=== PATIENT | male | born 1940 | race Caucasian/White ===

== ENCOUNTER 2021-09-27 12:33 | Outpatient (RCR) | payer MEDICARE, OTHER, SELFPAY | END 2021-10-10 13:25 | disposition home or self-care (01) | LOC: HO.WCC 12:33 | PROVIDERS: PCP Internal Medicine; Visit Provider Surgery | DX: D48.5 Neoplasm of uncertain behavior of skin (principal); I48.91 Unspecified atrial fibrillation; N18.6 End stage renal disease; Z99.2 Dependence on renal dialysis; G62.9 Polyneuropathy, unspecified | CPT/HCPCS: 11102; 88305; 99212 ==

== ENCOUNTER → 2021-12-06 13:43 | Outpatient (BNVA) | payer MEDICARE, OTHER, SELFPAY | PROVIDERS: PCP Internal Medicine; Visit Provider Surgery | DX: L98.9 Disorder of the skin and subcutaneous tissue, unspecified (principal); N18.6 End stage renal disease; Z99.2 Dependence on renal dialysis | CPT/HCPCS: 99202 ==

== ENCOUNTER 2022-01-08 06:35 | Day surgery (SDC) | payer MEDICARE, OTHER, SELFPAY ==
[2022-01-03 09:40] VITALS: BMI 25.6
--- NOTE | 2022-01-04 12:43 | HO.ANESPROP2 ---
Documented by User: Mira Lala NP 01/04/22 12:52 HPI - Anesthesia Eval Consult details Narrative: 81yo M for Left Excision of Buttock Skin Lesion Warfarin for afib ESRD with HD on MWF *No IV/BP on LEFT* (AV fistula) AICD in situ PMFSH Active Problems Active Problems: All Active Problems (Updated 01/03/22 @ 11:24 by Ciara Black, RN) End stage renal disease (Acute) Skin lesion (Acute) Unsteady gait (Acute) History of urostomy (Acute) History of bladder surgery (Acute) Prostate cancer (Acute) Past Medical History Medical History (Updated 01/04/22 @ 12:49 by Mira Lala NP) Ambulates with cane Arteriovenous fistula for hemodialysis in place, primary Ascending aorta dilatation Atrial fibrillation AVNRT (AV vivian re-entry tachycardia) CAD (coronary artery disease) CHF (congestive heart failure) Elevated cholesterol End stage renal disease ESRD (end stage renal disease) on dialysis GERD (gastroesophageal reflux disease) HTN (hypertension) Hx of syncope Insomnia JAIRON (obstructive sleep apnea) Prostate cancer Rheumatoid arthritis Skin lesion Unsteady gait Wears dentures Surgical History Surgical History (Updated 01/03/22 @ 11:24 by Ciara Black RN) History of bladder surgery History of urostomy Hx of abdominal surgery Hx of colonoscopy Hx of hernia repair Hx of radical prostatectomy S/P implantation of automatic cardioverter/defibrillator (AICD) Social History Social History (Updated 01/03/22 @ 09:42 by Ciara Black RN) Patient Tobacco Use Status: Never used Tobacco Are you DNR?: No Advance Directives: No Advance Directives Information Provided: Yes Advance Directives on File: No Recently lost weight without trying: No Meds Allergies Allergy/AdvReac Type Severity Reaction Status Date / Time doxycycline Allergy Difficulty Verified 01/03/22 09:35 Breathing Home Medications Medication Instructions Recorded Confirmed Last Taken Type adalimumab 40 mg/0.8 mL 40 mg SUBCUT QWEEK 12/06/21 01/03/22 Unknown History subcutaneous pen kit (Humira Pen) atorvastatin 40 mg tablet 40 mg PO BEDTIME 12/06/21 01/03/22 Unknown History cyanocobalamin (vitamin B-12) 1,000 mcg PO DAILY 12/06/21 01/03/22 Unknown History 1,000 mcg capsule fluticasone propionate 50 1 spray INTRANASAL DAILY 12/06/21 01/03/22 Unknown History mcg/actuation nasal spray,suspension gabapentin 100 mg capsule 100 mg PO BID 12/06/21 01/03/22 Unknown History ipratropium bromide 21 mcg (0.03 1 spray INTRANASAL DAILY 12/06/21 01/03/22 Unknown History %) nasal spray lactobacillus combination no.9 4 4,000 mmu cells PO DAILY 12/06/21 Unknown History billion cell capsule (Adult 50 Plus Probiotic) magnesium oxide 400 mg (241.3 mg 400 mg PO DAILY 12/06/21 01/03/22 Unknown History magnesium) tablet megestrol 20 mg tablet 20 mg PO BEDTIME 12/06/21 01/03/22 Unknown History metoprolol succinate 25 mg 12.5 mg PO DAILY 12/06/21 01/03/22 01/08/22 History tablet,extended release 24 hr omeprazole 20 mg capsule,delayed 20 mg PO BID 12/06/21 01/03/22 01/08/22 History release trazodone 100 mg tablet 100 mg PO BEDTIME 12/06/21 01/03/22 Unknown History warfarin 1 mg tablet 3.5 mg PO DAILY 12/06/21 01/03/22 Unknown History Exam Exam Date and Time: January 04, 2022 1243 Height,Weight and Vital Signs: Height 6 ft 3 in Weight 92.986 kg Pertinent Lab Results Pertinent Lab Results: 12/12/21 WBC 3.2 Hgb 10.7 Hct 33.7 Plt 534 Narrative Narrative: AICD Interr 10/2021 Nml lead and device function. One NSVT lasting 1 second. AF burden is 28.7%. EKG 04/2021 Aflutter with variable AV block Cannot r/o anterior infarct, age undetermined Assessment and Plan Assessment Anesthesia Assessment: Chart Reviewed Documented by User: Scott Flowers MD 01/08/22 08:04 [facility] Past Medical History Medical History (Updated 01/04/22 @ 12:49 by Mira Lala NP) Ambulates with cane Arteriovenous fistula for hemodialysis in place, primary Ascending aorta dilatation Atrial fibrillation AVNRT (AV vivian re-entry tachycardia) CAD (coronary artery disease) CHF (congestive heart failure) Elevated cholesterol End stage renal disease ESRD (end stage renal disease) on dialysis GERD (gastroesophageal reflux disease) HTN (hypertension) Hx of syncope Insomnia JAIRON (obstructive sleep apnea) Prostate cancer Rheumatoid arthritis Skin lesion Unsteady gait Wears dentures Family History Family history of problems with anesthesia: No Surgical History Surgical History (Updated 01/03/22 @ 11:24 by Ciara Black, [place]) History of bladder surgery History of urostomy Hx of abdominal surgery Hx of colonoscopy Hx of hernia repair Hx of radical prostatectomy S/P implantation of automatic cardioverter/defibrillator (AICD) History of Problems with Anesthesia: No Social History Social History (Updated 01/03/22 @ 09:42 by Ciara Black RN) Patient Tobacco Use Status: Never used Tobacco Are you DNR?: No Advance Directives: No Advance Directives Information Provided: Yes Advance Directives on File: No Recently lost weight without trying: No Meds Allergies Allergy/AdvReac Type Severity Reaction Status Date / Time doxycycline Allergy Difficulty Verified 01/03/22 09:35 Breathing Home Medications Medication Instructions Recorded Confirmed Last Taken Type adalimumab 40 mg/0.8 mL 40 mg SUBCUT QWEEK 12/06/21 01/03/22 Unknown History subcutaneous pen kit (Humira Pen) atorvastatin 40 mg tablet 40 mg PO BEDTIME 12/06/21 01/03/22 Unknown History cyanocobalamin (vitamin B-12) 1,000 mcg PO DAILY 12/06/21 01/03/22 Unknown History 1,000 mcg capsule fluticasone propionate 50 1 spray INTRANASAL DAILY 12/06/21 01/03/22 Unknown History mcg/actuation nasal spray,suspension gabapentin 100 mg capsule 100 mg PO BID 12/06/21 01/03/22 Unknown History ipratropium bromide 21 mcg (0.03 1 spray INTRANASAL DAILY 12/06/21 01/03/22 Unknown History %) nasal spray lactobacillus combination no.9 4 4,000 mmu cells PO DAILY 12/06/21 Unknown History billion cell capsule (Adult 50 Plus Probiotic) magnesium oxide 400 mg (241.3 mg 400 mg PO DAILY 12/06/21 01/03/22 Unknown History magnesium) tablet megestrol 20 mg tablet 20 mg PO BEDTIME 12/06/21 01/03/22 Unknown History metoprolol succinate 25 mg 12.5 mg PO DAILY 12/06/21 01/03/22 01/08/22 History tablet,extended release 24 hr omeprazole 20 mg capsule,delayed 20 mg PO BID 12/06/21 01/03/22 01/08/22 History release trazodone 100 mg tablet 100 mg PO BEDTIME 12/06/21 01/03/22 Unknown History warfarin 1 mg tablet 3.5 mg PO DAILY 12/06/21 01/03/22 Unknown History Exam Airway Mallampati Class: II TM Dist: >3cm Neck ROM: Full Denture: Lower Partial: Upper Assessment and Plan Assessment Anesthesia Assessment: Anesthesia Plan Discussed Final Anesthetic Review Family History of Problems with Anesthesia: No History of Problems with Anesthesia: No NPO: Yes ASA Class: IV Final Preanesthetic Review: No Changes in Pt Med Stat, Meds/Allgs Chart Reviewed, Consent Obtained/Reviewed and Anes Risks/Benef Reviewed Patient Risk: Intermediate Procedure Risk: Low Anesthetic Plan Anesthetic Plan: GA Disposition: Standard PACU
[2022-01-08 07:08] VITALS: BP 161/78; PULSE 79; RESP 16; TEMP 36.3; O2SAT 96
[2022-01-08 07:12] LABS: INTERNATIONAL NORM RATIO 1.2 (0.9-1.1); Prothrombin Time 13.3 SEC (9.9-13.0)
[2022-01-08] MEDS: 0.9 % Sodium Chloride 1,000 ML 50 ML IVCONT (07:20)
[2022-01-08 07:26] LABS: Anion Gap 15 (12-20); Carbon Dioxide 34 mmol/L (22-29); Chloride 93 mmol/L (96-108); Potassium 4.4 mmol/L (3.3-5.1); Sodium 138 mmol/L (135-145)
--- NOTE | 2022-01-08 07:27 | MHC.SHP ---
Pre-Procedural Eval Section A Date of Service: 01/08/22 Section B Chief Complaint: Skin Lesion Details of Present Illness: has lesion on left buttock - biopsy done by the [facility]ound [facility] shows a atypical squamous proliferation with a squamous cell carcinoma not ruled out; excision was therefore recommended Relevant Family History (Specify if Yes): No Relevant Social History: None Present Medications: see Short Stay Collaborative assessment Medical History: Significant History (prostate ca, ESRD, unsteady gait) Allergies: Allergies Allergy/AdvReac Type Severity Reaction Status Date / Time doxycycline Allergy Difficulty Verified 01/03/22 09:35 Breathing Review of Systems Sugical H&P ROS: Negative: Constitution, Cardiovascular, Respiratory, Neurological, Psychiatric, Hem-Onc, Allergic/Immunologic, Gastrointestinal, Genitourinary, Musculoskeletal, Integumentary, Endocrine and Eyes/Ears/Nose/Throat Exam Surgical H&P Exam: Normal: HEENT, Normal: Heart, Normal: Lungs, Normal: Extremities, Normal: Abdomen, Normal: Skin and Normal: Neurological Exam Comment: lesion on left buttock about 3 cm, near the cleft Plan Diagnosis/Plan: Unchanged I have reviewed the history and physical and performed a pertinent physical examination on my patient. No changes have occurred unless specified.
--- NOTE | 2022-01-08 09:43 | P.OP_ITS ---
Operative Note Operative Note Date of Service: 01/08/22 Narrative: Preop diagnosis: Skin lesion, left buttock Postop diagnosis skin lesion left buttock Procedure: Excision of skin lesion left buttock under anesthesia Surgeon: Satish Spencer MD Entry Level Manager: ELLA Vieira The patient is an 81-year-old male with an elevated, not well-defined lesion on the left buttock near the left measuring about 3 cm in widest diameter. A biopsy had been done by the Wound Clinic which showed atypical squamous proliferation. An excision had been recommended because of the possibility of a squamous cell carcinoma. He understood the technique of excision which is to be done under anesthesia. He was aware of the risks, benefits, and alternatives. He was brought to the operating room placed in right lateral decubitus position under monitored anesthesia care. The left buttock was retracted with wide tape laterally. This allowed good exposure of the lesion. This area of the skin lesions prepped and draped. Lidocaine 1% was used to infiltrate the planned line of incision. I made an incision elliptically around this lesion using blade 15. This was carried down through the full-thickness of the skin and subcutaneous fat. We mindful to include margins of grossly normal skin around the lesion. I excised this thickness skin and part of subcutaneous layer and this was sent as a specimen. I marked the lateral and superior margins. The excised area was about 4 cm long by about 3 cm wide. I appose the subcutaneous layer with Dexon 3-0 interrupted sutures. Skin closure was achieved with nylon 3-0 simple interrupted sutures. The area was infiltrated with Marcaine 0.25% for postop analgesia. Dressings were applied. The procedure was completed. The patient tolerated the procedure well. There were no complications noted. Initial and final counts of sponges and instruments were correct. Estimated blood loss about 10 cc The patent was then transferred to the recovery room with stable vital signs.
[2022-01-08 09:50] VITALS: BP 126/71; PULSE 85; RESP 16; TEMP 36.2; O2SAT 100
[2022-01-08 10:05] VITALS: BP 108/85; PULSE 74; RESP 16; TEMP 36.5; O2SAT 97
[2022-01-08] MEDS: oxyCODONE HCl Immed Release 5 MG TABLET PO (10:05)
== END 2022-01-08 10:46 ==
LOC: HO.SSS 06:35
PROVIDERS: Nurse Practitioner; PCP Internal Medicine; Visit Provider Surgery
PROC: (CPT 11406; principal; 2022-01-08 08:40)
DX: L82.1 Other seborrheic keratosis (principal); I12.0 Hypertensive chronic kidney disease with stage 5 chronic kidney disease or end stage renal disease; N18.6 End stage renal disease; Z93.6 Other artificial openings of urinary tract status; Z99.2 Dependence on renal dialysis; Z85.46 Personal history of malignant neoplasm of prostate; R26.81 Unsteadiness on feet; Z98.890 Other specified postprocedural states
CPT/HCPCS: 11406; 36415; 80051; 85610; 88305; J0690; J2250; J3010

== ENCOUNTER → 2022-01-25 10:46 | Outpatient (BNVA) | payer MEDICARE, OTHER, SELFPAY | PROVIDERS: PCP Internal Medicine; Visit Provider Surgery | DX: Z48.02 Encounter for removal of sutures (principal) | CPT/HCPCS: 99211 ==

== ENCOUNTER → 2022-02-14 10:40 | Outpatient (BNVA) | payer MEDICARE, OTHER, SELFPAY | PROVIDERS: PCP Internal Medicine; Visit Provider Surgery | DX: L98.9 Disorder of the skin and subcutaneous tissue, unspecified (principal) | CPT/HCPCS: 99212 ==

== ENCOUNTER 2022-05-20 05:00 | Outpatient (REF) | payer MEDICARE, SELFPAY | END 2022-05-20 05:01 | disposition home or self-care (01) | LOC: HO.MMNH2L 05:00 | PROVIDERS: Visit Provider Family Medicine | DX: Z13.89 Encounter for screening for other disorder (principal) ==

== ENCOUNTER 2022-08-09 13:37 | Inpatient (IN) | payer MEDICARE, OTHER, SELFPAY ==
[2022-08-09] VITALS (10 sets, daily range): BP systolic 79–114; BP diastolic 40–61; PULSE 74–105; RESP 16–22; TEMP 36.6–39.9; O2SAT 95–100; BMI 27.5
--- NOTE | ~2022-08-09 | CT_ITS ---
EXAMINATION: CT ABDOMEN AND PELVIS WITHOUT CONTRAST CLINICAL INFORMATION: Upper back wound COMPARISON: None TECHNIQUE: Multidetector volumetric imaging was performed from the superior aspect of the liver through the pubic symphysis. Sagittal and coronal reformatted images were obtained on the technologist's workstation. This CT examination was performed using dose optimization techniques as appropriate, variously including the following: *Automated exposure control *Adjustment of mA and/or kV according to patient size (this includes techniques or standardized protocols for targeted exams where dose is matched to indication/reason for exam; i.e. extremities or head) *Use of iterative reconstruction technique DLP: 937 mGy-cm FINDINGS: LUNG BASES: Bilateral basilar atelectasis. In addition density at the right base measuring 1.7 cm. A lesion would need to be considered here. Smaller density in the medial right base. Measures 1.1 cm. Again a lesion would need to be considered though these may represent areas of rounded infiltrate. LIVER, GALLBLADDER, AND BILIARY TREE: The liver is normal in size, shape, and attenuation. No focal hepatic lesion or biliary ductal dilatation is present. The gallbladder is unremarkable with no evidence of radiopaque gallstones, gallbladder wall thickening, or obvious pericholecystic inflammatory changes. PANCREAS: Unremarkable. SPLEEN: Unremarkable. ADRENAL GLANDS: Unremarkable. KIDNEYS AND URETERS: Atrophic appearing right kidney. A left kidney is not identified in the fossa. BLADDER: No evidence for a bladder GASTROINTESTINAL TRACT: The bowel pattern is nonobstructing. There is diverticulosis but no evidence for diverticulitis. Probable appendicolith but no suspicion involving the appendix for acute finding. ABDOMINAL WALL: Abdominal wall herniation in the midline containing bowel. This is not causing obstruction. This may be occurring in several areas. There is a stoma region on the right. Soft tissue density involving the subcutaneous tissue in the mid to lower lumbar region. There is a small air density associated. Cellulitis/underlying infection would need to be considered. LYMPH NODES: There is overall increased density occupying the iliac region on the left. Etiology is indeterminate. Malignancy here would need to be considered. Measures 5.7 x 3.7 cm. Otherwise no bulky adenopathy. VASCULAR: Atherosclerotic changes are noted. PELVIC VISCERA: Unremarkable. OSSEOUS STRUCTURES: No compression injury. No suspicion for a bony lesion. Degenerative change in the hips is noted. CT/CT abdomen pelvis wo IV con IMPRESSION: There are several findings here. Soft tissue engulfing and occupying the region of the left iliac region. Tumor would need to be considered here. Differential would include possibly aging hematoma versus chronic change of other etiology. Bilateral basilar lung changes. A few foci show masslike quality. Certainly underlying malignancy cannot be excluded though this may be inflammatory in etiology. Soft tissue increase in the mid to lower lumbar region subcutaneous fat region with a small air focus. Infection would need to be considered. Cellulitis. Atrophic right kidney. The left kidney is not identified. Abdominal wall herniation. This is not causing obstruction at this time Fleischner guidelines were followed.
--- NOTE | ~2022-08-09 | US_ITS ---
EXAMINATION: US VENOUS WITH DOPPLER UPPER EXTREMITY, LEFT CLINICAL INFORMATION: Bacteremia with fistula or ulceration. Check for flow on abscess COMPARISON: None TECHNIQUE: Ultrasound of the upper extremity is performed using compression sonography and color and pulse Doppler flow with assessment of augmentation of flow. There is also imaging and Doppler assessment of the jugular and subclavian veins. Spectral analysis with color-flow imaging is performed. FINDINGS: Examination is limited. The left internal jugular vein and left brachial veins are patent with normal venous waveforms. The patient's left upper extremity fistula is patent with pulsatile low-resistance flow extending from the clavicle to the level of the elbow. The remainder of the left upper extremity veins were not visualized due to patient requesting the technologist to stop the exam per report. No soft tissue fluid collection/abscess is identified. US/US venous duplex UE LT IMPRESSION: 1. Limited exam due to patient requesting the technologist to stop the exam per report. 2. The patient's left upper extremity fistula is patent with pulsatile low-resistance flow extending from the clavicle to the level of the elbow. The left internal jugular vein and left brachial veins are patent. No soft tissue fluid collection/abscess is identified.
--- NOTE | ~2022-08-09 | XR_ITS ---
EXAMINATION: XR CHEST CLINICAL INFORMATION: Altered mental status COMPARISON: None TECHNIQUE: Frontal view of the chest was obtained. FINDINGS: No priors available for comparison. There are patchy airspace opacities most notable at the right base and left lung apex suspicious for multifocal infection. Small bilateral pleural effusions are likely present. Normal heart size. Left axillary stent. Single lead pacer/AICD seen with tip projecting over the expected location of the left ventricular apex. Chronic appearing fracture of the right scapula. Degenerative changes of the right shoulder and spine. XR/XR chest 1V IMPRESSION: Patchy bilateral airspace opacities suspicious for multifocal infection. Small bilateral pleural effusions.
--- NOTE | ~2022-08-09 | CT_ITS ---
Indication: Altered mental status EXAMINATION: CT brain Axial imaging with coronal and sagittal reformatted images. This CT examination was performed using dose optimization techniques as appropriate, variously including the following: *Automated exposure control *Adjustment of mA and/or kV according to patient size (this includes techniques or standardized protocols for targeted exams where dose is matched to indication/reason for exam; i.e. extremities or head) *Use of iterative reconstruction technique. Radiation dose is 690. The brain; There is no midline shift. There is no mass effect. There is no hemorrhage. The basal cisterns appear patent. The posterior fossa is grossly within normal limits. There is no extra-axial collection. There is atrophy here scattered areas of white or ischemic change. Air-fluid level in the right maxillary sinus is noted. CT/CT head/brain wo IV con IMPRESSION: Negative acute noncontrast CT the brain. Air-fluid level in the maxillary sinus. May indicate acute sinus disease
--- NOTE | ~2022-08-09 | IR_ITS ---
PROCEDURE: IR INSERTION OF TUNNEL CATHETER CLINICAL INFORMATION: Renal failure. Decubitus ulcer and sepsis with long-term antibiotic requirement. COMPARISON: None TECHNIQUE: Procedure and risks and benefits including bleeding, infection and pneumothorax were discussed with the patient and informed consent was obtained. All elements of maximal sterile barrier technique followed including use of cap, mask, sterile gown, sterile gloves, a sterile full body drape and hand hygiene. Also followed skin preparation with 2% chlorhexidine for cutaneous antisepsis, and sterile ultrasound preparation with sterile gel and probe cover when applicable. The left neck was prepped and draped in the usual sterile fashion. The skin and soft tissues were anesthetized with 1% lidocaine plain. Using ultrasound guidance, left internal jugular vein access was obtained. Over an .018 wire, a 5-Haitian dilator was positioned in the left innominate vein. The skin and soft tissues of the left upper anterior chest were anesthetized with 1% lidocaine plain. A small incision was made. A subcutaneous tunnel from the chest to the neck incision was anesthetized with 1% lidocaine plain. Using a tunneler, a 5-Haitian single-lumen proline catheter was tunneled from the chest to the neck incision. Over an .035 wire, a 5-Haitian dilator was exchanged for a 6-Haitian peel-away sheath. Using bent wire technique, catheter length was estimated and the catheter was cut. Catheter length is 25 cm. The catheter was fed centrally through the peel-away sheath. Catheter tip is in the proximal SVC. Neck incision was closed using a 3-0 absorbable subcuticular suture. Chest incision was closed using a 3-0 absorbable mattress suture. The catheter had good blood return, flushed easily and was instilled with heparin 5 mL 100 unit per mL solution. Real-time ultrasound guidance was used to document vein patency and for needle entry. A formal ultrasound picture was recorded. Conscious sedation was provided by a registered nurse under my direct supervision. Total sedation time was 25 minutes. Patient received Versed 0.5 mg and fentanyl 25 mcg IV during the procedure. Conscious sedation was provided by registered nurse under my direct supervision using continuous hemodynamic monitoring. Fluoro time: 0.6 minutes. DAP: 61 cGy-cm2. 1 saved fluoroscopic image. FINDINGS: There is a left internal jugular proline catheter with tip projecting over the proximal SVC. IR/IR cvc insert central tunnel IMPRESSION: Left internal jugular 5-Haitian single-lumen proline catheter placement.
--- NOTE | 2022-08-09 14:02 | ECG_ITS ---
Test Reason : low bp Blood Pressure : / mmHG Vent. Rate : 098 BPM Atrial Rate : 000 BPM P-R Int : 000 ms QRS Dur : 100 ms QT Int : 376 ms P-R-T Axes : 000 -26 030 degrees QTc Int : 480 ms Atrial fibrillation Low voltage QRS Incomplete right bundle branch block Nonspecific ST and T wave abnormality Prolonged QT Nonspecific ST abnormality Lateral leads Abnormal ECG No previous ECGs available Referred By: Swetha Coronado Electronically Signed By:KYM GUADALUPE MD
--- NOTE | 2022-08-09 14:03 | ED_ITS ---
HPI - Altered Mental Status General Chief Complaint: Altered Mental Status Stated Complaint: AMS,WEKANESS Time Seen by Provider: 08/09/22 14:01 Source: patient and family Mode of arrival: EMS Limitations: altered mental status History of Present Illness HPI narrative: 81 yo male from SNF hx of ESRD on HD T TH S, prostate cancer hx of urostomy, HLD, COPD, HTN, GERD, afib on coumadin, CAD, CHF, JAIRON, RA - comes in with AMS unsure duration found to be febrile. SNF states altered mental status x 2 hours but then told RN that this isn't new. MD complaint: altered mental status Onset (ago): unknown Severity: moderate Consistency of symptoms: constant Context: recent fever Associated symptoms: other (has wound on back, cough) Related Data Home Medications Medication Instructions Recorded Confirmed adalimumab 40 mg/0.8 mL 40 mg subcut SA 12/06/21 08/09/22 subcutaneous pen kit (Humira Pen) atorvastatin 40 mg tablet 40 mg PO BEDTIME 12/06/21 08/09/22 cyanocobalamin (vitamin B-12) 1,000 mcg PO DAILY 12/06/21 08/09/22 1,000 mcg capsule gabapentin 100 mg capsule 200 mg PO BEDTIME 12/06/21 08/09/22 magnesium oxide 400 mg (241.3 mg 400 mg PO DAILY 12/06/21 08/09/22 magnesium) tablet megestrol 20 mg tablet 20 mg PO DAILY 12/06/21 08/09/22 omeprazole 20 mg capsule,delayed 20 mg PO DAILY@0630 12/06/21 08/09/22 release trazodone 100 mg tablet 150 mg PO BEDTIME 12/06/21 08/09/22 warfarin 1 mg tablet 1 mg PO DAILY@1800 12/06/21 08/09/22 acetaminophen 500 mg tablet 1,000 mg PO Q8H PRN Pain 08/09/22 08/09/22 bisacodyl 10 mg rectal suppository 10 mg SD DAILY PRN Constipation 08/09/22 08/09/22 cholecalciferol (vitamin D3) 25 25 mcg PO DAILY 08/09/22 08/09/22 mcg (1,000 unit) tablet gabapentin 100 mg capsule 1 cap PO TID 08/09/22 08/09/22 guaifenesin 100 mg/5 mL oral liquid 200 mg PO Q2H PRN Cough 08/09/22 08/09/22 guaifenesin 600 mg tablet, 600 mg PO BID 08/09/22 08/09/22 extended release 12 hr (Mucinex) lidocaine 5 % topical patch 1 patch topical DAILY 08/09/22 08/09/22 melatonin 5 mg tablet 10 mg PO BEDTIME 08/09/22 08/09/22 metoprolol tartrate 25 mg tablet 12.5 mg PO BID 08/09/22 08/09/22 midodrine 5 mg tablet 5 mg PO TID PRN Hypotension 08/09/22 08/09/22 nitroglycerin 0.4 mg sublingual 0.4 mg sublingual Q5M PRN Angina 08/09/22 08/09/22 tablet polyethylene glycol 3350 17 gram 17 g PO DAILY 08/09/22 08/09/22 oral powder packet (Miralax) sennosides 8.6 mg tablet (senna) 17.2 mg PO BID 08/09/22 08/09/22 sevelamer carbonate 800 mg tablet 800 mg PO BIDWM 08/09/22 08/09/22 vitamin B complex and vitamin C 1 cap PO DAILY 08/09/22 08/09/22 no.20-folic acid 1 mg capsule Allergies Allergy/AdvReac Type Severity Reaction Status Date / Time doxycycline Allergy Difficulty Verified 02/14/22 11:00 Breathing Review of Systems Review of Systems: ROS unable to be obtained due to altered mental status [facility] Past Medical History Attestation statement: The following information was validated with the patient. Medical History Ambulates with cane Arteriovenous fistula for hemodialysis in place, primary Ascending aorta dilatation Atrial fibrillation AVNRT (AV vivian re-entry tachycardia) CAD (coronary artery disease) CHF (congestive heart failure) Elevated cholesterol End stage renal disease ESRD (end stage renal disease) on dialysis GERD (gastroesophageal reflux disease) HTN (hypertension) Hx of syncope Insomnia JAIRON (obstructive sleep apnea) Prostate cancer Rheumatoid arthritis Skin lesion Unsteady gait Wears dentures Surgical History History of bladder surgery History of surgical removal of skin lesion History of urostomy Hx of abdominal surgery Hx of colonoscopy Hx of hernia repair Hx of radical prostatectomy S/P implantation of automatic cardioverter/defibrillator (AICD) Social History Social History Patient Tobacco Use Status: Never used Tobacco Advance Directives: No Physical Exam ED Vital Signs: Vital Signs - 24 hr 08/09/22 13:49 08/09/22 14:15 08/09/22 15:32 Temperature 103.3 F H 103.8 F H 99.2 F Pulse Rate 102 H 93 102 H Respiratory Rate 16 21 H 16 Blood Pressure 105/55 L 104/52 L 79/40 L Pulse Oximetry 99 99 96 Oxygen Delivery Method Room Air Room Air Room Air 08/09/22 16:07 08/09/22 16:27 08/09/22 16:29 Temperature 101.5 F H Pulse Rate 97 89 84 Respiratory Rate 22 H 20 Blood Pressure 89/45 L 103/43 L 103/43 L Pulse Oximetry 97 97 Oxygen Delivery Method Room Air BMI result Body Mass Index 27.5 Appearance: Alert. confused but knows his name. No acute distress. Eyes: Pupils equal, round and reactive to light. ENT: Pharynx normal. Neck: Normal inspection. Neck supple. CVS: tachycardic heart rate and rhythm. Pulses normal. Respiratory: No respiratory distress. Breath sounds coarse with mild rales at bases Abdomen: Soft and nontender. urostomy in place urine slightly cloudy Back: see picture large open draining wound above sacrum foul odor noted with surrounding erythema and edema Skin: Skin warm and dry. pale skin color. Normal skin turgor. Extremities: no edema. No calf ttp Neuro: confused No motor deficit. No sensory deficit. Course Course Course Narrative: INR 9/6 H/H stable, no active bleeding will send off type and screen and give Vit K and patient state he is a full code patient is hypotensive - CKD ESRD fluids, albumin, midodrine ordered BP slowly coming up - patient wants central line though he seems slightly confused, wants to do whatever wants if he does not respond to fluids/albumin will give 1 L BP now up to 103/43 patient's BP is responding to fluids, albumin and midodrine - discussed with pateint and now DNR/DNI signed out to Dr. Yi pending CT scan and patient waiting for sons to come to discuss pressors, seems on the fence about it MDM - Altered Mental Status MDM Narrative Medical decision making narrative: 81 yo male from SNF hx of ESRD on HD T TH S, prostate cancer hx of urostomy, HLD, COPD, HTN, GERD, afib on coumadin, CAD, CHF, JAIRON, RA presents altered with fever - labs, lactic acid cultures, presumed infection from wound on back - empiric antibiotics ordered. CT scan for depth ordered. CT head for ICH. Planned admit Lab Data Result diagrams: 08/09/22 14:33 Labs: Lab Results 08/09/22 08/09/22 08/09/22 Range/Units 14:33 14:33 14:37 WBC 23.1 H (4.8-10.8) X10*3/uL RBC 3.41 L (4.60-5.80) X10*6/uL Hgb 10.6 L (14.0-18.0) g/dl Hct 31.5 L (42.0-52.0) % MCV 92.4 (80.0-98.0) fL MCH 31.1 (27.0-33.0) pg MCHC 33.7 (31.0-36.0) g/dl RDW 16.8 H (11.0-16.0) % Plt Count 343 (160-400) X10*3/uL MPV 10.8 (9.4-12.4) fL Immature Gran % (Auto) 2.6 H (0.0-0.4) % Neut % (Auto) 86.2 H (45-73) % Lymph % (Auto) 3.5 L (20-40) % [place] % (Auto) 7.2 (2-11) % Eos % (Auto) 0.2 (0-4) % Baso % (Auto) 0.3 (0-2) % Lymph # (Auto) 0.8 L (1.2-4.9) X10*3/uL [place] # (Auto) 1.7 H (0.1-1.2) X10*3/uL Eos # (Auto) 0.0 (0.0-0.4) X10*3/uL Baso # (Auto) 0.1 (0.0-0.2) X10*3/uL Abs Immat Gran (auto) 0.60 H (0.00-0.03) X10*3/uL Absolute Neuts (auto) 20.0 H (2.0-8.3) x10*3/uL Absolute Nucleated RBC 0.000 (0.0-0.012) X10*3/uL Nucleated RBC % (auto) 0.0 (0.0-0.2) /100WBC Smear Tech's Comments VERIFIED PT 115.9 H (10.0-13.1) SEC INR 9.2 H* D (0.9-1.1) Lactic Acid (0.5-2.0) mmol/L Troponin I High Sens 35.3 H (<3.5-35.0) ng/L B-Natriuretic Peptide 537 H (<100) pg/mL Urine Color Urine Appearance Urine pH (5.0-9.0) Ur Specific [place] (1.005-1.025) Urine Protein (Neg-Trace) mg/dL Urine Glucose (UA) (Negative) mg/dL Urine Ketones (Negative) mg/dL Urine Blood (Negative) Urine Nitrite (Negative) Ur Leukocyte Esterase (Negative) Urine RBC (0-2) /HPF Urine WBC (0-5) /HPF Ur Squamous Epith Cells (0-2) /HPF Urine Bacteria (None Seen) Hyaline Casts (0-2) /LPF Influenza Type A (PCR) Influenza Type B (PCR) RSV RNA Qual (PCR) SARS-CoV-2 RNA (RT-PCR) Blood Type Antibody Screen 08/09/22 08/09/22 08/09/22 Range/Units 14:37 14:39 15:52 WBC (4.8-10.8) X10*3/uL RBC (4.60-5.80) X10*6/uL Hgb (14.0-18.0) g/dl Hct (42.0-52.0) % MCV (80.0-98.0) fL MCH (27.0-33.0) pg MCHC (31.0-36.0) g/dl RDW (11.0-16.0) % Plt Count (160-400) X10*3/uL MPV (9.4-12.4) fL Immature Gran % (Auto) (0.0-0.4) % Neut % (Auto) (45-73) % Lymph % (Auto) (20-40) % [place] % (Auto) (2-11) % Eos % (Auto) (0-4) % Baso % (Auto) (0-2) % Lymph # (Auto) (1.2-4.9) X10*3/uL [place] # (Auto) (0.1-1.2) X10*3/uL Eos # (Auto) (0.0-0.4) X10*3/uL Baso # (Auto) (0.0-0.2) X10*3/uL Abs Immat Gran (auto) (0.00-0.03) X10*3/uL Absolute Neuts (auto) (2.0-8.3) x10*3/uL Absolute Nucleated RBC (0.0-0.012) X10*3/uL Nucleated RBC % (auto) (0.0-0.2) /100WBC Smear Tech's Comments PT (10.0-13.1) SEC INR (0.9-1.1) Lactic Acid 3.1 H* (0.5-2.0) mmol/L Troponin I High Sens (<3.5-35.0) ng/L B-Natriuretic Peptide (<100) pg/mL Urine Color Urine Appearance Urine pH (5.0-9.0) Ur Specific [place] (1.005-1.025) Urine Protein (Neg-Trace) mg/dL Urine Glucose (UA) (Negative) mg/dL Urine Ketones (Negative) mg/dL Urine Blood (Negative) Urine Nitrite (Negative) Ur Leukocyte Esterase (Negative) Urine RBC (0-2) /HPF Urine WBC (0-5) /HPF Ur Squamous Epith Cells (0-2) /HPF Urine Bacteria (None Seen) Hyaline Casts (0-2) /LPF Influenza Type A (PCR) Cancelled Influenza Type B (PCR) Cancelled RSV RNA Qual (PCR) Cancelled SARS-CoV-2 RNA (RT-PCR) Cancelled Blood Type A Positive Antibody Screen NEGATIVE 08/09/22 Range/Units 15:53 WBC (4.8-10.8) X10*3/uL RBC (4.60-5.80) X10*6/uL Hgb (14.0-18.0) g/dl Hct (42.0-52.0) % MCV (80.0-98.0) fL MCH (27.0-33.0) pg MCHC (31.0-36.0) g/dl RDW (11.0-16.0) % Plt Count (160-400) X10*3/uL MPV (9.4-12.4) fL Immature Gran % (Auto) (0.0-0.4) % Neut % (Auto) (45-73) % Lymph % (Auto) (20-40) % [place] % (Auto) (2-11) % Eos % (Auto) (0-4) % Baso % (Auto) (0-2) % Lymph # (Auto) (1.2-4.9) X10*3/uL [place] # (Auto) (0.1-1.2) X10*3/uL Eos # (Auto) (0.0-0.4) X10*3/uL Baso # (Auto) (0.0-0.2) X10*3/uL Abs Immat Gran (auto) (0.00-0.03) X10*3/uL Absolute Neuts (auto) (2.0-8.3) x10*3/uL Absolute Nucleated RBC (0.0-0.012) X10*3/uL Nucleated RBC % (auto) (0.0-0.2) /100WBC Smear Tech's Comments PT (10.0-13.1) SEC INR (0.9-1.1) Lactic Acid (0.5-2.0) mmol/L Troponin I High Sens (<3.5-35.0) ng/L B-Natriuretic Peptide (<100) pg/mL Urine Color Straw Urine Appearance Cloudy Urine pH 8.0 (5.0-9.0) Ur Specific [place] 1.015 (1.005-1.025) Urine Protein Negative (Neg-Trace) mg/dL Urine Glucose (UA) Negative (Negative) mg/dL Urine Ketones Negative (Negative) mg/dL Urine Blood Small (1+) H (Negative) Urine Nitrite Negative (Negative) Ur Leukocyte Esterase Negative (Negative) Urine RBC 3-5 H (0-2) /HPF Urine WBC 0-5 (0-5) /HPF Ur Squamous Epith Cells 3-5 (0-2) /HPF Urine Bacteria 2+ (None Seen) Hyaline Casts 0-2 (0-2) /LPF Influenza Type A (PCR) Influenza Type B (PCR) RSV RNA Qual (PCR) SARS-CoV-2 RNA (RT-PCR) Blood Type Antibody Screen ECG Data ECG #1: Attestation: I personally reviewed and interpreted this ECG as follows: ECG interpretation date: 08/09/22 ECG interpretation time: 16:14 Interpretation: Rate: 98 Rhythm: afib [place]: left widened ST T wave : nonspecific, flat t waves, no RAJENDRA qTC: slightly prolonged prior studies: hx of afib The study has been interpreted contemporaneously by me. . Discharge Plan Discharge Clinical Impression: Infected open wound, Supratherapeutic INR, Multifocal pneumonia Fever Qualifiers: Fever type: unspecified Qualified Code(s): R50.9 - Fever, unspecified Leukocytosis Qualifiers: Leukocytosis type: other Qualified Code(s): D72.828 - Other elevated white blood cell count Cellulitis Qualifiers: Site of cellulitis: trunk Patient Disposition: Admitted As Inpatient Sepsis Bolus Exclusion Sepsis Bolus Exclusion This patient met severe sepsis criteria due to the following condition(s):: Hypotension In my clinical judgement the administration of 30 ml/kg of crystalloid would be detrimental to this patient due to the patient's following conditions:: Stage III or IV Chronic Kidney Disease (GFR<30) and Concern for fluid overload Replace the 30 mls/kg with (*zero amount not acceptable): *Note: One of the [place] must be documented Crystalloids amount given in mls: (rate must be at least 150cc/hr): 1,000 Colloids amount given in mls:: 200
[2022-08-09] MEDS: Acetaminophen 325 MG TABLET 650 MG PO (14:27)
[2022-08-09] MEDS: cefEPime HCl 2 GM in 0.9 % Sodium Chloride 50 ML IV (14:40)
[2022-08-09 14:47] LABS: Basophils Absolute Auto 0.1 X10*3/uL (0.0-0.2); Basophils Percent Auto 0.3 % (0-2); Eosinophils Percent Auto 0.2 % (0-4); Hematocrit 31.5 % (42.0-52.0); Hemoglobin 10.6 g/dl (14.0-18.0); Imm Gran Pct Auto 2.6 % (0.0-0.4); Lymphocytes Absolute Auto 0.8 X10*3/uL (1.2-4.9); Lymphocytes Percent Auto 3.5 % (20-40); MANUAL DIFF FLAG SCAN; Mean Corpuscular HGB Conc 33.7 g/dl (31.0-36.0); Mean Corpuscular Hemoglobin 31.1 pg (27.0-33.0); Mean Corpuscular Volume 92.4 fL (80.0-98.0); Mean Platelet Volume 10.8 fL (9.4-12.4); Monocytes Absolute Auto 1.7 X10*3/uL (0.1-1.2); Monocytes Percent Auto 7.2 % (2-11); Neutrophils Percent Auto 86.2 % (45-73); Platelet Count 343 X10*3/uL (160-400); Red Blood Count 3.41 X10*6/uL (4.60-5.80); Red Cell Distribution Width 16.8 % (11.0-16.0); SCAN SMEAR FLAG 1; White Blood Count 23.1 X10*3/uL (4.8-10.8)
[2022-08-09] MEDS: 0.9 % Sodium Chloride 500 ML IV (14:56)
[2022-08-09 15:04] LABS: Lactic Acid 3.1 mmol/L (0.5-2.0)
[2022-08-09 15:05] LABS: Prothrombin Time 115.9 SEC (10.0-13.1)
[2022-08-09 15:12] LABS: B Type Natriuretic Peptide 537 pg/mL (<100); Troponin-I High Sensitivity 35.3 ng/L (<3.5-35.0)
[2022-08-09 15:19] LABS: SLIDE REVIEW VERIFIED
[2022-08-09] MEDS: vancomycin HCL 1,500 MG in 0.9 % Sodium Chloride 500 ML 333.33 MG IV (15:24)
--- NOTE | 2022-08-09 15:25 | PHA.MEDREC ---
Pharmacy Consult ? Medication Reconciliation Pharmacy has completed the medication reconciliation. List from facility
[2022-08-09 15:31] LABS: INTERNATIONAL NORM RATIO 9.2 (0.9-1.1)
[2022-08-09 15:58] LABS: Appearance Urine Cloudy; Color Urine Straw; Glucose Urine UA Negative (Negative); Leukocyte Esterase Urine Negative (Negative); Nitrite Urine Negative (Negative); Specific Gravity - Urine 1.015 (1.005-1.025); UMIC TRIGGER UACC YES; Urine Blood Small (1+) (Negative); Urine Ketones Negative (Negative); Urine Protein Negative (Neg-Trace)
[2022-08-09] MEDS: Midodrine HCl 5 MG TABLET PO (16:04)
[2022-08-09] MEDS: 0.9 % Sodium Chloride 1,000 ML 999 ML IV (16:06)
[2022-08-09 16:14] LABS: Bacteria Urine 2+ (None Seen); WBC Urine 0-5 /HPF (0-5)
[2022-08-09 16:15] LABS: Hyaline Casts Urine 0-2 /LPF (0-2)
--- NOTE | 2022-08-09 16:27 | PC.NURSE ---
PT EKG DONE ,PATIENT WOUND ON BACK CLEAN AND DRESSING APPLY ,PATIENT LISSETTE ARE CLEAN AND PT REPOSITION ON SIDE WITH PILLOWS BEHIND BACK .PT IN ROOM WITH PT .
[2022-08-09 16:42] LABS: Reflex Lactate? Lactic Acid Added
[2022-08-09] MEDS: Albumin Human 25 % 100 ML IV (16:48)
[2022-08-09 17:00] LABS: Influenza A PCR NEGATIVE (Negative); Influenza B PCR NEGATIVE (Negative); Resp Syncy Virus RNA Qual PCR NEGATIVE (Negative); SARS COV2 PCR INHOUSE POSITIVE (Negative)
[2022-08-09 17:09] LABS: Procalcitonin 8.46 ng/mL
[2022-08-09] MEDS: Phytonadione (Vit K1) 5 MG in 0.9 % Sodium Chloride 50 ML 50.5 MG IV (18:00)
[2022-08-09 18:24] LABS: Alanine Aminotransferase 8 U/L (0-40); Albumin Level 2.1 g/dL (3.5-5.0); Alkaline Phosphatase 73 U/L (39-117); Anion Gap 18 (12-20); Aspartate Amino Transferase 24 U/L (5-37); Bilirubin Direct 0.7 mg/dL (0.0-0.5); Bilirubin Total 1.2 mg/dL (0.0-1.0); Blood Urea Nitrogen 49 mg/dL (9-16); Calcium 7.4 mg/dL (8.4-10.2); Carbon Dioxide 26 mmol/L (22-29); Chloride 96 mmol/L (96-108); Creatinine Clr Calc Pharmacy 15.9; Estimated Glomerular Filt Rate 13; Glucose Random 112 mg/dL (60-115); Lipase 14 U/L (8-78); Potassium 2.9 mmol/L (3.3-5.1); Sodium 137 mmol/L (135-145); Total Protein 4.8 g/dL (6.5-8.0)
[2022-08-09 18:45] LABS: ~Lactic Acid-LAB USE ONLY 1.3 mmol/L (0.5-2.0)
--- NOTE | 2022-08-09 22:07 | P.HPHOSP_ITS ---
History of Present Illness Date of Service: 08/09/22 Chief Complaint: Altered mentation This is a 81-year-old male coming from [facility] facility with pertinent history of end-stage renal disease on hemodialysis, prostate cancer with history of urostomy, mixed hyperlipidemia, essential hypertension, chronic obstructive pulmonary disease, permanent atrial fibrillation on Coumadin, congestive heart failure unknown ejection fraction, rheumatoid arthritis who was brought to the emergency department for evaluation of altered mentation. As per the family, patient has been altered for the last few days. He gets altered every time he gets infected as per the son. Patient was found to be febrile and sent to the ER for further evaluation. Son stated that patient was intermittently confused over the last few days and did not know where he was. He was also weak and could not participate and physical therapy. Patient is drowsy at the time of my evaluation but easily awakens to verbal stimulus. He is oriented to self and person but disoriented to place and time. In the emergency department, patient was found to be septic. His sacral decubitus wound was erythematous and with purulent drainage. Review of Systems Review of Systems: Yes Unobtainable due to mental status [facility] Medical History (Updated 08/09/22 @ 22:17 by Marcus Jaramillo MD) Ambulates with cane Arteriovenous fistula for hemodialysis in place, primary Ascending aorta dilatation Atrial fibrillation AVNRT (AV vivian re-entry tachycardia) CAD (coronary artery disease) CHF (congestive heart failure) Elevated cholesterol End stage renal disease ESRD (end stage renal disease) on dialysis GERD (gastroesophageal reflux disease) HTN (hypertension) Hx of syncope Insomnia JAIRON (obstructive sleep apnea) Prostate cancer Rheumatoid arthritis Skin lesion Unsteady gait Wears dentures Surgical History History of bladder surgery History of surgical removal of skin lesion History of urostomy Hx of abdominal surgery Hx of colonoscopy Hx of hernia repair Hx of radical prostatectomy S/P implantation of automatic cardioverter/defibrillator (AICD) Social History Patient Tobacco Use Status: Never used Tobacco Advance Directives: No Meds Allergies Allergy/AdvReac Type Severity Reaction Status Date / Time doxycycline Allergy Difficulty Verified 02/14/22 11:00 Breathing Active Medications: Current Medications Acetaminophen (Acetaminophen 325 Mg Tablet) 650 mg PO Q6H PRN PRN Reason: Pain, Mild (Pain Scale 1-3) Atorvastatin Calcium (Atorvastatin Calcium 40 Mg Tablet) 40 mg PO BEDTIME NORA Bisacodyl (Bisacodyl 10 Mg Supp.Rect) 10 mg OK DAILY PRN PRN Reason: Constipation Cyanocobalamin (Cyanocobalamin (Vitamin B-12) 1,000 Mcg Tablet) 1,000 mcg PO DAILY [facility] Guaifenesin (Guaifenesin 100 Mg/5 Ml Liquid) ml PO Q2H PRN PRN Reason: Cough Guaifenesin (Guaifenesin La 600 Mg Tab.Er.12h) 600 mg PO BID [facility] Cefepime HCl 2 gm/ Sodium (Chloride) 50 mls @ 100 mls/hr IV DAILY [facility] Magnesium Oxide (Magnesium Oxide 400 Mg Tablet) 400 mg PO DAILY [facility] Megestrol Acetate (Megestrol Acetate 20 Mg Tablet) 20 mg PO DAILY [facility] Melatonin (Melatonin 3 Mg Tablet) 6 mg PO BEDTIME PRN PRN Reason: Insomnia Midodrine (Midodrine Hcl 5 Mg Tablet) 5 mg PO TID PRN PRN Reason: Hypotension Multivitamins/Vitamin C (Multivitamin Tablet) 1 tab PO DAILY [facility] Nitroglycerin (Nitroglycerin 0.4 Mg Tab.Subl) 0.4 mg SUBLINGUAL Q5M PRN PRN Reason: Angina Non-Formulary Medication (Lidocaine) 1 patch TOPICAL DAILY [facility] Non-Formulary Medication (Melatonin) 10 mg PO BEDTIME [facility] Omeprazole (Omeprazole 20 Mg Capsule.Dr) 20 mg PO DAILY@0630 [facility] Ondansetron HCl (Ondansetron Hcl 4 Mg/2 Ml Vial) 4 mg IVPUSH Q8H PRN PRN Reason: Nausea and Vomiting Pharmacy Consult (Consult Rx Perform Med Rec) 1 each MISCELLANE ONCE PRN PRN Reason: Consult order Pharmacy Consult (Consult Rx Vancomycin Dosing) 1 each MISCELLANE DAILY PRN PRN Reason: Consult order Polyethylene Glycol (Polyethylene Glycol 3350 17 Gm Powd.Pack) 17 gm PO DAILY [facility] Senna (Sennosides 8.6 Mg Tablet) 17.2 mg PO BID [facility] Sevelamer Carbonate (Sevelamer Carbonate Tablet 800 Mg Tablet) 800 mg PO BIDWM [facility] Sodium Chloride (0.9 % Sodium Chloride Flush 3 Ml Syringe) 3 ml IVFLUSH QSHIFT [facility] Vitamin D (Cholecalciferol (Vitamin D3) 25 Mcg Tablet) 25 mcg PO DAILY [facility] Home Medications Medication Instructions Recorded Confirmed Last Taken Type adalimumab 40 mg/0.8 mL 40 mg subcut SA 12/06/21 08/09/22 Unknown History subcutaneous pen kit (Humira Pen) atorvastatin 40 mg tablet 40 mg PO BEDTIME 12/06/21 08/09/22 Unknown History cyanocobalamin (vitamin B-12) 1,000 mcg PO DAILY 12/06/21 08/09/22 Unknown History 1,000 mcg capsule gabapentin 100 mg capsule 200 mg PO BEDTIME 12/06/21 08/09/22 Unknown History magnesium oxide 400 mg (241.3 mg 400 mg PO DAILY 12/06/21 08/09/22 Unknown History magnesium) tablet megestrol 20 mg tablet 20 mg PO DAILY 12/06/21 08/09/22 Unknown History omeprazole 20 mg capsule,delayed 20 mg PO DAILY@0630 12/06/21 08/09/22 01/08/22 History release trazodone 100 mg tablet 150 mg PO BEDTIME 12/06/21 08/09/22 Unknown History warfarin 1 mg tablet 1 mg PO DAILY@1800 12/06/21 08/09/22 Unknown History acetaminophen 500 mg tablet 1,000 mg PO Q8H PRN Pain 08/09/22 08/09/22 Unknown History bisacodyl 10 mg rectal suppository 10 mg OK DAILY PRN Constipation 08/09/22 08/09/22 Unknown History cholecalciferol (vitamin D3) 25 25 mcg PO DAILY 08/09/22 08/09/22 Unknown History mcg (1,000 unit) tablet gabapentin 100 mg capsule 1 cap PO TID 08/09/22 08/09/22 Unknown History guaifenesin 100 mg/5 mL oral liquid 200 mg PO Q2H PRN Cough 08/09/22 08/09/22 Unknown History guaifenesin 600 mg tablet, 600 mg PO BID 08/09/22 08/09/22 Unknown History extended release 12 hr (Mucinex) lidocaine 5 % topical patch 1 patch topical DAILY 08/09/22 08/09/22 Unknown History melatonin 5 mg tablet 10 mg PO BEDTIME 08/09/22 08/09/22 Unknown History metoprolol tartrate 25 mg tablet 12.5 mg PO BID 08/09/22 08/09/22 Unknown History midodrine 5 mg tablet 5 mg PO TID PRN Hypotension 08/09/22 08/09/22 Unknown History nitroglycerin 0.4 mg sublingual 0.4 mg sublingual Q5M PRN Angina 08/09/22 08/09/22 Unknown History tablet polyethylene glycol 3350 17 gram 17 g PO DAILY 08/09/22 08/09/22 Unknown History oral powder packet (Miralax) sennosides 8.6 mg tablet (senna) 17.2 mg PO BID 08/09/22 08/09/22 Unknown History sevelamer carbonate 800 mg tablet 800 mg PO BIDWM 08/09/22 08/09/22 Unknown History vitamin B complex and vitamin C 1 cap PO DAILY 08/09/22 08/09/22 Unknown History no.20-folic acid 1 mg capsule Physical Exam Vital Signs and Narrative: Vital Signs: Last Vital Signs Temp 97.8 F 08/09/22 20:42 Pulse 89 08/09/22 20:42 Resp 20 08/09/22 20:42 BP 100/55 L 08/09/22 20:42 Pulse Ox 95 08/09/22 20:42 O2 Del Method 08/09/22 20:42 BMI result Body Mass Index 27.5 Elderly male lying in bed in no distress Neck supple, no JVD Irregularly irregular, S1-S2 heard Decreased breath sounds at bases Abdomen soft nontender, no guarding, no rigidity Patient is drowsy and easily awakens to verbal stimulus, oriented to self and person, disoriented to place and time, no focal motor weakness Psych: Drowsy No pedal edema Results Labs CBC and Chem 7: 08/09/22 14:33 08/09/22 15:52 Labs: Laboratory Results - last 24 hr 08/09/22 08/09/22 08/09/22 14:33 14:33 14:37 MCV 92.4 MCH 31.1 MCHC 33.7 RDW 16.8 H Plt Count 343 MPV 10.8 Immature Gran % (Auto) 2.6 H Neut % (Auto) 86.2 H Lymph % (Auto) 3.5 L [place] % (Auto) 7.2 Eos % (Auto) 0.2 Baso % (Auto) 0.3 Lymph # (Auto) 0.8 L [place] # (Auto) 1.7 H Eos # (Auto) 0.0 Baso # (Auto) 0.1 Abs Immat Gran (auto) 0.60 H Absolute Neuts (auto) 20.0 H Absolute Nucleated RBC 0.000 Nucleated RBC % (auto) 0.0 Smear Tech's Comments VERIFIED PT 115.9 H INR 9.2 H* D Anion Gap Estim Creat Clear Calc Estimated GFR Random Glucose Lactic Acid Lactic Acid F/U @ 2Hr Calcium Magnesium Total Bilirubin Direct Bilirubin AST ALT Alkaline Phosphatase Troponin I High Sens 35.3 H B-Natriuretic Peptide 537 H Total Protein Albumin Lipase Procalcitonin Urine Color Urine Appearance Urine pH Ur Specific [place] Urine Protein Urine Glucose (UA) Urine Ketones Urine Blood Urine Nitrite Ur Leukocyte Esterase Urine RBC Urine WBC Ur Squamous Epith Cells Urine Bacteria Hyaline Casts Influenza Type A (PCR) Influenza Type B (PCR) RSV RNA Qual (PCR) SARS-CoV-2 RNA (RT-PCR) Blood Type Antibody Screen 08/09/22 08/09/22 08/09/22 14:37 14:39 15:45 MCV MCH MCHC RDW Plt Count MPV Immature Gran % (Auto) Neut % (Auto) Lymph % (Auto) [place] % (Auto) Eos % (Auto) Baso % (Auto) Lymph # (Auto) [place] # (Auto) Eos # (Auto) Baso # (Auto) Abs Immat Gran (auto) Absolute Neuts (auto) Absolute Nucleated RBC Nucleated RBC % (auto) Smear Tech's Comments PT INR Anion Gap Estim Creat Clear Calc Estimated GFR Random Glucose Lactic Acid 3.1 H* Lactic Acid F/U @ 2Hr Calcium Magnesium Total Bilirubin Direct Bilirubin AST ALT Alkaline Phosphatase Troponin I High Sens B-Natriuretic Peptide Total Protein Albumin Lipase Procalcitonin Urine Color Urine Appearance Urine pH Ur Specific [place] Urine Protein Urine Glucose (UA) Urine Ketones Urine Blood Urine Nitrite Ur Leukocyte Esterase Urine RBC Urine WBC Ur Squamous Epith Cells Urine Bacteria Hyaline Casts Influenza Type A (PCR) Cancelled NEGATIVE Influenza Type B (PCR) Cancelled NEGATIVE RSV RNA Qual (PCR) Cancelled NEGATIVE SARS-CoV-2 RNA (RT-PCR) Cancelled POSITIVE A Blood Type Antibody Screen 08/09/22 08/09/22 08/09/22 15:52 15:52 15:52 MCV MCH MCHC RDW Plt Count MPV Immature Gran % (Auto) Neut % (Auto) Lymph % (Auto) [place] % (Auto) Eos % (Auto) Baso % (Auto) Lymph # (Auto) [place] # (Auto) Eos # (Auto) Baso # (Auto) Abs Immat Gran (auto) Absolute Neuts (auto) Absolute Nucleated RBC Nucleated RBC % (auto) Smear Tech's Comments PT INR Anion Gap 18 Estim Creat Clear Calc 15.9 Estimated GFR 13 Random Glucose 112 Lactic Acid Lactic Acid F/U @ 2Hr Calcium 7.4 L D Magnesium 2.0 Total Bilirubin 1.2 H Direct Bilirubin 0.7 H AST 24 ALT 8 Alkaline Phosphatase 73 D Troponin I High Sens B-Natriuretic Peptide Total Protein 4.8 L Albumin 2.1 L Lipase 14 Procalcitonin 8.46 Urine Color Urine Appearance Urine pH Ur Specific [place] Urine Protein Urine Glucose (UA) Urine Ketones Urine Blood Urine Nitrite Ur Leukocyte Esterase Urine RBC Urine WBC Ur Squamous Epith Cells Urine Bacteria Hyaline Casts Influenza Type A (PCR) Influenza Type B (PCR) RSV RNA Qual (PCR) SARS-CoV-2 RNA (RT-PCR) Blood Type A Positive Antibody Screen NEGATIVE 08/09/22 08/09/22 15:53 18:25 MCV MCH MCHC RDW Plt Count MPV Immature Gran % (Auto) Neut % (Auto) Lymph % (Auto) [place] % (Auto) Eos % (Auto) Baso % (Auto) Lymph # (Auto) [place] # (Auto) Eos # (Auto) Baso # (Auto) Abs Immat Gran (auto) Absolute Neuts (auto) Absolute Nucleated RBC Nucleated RBC % (auto) Smear Tech's Comments PT INR Anion Gap Estim Creat Clear Calc Estimated GFR Random Glucose Lactic Acid Lactic Acid F/U @ 2Hr 1.3 Calcium Magnesium Total Bilirubin Direct Bilirubin AST ALT Alkaline Phosphatase Troponin I High Sens B-Natriuretic Peptide Total Protein Albumin Lipase Procalcitonin Urine Color Straw Urine Appearance Cloudy Urine pH 8.0 Ur Specific [place] 1.015 Urine Protein Negative Urine Glucose (UA) Negative Urine Ketones Negative Urine Blood Small (1+) H Urine Nitrite Negative Ur Leukocyte Esterase Negative Urine RBC 3-5 H Urine WBC 0-5 Ur Squamous Epith Cells 3-5 Urine Bacteria 2+ Hyaline Casts 0-2 Influenza Type A (PCR) Influenza Type B (PCR) RSV RNA Qual (PCR) SARS-CoV-2 RNA (RT-PCR) Blood Type Antibody Screen Imaging Radiologist's Impressions: Impressions Chest X-Ray 08/09/22 15:12 IMPRESSION: Patchy bilateral airspace opacities suspicious for multifocal infection. Small bilateral pleural effusions. Abdomen/Pelvis CT 08/09/22 17:30 IMPRESSION: There are several findings here. Soft tissue engulfing and occupying the region of the left iliac region. Tumor would need to be considered here. Differential would include possibly aging hematoma versus chronic change of other etiology. Bilateral basilar lung changes. A few foci show masslike quality. Certainly underlying malignancy cannot be excluded though this may be inflammatory in etiology. Soft tissue increase in the mid to lower lumbar region subcutaneous fat region with a small air focus. Infection would need to be considered. Cellulitis. Atrophic right kidney. The left kidney is not identified. Abdominal wall herniation. This is not causing obstruction at this time Fleischner guidelines were followed. Head CT 08/09/22 17:30 IMPRESSION: Negative acute noncontrast CT the brain. Air-fluid level in the maxillary sinus. May indicate acute sinus disease Assessment and Plan (1) Altered mental status: Status: Acute (2) Cellulitis: Qualifiers: Site of cellulitis: trunk Status: Acute (3) Infected open wound: Status: Acute (4) Supratherapeutic INR: Status: Acute (5) End stage renal disease: Status: Acute (6) Prostate cancer: Status: Acute (7) CHF (congestive heart failure): Status: Acute (8) Atrial fibrillation: Status: Acute Plan This is a 81-year-old male coming from [facility] facility with pertinent history of end-stage renal disease on hemodialysis, prostate cancer with history of urostomy, mixed hyperlipidemia, essential hypertension, chronic obstructive pulmonary disease, permanent atrial fibrillation on Coumadin, congestive heart failure unknown ejection fraction, rheumatoid arthritis who was brought to the emergency department for evaluation of altered mentation. #. Acute metabolic encephalopathy due to: #. Sepsis secondary to lumbar cellulitis infected sacral decubitus -will admit patient and initiate empiric antibiotics (renally dosed). Monitor cultures. Lactic acid obtain. Patient resuscitated with IV crystalloids in the ER, will not administer 30 cc/kg as patient has a history of ESRD and CHF. Monitor mentation with IV antibiotics. Consulted Wound Care. May need debride ment #. Coagulopathy due to sepsis -no active bleeding. Administered vitamin K in ER. Hold warfarin and monitor INR #. COVID-19 infection -continue isolation precautions. Patient is not hypoxemic and no indication for Decadron #. Generalized weakness -in the setting of sepsis. Consulted Physical therapy to evaluate and treat #. Atrial fibrillation -holding warfarin as above #. End-stage renal disease on hemodialysis #. Secondary hyper parathyroidism due to renal disease -consulted Nephrology. Continue p.o. medications #. Elevated troponin -likely type 2 due to remind ischemia. No concern for ACS #. Elevated BNP -likely baseline as patient is ESRD. No concern for CHF exacerbation #. Type a lactic acidosis -resolved with fluid resuscitation #. Insomnia -hold trazodone as patient is currently drowsy. Also holding gabapentin #. Hypokalemia -will replete. Likely due to poor p.o. intake #. Congestive heart failure, unknown ejection fraction -compensated at the time of admission. #. Imaging with bibasilar lung foci -underlying malignancy cannot be excluded as per Radiology. Will need close follow-up DVT prophylaxis: Hold warfarin as INR is supratherapeutic Diet: Cardiac diet DNR/DNI Patient will require two night minimum hospital stay for need for IV antibiotics and monitoring mentation. Blood cultures pending and wound care consult pending. Quality Stroke Does the patient have a stroke diagnosis?: No VTE Prior VTE?: No VTE Risk Level:: Medical - moderate - high VTE Device Contraindication: Treatment Not Indicated VTE Drug Contraindication: Treatment Not Indicated
--- NOTE | 2022-08-09 22:19 | PC.NURSE ---
2200 ROUNDING DONE VS TAKEN ,PATIENT REPOSITION WITH PILLOW ON SIDE ,WARM BLANKET GIVEN ,UROSTOMY BAG EMPTY ,OUTPUT 60 ML ,PT IS ALERT AND IS TRYING TO SLEEP .
--- NOTE | 2022-08-09 22:20 | PHA.PROG ---
Admission Date/Time: Indication: Weight in k.79 kg Adjusted body weight in K.6 kg [place] body weight in K.5 kg Obesity Dosing Indication % IBW: Serum Creatinine - Last 168 Hours 08/09/22 15:52 Creatinine 4.33 H* Estimated CrCl and GFR - Last 168 Hours 08/09/22 15:52 Estim Creat Clear Calc 15.9 Estimated GFR 13 Vancomycin Loading Dose: 1500 mg x 1 Current Vancomycin Dosing Regimen: 750 mg [place] Vancomycin Monitoring using AUC goal of 400 - 600 range with trough as surrogate marker: Date and Time for next Vancomycin Level to be drawn: random 08/10/22 @1800 post dialysis Pharmacist Comments on Vancomycin Plan: pended vancomycin- pharmacy to check in am if patient is going for dialysis. Vancomycin dosing will take advantage of [employer] as a clinical decision support tool that uses Bayesian modeling to calculate individual patient's pharmacokinetic parameters and forecast the patient's drug concentration time course with the target goal AUC 24 range of 400 - 600 mg/L/hr.
[2022-08-09] MEDS: Potassium Chloride/H20 10 MEQ/100 ML PIGGYBACK 100 MEQ IV (23:34)
[2022-08-09] MEDS: Magnesium Sulfate/H2O 2 GM/50 ML PIGGYBACK IV (23:55)
[2022-08-10] VITALS (7 sets, daily range): BP systolic 92–130; BP diastolic 52–75; PULSE 86–120; RESP 16–25; TEMP 36.3–37.1; O2SAT 96–99
--- NOTE | 2022-08-10 00:04 | PC.NURSE ---
0000 rounding done vs taken pt ask for warm blanket reposition pt call sidhu within reach .
[2022-08-10] MEDS: Potassium Chloride/H20 10 MEQ/100 ML PIGGYBACK 100 MEQ IV ×3 (01:48→05:07)
--- NOTE | 2022-08-10 01:48 | PC.NURSE ---
0200 rounding done pt got moved into a hospital bed ,pt got reposition off his bottom with pillows ,barrier cream apply to bottom .
[2022-08-10] MEDS: Melatonin 3 MG TABLET 6 MG PO (02:13)
[2022-08-10] MEDS: guaiFENesin 100 MG/5 ML LIQUID PO ×3 (02:13→15:26)
--- NOTE | 2022-08-10 02:49 | PC.NURSE ---
Pt not tolerating IV potassium, pt requesting to take a break between each bag.
--- NOTE | 2022-08-10 04:13 | PC.NURSE ---
0400 ROUNDING PT AWAKE RN IN ROOM GIVING MEDS ,CALL VÁZQUEZ WITHIN REACH .
[2022-08-10] MEDS: traMADoL HCL 50 MG TABLET 25 MG PO (05:35)
--- NOTE | 2022-08-10 05:53 | PC.NURSE ---
0600 rounding done ,vs taken and i & o done ,patient is awake does not want to be reposition ,call sidhu is with in reach .
[2022-08-10] MEDS: Omeprazole 20 MG CAPSULE.DR PO (05:57)
[2022-08-10 06:17] LABS: Basophils Absolute Auto 0.1 X10*3/uL (0.0-0.2); Basophils Percent Auto 0.4 % (0-2); Eosinophils Percent Auto 0.1 % (0-4); Hematocrit 28.4 % (42.0-52.0); Hemoglobin 9.7 g/dl (14.0-18.0); Imm Gran Abs Auto 0.36 X10*3/uL (0.00-0.03); Imm Gran Pct Auto 1.6 % (0.0-0.4); Lymphocytes Absolute Auto 1.2 X10*3/uL (1.2-4.9); Lymphocytes Percent Auto 5.1 % (20-40); MANUAL DIFF FLAG SCAN; Mean Corpuscular HGB Conc 34.2 g/dl (31.0-36.0); Mean Corpuscular Hemoglobin 30.8 pg (27.0-33.0); Mean Corpuscular Volume 90.2 fL (80.0-98.0); Mean Platelet Volume 10.9 fL (9.4-12.4); Monocytes Absolute Auto 1.4 X10*3/uL (0.1-1.2); Neutrophils Absolute Auto 20.2 x10*3/uL (2.0-8.3); Neutrophils Percent Auto 86.8 % (45-73); Platelet Count 315 X10*3/uL (160-400); Red Blood Count 3.15 X10*6/uL (4.60-5.80); Red Cell Distribution Width 16.8 % (11.0-16.0); SCAN SMEAR FLAG 1; White Blood Count 23.2 X10*3/uL (4.8-10.8)
[2022-08-10 06:26] LABS: INTERNATIONAL NORM RATIO 1.6 (0.9-1.1); Prothrombin Time 18.1 SEC (10.0-13.1)
[2022-08-10 06:29] LABS: SLIDE REVIEW VERIFIED
[2022-08-10 06:31] LABS: Magnesium 2.5 mg/dL (1.6-2.6)
[2022-08-10 06:32] LABS: Estimated Glomerular Filt Rate 11
[2022-08-10 06:33] LABS: Anion Gap 18 (12-20); Blood Urea Nitrogen 55 mg/dL (9-16); Calcium 8.2 mg/dL (8.4-10.2); Carbon Dioxide 25 mmol/L (22-29); Chloride 96 mmol/L (96-108); Creatinine Clr Calc Pharmacy 14.1; Estimated Glomerular Filt Rate 11; Glucose Random 99 mg/dL (60-115); Potassium 3.9 mmol/L (3.3-5.1); Sodium 135 mmol/L (135-145)
--- NOTE | 2022-08-10 08:41 | P.CONNP_ITS ---
History of Present Illness Reason for Consult Consult date: 08/10/22 Reason for consult: ESRD on dialysis Chief Complaint Chief complaint: Altered Mental Status History of Present Illness Narrative: Chief Complaint: Altered mentation This is a 81-year-old male coming from group home facility with pertinent history of: end-stage renal disease on hemodialysis TTHS at [facility] , prostate cancer with history of urostomy, mixed hyperlipidemia, essential hypertension, chronic obstructive pulmonary disease, permanent atrial fibrillation on Coumadin, congestive heart failure unknown ejection fraction, rheumatoid arthritis In the emergency department, patient was found to be septic.? His sacral decubitus wound was erythematous and with purulent drainage Review of Systems Review of Systems ROS unable to be obtained due to altered mental status Yes Unobtainable due to mental status PMFSH Past Medical History Medical History (Updated 08/09/22 @ 22:17 by Marcus Jaramillo MD) Ambulates with cane Arteriovenous fistula for hemodialysis in place, primary Ascending aorta dilatation Atrial fibrillation AVNRT (AV vivian re-entry tachycardia) CAD (coronary artery disease) CHF (congestive heart failure) Elevated cholesterol End stage renal disease ESRD (end stage renal disease) on dialysis GERD (gastroesophageal reflux disease) HTN (hypertension) Hx of syncope Insomnia JAIRON (obstructive sleep apnea) Prostate cancer Rheumatoid arthritis Skin lesion Unsteady gait Wears dentures Surgical History Surgical History History of bladder surgery History of surgical removal of skin lesion History of urostomy Hx of abdominal surgery Hx of colonoscopy Hx of hernia repair Hx of radical prostatectomy S/P implantation of automatic cardioverter/defibrillator (AICD) Social History Social History Patient Tobacco Use Status: Never used Tobacco Advance Directives: No Meds Allergies Allergy/AdvReac Type Severity Reaction Status Date / Time doxycycline Allergy Difficulty Verified 02/14/22 11:00 Breathing Active Medications: Current Medications Acetaminophen (Acetaminophen 325 Mg Tablet) 650 mg PO Q6H PRN PRN Reason: Pain, Mild (Pain Scale 1-3) Atorvastatin Calcium (Atorvastatin Calcium 40 Mg Tablet) 40 mg PO BEDTIME NORA Bisacodyl (Bisacodyl 10 Mg Supp.Rect) 10 mg [place] DAILY PRN PRN Reason: Constipation Cyanocobalamin (Cyanocobalamin (Vitamin B-12) 1,000 Mcg Tablet) 1,000 mcg PO DAILY [facility] Guaifenesin (Guaifenesin 100 Mg/5 Ml Liquid) 5 ml PO Q2H PRN PRN Reason: Cough Last Admin: 08/10/22 05:56 Dose: 5 ml Guaifenesin (Guaifenesin La 600 Mg Tab.Er.12h) 600 mg PO BID [facility] Vancomycin HCl 750 mg/ Sodium (Chloride) 265 mls @ 265 mls/hr IV TUTHSA@2000 [facility] Cefepime HCl 1 gm/ Sodium (Chloride) 50 mls @ 100 mls/hr IV Q24H [facility] Lidocaine (Lidocaine 4 % Patch Adh..Patch) 1 patch TRANSDERMA DAILY [facility] Magnesium Oxide (Magnesium Oxide 400 Mg Tablet) 400 mg PO DAILY [facility] Megestrol Acetate (Megestrol Acetate 20 Mg Tablet) 20 mg PO DAILY [facility] Melatonin (Melatonin 3 Mg Tablet) 6 mg PO BEDTIME PRN PRN Reason: Insomnia Last Admin: 08/10/22 02:13 Dose: 6 mg Melatonin (Melatonin 3 Mg Tablet) 9 mg PO BEDTIME [facility] Midodrine (Midodrine Hcl 5 Mg Tablet) 5 mg PO TIDWM PRN PRN Reason: HYPOTENSION Multivitamins/Vitamin C (Multivitamin Tablet) 1 tab PO DAILY [facility] Nitroglycerin (Nitroglycerin 0.4 Mg Tab.Subl) 0.4 mg SUBLINGUAL Q5M PRN PRN Reason: Angina Omeprazole (Omeprazole 20 Mg Capsule.Dr) 20 mg PO DAILY@0630 [facility] Last Admin: 08/10/22 05:57 Dose: 20 mg Ondansetron HCl (Ondansetron Hcl 4 Mg/2 Ml Vial) 4 mg IVPUSH Q8H PRN PRN Reason: Nausea and Vomiting Pharmacy Consult (Consult Rx Perform Med Rec) 1 each MISCELLANE ONCE PRN PRN Reason: Consult order Pharmacy Consult (Consult Rx Vancomycin Dosing) 1 each MISCELLANE DAILY PRN PRN Reason: Consult order Polyethylene Glycol (Polyethylene Glycol 3350 17 Gm Powd.Pack) 17 gm PO DAILY [facility] Senna (Sennosides 8.6 Mg Tablet) 17.2 mg PO BID [facility] Sevelamer Carbonate (Sevelamer Carbonate Tablet 800 Mg Tablet) 800 mg PO BIDWM [facility] Sodium Chloride (0.9 % Sodium Chloride Flush 3 Ml Syringe) 3 ml IVFLUSH QSHIFT [facility] Last Admin: 08/10/22 02:03 Dose: Not Given Vitamin D (Cholecalciferol (Vitamin D3) 25 Mcg Tablet) 25 mcg PO DAILY [facility] Home Medications Medication Instructions Recorded Confirmed Last Taken Type adalimumab 40 mg/0.8 mL 40 mg subcut SA 12/06/21 08/09/22 Unknown History subcutaneous pen kit (Humira Pen) atorvastatin 40 mg tablet 40 mg PO BEDTIME 12/06/21 08/09/22 Unknown History cyanocobalamin (vitamin B-12) 1,000 mcg PO DAILY 12/06/21 08/09/22 Unknown History 1,000 mcg capsule gabapentin 100 mg capsule 200 mg PO BEDTIME 12/06/21 08/09/22 Unknown History magnesium oxide 400 mg (241.3 mg 400 mg PO DAILY 12/06/21 08/09/22 Unknown History magnesium) tablet megestrol 20 mg tablet 20 mg PO DAILY 12/06/21 08/09/22 Unknown History omeprazole 20 mg capsule,delayed 20 mg PO DAILY@0630 12/06/21 08/09/22 01/08/22 History release trazodone 100 mg tablet 150 mg PO BEDTIME 12/06/21 08/09/22 Unknown History warfarin 1 mg tablet 1 mg PO DAILY@1800 12/06/21 08/09/22 Unknown History acetaminophen 500 mg tablet 1,000 mg PO Q8H PRN Pain 08/09/22 08/09/22 Unknown History bisacodyl 10 mg rectal suppository 10 mg [place] DAILY PRN Constipation 08/09/22 1 Unknown History cholecalciferol (vitamin D3) 25 25 mcg PO DAILY 08/09/22 08/09/22 Unknown History mcg (1,000 unit) tablet gabapentin 100 mg capsule 1 cap PO TID 08/09/22 08/09/22 Unknown History guaifenesin 100 mg/5 mL oral liquid 200 mg PO Q2H PRN Cough 08/09/22 08/09/22 Unknown History guaifenesin 600 mg tablet, 600 mg PO BID 08/09/22 08/09/22 Unknown History extended release 12 hr (Mucinex) lidocaine 5 % topical patch 1 patch topical DAILY 08/09/22 08/09/22 Unknown History melatonin 5 mg tablet 10 mg PO BEDTIME 08/09/22 08/09/22 Unknown History metoprolol tartrate 25 mg tablet 12.5 mg PO BID 08/09/22 08/09/22 Unknown History midodrine 5 mg tablet 5 mg PO TID PRN Hypotension 08/09/22 08/09/22 Unknown History nitroglycerin 0.4 mg sublingual 0.4 mg sublingual Q5M PRN Angina 08/09/22 08/09/22 Unknown History tablet polyethylene glycol 3350 17 gram 17 g PO DAILY 08/09/22 08/09/22 Unknown History oral powder packet (Miralax) sennosides 8.6 mg tablet (senna) 17.2 mg PO BID 08/09/22 08/09/22 Unknown History sevelamer carbonate 800 mg tablet 800 mg PO BIDWM 08/09/22 08/09/22 Unknown History vitamin B complex and vitamin C 1 cap PO DAILY 08/09/22 08/09/22 Unknown History no.20-folic acid 1 mg capsule Physical Exam Vital Signs: Last Vital Signs Temp 98.4 F 08/10/22 05:52 Pulse 86 08/10/22 05:52 Resp 16 08/10/22 05:52 BP 130/75 08/10/22 05:52 Pulse Ox 99 08/10/22 05:52 O2 Del Method 08/10/22 05:52 BMI result Body Mass Index 27.5 Results Lab Results Result Diagrams: 08/10/22 06:07 08/10/22 06:07 Lab results: Chemistry 08/09/22 08/10/22 08/10/22 15:52 06:07 06:07 Sodium 137 135 Potassium 2.9 L D 3.9 D Carbon Dioxide 26 25 BUN 49 H 55 H Creatinine 4.33 H* 4.92 H* 4.91 H* Calcium 7.4 L D 8.2 L D Hematology 08/09/22 08/10/22 14:33 06:07 WBC 23.1 H 23.2 H Hgb 10.6 L 9.7 L Plt Count 343 315 Urinalysis 08/09/22 15:53 Urine Color Straw Urine Appearance Cloudy Urine pH 8.0 Ur Specific [place] 1.015 Urine Protein Negative Urine Glucose (UA) Negative Urine Ketones Negative Urine Blood Small (1+) H Urine Nitrite Negative Ur Leukocyte Esterase Negative Urine RBC 3-5 H Urine WBC 0-5 Ur Squamous Epith Cells 3-5 Hyaline Casts 0-2 Assessment and Plan (1) Altered mental status: Status: Acute (2) Cellulitis: Qualifiers: Site of cellulitis: trunk Status: Acute (3) Infected open wound: Status: Acute (4) Supratherapeutic INR: Status: Acute (5) End stage renal disease: Status: Acute TTHS dialysis pt seen on dialysis today (6) Prostate cancer: Status: Acute (7) CHF (congestive heart failure): Status: Acute (8) Atrial fibrillation: Status: Acute Plan This is a 81-year-old male coming from group home facility with pertinent history of end-stage renal disease on hemodialysis, prostate cancer with history of urostomy, mixed hyperlipidemia, essential hypertension, chronic obstructive pulmonary disease, permanent atrial fibrillation on Coumadin, congestive heart failure unknown ejection fraction, rheumatoid arthritis who was brought to the emergency department for evaluation of altered mentation. #. Acute metabolic encephalopathy due to: #. Sepsis secondary to lumbar cellulitis infected sacral decubitus -will admit patient and initiate empiric antibiotics (renally dosed). Monitor cultures. Lactic acid obtain. Patient resuscitated with IV crystalloids in the ER, will not administer 30 cc/kg as patient has a history of ESRD and CHF. Monitor mentation with IV antibiotics. Consulted Wound Care. May need debridement #. Coagulopathy due to sepsis -no active bleeding. Administered vitamin K in ER. Hold warfarin and monitor INR #. COVID-19 infection -continue isolation precautions. Patient is not hypoxemic and no indication for Decadron #. Generalized weakness -in the setting of sepsis. Consulted Physical therapy to evaluate and treat #. Atrial fibrillation -holding warfarin as above #. End-stage renal disease on hemodialysis #. Secondary hyper parathyroidism due to renal disease -consulted Nephrology. Continue p.o. medications #. Elevated troponin -likely type 2 due to remind ischemia. No concern for ACS #. Elevated BNP -likely baseline as patient is ESRD. No concern for CHF exacerbation #. Type a lactic acidosis -resolved with fluid resuscitation #. Insomnia -hold trazodone as patient is currently drowsy. Also holding gabapentin #. Hypokalemia -will replete. Likely due to poor p.o. intake #. Congestive heart failure, unknown ejection fraction -compensated at the time of admission. #. Imaging with bibasilar lung foci -underlying malignancy cannot be excluded as per Radiology. Will need close follow-up DVT prophylaxis: Hold warfarin as INR is supratherapeutic Diet: Cardiac diet DNR/DNI Patient will require two night minimum hospital stay for need for IV antibiotics and monitoring mentation. Blood cultures pending and wound care consult pending. Procedures Date of Service Date of Service: 08/10/22
[2022-08-10] MEDS: polyethylene glycoL 3350 17 GM POWD.PACK PO (09:11)
[2022-08-10] MEDS: Multivitamin TABLET 1 TAB PO (09:11)
[2022-08-10] MEDS: Lidocaine 4 % Patch ADH..PATCH 1 PATCH TRANSDERMA (09:11)
[2022-08-10] MEDS: Magnesium Oxide 400 MG TABLET PO (09:12)
[2022-08-10] MEDS: Cholecalciferol (Vitamin D3) 25 MCG TABLET PO (09:12)
[2022-08-10] MEDS: guaiFENesin LA 600 MG TAB.ER.12H PO ×2 (09:12→22:44)
[2022-08-10] MEDS: Cyanocobalamin (Vitamin B-12) 1,000 MCG TABLET 1000 MCG PO (09:12)
[2022-08-10] MEDS: Sennosides 8.6 MG TABLET 17.2 MG PO ×2 (09:12→21:13)
[2022-08-10 09:30] LABS: INTERNATIONAL NORM RATIO 1.5 (0.9-1.1); Prothrombin Time 17.3 SEC (10.0-13.1)
--- NOTE | 2022-08-10 10:13 | PC.NURSE ---
PT CURRENTLY IN DIALYSIS
--- NOTE | 2022-08-10 14:33 | P.PNIM_ITS ---
Subjective Subjective Date of Service: 08/10/22 Interval History: Patient seen and examined at bedside. He is more alert to self and oriented. He knows where he is, reports that he has this also on his back for a while, has been treated with staff putting stuff on his back. Patient denies any chest pain, no shortness of breath, no abdominal pain nausea or vomiting, no diarrhea constipation, no urinary symptoms and no lower extremity edema. Review of Systems Review of Systems: Yes all other systems are reviewed and are negative Physical Exam Vital Signs: Vital Signs: Last Vital Signs Temp 97.7 F 08/10/22 14:10 Pulse 99 08/10/22 14:10 Resp 24 H 08/10/22 14:10 BP 98/55 L 08/10/22 14:10 Pulse Ox 98 08/10/22 14:10 O2 Del Method 08/10/22 14:10 BMI result Body Mass Index 27.5 Const: Other: Patient alert, oriented to self and place. Answers questions appropriately Resp: Other: Lungs clear to auscultations bilaterally Skin: Other: Patient states that he cannot moved to the side for me to examine his back Extrem: Other: No lower extremity edema Objective Data Active Medications Acetaminophen (Acetaminophen 325 Mg Tablet) 650 mg PO Q6H PRN PRN Reason: Pain, Mild (Pain Scale 1-3) Atorvastatin Calcium (Atorvastatin Calcium 40 Mg Tablet) 40 mg PO BEDTIME [facility] Bisacodyl (Bisacodyl 10 Mg Supp.Rect) 10 mg AK DAILY PRN PRN Reason: Constipation Cyanocobalamin (Cyanocobalamin (Vitamin B-12) 1,000 Mcg Tablet) 1,000 mcg PO DAILY [facility] Last Admin: 08/10/22 09:12 Dose: 1,000 mcg Documented By: DERICK Guaifenesin (Guaifenesin 100 Mg/5 Ml Liquid) 5 ml PO Q2H PRN PRN Reason: Cough Last Admin: 08/10/22 05:56 Dose: 5 ml Documented By: FRANCISCO Guaifenesin (Guaifenesin La 600 Mg Tab.Er.12h) 600 mg PO BID [facility] Last Admin: 08/10/22 09:12 Dose: 600 mg Documented By: DERICK Vancomycin HCl 750 mg/ Sodium (Chloride) 265 mls @ 265 mls/hr IV TUTHSA@1999 [facility] Cefepime HCl 1 gm/ Sodium (Chloride) 50 mls @ 100 mls/hr IV Q24H [facility] Lidocaine (Lidocaine 4 % Patch Adh..Patch) 1 patch TRANSDERMA DAILY [facility] Last Admin: 08/10/22 09:11 Dose: 1 patch Documented By: DERICK Magnesium Oxide (Magnesium Oxide 400 Mg Tablet) 400 mg PO DAILY [facility] Last Admin: 08/10/22 09:12 Dose: 400 mg Documented By: DERICK Megestrol Acetate (Megestrol Acetate 20 Mg Tablet) 20 mg PO DAILY [facility] Last Admin: 08/10/22 10:04 Dose: Not Given Documented By: DERICK Non-Admin Reason: Off unit: Dialysis Melatonin (Melatonin 3 Mg Tablet) 6 mg PO BEDTIME PRN PRN Reason: Insomnia Last Admin: 08/10/22 02:13 Dose: 6 mg Documented By: FRANCISCO Melatonin (Melatonin 3 Mg Tablet) 9 mg PO BEDTIME [facility] Metoprolol Tartrate (Metoprolol Tartrate 12.5 Mg Halftab) 12.5 mg PO BID [facility]; Protocol Midodrine (Midodrine Hcl 5 Mg Tablet) 5 mg PO TIDWM PRN PRN Reason: HYPOTENSION Multivitamins/Vitamin C (Multivitamin Tablet) 1 tab PO DAILY [facility] Last Admin: 08/10/22 09:11 Dose: 1 tab Documented By: DERICK Nitroglycerin (Nitroglycerin 0.4 Mg Tab.Subl) 0.4 mg SUBLINGUAL Q5M PRN PRN Reason: Angina Omeprazole (Omeprazole 20 Mg Capsule.Dr) 20 mg PO DAILY@0630 [facility] Last Admin: 08/10/22 05:57 Dose: 20 mg Documented By: FRACNISCO Ondansetron HCl (Ondansetron Hcl 4 Mg/2 Ml Vial) 4 mg IVPUSH Q8H PRN PRN Reason: Nausea and Vomiting Pharmacy Consult (Consult Rx Perform Med Rec) 1 each MISCELLANE ONCE PRN PRN Reason: Consult order Pharmacy Consult (Consult Rx Vancomycin Dosing) 1 each MISCELLANE DAILY PRN PRN Reason: Consult order Polyethylene Glycol (Polyethylene Glycol 3350 17 Gm Powd.Pack) 17 gm PO DAILY [facility] Last Admin: 08/10/22 09:11 Dose: 17 gm Documented By: DERICK Senna (Sennosides 8.6 Mg Tablet) 17.2 mg PO BID [facility] Last Admin: 08/10/22 09:12 Dose: 17.2 mg Documented By: DERICK Sevelamer Carbonate (Sevelamer Carbonate Tablet 800 Mg Tablet) 800 mg PO BIDWM [facility] Last Admin: 08/10/22 10:04 Dose: Not Given Documented By: DERICK Non-Admin Reason: Off unit: Dialysis Sodium Chloride (0.9 % Sodium Chloride Flush 3 Ml Syringe) 3 ml IVFLUSH QSHIFT [facility] Last Admin: 08/10/22 10:04 Dose: Not Given Documented By: DERICK Non-Admin Reason: Given in Dialysis Vitamin D (Cholecalciferol (Vitamin D3) 25 Mcg Tablet) 25 mcg PO DAILY [facility] Last Admin: 08/10/22 09:12 Dose: 25 mcg Documented By: DERICK Warfarin Sodium (Warfarin Sodium 1 Mg Tablet) 1 mg PO DAILY@1800 [facility] Labs CBC & Chem 7: 08/10/22 06:07 08/10/22 06:07 Labs: Laboratory Results - last 24 hr 08/09/22 08/09/22 08/09/22 14:33 14:33 14:37 MCV 92.4 MCH 31.1 MCHC 33.7 RDW 16.8 H Plt Count 343 MPV 10.8 Immature Gran % (Auto) 2.6 H Neut % (Auto) 86.2 H Lymph % (Auto) 3.5 L [place] % (Auto) 7.2 Eos % (Auto) 0.2 Baso % (Auto) 0.3 Lymph # (Auto) 0.8 L [place] # (Auto) 1.7 H Eos # (Auto) 0.0 Baso # (Auto) 0.1 Abs Immat Gran (auto) 0.60 H Absolute Neuts (auto) 20.0 H Absolute Nucleated RBC 0.000 Nucleated RBC % (auto) 0.0 Smear Tech's Comments VERIFIED PT 115.9 H INR 9.2 H* D Anion Gap Estim Creat Clear Calc Estimated GFR Random Glucose Lactic Acid Lactic Acid F/U @ 2Hr Calcium Magnesium Total Bilirubin Direct Bilirubin AST ALT Alkaline Phosphatase Troponin I High Sens 35.3 H B-Natriuretic Peptide 537 H Total Protein Albumin Lipase Procalcitonin Urine Color Urine Appearance Urine pH Ur Specific [place] Urine Protein Urine Glucose (UA) Urine Ketones Urine Blood Urine Nitrite Ur Leukocyte Esterase Urine RBC Urine WBC Ur Squamous Epith Cells Urine Bacteria Hyaline Casts Influenza Type A (PCR) Influenza Type B (PCR) RSV RNA Qual (PCR) SARS-CoV-2 RNA (RT-PCR) Blood Type Antibody Screen 08/09/22 08/09/22 08/09/22 14:37 14:39 15:45 MCV MCH MCHC RDW Plt Count MPV Immature Gran % (Auto) Neut % (Auto) Lymph % (Auto) [place] % (Auto) Eos % (Auto) Baso % (Auto) Lymph # (Auto) [place] # (Auto) Eos # (Auto) Baso # (Auto) Abs Immat Gran (auto) Absolute Neuts (auto) Absolute Nucleated RBC Nucleated RBC % (auto) Smear Tech's Comments PT INR Anion Gap Estim Creat Clear Calc Estimated GFR Random Glucose Lactic Acid 3.1 H* Lactic Acid F/U @ 2Hr Calcium Magnesium Total Bilirubin Direct Bilirubin AST ALT Alkaline Phosphatase Troponin I High Sens B-Natriuretic Peptide Total Protein Albumin Lipase Procalcitonin Urine Color Urine Appearance Urine pH Ur Specific [place] Urine Protein Urine Glucose (UA) Urine Ketones Urine Blood Urine Nitrite Ur Leukocyte Esterase Urine RBC Urine WBC Ur Squamous Epith Cells Urine Bacteria Hyaline Casts Influenza Type A (PCR) Cancelled NEGATIVE Influenza Type B (PCR) Cancelled NEGATIVE RSV RNA Qual (PCR) Cancelled NEGATIVE SARS-CoV-2 RNA (RT-PCR) Cancelled POSITIVE A Blood Type Antibody Screen 08/09/22 08/09/22 08/09/22 15:52 15:52 15:52 MCV MCH MCHC RDW Plt Count MPV Immature Gran % (Auto) Neut % (Auto) Lymph % (Auto) [place] % (Auto) Eos % (Auto) Baso % (Auto) Lymph # (Auto) [place] # (Auto) Eos # (Auto) Baso # (Auto) Abs Immat Gran (auto) Absolute Neuts (auto) Absolute Nucleated RBC Nucleated RBC % (auto) Smear Tech's Comments PT INR Anion Gap 18 Estim Creat Clear Calc 15.9 Estimated GFR 13 Random Glucose 112 Lactic Acid Lactic Acid F/U @ 2Hr Calcium 7.4 L D Magnesium 2.0 Total Bilirubin 1.2 H Direct Bilirubin 0.7 H AST 24 ALT 8 Alkaline Phosphatase 73 D Troponin I High Sens B-Natriuretic Peptide Total Protein 4.8 L Albumin 2.1 L Lipase 14 Procalcitonin 8.46 Urine Color Urine Appearance Urine pH Ur Specific [place] Urine Protein Urine Glucose (UA) Urine Ketones Urine Blood Urine Nitrite Ur Leukocyte Esterase Urine RBC Urine WBC Ur Squamous Epith Cells Urine Bacteria Hyaline Casts Influenza Type A (PCR) Influenza Type B (PCR) RSV RNA Qual (PCR) SARS-CoV-2 RNA (RT-PCR) Blood Type A Positive Antibody Screen NEGATIVE 08/09/22 08/09/22 08/10/22 15:53 18:25 06:07 MCV MCH MCHC RDW Plt Count MPV Immature Gran % (Auto) Neut % (Auto) Lymph % (Auto) [place] % (Auto) Eos % (Auto) Baso % (Auto) Lymph # (Auto) [place] # (Auto) Eos # (Auto) Baso # (Auto) Abs Immat Gran (auto) Absolute Neuts (auto) Absolute Nucleated RBC Nucleated RBC % (auto) Smear Tech's Comments PT INR Anion Gap Estim Creat Clear Calc Estimated GFR Random Glucose Lactic Acid Lactic Acid F/U @ 2Hr 1.3 Calcium Magnesium 2.5 Total Bilirubin Direct Bilirubin AST ALT Alkaline Phosphatase Troponin I High Sens B-Natriuretic Peptide Total Protein Albumin Lipase Procalcitonin Urine Color Straw Urine Appearance Cloudy Urine pH 8.0 Ur Specific [place] 1.015 Urine Protein Negative Urine Glucose (UA) Negative Urine Ketones Negative Urine Blood Small (1+) H Urine Nitrite Negative Ur Leukocyte Esterase Negative Urine RBC 3-5 H Urine WBC 0-5 Ur Squamous Epith Cells 3-5 Urine Bacteria 2+ Hyaline Casts 0-2 Influenza Type A (PCR) Influenza Type B (PCR) RSV RNA Qual (PCR) SARS-CoV-2 RNA (RT-PCR) Blood Type Antibody Screen 08/10/22 08/10/22 08/10/22 06:07 06:07 06:07 MCV 90.2 MCH 30.8 MCHC 34.2 RDW 16.8 H Plt Count 315 MPV 10.9 Immature Gran % (Auto) 1.6 H Neut % (Auto) 86.8 H Lymph % (Auto) 5.1 L [place] % (Auto) 6.0 Eos % (Auto) 0.1 Baso % (Auto) 0.4 Lymph # (Auto) 1.2 [place] # (Auto) 1.4 H Eos # (Auto) 0.0 Baso # (Auto) 0.1 Abs Immat Gran (auto) 0.36 H Absolute Neuts (auto) 20.2 H Absolute Nucleated RBC 0.000 Nucleated RBC % (auto) 0.0 Smear Tech's Comments VERIFIED PT 18.1 H INR 1.6 H D Anion Gap Estim Creat Clear Calc 14.0 Estimated GFR 11 Random Glucose Lactic Acid Lactic Acid F/U @ 2Hr Calcium Magnesium Total Bilirubin Direct Bilirubin AST ALT Alkaline Phosphatase Troponin I High Sens B-Natriuretic Peptide Total Protein Albumin Lipase Procalcitonin Urine Color Urine Appearance Urine pH Ur Specific [place] Urine Protein Urine Glucose (UA) Urine Ketones Urine Blood Urine Nitrite Ur Leukocyte Esterase Urine RBC Urine WBC Ur Squamous Epith Cells Urine Bacteria Hyaline Casts Influenza Type A (PCR) Influenza Type B (PCR) RSV RNA Qual (PCR) SARS-CoV-2 RNA (RT-PCR) Blood Type Antibody Screen 08/10/22 08/10/22 06:07 09:18 MCV MCH MCHC RDW Plt Count MPV Immature Gran % (Auto) Neut % (Auto) Lymph % (Auto) [place] % (Auto) Eos % (Auto) Baso % (Auto) Lymph # (Auto) [place] # (Auto) Eos # (Auto) Baso # (Auto) Abs Immat Gran (auto) Absolute Neuts (auto) Absolute Nucleated RBC Nucleated RBC % (auto) Smear Tech's Comments PT 17.3 H INR 1.5 H Anion Gap 18 Estim Creat Clear Calc 14.1 Estimated GFR 11 Random Glucose 99 Lactic Acid Lactic Acid F/U @ 2Hr Calcium 8.2 L D Magnesium Total Bilirubin Direct Bilirubin AST ALT Alkaline Phosphatase Troponin I High Sens B-Natriuretic Peptide Total Protein Albumin Lipase Procalcitonin Urine Color Urine Appearance Urine pH Ur Specific [place] Urine Protein Urine Glucose (UA) Urine Ketones Urine Blood Urine Nitrite Ur Leukocyte Esterase Urine RBC Urine WBC Ur Squamous Epith Cells Urine Bacteria Hyaline Casts Influenza Type A (PCR) Influenza Type B (PCR) RSV RNA Qual (PCR) SARS-CoV-2 RNA (RT-PCR) Blood Type Antibody Screen Microbiology Microbiology Results: Microbiology 08/09/22 14:33 Blood Culture - Preliminary Blood - Venous Prelim: GPC Gram Stain only 08/09/22 14:33 Blood Culture - Preliminary Blood - Venous Prelim: GPC Gram Stain only Assessment and Plan (1) Encephalopathy: Status: Acute (2) Atrial fibrillation: Status: Acute (3) CHF (congestive heart failure): Status: Acute (4) Leukocytosis: Status: Acute (5) Fever: Status: Acute (6) Cellulitis: Status: Acute (7) Infected open wound: Status: Acute (8) Supratherapeutic INR: Status: Acute (9) Multifocal pneumonia: Status: Acute (10) End stage renal disease: Status: Acute Plan This is a 81-year-old male coming from group home facility with pertinent history of end-stage renal disease on hemodialysis, prostate cancer with history of urostomy, mixed hyperlipidemia, essential hypertension, chronic obstructive pulmonary disease, permanent atrial fibrillation on Coumadin, congestive heart failure unknown ejection fraction, rheumatoid arthritis who was brought to the emergency department for evaluation of altered mentation. #? Acute metabolic encephalopathy due to: - sepsis secondary to cellulitis/infected sacral decubitus - patient's symptoms appear to have slightly resolved, as he is alert and oriented to self and place - will continue IV antibiotics - monitor mentation # Sepsis secondary to lumbar cellulitis infected sacral decubitus - continue IV antibiotics - wound care - Gen sirs consulted for possible wound debridement - follow cultures # supratherapeutic INR, Coagulopathy due to sepsis - resolved, subtherapeutic INR this morning -will resume his Coumadin - continue to monitor PT INR daily # COVID-19 infection - at this time asymptomatic -continue isolation precautions.? Patient is not hypoxemic and no indication for Decadron # Generalized weakness -in the setting of sepsis.? - PT OT # Atrial fibrillation -continue warfarin, metoprolol #? End-stage renal disease on hemodialysis #? 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 No concern for ACS - chest pain-free #? Elevated BNP - euvolemic -likely baseline as patient is ESRD.? No concern for CHF exacerbation # Type a lactic acidosis -resolved with fluid resuscitation #? Insomnia -continue gabapentin, trazodone as patient is more alert oriented #.? Hypokalemia -will replete.? - resolved #.? Congestive heart failure, unknown ejection fraction -compensated at the time of admission. #.? Imaging with bibasilar lung foci -underlying malignancy cannot be excluded as per Radiology.? Will need close follow-up op DVT prophylaxis:? Hold warfarin as INR is supratherapeutic Diet:? Cardiac diet DNR/DNI Patient will require two night minimum hospital stay for need for IV antibiotics and monitoring mentation.? Blood cultures pending and wound care consult pending.? Quality Stroke Does the patient have a stroke diagnosis?: No VTE Prior VTE?: No VTE Risk Level:: Medical - moderate - high VTE Device Contraindication: Treatment Not Indicated VTE Drug Contraindication: Treatment Not Indicated
[2022-08-10] MEDS: cefEPime HCl 1 GM in 0.9 % Sodium Chloride 50 ML IV (15:26)
[2022-08-10] MEDS: Lactated Ringers 1,000 ML 999 ML IV (15:29)
--- NOTE | 2022-08-10 15:29 | MHC.CM.PN ---
Addendum entered by Mela Salas RN 08/10/22 15:40: copied from previous cm note: PT FROM [facility] HOWEVER FAMILY MAY NOT WANT HIM TO RETURN, PT HAS USED ALL OF HIS MEDICARE DAYS, PER SON JOSIANE [phone] PT CAN PAY $1150 A MONTH TO [facility] AND MH WILL PAY REMAINDER, /HCP DEEPALI DEFERS TO JOSIANE WHO WOULD LIKE A FOLLOW-UP CALL AND WONDERING IF PT WOULD BE ABLE TO GO TO [facility] W/SAME PLAN FOR PAYMENT. Addendum entered by Mela Salas RN 08/10/22 15:35: PER REVIEW OF [facility] PATIENT ALREADY SEEN BY CASE MANAGEMENT FAMILY LOOKING TO SECURE A BED AT [facility] Original Note: PATIENT IN FROM [facility] ON CAMPUS UPON ASSESSMENT ATTEMPT HE IS OFF UNIT AND [facility]. CASE MANAGEMENT TO FOLLOW UP WITH PATIENT OR FAMILY TO DISCUSS IMM AND ANY DC NEEDS.
--- NOTE | 2022-08-10 16:08 | MHC.CM.PN ---
NO HCP ON FILE. NO COPY FOUND IN OVERFLOW UNIT. THIS MEMBER OF PARLIAMENT TO ASK GIDEON ZAYAS TO FAX
--- NOTE | 2022-08-10 16:14 | HE.PHANOTE ---
EUFEMIA SALMON PATIENT TROUGH RETURNED @ 12.0. WILL GIVE 500MG X1 DOSE. RANDOM TROUGH SCHEDULED AFTER NEXT DIALYSIS SESSION: 08/13 @1800. PT SCHEDULE IS JAGDISH ARIAS
--- NOTE | 2022-08-10 17:56 | PC.NURSE ---
1530 late document 1L LR IV bolus ordered for soft BP
--- NOTE | 2022-08-10 17:57 | PC.NURSE ---
following 1L LR bolus, little change in pts BP, remains soft. MD. Rodriges made aware
[2022-08-10] MEDS: Sevelamer Carbonate Tablet 800 MG TABLET PO (18:18)
[2022-08-10] MEDS: vancomycin HCL 500 MG in 0.9 % Sodium Chloride 100 ML 110 MG IV (18:19)
--- NOTE | 2022-08-10 18:29 | PC.NURSE ---
following 1L LR bolus administ MD [place] requested pts legs be elevated to help improve BP - however, pt was unable to tolerate having his legs elevated due to coccyx wound
--- NOTE | 2022-08-10 18:31 | PC.NURSE ---
call to pharmacy for coumadin not in pyxis
[2022-08-10] MEDS: Warfarin Sodium 1 MG TABLET PO (18:39)
--- NOTE | 2022-08-10 18:53 | PM.EVENT ---
Event Note Date of Service: 08/10/22 Event Note: Asked to assess for borderline BP of 92/52, HR 120. Assymptomatic. He is admitted with sepsis d/t cellulitis and GPCC bacteremia and has heart failure, ESRD and may not tolerate high volume of fluid, additionally family doesn't want pressors. Will give low volume of fluid keep SBP > 90,
--- NOTE | 2022-08-10 20:27 | PC.NURSE ---
Attempt to call report to C
--- NOTE | 2022-08-10 21:04 | PC.NURSE ---
Report called to ALEXANDRIA Kirby on C
[2022-08-10] MEDS: Melatonin 3 MG TABLET 9 MG PO (21:13)
[2022-08-10] MEDS: Atorvastatin Calcium 40 MG TABLET PO (21:13)
[2022-08-10] MEDS: Metoprolol Tartrate 12.5 MG HALFTAB PO (21:13)
[2022-08-10] MEDS: 0.9 % Sodium Chloride 1,000 ML 250 ML IVCONT (21:14)
[2022-08-10] MEDS: Acetaminophen 325 MG TABLET 650 MG PO (22:44)
[2022-08-11] MEDS: traMADoL HCL 50 MG TABLET 25 MG PO (00:06)
[2022-08-11 03:54] VITALS: BP 123/62; PULSE 106; RESP 18; TEMP 36.1; O2SAT 95
[2022-08-11] MEDS: Omeprazole 20 MG CAPSULE.DR PO (05:43)
[2022-08-11] MEDS: Morphine Sulfate 2 MG/ML CARTRIDGE IVPUSH (05:44)
[2022-08-11 07:38] LABS: INTERNATIONAL NORM RATIO 1.2 (0.9-1.1); Prothrombin Time 14.4 SEC (10.0-13.1)
[2022-08-11 07:46] LABS: Creatinine Clr Calc Pharmacy 20.7; Estimated Glomerular Filt Rate 18
[2022-08-11 08:00] VITALS: BP 109/55; PULSE 113; RESP 18; TEMP 36.1; O2SAT 98
[2022-08-11] MEDS: Multivitamin TABLET 1 TAB PO (09:00)
[2022-08-11] MEDS: Sevelamer Carbonate Tablet 800 MG TABLET PO ×2 (09:00→17:10)
[2022-08-11] MEDS: Megestrol Acetate 20 MG TABLET PO (09:00)
[2022-08-11] MEDS: Magnesium Oxide 400 MG TABLET PO (09:00)
[2022-08-11] MEDS: guaiFENesin LA 600 MG TAB.ER.12H PO ×2 (09:00→21:06)
[2022-08-11] MEDS: Cholecalciferol (Vitamin D3) 25 MCG TABLET PO (09:00)
[2022-08-11] MEDS: Metoprolol Tartrate 12.5 MG HALFTAB PO ×2 (09:00→21:06)
[2022-08-11] MEDS: Lidocaine 4 % Patch ADH..PATCH 1 PATCH TRANSDERMA (09:01)
[2022-08-11] MEDS: polyethylene glycoL 3350 17 GM POWD.PACK PO (09:01)
[2022-08-11] MEDS: 0.9 % Sodium Chloride Flush 3 ML SYRINGE IVFLUSH ×2 (09:10→17:10)
[2022-08-11] MEDS: Cyanocobalamin (Vitamin B-12) 1,000 MCG TABLET 1000 MCG PO (09:35)
[2022-08-11] MEDS: Sennosides 8.6 MG TABLET 17.2 MG PO ×2 (09:35→21:06)
--- NOTE | 2022-08-11 09:58 | MHC.CM.PN ---
HCP faxed to case management office from [facility]. [facility] into [facility] and given to registration to scan into patient's medical record. Continue to monitor for d/c needs.
--- NOTE | 2022-08-11 10:06 | P.PNIM_ITS ---
Subjective Subjective Date of Service: 08/11/22 Interval History: Patient seen and examined at bedside. He is more alert and is oriented to self and place. he says he wants to go home but says he understands that he needs to stay for iv abx. Patient denies any chest pain, no shortness of breath, no abdominal pain nausea or vomiting, no diarrhea constipation, no urinary symptoms and no lower extremity edema. at bedside the day prior was also notified of plan Review of Systems Review of Systems: Yes all other systems are reviewed and are negative Physical Exam Vital Signs: Vital Signs: Last Vital Signs Temp 97 F 08/11/22 08:00 Pulse 113 H 08/11/22 08:00 Resp 18 08/11/22 08:00 BP 109/55 L 08/11/22 08:00 Pulse Ox 98 08/11/22 08:00 O2 Del Method 08/11/22 08:00 BMI result Body Mass Index 27.5 Const: Other: Patient alert, oriented to self and place. Answers questions appropriately states he wants to go home Resp: Other: Lungs clear to auscultations bilaterally Cardio: Other: normal rate and rhythm GI: Other: abd is soft non-tender, no rebound or guarding Skin: Other: Patient states that he cannot moved to the side for me to examine his back Extrem: Other: No lower extremity edema Objective Data Active Medications Acetaminophen (Acetaminophen 325 Mg Tablet) 650 mg PO Q6H PRN PRN Reason: Pain, Mild (Pain Scale 1-3) Last Admin: 08/10/22 22:44 Dose: 650 mg Documented By: MAURA Atorvastatin Calcium (Atorvastatin Calcium 40 Mg Tablet) 40 mg PO BEDTIME [facility] Last Admin: 08/10/22 21:13 Dose: 40 mg Documented By: THA Bisacodyl (Bisacodyl 10 Mg Supp.Rect) 10 mg MO DAILY PRN PRN Reason: Constipation Cyanocobalamin (Cyanocobalamin (Vitamin B-12) 1,000 Mcg Tablet) 1,000 mcg PO DAILY [facility] Last Admin: 08/11/22 09:35 Dose: 1,000 mcg Documented By: GALILEO Guaifenesin (Guaifenesin 100 Mg/5 Ml Liquid) 5 ml PO Q2H PRN PRN Reason: Cough Last Admin: 08/10/22 15:26 Dose: 5 ml Documented By: LUCAS Guaifenesin (Guaifenesin La 600 Mg Tab.Er.12h) 600 mg PO BID [facility] Last Admin: 08/11/22 09:00 Dose: 600 mg Documented By: GALILEO Vancomycin HCl 750 mg/ Sodium (Chloride) 265 mls @ 265 mls/hr IV TUTHSA@2000 [facility] Cefepime HCl 1 gm/ Sodium (Chloride) 50 mls @ 100 mls/hr IV Q24H [facility] Last Infusion: 08/10/22 17:50 Dose: 0 mls/hr Documented By: LUCAS Lidocaine (Lidocaine 4 % Patch Adh..Patch) 1 patch TRANSDERMA DAILY [facility] Last Admin: 08/11/22 09:01 Dose: 1 patch Documented By: GALILEO Magnesium Oxide (Magnesium Oxide 400 Mg Tablet) 400 mg PO DAILY [facility] Last Admin: 08/11/22 09:00 Dose: 400 mg Documented By: GALILEO Megestrol Acetate (Megestrol Acetate 20 Mg Tablet) 20 mg PO DAILY [facility] Last Admin: 08/11/22 09:00 Dose: 20 mg Documented By: GALILEO Melatonin (Melatonin 3 Mg Tablet) 6 mg PO BEDTIME PRN PRN Reason: Insomnia Last Admin: 08/10/22 02:13 Dose: 6 mg Documented By: HEAVENLY-LITCARISSA Melatonin (Melatonin 3 Mg Tablet) 9 mg PO BEDTIME [facility] Last Admin: 08/10/22 21:13 Dose: 9 mg Documented By: THA Metoprolol Tartrate (Metoprolol Tartrate 12.5 Mg Halftab) 12.5 mg PO BID [facility]; Protocol Last Admin: 08/11/22 09:00 Dose: 12.5 mg Documented By: GALILEO Midodrine (Midodrine Hcl 5 Mg Tablet) 5 mg PO TIDWM PRN PRN Reason: HYPOTENSION Multivitamins/Vitamin C (Multivitamin Tablet) 1 tab PO DAILY [facility] Last Admin: 08/11/22 09:00 Dose: 1 tab Documented By: GALILEO Nitroglycerin (Nitroglycerin 0.4 Mg Tab.Subl) 0.4 mg SUBLINGUAL Q5M PRN PRN Reason: Angina Omeprazole (Omeprazole 20 Mg Capsule.Dr) 20 mg PO DAILY@0630 [facility] Last Admin: 08/11/22 05:43 Dose: 20 mg Documented By: MAURA Ondansetron HCl (Ondansetron Hcl 4 Mg/2 Ml Vial) 4 mg IVPUSH Q8H PRN PRN Reason: Nausea and Vomiting Pharmacy Consult (Consult Rx Perform Med Rec) 1 each MISCELLANE ONCE PRN PRN Reason: Consult order Pharmacy Consult (Consult Rx Vancomycin Dosing) 1 each MISCELLANE DAILY PRN PRN Reason: Consult order Polyethylene Glycol (Polyethylene Glycol 3350 17 Gm Powd.Pack) 17 gm PO DAILY [facility] Last Admin: 08/11/22 09:01 Dose: 17 gm Documented By: GALILEO Senna (Sennosides 8.6 Mg Tablet) 17.2 mg PO BID [facility] Last Admin: 08/11/22 09:35 Dose: 17.2 mg Documented By: GALILEO Sevelamer Carbonate (Sevelamer Carbonate Tablet 800 Mg Tablet) 800 mg PO BIDWM [facility] Last Admin: 08/11/22 09:00 Dose: 800 mg Documented By: GALILEO Sodium Chloride (0.9 % Sodium Chloride Flush 3 Ml Syringe) 3 ml IVFLUSH QSHIFT [facility] Last Admin: 08/11/22 09:10 Dose: 3 ml Documented By: GALILEO Tramadol HCl (Tramadol Hcl 50 Mg Tablet) 25 mg PO Q12H PRN PRN Reason: Pain, Moderate (Pain Scale 4-6 Last Admin: 08/11/22 00:06 Dose: 25 mg Documented By: MAURA Vitamin D (Cholecalciferol (Vitamin D3) 25 Mcg Tablet) 25 mcg PO DAILY [facility] Last Admin: 08/11/22 09:00 Dose: 25 mcg Documented By: GALILEO Warfarin Sodium (Warfarin Sodium 1 Mg Tablet) 1 mg PO DAILY@1800 [facility] Last Admin: 08/10/22 18:39 Dose: 1 mg Documented By: LUCAS Warfarin Sodium (Warfarin Sodium 2 Mg Tablet) 2 mg PO DAILY@1800 [facility] Stop: 08/12/22 18:01 Labs CBC & Chem 7: 08/10/22 06:07 08/11/22 06:58 Labs: Laboratory Results - last 24 hr 08/10/22 08/11/22 08/11/22 15:35 06:58 06:58 PT Cancelled INR Cancelled Estim Creat Clear Calc 20.7 Estimated GFR 18 Random Vancomycin 12.0 L 08/11/22 06:58 PT 14.4 H INR 1.2 H Estim Creat Clear Calc Estimated GFR Random Vancomycin Microbiology Microbiology Results: Microbiology 08/09/22 14:33 Blood Culture - Preliminary Blood - Venous Staphylococcus aureus 08/09/22 14:33 Blood Culture - Preliminary Blood - Venous Staphylococcus aureus Assessment and Plan (1) Encephalopathy: Status: Acute (2) Skin lesion: Status: Acute (3) Infected open wound: Status: Acute (4) Cellulitis: Status: Acute (5) Leukocytosis: Status: Acute (6) Fever: Status: Acute (7) CHF (congestive heart failure): Status: Acute (8) Atrial fibrillation: Status: Acute (9) Sepsis: Status: Acute Plan This is a 81-year-old male coming from [facility] with pertinent history of end-stage renal disease on hemodialysis, prostate cancer with history of urostomy, mixed hyperlipidemia, essential hypertension, chronic obstructive pulmonary disease, permanent atrial fibrillation on Coumadin, congestive heart failure unknown ejection fraction, rheumatoid arthritis who was brought to the emergency department for evaluation of altered mentation. #? Acute metabolic encephalopathy due to: - sepsis secondary to cellulitis/infected sacral decubitus - patient's symptoms appear to have slightly resolved, as he is alert and oriented to self and place - will continue IV antibiotics - monitor mentation # Sepsis secondary to lumbar cellulitis and infected sacral decubitus- present on presentation - continue IV antibiotics - wound care consult - Gen sirs consulted for possible wound debridement - follow cultures # Coagulopathy due to sepsis - resolved subtherapeutic INR this morning - will resume his Coumadin, adjust per PT-INR # COVID-19 infection - at this time asymptomatic -continue isolation precautions.? Patient is not hypoxemic and no indication for Decadron # Generalized weakness -in the setting of sepsis.? - PT OT # Atrial fibrillation - subtherapeutic -continue warfarin, metoprolol #? End-stage renal disease on hemodialysis #? 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 No concern for ACS - chest pain-free #? Elevated BNP - euvolemic -likely baseline as patient is ESRD.? No concern for CHF exacerbation # Type a lactic acidosis -resolved with fluid resuscitation #? Insomnia -continue gabapentin, trazodone as patient is more alert oriented #.? Hypokalemia -will replete.? - resolved #.? Congestive heart failure, unknown ejection fraction -compensated at the time of admission - no evidence of volume overload #.? Imaging with bibasilar lung foci - underlying malignancy cannot be excluded as per Radiology.? Will need close follow-up op DVT prophylaxis:? Hold warfarin as INR is supratherapeutic Diet:? Cardiac diet DNR/DNI Patient will require two night minimum hospital stay for need for IV antibiotics ? Blood cultures pending and wound care consult pending.? Quality Stroke Does the patient have a stroke diagnosis?: No VTE Prior VTE?: No VTE Risk Level:: Medical - moderate - high VTE Device Contraindication: Treatment Not Indicated VTE Drug Contraindication: Treatment Not Indicated
[2022-08-11 11:52] VITALS: BP 115/60; PULSE 97; RESP 20; TEMP 36.6; O2SAT 97
--- NOTE | 2022-08-11 13:27 | PM.PNNEP ---
Subjective Subjective Date of Service: 08/11/22 Interval history: Patient seen and examined at bedside. Physical Exam Vital Signs: Vital Signs: Last Vital Signs Temp 98 F 08/11/22 11:52 Pulse 97 08/11/22 11:52 Resp 20 08/11/22 11:52 BP 115/60 08/11/22 11:52 Pulse Ox 97 08/11/22 11:52 O2 Del Method 08/11/22 11:52 BMI result Body Mass Index 27.5 Const: Other: Patient alert, oriented to self and place. Answers questions appropriately states he wants to go home Resp: Other: Lungs clear to auscultations bilaterally Cardio: Other: normal rate and rhythm GI: Other: abd is soft non-tender, no rebound or guarding Skin: Other: Patient states that he cannot moved to the side for me to examine his back Extrem: Other: No lower extremity edema Objective Data Labs CBC & Chem 7: 08/10/22 06:07 08/11/22 06:58 Labs: Laboratory Results - last 24 hr 08/10/22 08/11/22 08/11/22 15:35 06:58 06:58 PT Cancelled INR Cancelled Creatinine 3.34 H Estim Creat Clear Calc 20.7 Estimated GFR 18 Random Vancomycin 12.0 L 08/11/22 06:58 PT 14.4 H INR 1.2 H Creatinine Estim Creat Clear Calc Estimated GFR Random Vancomycin Microbiology Microbiology Results: Microbiology 08/09/22 14:33 Blood - Venous Blood Culture - Preliminary Staphylococcus aureus 08/09/22 14:33 Blood - Venous Blood Culture - Preliminary Staphylococcus aureus Procedures Date of Service Date of Service: 08/11/22 Assessment & Plan Assessment and plan (1) Encephalopathy: Status: Acute (2) Skin lesion: Status: Acute (3) Infected open wound: Status: Acute (4) Cellulitis: Status: Acute (5) Leukocytosis: Status: Acute (6) Fever: Status: Acute (7) CHF (congestive heart failure): Status: Acute (8) Atrial fibrillation: Status: Acute (9) Sepsis: Status: Acute (10) End stage renal disease: Status: Acute Assessment and Plan: due for dialysis tues orders written Plan This is a 81-year-old male coming from [facility] facility with pertinent history of end-stage renal disease on hemodialysis, prostate cancer with history of urostomy, mixed hyperlipidemia, essential hypertension, chronic obstructive pulmonary disease, permanent atrial fibrillation on Coumadin, congestive heart failure unknown ejection fraction, rheumatoid arthritis #? Elevated BNP - euvolemic -likely baseline as patient is ESRD.? No concern for CHF exacerbation .? Time Spent With Patient Time: Total time spent is greater than 50% in coordination of care (as documented) at patient's floor/unit and/or counseling patient: Progress Note: Quality Stroke Does the patient have a stroke diagnosis?: No
[2022-08-11] MEDS: cefEPime HCl 1 GM in 0.9 % Sodium Chloride 50 ML IV (14:06)
--- NOTE | 2022-08-11 14:06 | PM.CNGS ---
History of Present Illness Consult details Consult date: 08/11/22 Requesting physician: Jerod Rodriges Narrative: Pt has a back wound breakdown - he has had multiple issues and was at rehab facility and developed these pressure wounds there PMFSH Past Medical History Medical History (Updated 08/12/22 @ 11:10 by Yancy Olivo MD) Ambulates with cane Arteriovenous fistula for hemodialysis in place, primary Ascending aorta dilatation Atrial fibrillation AVNRT (AV vivian re-entry tachycardia) CAD (coronary artery disease) CHF (congestive heart failure) Elevated cholesterol End stage renal disease ESRD (end stage renal disease) on dialysis GERD (gastroesophageal reflux disease) HTN (hypertension) Hx of syncope Insomnia JAIRON (obstructive sleep apnea) Prostate cancer Rheumatoid arthritis Skin lesion Unsteady gait Wears dentures Surgical History Surgical History History of bladder surgery History of surgical removal of skin lesion History of urostomy Hx of abdominal surgery Hx of colonoscopy Hx of hernia repair Hx of radical prostatectomy S/P implantation of automatic cardioverter/defibrillator (AICD) Social History Social History Household Members: Spouse Housing: House Do you presently have visiting nurse or other home services: No Patient Tobacco Use Status: Never used Tobacco Meds Allergies Allergy/AdvReac Type Severity Reaction Status Date / Time doxycycline Allergy Difficulty Verified 02/14/22 11:00 Breathing Active Medications: Current Medications Acetaminophen (Acetaminophen 325 Mg Tablet) 650 mg PO Q6H PRN PRN Reason: Pain, Mild (Pain Scale 1-3) Last Admin: 08/10/22 22:44 Dose: 650 mg Atorvastatin Calcium (Atorvastatin Calcium 40 Mg Tablet) 40 mg PO BEDTIME [facility] Last Admin: 08/11/22 21:06 Dose: 40 mg Bisacodyl (Bisacodyl 10 Mg Supp.Rect) 10 mg MS DAILY PRN PRN Reason: Constipation Collagenase (Collagenase Clostridium Hist. 30 Gm Tube) 1 appl TOPICAL DAILY [facility]; Protocol Last Admin: 08/12/22 09:36 Dose: 1 appl Cyanocobalamin (Cyanocobalamin (Vitamin B-12) 1,000 Mcg Tablet) 1,000 mcg PO DAILY [facility] Last Admin: 08/12/22 09:35 Dose: 1,000 mcg Guaifenesin (Guaifenesin 100 Mg/5 Ml Liquid) 5 ml PO Q2H PRN PRN Reason: Cough Last Admin: 08/10/22 15:26 Dose: 5 ml Guaifenesin (Guaifenesin La 600 Mg Tab.Er.12h) 600 mg PO BID [facility] Last Admin: 08/12/22 09:36 Dose: 600 mg Vancomycin HCl 750 mg/ Sodium (Chloride) 265 mls @ 265 mls/hr IV TUTHSA@2000 [facility] Lidocaine (Lidocaine 4 % Patch Adh..Patch) 1 patch TRANSDERMA DAILY [facility] Last Admin: 08/12/22 09:36 Dose: 1 patch Magnesium Oxide (Magnesium Oxide 400 Mg Tablet) 400 mg PO DAILY [facility] Last Admin: 08/12/22 09:35 Dose: 400 mg Megestrol Acetate (Megestrol Acetate 20 Mg Tablet) 20 mg PO DAILY [facility] Last Admin: 08/12/22 09:35 Dose: 20 mg Melatonin (Melatonin 3 Mg Tablet) 6 mg PO BEDTIME PRN PRN Reason: Insomnia Last Admin: 08/10/22 02:13 Dose: 6 mg Melatonin (Melatonin 3 Mg Tablet) 9 mg PO BEDTIME [facility] Last Admin: 08/11/22 21:06 Dose: 9 mg Metoprolol Tartrate (Metoprolol Tartrate 12.5 Mg Halftab) 12.5 mg PO BID [facility]; Protocol Last Admin: 08/12/22 09:35 Dose: 12.5 mg Midodrine (Midodrine Hcl 5 Mg Tablet) 5 mg PO TIDWM PRN PRN Reason: HYPOTENSION Morphine Sulfate (Morphine Sulfate 2 Mg/Ml Cartridge) 2 mg IVPUSH Q4H PRN; Protocol PRN Reason: moderate pain Last Admin: 08/12/22 10:38 Dose: 2 mg Multivitamins/Vitamin C (Multivitamin Tablet) 1 tab PO DAILY [facility] Last Admin: 08/12/22 09:35 Dose: 1 tab Nitroglycerin (Nitroglycerin 0.4 Mg Tab.Subl) 0.4 mg SUBLINGUAL Q5M PRN PRN Reason: Angina Omeprazole (Omeprazole 20 Mg Capsule.Dr) 20 mg PO DAILY@0630 [facility] Last Admin: 08/12/22 05:43 Dose: 20 mg Ondansetron HCl (Ondansetron Hcl 4 Mg/2 Ml Vial) 4 mg IVPUSH Q8H PRN PRN Reason: Nausea and Vomiting Pharmacy Consult (Consult Rx Perform Med Rec) 1 each MISCELLANE ONCE PRN PRN Reason: Consult order Pharmacy Consult (Consult Rx Vancomycin Dosing) 1 each MISCELLANE DAILY PRN PRN Reason: Consult order Polyethylene Glycol (Polyethylene Glycol 3350 17 Gm Powd.Pack) 17 gm PO DAILY [facility] Last Admin: 08/12/22 09:36 Dose: 17 gm Senna (Sennosides 8.6 Mg Tablet) 17.2 mg PO BID [facility] Last Admin: 08/12/22 09:35 Dose: 17.2 mg Sevelamer Carbonate (Sevelamer Carbonate Tablet 800 Mg Tablet) 800 mg PO BIDWM [facility] Last Admin: 08/12/22 09:35 Dose: 800 mg Sodium Chloride (0.9 % Sodium Chloride Flush 3 Ml Syringe) 3 ml IVFLUSH QSHIFT [facility] Last Admin: 08/12/22 09:35 Dose: 3 ml Tramadol HCl (Tramadol Hcl 50 Mg Tablet) 25 mg PO Q12H PRN PRN Reason: Pain, Moderate (Pain Scale 4-6 Last Admin: 08/11/22 00:06 Dose: 25 mg Vitamin D (Cholecalciferol (Vitamin D3) 25 Mcg Tablet) 25 mcg PO DAILY [facility] Last Admin: 08/12/22 09:35 Dose: 25 mcg Warfarin Sodium (Warfarin Sodium 1 Mg Tablet) 1 mg PO DAILY@1800 [facility] Last Admin: 08/10/22 18:39 Dose: 1 mg Warfarin Sodium (Warfarin Sodium 2 Mg Tablet) 2 mg PO DAILY@1800 [facility] Stop: 08/12/22 18:01 Last Admin: 08/11/22 17:10 Dose: 2 mg Home Medications Medication Instructions Recorded Confirmed Last Taken Type adalimumab 40 mg/0.8 mL 40 mg subcut SA 12/06/21 08/09/22 Unknown History subcutaneous pen kit (Humira Pen) atorvastatin 40 mg tablet 40 mg PO BEDTIME 12/06/21 08/09/22 Unknown History cyanocobalamin (vitamin B-12) 1,000 mcg PO DAILY 12/06/21 08/09/22 Unknown History 1,000 mcg capsule gabapentin 100 mg capsule 200 mg PO BEDTIME 12/06/21 08/09/22 Unknown History magnesium oxide 400 mg (241.3 mg 400 mg PO DAILY 12/06/21 08/09/22 Unknown History magnesium) tablet megestrol 20 mg tablet 20 mg PO DAILY 12/06/21 08/09/22 Unknown History omeprazole 20 mg capsule,delayed 20 mg PO DAILY@0630 12/06/21 08/09/22 01/08/22 History release trazodone 100 mg tablet 150 mg PO BEDTIME 12/06/21 08/09/22 Unknown History warfarin 1 mg tablet 1 mg PO DAILY@1800 12/06/21 08/09/22 Unknown History acetaminophen 500 mg tablet 1,000 mg PO Q8H PRN Pain 08/09/22 08/09/22 Unknown History bisacodyl 10 mg rectal suppository 10 mg MS DAILY PRN Constipation 08/09/22 08/09/22 Unknown History cholecalciferol (vitamin D3) 25 25 mcg PO DAILY 08/09/22 08/09/22 Unknown History mcg (1,000 unit) tablet gabapentin 100 mg capsule 1 cap PO TID 08/09/22 08/09/22 Unknown History guaifenesin 100 mg/5 mL oral liquid 200 mg PO Q2H PRN Cough 08/09/22 08/09/22 Unknown History guaifenesin 600 mg tablet, 600 mg PO BID 08/09/22 08/09/22 Unknown History extended release 12 hr (Mucinex) lidocaine 5 % topical patch 1 patch topical DAILY 08/09/22 08/09/22 Unknown History melatonin 5 mg tablet 10 mg PO BEDTIME 08/09/22 08/09/22 Unknown History metoprolol tartrate 25 mg tablet 12.5 mg PO BID 08/09/22 08/09/22 Unknown History midodrine 5 mg tablet 5 mg PO TID PRN Hypotension 08/09/22 08/09/22 Unknown History nitroglycerin 0.4 mg sublingual 0.4 mg sublingual Q5M PRN Angina 08/09/22 08/09/22 Unknown History tablet polyethylene glycol 3350 17 gram 17 g PO DAILY 08/09/22 08/09/22 Unknown History oral powder packet (Miralax) sennosides 8.6 mg tablet (senna) 17.2 mg PO BID 08/09/22 08/09/22 Unknown History sevelamer carbonate 800 mg tablet 800 mg PO BIDWM 08/09/22 08/09/22 Unknown History vitamin B complex and vitamin C 1 cap PO DAILY 08/09/22 08/09/22 Unknown History no.20-folic acid 1 mg capsule Physical Exam Vital Signs: Vital Signs: Last Vital Signs Temp 97.1 F 08/12/22 07:47 Pulse 111 H 08/12/22 07:47 Resp 20 08/12/22 07:47 BP 97/70 08/12/22 07:47 Pulse Ox 97 08/12/22 07:47 O2 Del Method 08/12/22 07:47 BMI result Body Mass Index 27.5 Skin: Other: perianal area eith some skin discoloration but no true breakdown\ loer back lumbar upper sacral area with 7x5cm wound with necrotic skin and tissue going deep into the fat and probable muscle area - necrotic tissue debrided with sharp scalpel entire area area painful and bleeds. pt with immobility issues and pain in back area with rolling and positioning Results Labs Result diagrams: 08/12/22 08:55 08/12/22 08:55 Labs: Abnormal lab results 08/12/22 08/12/22 08/12/22 Range/Units 08:55 08:55 08:55 WBC 18.0 H (4.8-10.8) X10*3/uL RBC 3.05 L (4.60-5.80) X10*6/uL Hgb 9.5 L (14.0-18.0) g/dl Hct 28.0 L (42.0-52.0) % RDW 17.5 H (11.0-16.0) % PT 23.2 H (10.0-13.1) SEC INR 2.0 H (0.9-1.1) BUN 43 H (9-16) mg/dL Creatinine 4.55 H* (0.5-1.4) mg/dL Short CBC 08/12/22 Range/Units 08:55 WBC 18.0 H (4.8-10.8) X10*3/uL Hgb 9.5 L (14.0-18.0) g/dl Hct 28.0 L (42.0-52.0) % Plt Count 358 (160-400) X10*3/uL BMP 08/12/22 08/12/22 08:55 08:55 Sodium 135 Potassium 3.6 Chloride 98 Carbon Dioxide 25 BUN 43 H Creatinine Cancelled 4.55 H* Calcium 8.5 Urine 08/09/22 Range/Units 15:53 Urine Color Straw Urine Appearance Cloudy Urine pH 8.0 (5.0-9.0) Ur Specific Agency 1.015 (1.005-1.025) Urine Protein Negative (Neg-Trace) mg/dL Urine Glucose (UA) Negative (Negative) mg/dL All other labs normal. Assessment and Plan (1) Pressure injury of lower back, stage 4: Status: Acute Plan 81 year old male with med issues - afib anticoagulated with back pressure injury present on admission most likely arose in rehab - necrotic fat/muscle tissue no bone exposed. painful and bleeds with debridement - no evidenc of infection plan to use santyl for a week and debride as needed ususal pressure relief protocols - readjustment every 2 hrs. pt can roll and move but just painful for him in his back area. Procedures Date of Service Date of Service: 08/11/22
[2022-08-11 15:49] VITALS: BP 104/56; PULSE 110; RESP 18; TEMP 36.7; O2SAT 99
[2022-08-11] MEDS: Warfarin Sodium 2 MG TABLET PO (17:10)
[2022-08-11] MEDS: Collagenase Clostridium Hist. 30 GM TUBE 1 APPL TOPICAL (18:09)
[2022-08-11 19:50] VITALS: BP 84/45; PULSE 87; RESP 18; TEMP 36.6; O2SAT 98
[2022-08-11] MEDS: Atorvastatin Calcium 40 MG TABLET PO (21:06)
[2022-08-11] MEDS: Melatonin 3 MG TABLET 9 MG PO (21:06)
[2022-08-12] VITALS (7 sets, daily range): BP systolic 94–125; BP diastolic 57–70; PULSE 97–111; RESP 16–20; TEMP 36.2–37.2; O2SAT 96–99; BMI 27.5
[2022-08-12] MEDS: 0.9 % Sodium Chloride Flush 3 ML SYRINGE IVFLUSH ×4 (01:40→20:57)
[2022-08-12] MEDS: Omeprazole 20 MG CAPSULE.DR PO (05:43)
--- NOTE | 2022-08-12 08:23 | HE.PHANOTE ---
Vancomycin Dosing Addendum No HD today.
[2022-08-12 09:11] LABS: Hemoglobin 9.5 g/dl (14.0-18.0); Mean Corpuscular HGB Conc 33.9 g/dl (31.0-36.0); Mean Corpuscular Hemoglobin 31.1 pg (27.0-33.0); Mean Corpuscular Volume 91.8 fL (80.0-98.0); Mean Platelet Volume 10.6 fL (9.4-12.4); Platelet Count 358 X10*3/uL (160-400); Red Blood Count 3.05 X10*6/uL (4.60-5.80); Red Cell Distribution Width 17.5 % (11.0-16.0)
[2022-08-12 09:16] LABS: Prothrombin Time 23.2 SEC (10.0-13.1)
[2022-08-12] MEDS: Cyanocobalamin (Vitamin B-12) 1,000 MCG TABLET 1000 MCG PO (09:35)
[2022-08-12] MEDS: Metoprolol Tartrate 12.5 MG HALFTAB PO ×2 (09:35→20:56)
[2022-08-12] MEDS: Megestrol Acetate 20 MG TABLET PO (09:35)
[2022-08-12] MEDS: Cholecalciferol (Vitamin D3) 25 MCG TABLET PO (09:35)
[2022-08-12] MEDS: Sevelamer Carbonate Tablet 800 MG TABLET PO ×2 (09:35→17:51)
[2022-08-12] MEDS: Magnesium Oxide 400 MG TABLET PO (09:35)
[2022-08-12] MEDS: Sennosides 8.6 MG TABLET 17.2 MG PO ×2 (09:35→20:57)
[2022-08-12] MEDS: Multivitamin TABLET 1 TAB PO (09:35)
[2022-08-12] MEDS: Collagenase Clostridium Hist. 30 GM TUBE 1 APPL TOPICAL (09:36)
[2022-08-12] MEDS: Lidocaine 4 % Patch ADH..PATCH 1 PATCH TRANSDERMA (09:36)
[2022-08-12] MEDS: polyethylene glycoL 3350 17 GM POWD.PACK PO (09:36)
[2022-08-12] MEDS: guaiFENesin LA 600 MG TAB.ER.12H PO ×2 (09:36→20:56)
[2022-08-12 09:43] LABS: Anion Gap 16 (12-20); Blood Urea Nitrogen 43 mg/dL (9-16); Calcium 8.5 mg/dL (8.4-10.2); Carbon Dioxide 25 mmol/L (22-29); Chloride 98 mmol/L (96-108); Creatinine Clr Calc Pharmacy 15.2; Estimated Glomerular Filt Rate 12; Glucose Random 107 mg/dL (60-115); Potassium 3.6 mmol/L (3.3-5.1); Sodium 135 mmol/L (135-145)
[2022-08-12] MEDS: Morphine Sulfate 2 MG/ML CARTRIDGE IVPUSH (10:38)
--- NOTE | 2022-08-12 11:02 | PM.PNNEP ---
Subjective Subjective Date of Service: 08/12/22 Interval history: seen cathryn omrton noted Physical Exam Vital Signs: Vital Signs: Last Vital Signs Temp 97.1 F 08/12/22 07:47 Pulse 111 H 08/12/22 07:47 Resp 20 08/12/22 07:47 BP 97/70 08/12/22 07:47 Pulse Ox 97 08/12/22 07:47 O2 Del Method 08/12/22 07:47 BMI result Body Mass Index 27.5 Const: Other: Patient alert, oriented to self and place. Answers questions appropriately states he wants to go home Resp: Other: Lungs clear to auscultations bilaterally Cardio: Other: normal rate and rhythm GI: Other: abd is soft non-tender, no rebound or guarding Skin: Other: Patient states that he cannot moved to the side for me to examine his back Extrem: Other: No lower extremity edema Objective Data Labs CBC & Chem 7: 08/12/22 08:55 08/12/22 08:55 Labs: Laboratory Results - last 24 hr 08/12/22 08/12/22 08/12/22 08:55 08:55 08:55 WBC 18.0 H RBC 3.05 L Hgb 9.5 L Hct 28.0 L MCV 91.8 MCH 31.1 MCHC 33.9 RDW 17.5 H Plt Count 358 MPV 10.6 Absolute Nucleated RBC 0.000 Nucleated RBC % (auto) 0.0 PT 23.2 H INR 2.0 H Sodium Potassium Chloride Carbon Dioxide Anion Gap BUN Creatinine Cancelled Estim Creat Clear Calc Cancelled Estimated GFR Cancelled Random Glucose Calcium 08/12/22 08:55 WBC RBC Hgb Hct MCV MCH MCHC RDW Plt Count MPV Absolute Nucleated RBC Nucleated RBC % (auto) PT INR Sodium 135 Potassium 3.6 Chloride 98 Carbon Dioxide 25 Anion Gap 16 BUN 43 H Creatinine 4.55 H* Estim Creat Clear Calc 15.2 Estimated GFR 12 Random Glucose 107 Calcium 8.5 Microbiology Microbiology Results: Microbiology 08/09/22 14:33 Blood - Venous Blood Culture - Final Methicillin Res Staph Aureus 08/09/22 14:33 Blood - Venous Blood Culture - Final Methicillin Res Staph Aureus Procedures Date of Service Date of Service: 08/12/22 Assessment & Plan Assessment and plan (1) Encephalopathy: Status: Acute (2) Skin lesion: Status: Acute (3) Infected open wound: Status: Acute (4) Cellulitis: Status: Acute (5) Leukocytosis: Status: Acute (6) Fever: Status: Acute (7) CHF (congestive heart failure): Status: Acute (8) Atrial fibrillation: Status: Acute (9) Sepsis: Status: Acute (10) End stage renal disease: Status: Acute Assessment and Plan: due for dialysis tues orders written Plan 1. ESRD: TTS 2. MRSA bact c/w sacral wound as source; he has a AVF and unlikely source 3. Anemai and MBD of ESRD: meds as noted REC: cont HD TTS; Abx as noted .? Time Spent With Patient Time: Total time spent is greater than 50% in coordination of care (as documented) at patient's floor/unit and/or counseling patient: Progress Note: Quality Stroke Does the patient have a stroke diagnosis?: No
--- NOTE | 2022-08-12 11:30 | W.PM.IDCN ---
History of Present Illness Data of Consult Service Date: 08/12/22 Requesting physician: Taiwo Martinez Primary Care Provider: Fernando Pinon MD HPI Reason for consult: MRSA bacteremia, 08/09 He presents with mental status worsening and sleepiness apparently per not all of this is new. He has positive COVID test and is asymptomatic on no oxygen. He has open wound on lower back sacral area per picture and no osteomyelitis seen on CT scan. He has fullness tissue ?soft tissue tumor iliac area. Review of Systems Review of Systems: Yes Unobtainable due to mental condition [facility] Past Medical History Medical History (Updated 08/12/22 @ 11:34 by Marion Murray MD) Ambulates with cane Arteriovenous fistula for hemodialysis in place, primary Ascending aorta dilatation Atrial fibrillation AVNRT (AV vivian re-entry tachycardia) CAD (coronary artery disease) CHF (congestive heart failure) Elevated cholesterol End stage renal disease ESRD (end stage renal disease) on dialysis GERD (gastroesophageal reflux disease) HTN (hypertension) Hx of syncope Insomnia MRSA bacteremia JAIRON (obstructive sleep apnea) Prostate cancer Rheumatoid arthritis Skin lesion Unsteady gait Wears dentures Family History Family history: reviewed and not pertinent Surgical History Surgical History History of bladder surgery History of surgical removal of skin lesion History of urostomy Hx of abdominal surgery Hx of colonoscopy Hx of hernia repair Hx of radical prostatectomy S/P implantation of automatic cardioverter/defibrillator (AICD) Social History Social History Household Members: Spouse Housing: House Do you presently have visiting nurse or other home services: No Patient Tobacco Use Status: Never used Tobacco Meds Allergies Allergy/AdvReac Type Severity Reaction Status Date / Time doxycycline Allergy Difficulty Verified 02/14/22 11:00 Breathing Active Medications: Current Medications Acetaminophen (Acetaminophen 325 Mg Tablet) 650 mg PO Q6H PRN PRN Reason: Pain, Mild (Pain Scale 1-3) Last Admin: 08/10/22 22:44 Dose: 650 mg Atorvastatin Calcium (Atorvastatin Calcium 40 Mg Tablet) 40 mg PO BEDTIME NORA Last Admin: 08/11/22 21:06 Dose: 40 mg Bisacodyl (Bisacodyl 10 Mg Supp.Rect) 10 mg UT DAILY PRN PRN Reason: Constipation Collagenase (Collagenase Clostridium Hist. 30 Gm Tube) 1 appl TOPICAL DAILY [facility]; Protocol Last Admin: 08/12/22 09:36 Dose: 1 appl Cyanocobalamin (Cyanocobalamin (Vitamin B-12) 1,000 Mcg Tablet) 1,000 mcg PO DAILY [facility] Last Admin: 08/12/22 09:35 Dose: 1,000 mcg Guaifenesin (Guaifenesin 100 Mg/5 Ml Liquid) 5 ml PO Q2H PRN PRN Reason: Cough Last Admin: 08/10/22 15:26 Dose: 5 ml Guaifenesin (Guaifenesin La 600 Mg Tab.Er.12h) 600 mg PO BID [facility] Last Admin: 08/12/22 09:36 Dose: 600 mg Vancomycin HCl 750 mg/ Sodium (Chloride) 265 mls @ 265 mls/hr IV TUTHSA@2000 [facility] Lidocaine (Lidocaine 4 % Patch Adh..Patch) 1 patch TRANSDERMA DAILY [facility] Last Admin: 08/12/22 09:36 Dose: 1 patch Magnesium Oxide (Magnesium Oxide 400 Mg Tablet) 400 mg PO DAILY [facility] Last Admin: 08/12/22 09:35 Dose: 400 mg Megestrol Acetate (Megestrol Acetate 20 Mg Tablet) 20 mg PO DAILY [facility] Last Admin: 08/12/22 09:35 Dose: 20 mg Melatonin (Melatonin 3 Mg Tablet) 6 mg PO BEDTIME PRN PRN Reason: Insomnia Last Admin: 08/10/22 02:13 Dose: 6 mg Melatonin (Melatonin 3 Mg Tablet) 9 mg PO BEDTIME [facility] Last Admin: 08/11/22 21:06 Dose: 9 mg Metoprolol Tartrate (Metoprolol Tartrate 12.5 Mg Halftab) 12.5 mg PO BID [facility]; Protocol Last Admin: 08/12/22 09:35 Dose: 12.5 mg Midodrine (Midodrine Hcl 5 Mg Tablet) 5 mg PO TIDWM PRN PRN Reason: HYPOTENSION Morphine Sulfate (Morphine Sulfate 2 Mg/Ml Cartridge) 2 mg IVPUSH Q4H PRN; Protocol PRN Reason: moderate pain Last Admin: 08/12/22 10:38 Dose: 2 mg Multivitamins/Vitamin C (Multivitamin Tablet) 1 tab PO DAILY [facility] Last Admin: 08/12/22 09:35 Dose: 1 tab Nitroglycerin (Nitroglycerin 0.4 Mg Tab.Subl) 0.4 mg SUBLINGUAL Q5M PRN PRN Reason: Angina Omeprazole (Omeprazole 20 Mg Capsule.Dr) 20 mg PO DAILY@0630 [facility] Last Admin: 08/12/22 05:43 Dose: 20 mg Ondansetron HCl (Ondansetron Hcl 4 Mg/2 Ml Vial) 4 mg IVPUSH Q8H PRN PRN Reason: Nausea and Vomiting Pharmacy Consult (Consult Rx Perform Med Rec) 1 each MISCELLANE ONCE PRN PRN Reason: Consult order Pharmacy Consult (Consult Rx Vancomycin Dosing) 1 each MISCELLANE DAILY PRN PRN Reason: Consult order Polyethylene Glycol (Polyethylene Glycol 3350 17 Gm Powd.Pack) 17 gm PO DAILY [facility] Last Admin: 08/12/22 09:36 Dose: 17 gm Senna (Sennosides 8.6 Mg Tablet) 17.2 mg PO BID [facility] Last Admin: 08/12/22 09:35 Dose: 17.2 mg Sevelamer Carbonate (Sevelamer Carbonate Tablet 800 Mg Tablet) 800 mg PO BIDWM [facility] Last Admin: 08/12/22 09:35 Dose: 800 mg Sodium Chloride (0.9 % Sodium Chloride Flush 3 Ml Syringe) 3 ml IVFLUSH QSHIFT [facility] Last Admin: 08/12/22 09:35 Dose: 3 ml Tramadol HCl (Tramadol Hcl 50 Mg Tablet) 25 mg PO Q12H PRN PRN Reason: Pain, Moderate (Pain Scale 4-6 Last Admin: 08/11/22 00:06 Dose: 25 mg Vitamin D (Cholecalciferol (Vitamin D3) 25 Mcg Tablet) 25 mcg PO DAILY [facility] Last Admin: 08/12/22 09:35 Dose: 25 mcg Warfarin Sodium (Warfarin Sodium 1 Mg Tablet) 1 mg PO DAILY@1800 [facility] Last Admin: 08/10/22 18:39 Dose: 1 mg Warfarin Sodium (Warfarin Sodium 2 Mg Tablet) 2 mg PO DAILY@1800 [facility] Stop: 08/12/22 18:01 Last Admin: 08/11/22 17:10 Dose: 2 mg Home Medications Medication Instructions Recorded Confirmed Last Taken Type adalimumab 40 mg/0.8 mL 40 mg subcut SA 12/06/21 08/09/22 Unknown History subcutaneous pen kit (Humira Pen) atorvastatin 40 mg tablet 40 mg PO BEDTIME 12/06/21 08/09/22 Unknown History cyanocobalamin (vitamin B-12) 1,000 mcg PO DAILY 12/06/21 08/09/22 Unknown History 1,000 mcg capsule gabapentin 100 mg capsule 200 mg PO BEDTIME 12/06/21 08/09/22 Unknown History magnesium oxide 400 mg (241.3 mg 400 mg PO DAILY 12/06/21 08/09/22 Unknown History magnesium) tablet megestrol 20 mg tablet 20 mg PO DAILY 12/06/21 08/09/22 Unknown History omeprazole 20 mg capsule,delayed 20 mg PO DAILY@0630 12/06/21 08/09/22 01/08/22 History release trazodone 100 mg tablet 150 mg PO BEDTIME 12/06/21 08/09/22 Unknown History warfarin 1 mg tablet 1 mg PO DAILY@1800 12/06/21 08/09/22 Unknown History acetaminophen 500 mg tablet 1,000 mg PO Q8H PRN Pain 08/09/22 08/09/22 Unknown History bisacodyl 10 mg rectal suppository 10 mg UT DAILY PRN Constipation 08/09/22 08/09/22 Unknown History cholecalciferol (vitamin D3) 25 25 mcg PO DAILY 08/09/22 08/09/22 Unknown History mcg (1,000 unit) tablet gabapentin 100 mg capsule 1 cap PO TID 08/09/22 08/09/22 Unknown History guaifenesin 100 mg/5 mL oral liquid 200 mg PO Q2H PRN Cough 08/09/22 08/09/22 Unknown History guaifenesin 600 mg tablet, 600 mg PO BID 08/09/22 08/09/22 Unknown History extended release 12 hr (Mucinex) lidocaine 5 % topical patch 1 patch topical DAILY 08/09/22 08/09/22 Unknown History melatonin 5 mg tablet 10 mg PO BEDTIME 08/09/22 08/09/22 Unknown History metoprolol tartrate 25 mg tablet 12.5 mg PO BID 08/09/22 08/09/22 Unknown History midodrine 5 mg tablet 5 mg PO TID PRN Hypotension 08/09/22 08/09/22 Unknown History nitroglycerin 0.4 mg sublingual 0.4 mg sublingual Q5M PRN Angina 08/09/22 08/09/22 Unknown History tablet polyethylene glycol 3350 17 gram 17 g PO DAILY 08/09/22 08/09/22 Unknown History oral powder packet (Miralax) sennosides 8.6 mg tablet (senna) 17.2 mg PO BID 08/09/22 08/09/22 Unknown History sevelamer carbonate 800 mg tablet 800 mg PO BIDWM 08/09/22 08/09/22 Unknown History vitamin B complex and vitamin C 1 cap PO DAILY 08/09/22 08/09/22 Unknown History no.20-folic acid 1 mg capsule Physical Exam Vital Signs: Vital Signs: Last Vital Signs Temp 97.1 F 08/12/22 07:47 Pulse 111 H 08/12/22 07:47 Resp 20 08/12/22 07:47 BP 97/70 08/12/22 07:47 Pulse Ox 97 08/12/22 07:47 O2 Del Method 08/12/22 07:47 BMI result Body Mass Index 27.5 Back/Spine/Pelvis: Other: open area with fibrinous exudate over back Psych: Other: open mouth,not able to communicate no oxygen on Results Labs CBC & Chem 7: 08/12/22 08:55 08/12/22 08:55 Labs: Short CBC 08/12/22 Range/Units 08:55 WBC 18.0 H (4.8-10.8) X10*3/uL Hgb 9.5 L (14.0-18.0) g/dl Hct 28.0 L (42.0-52.0) % Plt Count 358 (160-400) X10*3/uL BMP 08/12/22 08/12/22 08:55 08:55 Sodium 135 Potassium 3.6 Chloride 98 Carbon Dioxide 25 BUN 43 H Creatinine Cancelled 4.55 H* Calcium 8.5 Microbiology Microbiology Results: Microbiology 08/09/22 14:33 Blood - Venous Blood Culture - Final Methicillin Res Staph Aureus 08/09/22 14:33 Blood - Venous Blood Culture - Final Methicillin Res Staph Aureus Assessment and Plan (1) Pressure injury of lower back, stage 4: Status: Acute (2) Encephalopathy: Status: Acute (3) MRSA bacteremia: Status: Acute Source of MRSA bacteremia likely open wound CT shows no osteomyelitis Asymptomatic COVID Plan Consider check MRI look for osteomyelitis spine. Follow up echo Check ESR evaluate inflammatory activity. Agree with Vancomycin for likely 4-6 weeks with weekly Vancomycin level and creatinine. Wound Clinic evaluate wound spine. No treatment for COVID since no oxygen requirement.
--- NOTE | 2022-08-12 11:54 | P.PNIM_ITS ---
Subjective Subjective Date of Service: 08/12/22 Interval History: cc: ams interval history: right shoulder pain Cardiovascular Cardiovascular: Reports no additional cardiovascular complaints Respiratory Respiratory: Reports no additional respiratory complaints Physical Exam Vital Signs: Vital Signs: Last Vital Signs Temp 97.2 F 08/12/22 11:52 Pulse 102 H 08/12/22 11:52 Resp 18 08/12/22 11:52 BP 94/64 08/12/22 11:52 Pulse Ox 96 08/12/22 11:52 O2 Del Method 08/12/22 11:52 BMI result Body Mass Index 27.5 General: AO X 3, no acute distress Resp: CTA bilateral, no accessory muscles used CVS: S1,S2,RRR GI: soft, non tender, non distended Neuro: motor grossly intact, alert Psych: appropriate affect, appropriate insight sacral wound LUE fistula Objective Data Active Medications Acetaminophen (Acetaminophen 325 Mg Tablet) 650 mg PO Q6H PRN PRN Reason: Pain, Mild (Pain Scale 1-3) Last Admin: 08/10/22 22:44 Dose: 650 mg Documented By: MAURA Atorvastatin Calcium (Atorvastatin Calcium 40 Mg Tablet) 40 mg PO BEDTIME [facility] Last Admin: 08/11/22 21:06 Dose: 40 mg Documented By: JUN Bisacodyl (Bisacodyl 10 Mg Supp.Rect) 10 mg VT DAILY PRN PRN Reason: Constipation Collagenase (Collagenase Clostridium Hist. 30 Gm Tube) 1 appl TOPICAL DAILY [facility]; Protocol Last Admin: 08/12/22 09:36 Dose: 1 appl Documented By: MILLY Cyanocobalamin (Cyanocobalamin (Vitamin B-12) 1,000 Mcg Tablet) 1,000 mcg PO DAILY [facility] Last Admin: 08/12/22 09:35 Dose: 1,000 mcg Documented By: MILLY Guaifenesin (Guaifenesin 100 Mg/5 Ml Liquid) 5 ml PO Q2H PRN PRN Reason: Cough Last Admin: 08/10/22 15:26 Dose: 5 ml Documented By: LUCAS Guaifenesin (Guaifenesin La 600 Mg Tab.Er.12h) 600 mg PO BID [facility] Last Admin: 08/12/22 09:36 Dose: 600 mg Documented By: MILLY Vancomycin HCl 750 mg/ Sodium (Chloride) 265 mls @ 265 mls/hr IV TUTHSA@2000 [facility] Lidocaine (Lidocaine 4 % Patch Adh..Patch) 1 patch TRANSDERMA DAILY [facility] Last Admin: 08/12/22 09:36 Dose: 1 patch Documented By: MILLY Magnesium Oxide (Magnesium Oxide 400 Mg Tablet) 400 mg PO DAILY [facility] Last Admin: 08/12/22 09:35 Dose: 400 mg Documented By: MILLY Megestrol Acetate (Megestrol Acetate 20 Mg Tablet) 20 mg PO DAILY [facility] Last Admin: 08/12/22 09:35 Dose: 20 mg Documented By: MILLY Melatonin (Melatonin 3 Mg Tablet) 6 mg PO BEDTIME PRN PRN Reason: Insomnia Last Admin: 08/10/22 02:13 Dose: 6 mg Documented By: FRANCISCO Melatonin (Melatonin 3 Mg Tablet) 9 mg PO BEDTIME [facility] Last Admin: 08/11/22 21:06 Dose: 9 mg Documented By: JUN Metoprolol Tartrate (Metoprolol Tartrate 12.5 Mg Halftab) 12.5 mg PO BID [facility]; Protocol Last Admin: 08/12/22 09:35 Dose: 12.5 mg Documented By: MILLY Midodrine (Midodrine Hcl 5 Mg Tablet) 5 mg PO TIDWM PRN PRN Reason: HYPOTENSION Morphine Sulfate (Morphine Sulfate 2 Mg/Ml Cartridge) 2 mg IVPUSH Q4H PRN; Protocol PRN Reason: moderate pain Last Admin: 08/12/22 10:38 Dose: 2 mg Documented By: DEN[place] Multivitamins/Vitamin C (Multivitamin Tablet) 1 tab PO DAILY [facility] Last Admin: 08/12/22 09:35 Dose: 1 tab Documented By: MILLY Nitroglycerin (Nitroglycerin 0.4 Mg Tab.Subl) 0.4 mg SUBLINGUAL Q5M PRN PRN Reason: Angina Omeprazole (Omeprazole 20 Mg Capsule.Dr) 20 mg PO DAILY@0630 [facility] Last Admin: 08/12/22 05:43 Dose: 20 mg Documented By: JUN Ondansetron HCl (Ondansetron Hcl 4 Mg/2 Ml Vial) 4 mg IVPUSH Q8H PRN PRN Reason: Nausea and Vomiting Pharmacy Consult (Consult Rx Perform Med Rec) 1 each MISCELLANE ONCE PRN PRN Reason: Consult order Pharmacy Consult (Consult Rx Vancomycin Dosing) 1 each MISCELLANE DAILY PRN PRN Reason: Consult order Polyethylene Glycol (Polyethylene Glycol 3350 17 Gm Powd.Pack) 17 gm PO DAILY [facility] Last Admin: 08/12/22 09:36 Dose: 17 gm Documented By: MILLY Senna (Sennosides 8.6 Mg Tablet) 17.2 mg PO BID [facility] Last Admin: 08/12/22 09:35 Dose: 17.2 mg Documented By: MILLY Sevelamer Carbonate (Sevelamer Carbonate Tablet 800 Mg Tablet) 800 mg PO BIDWM [facility] Last Admin: 08/12/22 09:35 Dose: 800 mg Documented By: MILLY Sodium Chloride (0.9 % Sodium Chloride Flush 3 Ml Syringe) 3 ml IVFLUSH QSHIFT [facility] Last Admin: 08/12/22 09:35 Dose: 3 ml Documented By: MILLY Tramadol HCl (Tramadol Hcl 50 Mg Tablet) 25 mg PO Q12H PRN PRN Reason: Pain, Moderate (Pain Scale 4-6 Last Admin: 08/11/22 00:06 Dose: 25 mg Documented By: MAURA Vitamin D (Cholecalciferol (Vitamin D3) 25 Mcg Tablet) 25 mcg PO DAILY [facility] Last Admin: 08/12/22 09:35 Dose: 25 mcg Documented By: MILLY Warfarin Sodium (Warfarin Sodium 1 Mg Tablet) 1 mg PO DAILY@1800 [facility] Last Admin: 08/10/22 18:39 Dose: 1 mg Documented By: LUCAS Warfarin Sodium (Warfarin Sodium 2 Mg Tablet) 2 mg PO DAILY@1800 [facility] Stop: 08/12/22 18:01 Last Admin: 08/11/22 17:10 Dose: 2 mg Documented By: GALILEO Labs CBC & Chem 7: 08/12/22 08:55 08/12/22 08:55 Labs: Laboratory Results - last 24 hr 08/12/22 08/12/22 08/12/22 08:55 08:55 08:55 MCV 91.8 MCH 31.1 MCHC 33.9 RDW 17.5 H Plt Count 358 MPV 10.6 Absolute Nucleated RBC 0.000 Nucleated RBC % (auto) 0.0 PT 23.2 H INR 2.0 H Anion Gap Estim Creat Clear Calc Cancelled Estimated GFR Cancelled Random Glucose Calcium 08/12/22 08:55 MCV MCH MCHC RDW Plt Count MPV Absolute Nucleated RBC Nucleated RBC % (auto) PT INR Anion Gap 16 Estim Creat Clear Calc 15.2 Estimated GFR 12 Random Glucose 107 Calcium 8.5 Microbiology Microbiology Results: Microbiology 08/09/22 14:33 Blood Culture - Final Blood - Venous Methicillin Res Staph Aureus 08/09/22 14:33 Blood Culture - Final Blood - Venous Methicillin Res Staph Aureus Assessment and Plan (1) MRSA bacteremia: Status: Acute Plan 81-year-old male coming from long-term facility with pertinent history of end-stage renal disease on hemodialysis, prostate cancer with history of urostomy, mixed hyperlipidemia, essential hypertension, chronic obstructive pulmonary disease, permanent atrial fibrillation on Coumadin, congestive heart failure unknown ejection fraction, rheumatoid arthritis who was brought to the emergency department for evaluation of altered mentation. Severe sepsis present on admission and metabolic encephalopathy due to cellulitis and infected sacral decubitus ulcer complicated by MRSA bacteremia id appreciated - 4-6 weeks IV vanco to be done with hemodialysis, follow-up repeat cultures, MRI of the sacrum, echo COVID-19 infection asymptomatic end-stage renal disease hemodialysis via left upper extremity fistula supratherapeutic INR resolved, Coumadin restarted permanent atrial fibrillation continue warfarin, metoprolol hyperlipidemia continue statin DVT prophylaxis with Coumadin DNR/DNI reason for continued hospitalization: awaiting, clearance of cultures Quality Stroke Does the patient have a stroke diagnosis?: No VTE Prior VTE?: No VTE Risk Level:: Medical - moderate - high VTE Device Contraindication: Treatment Not Indicated VTE Drug Contraindication: Treatment Not Indicated
--- NOTE | 2022-08-12 14:21 | PC.NURSE ---
Upon assessment pt verbalizing I just want to , I want god to take me - MD notified, recommended goals of care discussion w/pt and , no new orders or change to plan of care at this time. Tool Planer Set Up Operator called to provide spiritual support, saw pt at bedside and reached out to pt's maintainer plant who will be coming to see him on .
[2022-08-12] MEDS: Warfarin Sodium 2 MG TABLET PO (17:51)
[2022-08-12] MEDS: Melatonin 3 MG TABLET 9 MG PO (20:56)
[2022-08-12] MEDS: Atorvastatin Calcium 40 MG TABLET PO (20:56)
--- NOTE | 2022-08-13 | ECG_ITS ---
Test Reason : cp Blood Pressure : / mmHG Vent. Rate : 105 BPM Atrial Rate : 000 BPM P-R Int : 000 ms QRS Dur : 094 ms QT Int : 362 ms P-R-T Axes : 000 -20 100 degrees QTc Int : 478 ms Atrial fibrillation with rapid ventricular response Nonspecific T wave abnormality RSR' or QR pattern in V1 suggests right ventricular conduction delay Abnormal ECG When compared with ECG of 09-AUG-2022 16:09, No significant changes seen Referred By: Jerod Rodriges Electronically Signed By:KYM GUADALUPE MD
[2022-08-13 04:00] VITALS: BP 104/55; PULSE 100; RESP 16; TEMP 36.2; O2SAT 98
[2022-08-13] MEDS: Omeprazole 20 MG CAPSULE.DR PO (06:06)
--- NOTE | 2022-08-13 06:30 | PM.EVENT ---
Event Note Date of Service: 08/13/22 Event Note: Patient woke up, feeling anxious, tachycardic, feels like he is dying. He is also complaining of midsternal chest pressure. Will obtain EKG, troponin, will give 2.5 of Lopressor as his heart rate is in the 105 stool 110s.
[2022-08-13] MEDS: LORazepam 0.5 MG TABLET PO (06:38)
[2022-08-13 06:39] LABS: Hematocrit 26.7 % (42.0-52.0); Hemoglobin 8.9 g/dl (14.0-18.0); Mean Corpuscular HGB Conc 33.3 g/dl (31.0-36.0); Mean Corpuscular Hemoglobin 30.6 pg (27.0-33.0); Mean Corpuscular Volume 91.8 fL (80.0-98.0); Mean Platelet Volume 10.6 fL (9.4-12.4); Platelet Count 344 X10*3/uL (160-400); Red Blood Count 2.91 X10*6/uL (4.60-5.80); Red Cell Distribution Width 17.9 % (11.0-16.0); White Blood Count 16.4 X10*3/uL (4.8-10.8)
[2022-08-13] MEDS: Metoprolol Tartrate 5 MG/5 ML VIAL 2.5 MG IVPUSH (06:39)
[2022-08-13 06:42] LABS: INTERNATIONAL NORM RATIO 2.9 (0.9-1.1); Prothrombin Time 35.3 SEC (10.0-13.1)
[2022-08-13 07:04] LABS: Troponin-I High Sensitivity 10.9 ng/L (<3.5-35.0)
[2022-08-13 07:16] LABS: Anion Gap 19 (12-20); Blood Urea Nitrogen 51 mg/dL (9-16); Calcium 8.2 mg/dL (8.4-10.2); Carbon Dioxide 23 mmol/L (22-29); Chloride 98 mmol/L (96-108); Creatinine Clr Calc Pharmacy 12.3; Estimated Glomerular Filt Rate 10; Glucose Fasting 91 mg/dL (60-99); Potassium 4.3 mmol/L (3.3-5.1); Sodium 136 mmol/L (135-145)
[2022-08-13 07:27] VITALS: BP 153/70; PULSE 102; RESP 20; TEMP 36.2; O2SAT 99
--- NOTE | 2022-08-13 09:21 | HO.PM.IMPN ---
Subjective Subjective Date of Service: 08/13/22 Interval History: cc: ams interval history: right shoulder pain Cardiovascular Cardiovascular: Reports no additional cardiovascular complaints Respiratory Respiratory: Reports no additional respiratory complaints Physical Exam Vital Signs: Vital Signs: Last Vital Signs Temp 97.2 F 08/13/22 07:27 Pulse 102 H 08/13/22 07:27 Resp 20 08/13/22 07:27 BP 153/70 H 08/13/22 07:27 Pulse Ox 99 08/13/22 07:27 O2 Del Method 08/13/22 07:27 BMI result Body Mass Index 27.5 General: AO X 3, no acute distress Resp: CTA bilateral, no accessory muscles used CVS: S1,S2,RRR GI: soft, non tender, non distended Neuro: motor grossly intact, alert Psych: appropriate affect, appropriate insight sacral wound LUE fistula Objective Data Active Medications Acetaminophen (Acetaminophen 325 Mg Tablet) 650 mg PO Q6H PRN PRN Reason: Pain, Mild (Pain Scale 1-3) Last Admin: 08/10/22 22:44 Dose: 650 mg Documented By: MAURA Atorvastatin Calcium (Atorvastatin Calcium 40 Mg Tablet) 40 mg PO BEDTIME [facility] Last Admin: 08/12/22 20:56 Dose: 40 mg Documented By: DONOVAN Bisacodyl (Bisacodyl 10 Mg Supp.Rect) 10 mg [place] DAILY PRN PRN Reason: Constipation Collagenase (Collagenase Clostridium Hist. 30 Gm Tube) 1 appl TOPICAL DAILY [facility]; Protocol Last Admin: 08/12/22 09:36 Dose: 1 appl Documented By: MILLY Cyanocobalamin (Cyanocobalamin (Vitamin B-12) 1,000 Mcg Tablet) 1,000 mcg PO DAILY [facility] Last Admin: 08/12/22 09:35 Dose: 1,000 mcg Documented By: MILLY Guaifenesin (Guaifenesin 100 Mg/5 Ml Liquid) 5 ml PO Q2H PRN PRN Reason: Cough Last Admin: 08/10/22 15:26 Dose: 5 ml Documented By: LUCAS Guaifenesin (Guaifenesin La 600 Mg Tab.Er.12h) 600 mg PO BID [facility] Last Admin: 08/12/22 20:56 Dose: 600 mg Documented By: DONOVAN Vancomycin HCl 750 mg/ Sodium (Chloride) 265 mls @ 265 mls/hr IV TUTHSA@2000 [facility] Lidocaine (Lidocaine 4 % Patch Adh..Patch) 1 patch TRANSDERMA DAILY [facility] Last Admin: 08/12/22 09:36 Dose: 1 patch Documented By: MILLY Magnesium Oxide (Magnesium Oxide 400 Mg Tablet) 400 mg PO DAILY [facility] Last Admin: 08/12/22 09:35 Dose: 400 mg Documented By: MILLY Megestrol Acetate (Megestrol Acetate 20 Mg Tablet) 20 mg PO DAILY [facility] Last Admin: 08/12/22 09:35 Dose: 20 mg Documented By: MILLY Melatonin (Melatonin 3 Mg Tablet) 6 mg PO BEDTIME PRN PRN Reason: Insomnia Last Admin: 08/10/22 02:13 Dose: 6 mg Documented By: FRANCISCO Melatonin (Melatonin 3 Mg Tablet) 9 mg PO BEDTIME [facility] Last Admin: 08/12/22 20:56 Dose: 9 mg Documented By: DONOVAN Metoprolol Tartrate (Metoprolol Tartrate 12.5 Mg Halftab) 12.5 mg PO BID [facility]; Protocol Last Admin: 08/12/22 20:56 Dose: 12.5 mg Documented By: DONOVAN Midodrine (Midodrine Hcl 5 Mg Tablet) 5 mg PO TIDWM PRN PRN Reason: HYPOTENSION Morphine Sulfate (Morphine Sulfate 2 Mg/Ml Cartridge) 2 mg IVPUSH Q4H PRN; Protocol PRN Reason: moderate pain Last Admin: 08/12/22 10:38 Dose: 2 mg Documented By: DENVER Multivitamins/Vitamin C (Multivitamin Tablet) 1 tab PO DAILY [facility] Last Admin: 08/12/22 09:35 Dose: 1 tab Documented By: MILLY Nitroglycerin (Nitroglycerin 0.4 Mg Tab.Subl) 0.4 mg SUBLINGUAL Q5M PRN PRN Reason: Angina Omeprazole (Omeprazole 20 Mg Capsule.Dr) 20 mg PO DAILY@0630 [facility] Last Admin: 08/13/22 06:06 Dose: 20 mg Documented By: DONOVAN Ondansetron HCl (Ondansetron Hcl 4 Mg/2 Ml Vial) 4 mg IVPUSH Q8H PRN PRN Reason: Nausea and Vomiting Pharmacy Consult (Consult Rx Perform Med Rec) 1 each MISCELLANE ONCE PRN PRN Reason: Consult order Pharmacy Consult (Consult Rx Vancomycin Dosing) 1 each MISCELLANE DAILY PRN PRN Reason: Consult order Polyethylene Glycol (Polyethylene Glycol 3350 17 Gm Powd.Pack) 17 gm PO DAILY [facility] Last Admin: 08/12/22 09:36 Dose: 17 gm Documented By: MILLY Senna (Sennosides 8.6 Mg Tablet) 17.2 mg PO BID [facility] Last Admin: 08/12/22 20:57 Dose: 17.2 mg Documented By: DONOVAN Sevelamer Carbonate (Sevelamer Carbonate Tablet 800 Mg Tablet) 800 mg PO BIDWM [facility] Last Admin: 08/12/22 17:51 Dose: 800 mg Documented By: MILLY Sodium Chloride (0.9 % Sodium Chloride Flush 3 Ml Syringe) 3 ml IVFLUSH QSHIFT [facility] Last Admin: 08/12/22 20:57 Dose: 3 ml Documented By: DONOVAN Tramadol HCl (Tramadol Hcl 50 Mg Tablet) 25 mg PO Q12H PRN PRN Reason: Pain, Moderate (Pain Scale 4-6 Last Admin: 08/11/22 00:06 Dose: 25 mg Documented By: MAURA Vitamin D (Cholecalciferol (Vitamin D3) 25 Mcg Tablet) 25 mcg PO DAILY [facility] Last Admin: 08/12/22 09:35 Dose: 25 mcg Documented By: MILLY Warfarin Sodium (Warfarin Sodium 1 Mg Tablet) 1 mg PO DAILY@1800 [facility] Last Admin: 08/10/22 18:39 Dose: 1 mg Documented By: LUCAS Labs CBC & Chem 7: 08/13/22 06:18 08/13/22 06:18 Labs: Laboratory Results - last 24 hr 08/12/22 08/12/22 08/13/22 08:55 08:55 06:18 MCV MCH MCHC RDW Plt Count MPV Absolute Nucleated RBC Nucleated RBC % (auto) PT 35.3 H INR 2.9 H Anion Gap 16 Estim Creat Clear Calc Cancelled 15.2 Estimated GFR Cancelled 12 Random Glucose 107 Fasting Glucose Calcium 8.5 Troponin I High Sens 08/13/22 08/13/22 08/13/22 06:18 06:18 06:18 MCV 91.8 MCH 30.6 MCHC 33.3 RDW 17.9 H Plt Count 344 MPV 10.6 Absolute Nucleated RBC 0.000 Nucleated RBC % (auto) 0.0 PT INR Anion Gap 19 Estim Creat Clear Calc 12.3 Estimated GFR 10 Random Glucose Fasting Glucose 91 Calcium 8.2 L Troponin I High Sens 10.9 D Microbiology Microbiology Results: Microbiology 08/12/22 08:55 Blood Culture - Preliminary Blood - Venous Prelim: GPC Gram Stain only 08/12/22 08:55 Blood Culture - Preliminary Blood - Venous Prelim: GPC Gram Stain only 08/09/22 14:33 Blood Culture - Final Blood - Venous Methicillin Res Staph Aureus 08/09/22 14:33 Blood Culture - Final Blood - Venous Methicillin Res Staph Aureus Assessment and Plan (1) MRSA bacteremia: Status: Acute Plan 81-year-old male coming from assisted facility with pertinent history of end-stage renal disease on hemodialysis, prostate cancer with history of urostomy, mixed hyperlipidemia, essential hypertension, chronic obstructive pulmonary disease, permanent atrial fibrillation on Coumadin, congestive heart failure unknown ejection fraction, rheumatoid arthritis who was brought to the emergency department for evaluation of altered mentation. Severe sepsis present on admission and metabolic encephalopathy due to cellulitis and infected sacral decubitus ulcer complicated by MRSA bacteremia id appreciated - 4-6 weeks IV vanco to be done with hemodialysis, follow-up repeat cultures - 08/12/22 still positive, repeat ordered for 08/13/22 follow up echo COVID-19 infection asymptomatic end-stage renal disease hemodialysis via left upper extremity fistula (does not appear infected) supratherapeutic INR resolved, Coumadin restarted and decreased from 1mg to 0.5mg as inr jumped up fairly quickly permanent atrial fibrillation continue warfarin, metoprolol hyperlipidemia continue statin DVT prophylaxis with Coumadin DNR/DNI reason for continued hospitalization: awaiting clearance of cultures Quality Stroke Does the patient have a stroke diagnosis?: No VTE Prior VTE?: No VTE Risk Level:: Medical - moderate - high VTE Device Contraindication: Treatment Not Indicated VTE Drug Contraindication: Treatment Not Indicated
[2022-08-13] MEDS: Megestrol Acetate 20 MG TABLET PO (13:48)
[2022-08-13] MEDS: Sevelamer Carbonate Tablet 800 MG TABLET PO ×2 (13:48→18:59)
[2022-08-13] MEDS: Magnesium Oxide 400 MG TABLET PO (13:49)
[2022-08-13] MEDS: 0.9 % Sodium Chloride Flush 3 ML SYRINGE IVFLUSH ×2 (13:49→16:07)
[2022-08-13] MEDS: Metoprolol Tartrate 12.5 MG HALFTAB PO ×2 (13:49→21:54)
[2022-08-13] MEDS: Cyanocobalamin (Vitamin B-12) 1,000 MCG TABLET 1000 MCG PO (13:49)
[2022-08-13] MEDS: guaiFENesin LA 600 MG TAB.ER.12H PO ×2 (13:49→21:54)
[2022-08-13] MEDS: Cholecalciferol (Vitamin D3) 25 MCG TABLET PO (13:49)
[2022-08-13] MEDS: Lidocaine 4 % Patch ADH..PATCH 1 PATCH TRANSDERMA (13:49)
[2022-08-13] MEDS: Sennosides 8.6 MG TABLET 17.2 MG PO (14:01)
[2022-08-13] MEDS: polyethylene glycoL 3350 17 GM POWD.PACK PO (14:02)
[2022-08-13] MEDS: traMADoL HCL 50 MG TABLET 25 MG PO (14:02)
[2022-08-13] MEDS: Multivitamin TABLET 1 TAB PO (14:02)
--- NOTE | 2022-08-13 14:31 | P.CDIC_ITS ---
CDI Concurrent Query Documentation Clarification: PHYSICIAN'S DOCUMENTATION REQUEST Date of Query: 08/13/22 1432 Patient Name: Suman Park Admit Date: 08/09/22 Dear Doctor, A review of the medical record indicates additional documentation may be indicated. Please review below and update the documentation accordingly. Clinical Indicators: Risk Factors/Clinical Indicators/Treatments per MD progress note 08/13/22: infected sacral decubitus ulcer Based on the above, could you please provide, in the Progress Notes, further information regarding the ulcer/wound: * If a pressure ulcer, please also include the stage* of the ulcer: * Stage 1 - Skin intact, non-blanchable redness * Stage 2 - Partial thickness loss of dermis, includes intact or open blister * Stage 3 - Full thickness tissue not including bone, tendon, or muscle * Stage 4 - Full thickness tissue loss, including exposed bones, tendon, or muscle * Unstageable - Full thickness tissue loss in which the base of the ulcer is covered by slough (yellow, bailon, escalante, green or brown) and/or eschar (bailon, brown, or black) in the wound bed. * Suspected deep tissue injury - Purple or maroon localized area of discolored intact skin or blood-filled blister due to damage of underlying soft tissues from pressure and/or shear. The area may be preceded by tissue that is painful, firm, mushy, boggy, warmer, or cooler as compare to adjacent tissue. * Unable to determine *Source: National Pressure Ulcer Advisory Panel (NPUAP) Use of terms such as suspected, likely, concern for, or probable (associated with a specific diagnosis that is being evaluated, monitored, or treated as if it exists) are acceptable and can be coded in the inpatient setting, when documented at the time of discharge. Thank you, Crystal Richter RN Extension: [phone] Please use your independent medical judgment in providing your response. THIS QUERY IS PART OF THE PERMANENT MEDICAL RECORD
--- NOTE | 2022-08-13 14:33 | P.CDIC_ITS ---
CDI Concurrent Query Documentation Clarification: PHYSICIAN'S DOCUMENTATION REQUEST Date of Query: 08/13/22 1432 Patient Name: Suman Park Admit Date: 08/09/22 Dear Doctor, A review of the medical record indicates additional documentation may be indicated. Please review below and update the documentation accordingly. Clinical Indicators: Risk Factors/Clinical Indicators/Treatments per MD progress note 08/13/22: infected sacral decubitus ulcer Based on the above, could you please provide, in the Progress Notes, further information regarding the ulcer/wound: * If a pressure ulcer, please also include the stage* of the ulcer: * Stage 1 - Skin intact, non-blanchable redness * Stage 2 - Partial thickness loss of dermis, includes intact or open blister * Stage 3 - Full thickness tissue not including bone, tendon, or muscle * Stage 4 - Full thickness tissue loss, including exposed bones, tendon, or muscle * Unstageable - Full thickness tissue loss in which the base of the ulcer is covered by slough (yellow, bailon, escalante, green or brown) and/or eschar (bailon, brown, or black) in the wound bed. * Suspected deep tissue injury - Purple or maroon localized area of discolored intact skin or blood-filled blister due to damage of underlying soft tissues from pressure and/or shear. The area may be preceded by tissue that is painful, firm, mushy, boggy, warmer, or cooler as compare to adjacent tissue. * Unable to determine *Source: National Pressure Ulcer Advisory Panel (NPUAP) Use of terms such as suspected, likely, concern for, or probable (associated with a specific diagnosis that is being evaluated, monitored, or treated as if it exists) are acceptable and can be coded in the inpatient setting, when documented at the time of discharge. Thank you, Crystal Richter RN Extension: [phone] Please use your independent medical judgment in providing your response. THIS QUERY IS PART OF THE PERMANENT MEDICAL RECORD
[2022-08-13 15:32] VITALS: BP 99/58; PULSE 105; RESP 19; TEMP 36
[2022-08-13 15:51] LABS: Vancomycin Random 11.6 mcg/mL (15-20)
[2022-08-13] MEDS: Morphine Sulfate 2 MG/ML CARTRIDGE IVPUSH (16:04)
[2022-08-13] MEDS: vancomycin HCL 500 MG in 0.9 % Sodium Chloride 100 ML 110 MG IV (18:29)
[2022-08-13] MEDS: Warfarin Sodium 0.5 MG HALFTAB PO (18:45)
[2022-08-13 19:43] VITALS: BP 115/59; PULSE 109; RESP 19; TEMP 36.2
--- NOTE | 2022-08-13 21:09 | PM.PNNEP ---
Subjective Subjective Date of Service: 08/13/22 Interval history: Seen and examined,events noted Physical Exam Vital Signs: Vital Signs: Last Vital Signs Temp 97.1 F 08/13/22 19:43 Pulse 109 H 08/13/22 19:43 Resp 19 08/13/22 19:43 BP 115/59 L 08/13/22 19:43 Pulse Ox 99 08/13/22 07:27 O2 Del Method 08/13/22 19:43 FiO2 100 08/13/22 19:43 BMI result Body Mass Index 27.5 Const: Other: Patient alert, oriented to self and place. Answers questions appropriately states he wants to go home Resp: Other: Lungs clear to auscultations bilaterally Cardio: Other: normal rate and rhythm GI: Other: abd is soft non-tender, no rebound or guarding Skin: Other: Patient states that he cannot moved to the side for me to examine his back Extrem: Other: No lower extremity edema Objective Data Labs CBC & Chem 7: 08/13/22 06:18 08/13/22 06:18 Labs: Laboratory Results - last 24 hr 08/13/22 08/13/22 08/13/22 06:18 06:18 06:18 WBC 16.4 H RBC 2.91 L Hgb 8.9 L Hct 26.7 L MCV 91.8 MCH 30.6 MCHC 33.3 RDW 17.9 H Plt Count 344 MPV 10.6 Absolute Nucleated RBC 0.000 Nucleated RBC % (auto) 0.0 PT 35.3 H INR 2.9 H Sodium 136 Potassium 4.3 Chloride 98 Carbon Dioxide 23 Anion Gap 19 BUN 51 H Creatinine 5.59 H* Estim Creat Clear Calc 12.3 Estimated GFR 10 Fasting Glucose 91 Calcium 8.2 L Troponin I High Sens Random Vancomycin 08/13/22 08/13/22 06:18 14:55 WBC RBC Hgb Hct MCV MCH MCHC RDW Plt Count MPV Absolute Nucleated RBC Nucleated RBC % (auto) PT INR Sodium Potassium Chloride Carbon Dioxide Anion Gap BUN Creatinine Estim Creat Clear Calc Estimated GFR Fasting Glucose Calcium Troponin I High Sens 10.9 D Random Vancomycin 11.6 L Microbiology Microbiology Results: Microbiology 08/12/22 08:55 Blood - Venous Blood Culture - Preliminary Prelim: GPC Gram Stain only 08/12/22 08:55 Blood - Venous Blood Culture - Preliminary Prelim: GPC Gram Stain only 08/09/22 14:33 Blood - Venous Blood Culture - Final Methicillin Res Staph Aureus 08/09/22 14:33 Blood - Venous Blood Culture - Final Methicillin Res Staph Aureus Procedures Date of Service Date of Service: 08/13/22 Assessment & Plan Assessment and plan (1) Encephalopathy: Status: Acute (2) Skin lesion: Status: Acute (3) Infected open wound: Status: Acute (4) Cellulitis: Status: Acute (5) Leukocytosis: Status: Acute (6) Fever: Status: Acute (7) CHF (congestive heart failure): Status: Acute (8) Atrial fibrillation: Status: Acute (9) Sepsis: Status: Acute (10) End stage renal disease: Status: Acute Assessment and Plan: due for dialysis tues orders written Plan 1. ESRD: TTS 2. MRSA bact c/w sacral wound as source; he has a AVF and unlikely source 3. Anemai and MBD of ESRD: meds as noted REC: cont HD TTS; Abx as noted; d/c planning .? Time Spent With Patient Time: Total time spent is greater than 50% in coordination of care (as documented) at patient's floor/unit and/or counseling patient: Progress Note: Quality Stroke Does the patient have a stroke diagnosis?: No
[2022-08-13] MEDS: Melatonin 3 MG TABLET 9 MG PO (21:53)
[2022-08-13] MEDS: Atorvastatin Calcium 40 MG TABLET PO (21:54)
[2022-08-13 23:39] VITALS: BP 102/57; PULSE 85; RESP 20; TEMP 36.3; O2SAT 98
[2022-08-14] MEDS: 0.9 % Sodium Chloride Flush 3 ML SYRINGE IVFLUSH ×4 (02:44→20:53)
[2022-08-14 03:10] VITALS: BP 133/65; PULSE 98; RESP 20; TEMP 36.4; O2SAT 94
[2022-08-14] MEDS: Omeprazole 20 MG CAPSULE.DR PO (05:42)
[2022-08-14 06:42] LABS: Hematocrit 24.6 % (42.0-52.0); Hemoglobin 8.3 g/dl (14.0-18.0); Mean Corpuscular HGB Conc 33.7 g/dl (31.0-36.0); Mean Corpuscular Hemoglobin 31.1 pg (27.0-33.0); Mean Corpuscular Volume 92.1 fL (80.0-98.0); Mean Platelet Volume 10.2 fL (9.4-12.4); Platelet Count 346 X10*3/uL (160-400); Red Blood Count 2.67 X10*6/uL (4.60-5.80); White Blood Count 14.2 X10*3/uL (4.8-10.8)
[2022-08-14 06:56] LABS: Anion Gap 16 (12-20); Blood Urea Nitrogen 27 mg/dL (9-16); Calcium 7.9 mg/dL (8.4-10.2); Carbon Dioxide 29 mmol/L (22-29); Chloride 96 mmol/L (96-108); Estimated Glomerular Filt Rate 15; Glucose Fasting 118 mg/dL (60-99); Potassium 3.5 mmol/L (3.3-5.1); Sodium 137 mmol/L (135-145)
[2022-08-14 07:16] VITALS: BP 142/67; PULSE 96; RESP 16; TEMP 36.8; O2SAT 98
[2022-08-14 07:18] LABS: INTERNATIONAL NORM RATIO 3.1 (0.9-1.1); Prothrombin Time 37.6 SEC (10.0-13.1)
[2022-08-14] MEDS: polyethylene glycoL 3350 17 GM POWD.PACK PO (09:50)
[2022-08-14] MEDS: guaiFENesin LA 600 MG TAB.ER.12H PO ×2 (09:51→20:49)
[2022-08-14] MEDS: Metoprolol Tartrate 12.5 MG HALFTAB PO ×2 (09:51→20:50)
[2022-08-14] MEDS: Cholecalciferol (Vitamin D3) 25 MCG TABLET PO (09:51)
[2022-08-14] MEDS: Cyanocobalamin (Vitamin B-12) 1,000 MCG TABLET 1000 MCG PO (09:51)
[2022-08-14] MEDS: Sennosides 8.6 MG TABLET 17.2 MG PO ×2 (09:51→20:50)
[2022-08-14] MEDS: Multivitamin TABLET 1 TAB PO (09:51)
[2022-08-14] MEDS: Megestrol Acetate 20 MG TABLET PO (09:51)
[2022-08-14] MEDS: Sevelamer Carbonate Tablet 800 MG TABLET PO ×2 (09:52→18:04)
[2022-08-14] MEDS: Magnesium Oxide 400 MG TABLET PO (09:52)
[2022-08-14] MEDS: Collagenase Clostridium Hist. 30 GM TUBE 1 APPL TOPICAL (09:53)
[2022-08-14] MEDS: traMADoL HCL 50 MG TABLET 25 MG PO (10:04)
[2022-08-14 11:29] VITALS: BP 139/70; PULSE 85; RESP 16; TEMP 36.6; O2SAT 97
--- NOTE | 2022-08-14 11:46 | PM.PNNEP ---
Subjective Subjective Date of Service: 08/14/22 Interval history: Seen and examined,events noted Physical Exam Vital Signs: Vital Signs: Last Vital Signs Temp 97.9 F 08/14/22 11:29 Pulse 85 08/14/22 11:29 Resp 16 08/14/22 11:29 BP 139/70 08/14/22 11:29 Pulse Ox 97 08/14/22 11:29 O2 Del Method 08/14/22 11:29 FiO2 100 08/13/22 19:43 BMI result Body Mass Index 27.5 Const: Other: Patient alert, oriented to self and place. Answers questions appropriately states he wants to go home Resp: Other: Lungs clear to auscultations bilaterally Cardio: Other: normal rate and rhythm GI: Other: abd is soft non-tender, no rebound or guarding Skin: Other: Patient states that he cannot moved to the side for me to examine his back Extrem: Other: No lower extremity edema Objective Data Labs CBC & Chem 7: 08/14/22 06:28 08/14/22 06:28 Labs: Laboratory Results - last 24 hr 08/13/22 08/14/22 08/14/22 14:55 06:28 06:28 WBC 14.2 H RBC 2.67 L Hgb 8.3 L Hct 24.6 L MCV 92.1 MCH 31.1 MCHC 33.7 RDW 18.0 H Plt Count 346 MPV 10.2 Absolute Nucleated RBC 0.000 Nucleated RBC % (auto) 0.0 PT INR Sodium 137 Potassium 3.5 Chloride 96 Carbon Dioxide 29 Anion Gap 16 BUN 27 H Creatinine 3.84 H Estim Creat Clear Calc 18.0 Estimated GFR 15 Fasting Glucose 118 H Calcium 7.9 L Random Vancomycin 11.6 L 08/14/22 06:28 WBC RBC Hgb Hct MCV MCH MCHC RDW Plt Count MPV Absolute Nucleated RBC Nucleated RBC % (auto) PT 37.6 H INR 3.1 H Sodium Potassium Chloride Carbon Dioxide Anion Gap BUN Creatinine Estim Creat Clear Calc Estimated GFR Fasting Glucose Calcium Random Vancomycin Microbiology Microbiology Results: Microbiology 08/12/22 08:55 Blood - Venous Blood Culture - Preliminary Staphylococcus species 08/12/22 08:55 Blood - Venous Blood Culture - Preliminary Staphylococcus species 08/09/22 14:33 Blood - Venous Blood Culture - Final Methicillin Res Staph Aureus 08/09/22 14:33 Blood - Venous Blood Culture - Final Methicillin Res Staph Aureus Procedures Date of Service Date of Service: 08/14/22 Assessment & Plan Assessment and plan (1) Encephalopathy: Status: Acute (2) Skin lesion: Status: Acute (3) Infected open wound: Status: Acute (4) Cellulitis: Status: Acute (5) Leukocytosis: Status: Acute (6) Fever: Status: Acute (7) CHF (congestive heart failure): Status: Acute (8) Atrial fibrillation: Status: Acute (9) Sepsis: Status: Acute (10) End stage renal disease: Status: Acute Assessment and Plan: due for dialysis tues orders written Plan 1. ESRD: TTS 2. MRSA withpersistent bact c/w sacral wound as source; he has a AVF and unlikely sourcebut ? need tor/o 2ry seedinng card valve--ID following 3. Anemai and MBD of ESRD: meds as noted REC: cont HD TTS; Abx as noted; ques need card echo; d/c planning .? Time Spent With Patient Time: Total time spent is greater than 50% in coordination of care (as documented) at patient's floor/unit and/or counseling patient: Progress Note: Quality Stroke Does the patient have a stroke diagnosis?: No
--- NOTE | 2022-08-14 12:08 | HO.PM.IMPN ---
Subjective Subjective Date of Service: 08/14/22 Interval History: the patient was seen and evaluated this morning Laying in bed, feels comfortable overall Blood cultures remains positive Denies any fever, chills or shortness of breath No reported other overnight events. Systemic review: No fever, chills or weakness No chest pain, palpitation No shortness of breath or coughing No abdominal pain, nausea or vomiting No urinary symptoms Chronic wounds Physical Exam Vital Signs: Vital Signs: Last Vital Signs Temp 97.9 F 08/14/22 11:29 Pulse 85 08/14/22 11:29 Resp 16 08/14/22 11:29 BP 139/70 08/14/22 11:29 Pulse Ox 97 08/14/22 11:29 O2 Del Method 08/14/22 11:29 FiO2 100 08/13/22 19:43 BMI result Body Mass Index 27.5 Const: Other: Constitutional : Alert, oriented, not in distress Neck : Normal inspection, Supple, LUE fistula Cardiovascular : RRR, no JVP, no lower extremity edema Respiratory : fair bilateral air entry, no crackles, wheezes or rhonchi Gastrointestinal: soft, lax, Normal bowel sounds, Non tender Skin : Warm, Dry, stage II sacral wound Neurological : Alert & oriented x3, No focal deficit , CN 2-12 within normal Objective Data Active Medications Acetaminophen (Acetaminophen 325 Mg Tablet) 650 mg PO Q6H PRN PRN Reason: Pain, Mild (Pain Scale 1-3) Last Admin: 08/10/22 22:44 Dose: 650 mg Documented By: MAURA Atorvastatin Calcium (Atorvastatin Calcium 40 Mg Tablet) 40 mg PO BEDTIME [facility] Last Admin: 08/13/22 21:54 Dose: 40 mg Documented By: ERLINDA Bisacodyl (Bisacodyl 10 Mg Supp.Rect) 10 mg SC DAILY PRN PRN Reason: Constipation Collagenase (Collagenase Clostridium Hist. 30 Gm Tube) 1 appl TOPICAL DAILY [facility]; Protocol Last Admin: 08/14/22 09:53 Dose: 1 appl Documented By: NADJA Cyanocobalamin (Cyanocobalamin (Vitamin B-12) 1,000 Mcg Tablet) 1,000 mcg PO DAILY [facility] Last Admin: 08/14/22 09:51 Dose: 1,000 mcg Documented By: NADJA Guaifenesin (Guaifenesin 100 Mg/5 Ml Liquid) 5 ml PO Q2H PRN PRN Reason: Cough Last Admin: 08/10/22 15:26 Dose: 5 ml Documented By: LUCAS Guaifenesin (Guaifenesin La 600 Mg Tab.Er.12h) 600 mg PO BID [facility] Last Admin: 08/14/22 09:51 Dose: 600 mg Documented By: NADJA Vancomycin HCl 750 mg/ Sodium (Chloride) 265 mls @ 265 mls/hr IV TUTHSA@2000 [facility] Lidocaine (Lidocaine 4 % Patch Adh..Patch) 1 patch TRANSDERMA DAILY [facility] Last Admin: 08/14/22 09:51 Dose: Not Given Documented By: NADJA Non-Admin Reason: Patient Refused Magnesium Oxide (Magnesium Oxide 400 Mg Tablet) 400 mg PO DAILY [facility] Last Admin: 08/14/22 09:52 Dose: 400 mg Documented By: NADJA Megestrol Acetate (Megestrol Acetate 20 Mg Tablet) 20 mg PO DAILY [facility] Last Admin: 08/14/22 09:51 Dose: 20 mg Documented By: NADJA Melatonin (Melatonin 3 Mg Tablet) 6 mg PO BEDTIME PRN PRN Reason: Insomnia Last Admin: 08/10/22 02:13 Dose: 6 mg Documented By: FRANCISCO Melatonin (Melatonin 3 Mg Tablet) 9 mg PO BEDTIME [facility] Last Admin: 08/13/22 21:53 Dose: 9 mg Documented By: ERLINDA Metoprolol Tartrate (Metoprolol Tartrate 12.5 Mg Halftab) 12.5 mg PO BID [facility]; Protocol Last Admin: 08/14/22 09:51 Dose: 12.5 mg Documented By: NADJA Midodrine (Midodrine Hcl 5 Mg Tablet) 5 mg PO TIDWM PRN PRN Reason: HYPOTENSION Morphine Sulfate (Morphine Sulfate 2 Mg/Ml Cartridge) 2 mg IVPUSH Q4H PRN; Protocol PRN Reason: moderate pain Last Admin: 08/13/22 16:04 Dose: 2 mg Documented By: ERLINDA Multivitamins/Vitamin C (Multivitamin Tablet) 1 tab PO DAILY [facility] Last Admin: 08/14/22 09:51 Dose: 1 tab Documented By: NADJA Nitroglycerin (Nitroglycerin 0.4 Mg Tab.Subl) 0.4 mg SUBLINGUAL Q5M PRN PRN Reason: Angina Omeprazole (Omeprazole 20 Mg Capsule.Dr) 20 mg PO DAILY@0630 [facility] Last Admin: 08/14/22 05:42 Dose: 20 mg Documented By: NICHOLAS Ondansetron HCl (Ondansetron Hcl 4 Mg/2 Ml Vial) 4 mg IVPUSH Q8H PRN PRN Reason: Nausea and Vomiting Pharmacy Consult (Consult Rx Perform Med Rec) 1 each MISCELLANE ONCE PRN PRN Reason: Consult order Pharmacy Consult (Consult Rx Vancomycin Dosing) 1 each MISCELLANE DAILY PRN PRN Reason: Consult order Polyethylene Glycol (Polyethylene Glycol 3350 17 Gm Powd.Pack) 17 gm PO DAILY [facility] Last Admin: 08/14/22 09:50 Dose: 17 gm Documented By: NADJA Senna (Sennosides 8.6 Mg Tablet) 17.2 mg PO BID [facility] Last Admin: 08/14/22 09:51 Dose: 17.2 mg Documented By: NADJA Sevelamer Carbonate (Sevelamer Carbonate Tablet 800 Mg Tablet) 800 mg PO BIDWM [facility] Last Admin: 08/14/22 09:52 Dose: 800 mg Documented By: NADJA Sodium Chloride (0.9 % Sodium Chloride Flush 3 Ml Syringe) [address] [facility] Last Admin: 08/14/22 09:52 Dose: 3 ml Documented By: NADJA Tramadol HCl (Tramadol Hcl 50 Mg Tablet) 25 mg PO Q12H PRN PRN Reason: Pain, Moderate (Pain Scale 4-6 Last Admin: 08/14/22 10:04 Dose: 25 mg Documented By: NADJA Vitamin D (Cholecalciferol (Vitamin D3) 25 Mcg Tablet) 25 mcg PO DAILY [facility] Last Admin: 08/14/22 09:51 Dose: 25 mcg Documented By: NADJA Warfarin Sodium (Warfarin Sodium 0.5 Mg Halftab) 0.5 mg PO DAILY@1800 [facility] Last Admin: 08/13/22 18:45 Dose: 0.5 mg Documented By: ERLINDA Labs CBC & Chem 7: 08/14/22 06:28 08/14/22 06:28 Labs: Laboratory Results - last 24 hr 08/13/22 08/14/2208/14/22 14:55 06:28 06:28 MCV 92.1 MCH 31.1 MCHC 33.7 RDW 18.0 H Plt Count 346 MPV 10.2 Absolute Nucleated RBC 0.000 Nucleated RBC % (auto) 0.0 PT INR Anion Gap 16 Estim Creat Clear Calc 18.0 Estimated GFR 15 Fasting Glucose 118 H Calcium 7.9 L Random Vancomycin 11.6 L 08/14/22 06:28 MCV MCH MCHC RDW Plt Count MPV Absolute Nucleated RBC Nucleated RBC % (auto) PT 37.6 H INR 3.1 H Anion Gap Estim Creat Clear Calc Estimated GFR Fasting Glucose Calcium Random Vancomycin Microbiology Microbiology Results: Microbiology 08/12/22 08:55 Blood Culture - Preliminary Blood - Venous Staphylococcus species 08/12/22 08:55 Blood Culture - Preliminary Blood - Venous Staphylococcus species Assessment and Plan (1) MRSA bacteremia: Status: Acute (2) Pressure injury of lower back, stage 4: Status: Acute (3) Sepsis: Status: Acute (4) Encephalopathy: Status: Acute Plan 81-year-old male coming from [facility] with pertinent history of end-stage renal disease on hemodialysis, prostate cancer with history of urostomy, mixed hyperlipidemia, essential hypertension, chronic obstructive pulmonary disease, permanent atrial fibrillation on Coumadin, congestive heart failure unknown ejection fraction, rheumatoid arthritis who was brought to the emergency department for evaluation of altered mentation. Severe sepsis present on admission and metabolic encephalopathy due to cellulitis and infected sacral decubitus ulcer complicated by MRSA bacteremia id appreciated - 4-6 weeks IV vanco to be done with hemodialysis once blood culture negative follow-up repeat cultures - 08/12/22 positive, pending repeat cultures from 08/14/22 follow up echo Infectious Disease to follow COVID-19 infection asymptomatic end-stage renal disease hemodialysis via left upper extremity fistula (does not appear infected) supratherapeutic INR INR 3.1, hold today Coumadin restarted and decreased from 1mg to 0.5mg as inr jumped up fairly quickly permanent atrial fibrillation continue warfarin, metoprolol hyperlipidemia continue statin Stage IV sacral ulcer Wound team following, use Santyl for a week and debridement needed Pressure relief protocols DVT prophylaxis with Coumadin DNR/DNI reason for continued hospitalization: awaiting clearance of cultures for safe discharge plan Quality Stroke Does the patient have a stroke diagnosis?: No VTE Prior VTE?: No VTE Risk Level:: Medical - moderate - high VTE Device Contraindication: Treatment Not Indicated VTE Drug Contraindication: Treatment Not Indicated
--- NOTE | 2022-08-14 13:16 | MHC.CLN ---
F/U PT WITH INCREASED NUTRITION RISK R/T PRESSURE INJURY DIET RX: 2GM [id number] LIBERALIZE TO INCREASE VARIETY R/T ADVANCED AGE RECOMMEND ADDING ENSURE TID TO INCREASE KCALS AND PROMOTE WOUND HEALING SUPP PROVIDES 1050KCALS, 60G PROTEIN MONITOR PO INTAKE CLOSELY
--- NOTE | 2022-08-14 14:17 | MHC.CM.PN ---
Male 81 DX Covid+ Cellulitis Patient from [facility]. [facility] application being submitted by [facility], Per [facility] Financial stack yield engineer, Flores Santacruz. [facility] via BLS. No discharge today per MD rounds. Blood cultures are still Positive. DC pending blood culture clearance.
[2022-08-14 15:10] VITALS: BP 108/57; PULSE 95; RESP 15; TEMP 37.7; O2SAT 97
[2022-08-14 19:09] VITALS: BP 107/56; PULSE 98; RESP 13; TEMP 36.7; O2SAT 97
[2022-08-14] MEDS: Melatonin 3 MG TABLET 9 MG PO (20:50)
[2022-08-14] MEDS: Atorvastatin Calcium 40 MG TABLET PO (20:50)
[2022-08-15] VITALS: BP 110/61; PULSE 93; RESP 20; TEMP 36.7; O2SAT 98
[2022-08-15 04:00] VITALS: BP 130/58; PULSE 102; RESP 18; TEMP 36.5; O2SAT 96
[2022-08-15] MEDS: Omeprazole 20 MG CAPSULE.DR PO (06:01)
--- NOTE | 2022-08-15 07:00 | CA_ITS ---
Transthoracic Echocardiogram Patient (Last, First, Middle): Suman Park, Gender: Male Date of : 1940 Age: 81 Procedure Date: 08/15/2022 Procedure Type: Transthoracic Echocardiogram [place] [facility] [place] Height: 190.5 cm Weight: 99.79 kg BSA: 2.29 m2 Heart Rate: bpm BP: 97 / 70 mmHg Car Dispatcher: SB Referring MD: Taiwo Martinez MD Symptoms: MRSA bacteremia Study Quality: Technically Difficult/contrast ECG Rhythm: Atrial flutter Conclusions: - The left ventricular systolic function is normal. The calculated ejection fraction is 60% by biplane method. - There is moderately increased left ventricular wall thickness. - No obvious valvular pathology seen on this study. - There is mild dilatation of the sinuses of Valsalva measuring 4.30 cm and mild dilatation of the ascending aorta measuring 4.20 cm. Findings Procedure Information Contrast agent, definity, is being given per protocol without apparent complications. Left Ventricle Normal left ventricular cavity size. There is moderately increased left ventricular wall thickness. The left ventricular systolic function is normal. The calculated ejection fraction is 60% by biplane method. There is no evidence of regional wall motion abnormalities. Diastolic function is indeterminate on the basis of available data. Right Ventricle Normal right ventricular cavity size. There is mild to moderately decreased right ventricular systolic function. There is a pacemaker wire seen in the right ventricle. Atria Both atria are normal in size. Aortic Valve There is mild calcification of the aortic valve. There is no aortic valve stenosis. There is no aortic valve regurgitation. Mitral Valve The mitral valve appears normal. There is no mitral valve regurgitation. There is no mitral valve stenosis. Pulmonic Valve The pulmonic valve is likely normal. Tricuspid Valve There is trace tricuspid valve regurgitation. There is no evidence of pulmonary hypertension. Great Vessels There is mild dilatation of the sinuses of Valsalva measuring 4.30 cm and mild dilatation of the ascending aorta measuring 4.20 cm. Venous The inferior vena cava is normal in size and collapses greater than 50% with inspiration. Pericardium/Pleural There is no evidence of pericardial effusion. Prior Study Comparison No prior study available for comparison. Recommendations, Care & Conclusions No obvious valvular pathology seen on this study. Consider a KANDICE if clinically appropriate. Measurements 2D Linear Measurements IVSd: 1.36 0.6-0.9/0.6-1.0 cm LVIDd: 4.42 3.9-5.3/4.2-5.9 cm LVIDd Index: 1.93 2.4-3.2/2.2-3.1 cm/m2 LVIDs: 2.53 2.0-3.6 cm LVPWd: 1.27 0.7-1.1 cm LA Diam: 4.20 2.7-3.8/3.0-4.0 cm LAIDs Index: 1.83 1.5-2.3 cm/m2 LV Mass: 274.61 67-162/88-224 g LV Mass Index: 119.92 43-95/49-115 g/m2 LVOT Diam: 2.50 3.0+(-)1.3 cm 2D Systolic Function EF 4C: 57.00 >55% EF 2C: 63.00 >55% EF BiP: 60.30 >55% Mitral Valve MV Pk E: 1.16 Aortic Valve AoV Pk Fernandez: 1.63 AoV Pk Grad: 11.00 LVOT LVOT Pk Fernandez: 1.09 LVOT Mn Fernandez: 0.75 LVOT VTI: 0.18 LVOT Pk Grad: 5.00 LVOT Mn Grad: 3.00 LVOT Diam: 2.50 LVOT Area: 4.91 Diastolic Function MV Pk E: 1.16 Right Ventricle TAPSE (mm): 10.70 TVS' Fernandez: 9.41 Great Vessels Aorta Sinus of Valsalva: 4.30 2.0-3.5 cm Ao Asc: 4.20 2.1-3.4 cm Pulmonary Valve PV Pk Fernandez: 0.98 Peak PV Grad: 4.00 Updated in Other Vendor System with Status of Final Luis Killian MD electronically signed on 08/16/2022 9:45:24 AM with status of Final
[2022-08-15 07:29] VITALS: BP 137/67; PULSE 88; RESP 20; TEMP 36.9; O2SAT 99
[2022-08-15 07:30] LABS: INTERNATIONAL NORM RATIO 3.6 (0.9-1.1)
[2022-08-15] MEDS: 0.9 % Sodium Chloride Flush 3 ML SYRINGE IVFLUSH ×2 (08:15→21:58)
[2022-08-15] MEDS: Lidocaine 4 % Patch ADH..PATCH 1 PATCH TRANSDERMA (08:16)
[2022-08-15] MEDS: Megestrol Acetate 20 MG TABLET PO (08:16)
[2022-08-15] MEDS: Cholecalciferol (Vitamin D3) 25 MCG TABLET PO (08:16)
[2022-08-15] MEDS: Sennosides 8.6 MG TABLET 17.2 MG PO ×2 (08:16→21:57)
[2022-08-15] MEDS: Multivitamin TABLET 1 TAB PO (08:16)
[2022-08-15] MEDS: Sevelamer Carbonate Tablet 800 MG TABLET PO (08:16)
[2022-08-15] MEDS: polyethylene glycoL 3350 17 GM POWD.PACK PO (08:16)
[2022-08-15] MEDS: Magnesium Oxide 400 MG TABLET PO (08:16)
[2022-08-15] MEDS: Metoprolol Tartrate 12.5 MG HALFTAB PO ×2 (08:16→21:49)
[2022-08-15] MEDS: Cyanocobalamin (Vitamin B-12) 1,000 MCG TABLET 1000 MCG PO (08:16)
[2022-08-15] MEDS: guaiFENesin LA 600 MG TAB.ER.12H PO ×2 (08:16→21:49)
--- NOTE | 2022-08-15 10:09 | PM.PNNEP ---
Subjective Subjective Date of Service: 08/15/22 Interval history: Seen and examined, events noted Physical Exam Vital Signs: Vital Signs: Last Vital Signs Temp 97.9 F 08/16/22 08:00 Pulse 99 08/16/22 08:00 Resp 18 08/16/22 08:00 BP 120/72 08/16/22 08:00 Pulse Ox 98 08/16/22 08:00 O2 Del Method 08/16/22 08:00 FiO2 100 08/13/22 19:43 BMI result Body Mass Index 27.5 Const: Other: Patient alert, oriented to self and place. Answers questions appropriately states he wants to go home Resp: Other: Lungs clear to auscultations bilaterally Cardio: Other: normal rate and rhythm GI: Other: abd is soft non-tender, no rebound or guarding Skin: Other: Patient states that he cannot moved to the side for me to examine his back Extrem: Other: No lower extremity edema Objective Data Labs CBC & Chem 7: 08/16/22 06:59 08/16/22 06:59 Labs: Laboratory Results - last 24 hr 08/15/22 08/15/22 08/15/22 09:03 09:03 20:14 WBC RBC Hgb Hct MCV MCH MCHC RDW Plt Count MPV Absolute Nucleated RBC Nucleated RBC % (auto) ESR 101 H PT INR Sodium Potassium Chloride Carbon Dioxide Anion Gap BUN Creatinine Estim Creat Clear Calc Estimated GFR Random Glucose Calcium Random Vancomycin 15.2 11.7 L 08/16/22 08/16/22 08/16/22 06:59 06:59 06:59 WBC 14.7 H RBC 2.65 L Hgb 8.1 L Hct 25.3 L MCV 95.5 MCH 30.6 MCHC 32.0 RDW 19.0 H Plt Count 320 MPV 10.3 Absolute Nucleated RBC 0.000 Nucleated RBC % (auto) 0.0 ESR PT 39.9 H INR 3.3 H Sodium 138 Potassium 4.1 Chloride 97 Carbon Dioxide 27 Anion Gap 18 BUN 19 H Creatinine 3.16 H Estim Creat Clear Calc 21.9 Estimated GFR 19 Random Glucose 103 Calcium 8.0 L Random Vancomycin Microbiology Microbiology Results: Microbiology 08/14/22 06:28 Blood - Venous Blood Culture - Preliminary Staphylococcus aureus 08/14/22 06:28 Blood - Venous Blood Culture - Preliminary Staphylococcus aureus 08/15/22 09:03 Blood - Venous Blood Culture - Preliminary Prelim: GPC Gram Stain only 08/15/22 09:03 Blood - Venous Blood Culture - Preliminary Prelim: GPC Gram Stain only 08/12/22 08:55 Blood - Venous Blood Culture - Final Methicillin Res Staph Aureus 08/12/22 08:55 Blood - Venous Blood Culture - Final Methicillin Res Staph Aureus 08/09/22 14:33 Blood - Venous Blood Culture - Final Methicillin Res Staph Aureus 08/09/22 14:33 Blood - Venous Blood Culture - Final Methicillin Res Staph Aureus Procedures Date of Service Date of Service: 08/15/22 Assessment & Plan Assessment and plan (1) Encephalopathy: Status: Acute (2) Skin lesion: Status: Acute (3) Infected open wound: Status: Acute (4) Cellulitis: Status: Acute (5) Leukocytosis: Status: Acute (6) Fever: Status: Acute (7) CHF (congestive heart failure): Status: Acute (8) Atrial fibrillation: Status: Acute (9) Sepsis: Status: Acute (10) End stage renal disease: Status: Acute Assessment and Plan: due for dialysis tues orders written Plan 1. ESRD: TTS 2. MRSA withpersistent bact c/w sacral wound as source; he has a AVF and unlikely sourcebut ? need tor/o 2ry seedinng card valve--ID following 3. Anemai and MBD of ESRD: meds as noted 4. COVID pos: asymptomatic REC: cont HD TTS; Abx as noted;check card echo; d/c planning .? Time Spent With Patient Time: Total time spent is greater than 50% in coordination of care (as documented) at patient's floor/unit and/or counseling patient: Progress Note: Quality Stroke Does the patient have a stroke diagnosis?: No
[2022-08-15 10:39] LABS: Erythrocyte Sedimentation Rate 101 MM/HR (0-15)
[2022-08-15 10:41] LABS: Vancomycin Random 15.2 mcg/mL (15-20)
[2022-08-15 11:21] VITALS: BP 112/58; PULSE 92; RESP 20; TEMP 36.7; O2SAT 96
--- NOTE | 2022-08-15 12:25 | P.PNIM_ITS ---
Subjective Subjective Date of Service: 08/15/22 Interval History: the patient was seen and evaluated this morning Laying in bed, feels comfortable overall 08/14 Blood cultures turned positive , to repeat No reported other overnight events. Systemic review: No fever, chills or weakness No chest pain, palpitation No shortness of breath or coughing No abdominal pain, nausea or vomiting No urinary symptoms Chronic wounds in the back Physical Exam Vital Signs: Vital Signs: Last Vital Signs Temp 98.1 F 08/15/22 11:21 Pulse 92 08/15/22 11:21 Resp 20 08/15/22 11:21 BP 112/58 L 08/15/22 11:21 Pulse Ox 96 08/15/22 11:21 O2 Del Method 08/15/22 11:21 FiO2 100 08/13/22 19:43 BMI result Body Mass Index 27.5 Const: Other: Constitutional : Alert, oriented, not in distress Neck : Normal inspection, Supple, LUE fistula Cardiovascular : RRR, no JVP, no lower extremity edema Respiratory : fair bilateral air entry, no crackles, wheezes or rhonchi Gastrointestinal: soft, lax, Normal bowel sounds, Non tender Skin : Warm, Dry, stage IV sacral wound Neurological : Alert & oriented x3, No focal deficit , CN 2-12 within normal Objective Data Active Medications Acetaminophen (Acetaminophen 325 Mg Tablet) 650 mg PO Q6H PRN PRN Reason: Pain, Mild (Pain Scale 1-3) Last Admin: 08/10/22 22:44 Dose: 650 mg Documented By: MAURA Atorvastatin Calcium (Atorvastatin Calcium 40 Mg Tablet) 40 mg PO BEDTIME [facility] Last Admin: 08/14/22 20:50 Dose: 40 mg Documented By: CHRIS Bisacodyl (Bisacodyl 10 Mg Supp.Rect) 10 mg [place] DAILY PRN PRN Reason: Constipation Collagenase (Collagenase Clostridium Hist. 30 Gm Tube) 1 appl TOPICAL DAILY [facility]; Protocol Last Admin: 08/14/22 09:53 Dose: 1 appl Documented By: NADJA Cyanocobalamin (Cyanocobalamin (Vitamin B-12) 1,000 Mcg Tablet) 1,000 mcg PO DAILY [facility] Last Admin: 08/15/22 08:16 Dose: 1,000 mcg Documented By: ANGEL Guaifenesin (Guaifenesin 100 Mg/5 Ml Liquid) 5 ml PO Q2H PRN PRN Reason: Cough Last Admin: 08/10/22 15:26 Dose: 5 ml Documented By: LUCAS Guaifenesin (Guaifenesin La 600 Mg Tab.Er.12h) 600 mg PO BID [facility] Last Admin: 08/15/22 08:16 Dose: 600 mg Documented By: ANGEL Vancomycin HCl 750 mg/ Sodium (Chloride) 265 mls @ 265 mls/hr IV TUTHSA@2000 [facility] Lidocaine (Lidocaine 4 % Patch Adh..Patch) 1 patch TRANSDERMA DAILY [facility] Last Admin: 08/15/22 08:16 Dose: 1 patch Documented By: ANGEL Magnesium Oxide (Magnesium Oxide 400 Mg Tablet) 400 mg PO DAILY [facility] Last Admin: 08/15/22 08:16 Dose: 400 mg Documented By: ANGEL Megestrol Acetate (Megestrol Acetate 20 Mg Tablet) 20 mg PO DAILY [facility] Last Admin: 08/15/22 08:16 Dose: 20 mg Documented By: ANGEL Melatonin (Melatonin 3 Mg Tablet) 6 mg PO BEDTIME PRN PRN Reason: Insomnia Last Admin: 08/10/22 02:13 Dose: 6 mg Documented By: FRANCISCO Melatonin (Melatonin 3 Mg Tablet) 9 mg PO BEDTIME [facility] Last Admin: 08/14/22 20:50 Dose: 9 mg Documented By: CHRIS Metoprolol Tartrate (Metoprolol Tartrate 12.5 Mg Halftab) 12.5 mg PO BID [facility]; Protocol Last Admin: 08/15/22 08:16 Dose: 12.5 mg Documented By: ANGEL Midodrine (Midodrine Hcl 5 Mg Tablet) 5 mg PO TIDWM PRN PRN Reason: HYPOTENSION Morphine Sulfate (Morphine Sulfate 2 Mg/Ml Cartridge) 2 mg IVPUSH Q4H PRN; Protocol PRN Reason: moderate pain Last Admin: 08/13/22 16:04 Dose: 2 mg Documented By: ERLINDA Multivitamins/Vitamin C (Multivitamin Tablet) 1 tab PO DAILY [facility] Last Admin: 08/15/22 08:16 Dose: 1 tab Documented By: ANGEL Nitroglycerin (Nitroglycerin 0.4 Mg Tab.Subl) 0.4 mg SUBLINGUAL Q5M PRN PRN Reason: Angina Omeprazole (Omeprazole 20 Mg Capsule.Dr) 20 mg PO DAILY@0630 [facility] Last Admin: 08/15/22 06:01 Dose: 20 mg Documented By: CHRIS Ondansetron HCl (Ondansetron Hcl 4 Mg/2 Ml Vial) 4 mg IVPUSH Q8H PRN PRN Reason: Nausea and Vomiting Pharmacy Consult (Consult Rx Perform Med Rec) 1 each MISCELLANE ONCE PRN PRN Reason: Consult order Pharmacy Consult (Consult Rx Vancomycin Dosing) 1 each MISCELLANE DAILY PRN PRN Reason: Consult order Polyethylene Glycol (Polyethylene Glycol 3350 17 Gm Powd.Pack) 17 gm PO DAILY [facility] Last Admin: 08/15/22 08:16 Dose: 17 gm Documented By: ANGEL Senna (Sennosides 8.6 Mg Tablet) 17.2 mg PO BID [facility] Last Admin: 08/15/22 08:16 Dose: 17.2 mg Documented By: ANGLE Sevelamer Carbonate (Sevelamer Carbonate Tablet 800 Mg Tablet) 800 mg PO BIDWM [facility] Last Admin: 08/15/22 08:16 Dose: 800 mg Documented By: ANGEL Sodium Chloride (0.9 % Sodium Chloride Flush 3 Ml Syringe) [address] [facility] Last Admin: 08/15/22 08:15 Dose: 3 ml Documented By: ANGEL Tramadol HCl (Tramadol Hcl 50 Mg Tablet) 25 mg PO Q12H PRN PRN Reason: Pain, Moderate (Pain Scale 4-6 Last Admin: 08/14/22 10:04 Dose: 25 mg Documented By: NADJA Vitamin D (Cholecalciferol (Vitamin D3) 25 Mcg Tablet) 25 mcg PO DAILY [facility] Last Admin: 08/15/22 08:16 Dose: 25 mcg Documented By: ANGEL Warfarin Sodium (Warfarin Sodium 0.5 Mg Halftab) 0.5 mg PO DAILY@1800 [facility] Last Admin: 08/13/22 18:45 Dose: 0.5 mg Documented By: ERLINDA Labs CBC & Chem 7: 08/14/22 06:28 08/14/22 06:28 Labs: Laboratory Results - last 24 hr 08/15/22 08/15/2208/15/22 06:50 09:03 09:03 ESR 101 H PT 44.0 H INR 3.6 H Random Vancomycin 15.2 Microbiology Microbiology Results: Microbiology 08/14/22 06:28 Blood Culture - Preliminary Blood - Venous Prelim: GPC Gram Stain only 08/14/22 06:28 Blood Culture - Preliminary Blood - Venous Prelim: GPC Gram Stain only 08/12/22 08:55 Blood Culture - Final Blood - Venous Methicillin Res Staph Aureus 08/12/22 08:55 Blood Culture - Final Blood - Venous Methicillin Res Staph Aureus Assessment and Plan (1) MRSA bacteremia: Status: Acute (2) Pressure injury of lower back, stage 4: Status: Acute Plan 81-year-old male coming from [facility] facility with pertinent history of end-stage renal disease on hemodialysis, prostate cancer with history of urostomy, mixed hyperlipidemia, essential hypertension, chronic obstructive pulmonary disease, permanent atrial fibrillation on Coumadin, congestive heart failure unknown ejection fraction, rheumatoid arthritis who was brought to the emergency department for evaluation of altered mentation. Severe sepsis present on admission and metabolic encephalopathy due to cellulitis and infected sacral decubitus ulcer complicated by MRSA bacteremia id appreciated - 4-6 weeks IV vanco to be done with hemodialysis once blood culture negative follow-up repeat cultures - positive repeat cultures from 08/14/22 pending echo To check MRI of LS for OM Infectious Disease to follow To send new culture COVID-19 infection asymptomatic end-stage renal disease hemodialysis via left upper extremity fistula TTS (does not appear infected) supratherapeutic INR INR 3.6, hold today Coumadin restarted and decreased from 1mg to 0.5mg as inr jumped up fairly quickly permanent atrial fibrillation continue warfarin, metoprolol hyperlipidemia continue statin Stage IV sacral ulcer Wound team following, use Santyl for a week and debridement needed Pressure relief protocols DVT prophylaxis with Coumadin DNR/DNI reason for continued hospitalization: MRSA Bacteremia awaiting clearance of cultures for safe discharge plan Quality Stroke Does the patient have a stroke diagnosis?: No VTE Prior VTE?: No VTE Risk Level:: Medical - moderate - high VTE Device Contraindication: Treatment Not Indicated VTE Drug Contraindication: Treatment Not Indicated
--- NOTE | 2022-08-15 12:59 | P.CNID_ITS ---
History of Present Illness Data of Consult Service Date: 08/15/22 Primary Care Provider: Brayden Dickey MD [facility] Past Medical History Medical History (Updated 08/12/22 @ 11:34 by Marion Murray MD) Ambulates with cane Arteriovenous fistula for hemodialysis in place, primary Ascending aorta dilatation Atrial fibrillation AVNRT (AV vivian re-entry tachycardia) CAD (coronary artery disease) CHF (congestive heart failure) Elevated cholesterol End stage renal disease ESRD (end stage renal disease) on dialysis GERD (gastroesophageal reflux disease) HTN (hypertension) Hx of syncope Insomnia MRSA bacteremia JAIRON (obstructive sleep apnea) Prostate cancer Rheumatoid arthritis Skin lesion Unsteady gait Wears dentures Family History Family history: reviewed and not pertinent Surgical History Surgical History History of bladder surgery History of surgical removal of skin lesion History of urostomy Hx of abdominal surgery Hx of colonoscopy Hx of hernia repair Hx of radical prostatectomy S/P implantation of automatic cardioverter/defibrillator (AICD) Social History Social History Household Members: Spouse Housing: House Do you presently have visiting nurse or other home services: No Patient Tobacco Use Status: Never used Tobacco Meds Allergies Allergy/AdvReac Type Severity Reaction Status Date / Time doxycycline Allergy Difficulty Verified 02/14/22 11:00 Breathing Active Medications: Current Medications Acetaminophen (Acetaminophen 325 Mg Tablet) 650 mg PO Q6H PRN PRN Reason: Pain, Mild (Pain Scale 1-3) Last Admin: 08/10/22 22:44 Dose: 650 mg Atorvastatin Calcium (Atorvastatin Calcium 40 Mg Tablet) 40 mg PO BEDTIME [facility] Last Admin: 08/14/22 20:50 Dose: 40 mg Bisacodyl (Bisacodyl 10 Mg Supp.Rect) 10 mg [place] DAILY PRN PRN Reason: Constipation Collagenase (Collagenase Clostridium Hist. 30 Gm Tube) 1 appl TOPICAL DAILY [facility]; Protocol Last Admin: 08/14/22 09:53 Dose: 1 appl Cyanocobalamin (Cyanocobalamin (Vitamin B-12) 1,000 Mcg Tablet) 1,000 mcg PO DAILY [facility] Last Admin: 08/15/22 08:16 Dose: 1,000 mcg Guaifenesin (Guaifenesin 100 Mg/5 Ml Liquid) 5 ml PO Q2H PRN PRN Reason: Cough Last Admin: 08/10/22 15:26 Dose: 5 ml Guaifenesin (Guaifenesin La 600 Mg Tab.Er.12h) 600 mg PO BID [facility] Last Admin: 08/15/22 08:16 Dose: 600 mg Vancomycin HCl 750 mg/ Sodium (Chloride) 265 mls @ 265 mls/hr IV TUTHSA@2000 [facility] Lidocaine (Lidocaine 4 % Patch Adh..Patch) 1 patch TRANSDERMA DAILY [facility] Last Admin: 08/15/22 08:16 Dose: 1 patch Magnesium Oxide (Magnesium Oxide 400 Mg Tablet) 400 mg PO DAILY [facility] Last Admin: 08/15/22 08:16 Dose: 400 mg Megestrol Acetate (Megestrol Acetate 20 Mg Tablet) 20 mg PO DAILY [facility] Last Admin: 08/15/22 08:16 Dose: 20 mg Melatonin (Melatonin 3 Mg Tablet) 6 mg PO BEDTIME PRN PRN Reason: Insomnia Last Admin: 08/10/22 02:13 Dose: 6 mg Melatonin (Melatonin 3 Mg Tablet) 9 mg PO BEDTIME [facility] Last Admin: 08/14/22 20:50 Dose: 9 mg Metoprolol Tartrate (Metoprolol Tartrate 12.5 Mg Halftab) 12.5 mg PO BID [facility]; Protocol Last Admin: 08/15/22 08:16 Dose: 12.5 mg Midodrine (Midodrine Hcl 5 Mg Tablet) 5 mg PO TIDWM PRN PRN Reason: HYPOTENSION Morphine Sulfate (Morphine Sulfate 2 Mg/Ml Cartridge) 2 mg IVPUSH Q4H PRN; Protocol PRN Reason: moderate pain Last Admin: 08/13/22 16:04 Dose: 2 mg Multivitamins/Vitamin C (Multivitamin Tablet) 1 tab PO DAILY [facility] Last Admin: 08/15/22 08:16 Dose: 1 tab Nitroglycerin (Nitroglycerin 0.4 Mg Tab.Subl) 0.4 mg SUBLINGUAL Q5M PRN PRN Reason: Angina Omeprazole (Omeprazole 20 Mg Capsule.Dr) 20 mg PO DAILY@0630 [facility] Last Admin: 08/15/22 06:01 Dose: 20 mg Ondansetron HCl (Ondansetron Hcl 4 Mg/2 Ml Vial) 4 mg IVPUSH Q8H PRN PRN Reason: Nausea and Vomiting Pharmacy Consult (Consult Rx Perform Med Rec) 1 each MISCELLANE ONCE PRN PRN Reason: Consult order Pharmacy Consult (Consult Rx Vancomycin Dosing) 1 each MISCELLANE DAILY PRN PRN Reason: Consult order Polyethylene Glycol (Polyethylene Glycol 3350 17 Gm Powd.Pack) 17 gm PO DAILY [facility] Last Admin: 08/15/22 08:16 Dose: 17 gm Senna (Sennosides 8.6 Mg Tablet) 17.2 mg PO BID [facility] Last Admin: 08/15/22 08:16 Dose: 17.2 mg Sevelamer Carbonate (Sevelamer Carbonate Tablet 800 Mg Tablet) 800 mg PO BIDWM [facility] Last Admin: 08/15/22 08:16 Dose: 800 mg Sodium Chloride (0.9 % Sodium Chloride Flush 3 Ml Syringe) 3 ml IVFLUSH QSHIFT [facility] Last Admin: 08/15/22 08:15 Dose: 3 ml Tramadol HCl (Tramadol Hcl 50 Mg Tablet) 25 mg PO Q12H PRN PRN Reason: Pain, Moderate (Pain Scale 4-6 Last Admin: 08/14/22 10:04 Dose: 25 mg Vitamin D (Cholecalciferol (Vitamin D3) 25 Mcg Tablet) 25 mcg PO DAILY [facility] Last Admin: 08/15/22 08:16 Dose: 25 mcg Warfarin Sodium (Warfarin Sodium 0.5 Mg Halftab) 0.5 mg PO DAILY@1800 [facility] Last Admin: 08/13/22 18:45 Dose: 0.5 mg Home Medications Medication Instructions Recorded Confirmed Last Taken Type adalimumab 40 mg/0.8 mL 40 mg subcut SA 12/06/21 08/09/22 Unknown History subcutaneous pen kit (Humira Pen) atorvastatin 40 mg tablet 40 mg PO BEDTIME 12/06/21 08/09/22 Unknown History cyanocobalamin (vitamin B-12) 1,000 mcg PO DAILY 12/06/21 08/09/22 Unknown History 1,000 mcg capsule gabapentin 100 mg capsule 200 mg PO BEDTIME 12/06/21 08/09/22 Unknown History magnesium oxide 400 mg (241.3 mg 400 mg PO DAILY 12/06/21 08/09/22 Unknown History magnesium) tablet megestrol 20 mg tablet 20 mg PO DAILY 12/06/21 08/09/22 Unknown History omeprazole 20 mg capsule,delayed 20 mg PO DAILY@0630 12/06/21 08/09/22 01/08/22 History release trazodone 100 mg tablet 150 mg PO BEDTIME 12/06/21 08/09/22 Unknown History warfarin 1 mg tablet 1 mg PO DAILY@1800 12/06/21 08/09/22 Unknown History acetaminophen 500 mg tablet 1,000 mg PO Q8H PRN Pain 08/09/22 08/09/22 Unknown History bisacodyl 10 mg rectal suppository 10 mg [place] DAILY PRN Constipation 08/09/22 08/09/22 Unknown History cholecalciferol (vitamin D3) 25 25 mcg PO DAILY 08/09/22 08/09/22 Unknown History mcg (1,000 unit) tablet gabapentin 100 mg capsule 1 cap PO TID 08/09/22 08/09/22 Unknown History guaifenesin 100 mg/5 mL oral liquid 200 mg PO Q2H PRN Cough 08/09/22 08/09/22 Unknown History guaifenesin 600 mg tablet, 600 mg PO BID 08/09/22 08/09/22 Unknown History extended release 12 hr (Mucinex) lidocaine 5 % topical patch 1 patch topical DAILY 08/09/22 08/09/22 Unknown History melatonin 5 mg tablet 10 mg PO BEDTIME 08/09/22 08/09/22 Unknown History metoprolol tartrate 25 mg tablet 12.5 mg PO BID 08/09/22 08/09/22 Unknown History midodrine 5 mg tablet 5 mg PO TID PRN Hypotension 08/09/22 08/09/22 Unknown History nitroglycerin 0.4 mg sublingual 0.4 mg sublingual Q5M PRN Angina 08/09/22 Unknown History tablet polyethylene glycol 3350 17 gram 17 g PO DAILY 08/09/22 08/09/22 Unknown History oral powder packet (Miralax) sennosides 8.6 mg tablet (senna) 17.2 mg PO BID 08/09/22 08/09/22 Unknown History sevelamer carbonate 800 mg tablet 800 mg PO BIDWM 08/09/22 08/09/22 Unknown History vitamin B complex and vitamin C 1 cap PO DAILY 08/09/22 08/09/22 Unknown History no.20-folic acid 1 mg capsule Physical Exam Vital Signs: Vital Signs: Last Vital Signs Temp 98.1 F 08/15/22 11:21 Pulse 92 08/15/22 11:21 Resp 20 08/15/22 11:21 BP 112/58 L 08/15/22 11:21 Pulse Ox 96 08/15/22 11:21 O2 Del Method 08/15/22 11:21 FiO2 100 08/13/22 19:43 BMI result Body Mass Index 27.5 Results Labs CBC & Chem 7: 08/14/22 06:28 08/14/22 06:28 Microbiology Microbiology Results: Microbiology 08/14/22 06:28 Blood - Venous Blood Culture - Preliminary Prelim: GPC Gram Stain only 08/14/22 06:28 Blood - Venous Blood Culture - Preliminary Prelim: GPC Gram Stain only 08/12/22 08:55 Blood - Venous Blood Culture - Final Methicillin Res Staph Aureus 08/12/22 08:55 Blood - Venous Blood Culture - Final Methicillin Res Staph Aureus 08/09/22 14:33 Blood - Venous Blood Culture - Final Methicillin Res Staph Aureus 08/09/22 14:33 Blood - Venous Blood Culture - Final Methicillin Res Staph Aureus
--- NOTE | 2022-08-15 12:59 | PM.IDPN ---
Subjective Subjective Date of Service: 08/15/22 Critical Care Time (minutes): 15 Comment: he still has positive bacteremia MRSA back pain Objective Data Labs CBC & Chem 7: 08/14/22 06:28 08/14/22 06:28 Labs: Laboratory Results - last 24 hr 08/15/22 08/15/22 08/15/22 06:50 09:03 09:03 ESR 101 H PT 44.0 H INR 3.6 H Random Vancomycin 15.2 Microbiology Microbiology Results: Microbiology 08/14/22 06:28 Blood - Venous Blood Culture - Preliminary Prelim: GPC Gram Stain only 08/14/22 06:28 Blood - Venous Blood Culture - Preliminary Prelim: GPC Gram Stain only 08/12/22 08:55 Blood - Venous Blood Culture - Final Methicillin Res Staph Aureus 08/12/22 08:55 Blood - Venous Blood Culture - Final Methicillin Res Staph Aureus 08/09/22 14:33 Blood - Venous Blood Culture - Final Methicillin Res Staph Aureus 08/09/22 14:33 Blood - Venous Blood Culture - Final Methicillin Res Staph Aureus Physical Exam Vital Signs: Vital Signs: Last Vital Signs Temp 98.1 F 08/15/22 11:21 Pulse 92 08/15/22 11:21 Resp 20 08/15/22 11:21 BP 112/58 L 08/15/22 11:21 Pulse Ox 96 08/15/22 11:21 O2 Del Method 08/15/22 11:21 FiO2 100 08/13/22 19:43 BMI result Body Mass Index 27.5 Const: General: cooperative Resp: Effort & Inspection: normal respiratory effort Cardio: Rate: regular rate Rhythm: regular rhythm GI: Inspection: Yes normal to inspection Extrem: Other: back discomfort Assessment and Plan Assessment and plan (1) MRSA bacteremia: Problem details: possible MRSA back possible skin source Status: Acute (2) Pressure injury of lower back, stage 4: Problem details: May switch to Daptomycin Lumbar films pending possible Status: Acute Time Spent With Patient Time: Total time spent is greater than 50% in coordination of care (as documented) at patient's floor/unit and/or counseling patient:
[2022-08-15] MEDS: ondansetron HCL 4 MG/2 ML VIAL IVPUSH (13:39)
[2022-08-15] MEDS: Morphine Sulfate 2 MG/ML CARTRIDGE IVPUSH (13:40)
[2022-08-15] MEDS: Collagenase Clostridium Hist. 30 GM TUBE 1 APPL TOPICAL (13:46)
--- NOTE | 2022-08-15 14:20 | PC.NURSE ---
Patient to dialysis at this time.
[2022-08-15 19:43] VITALS: BP 129/70; PULSE 106; RESP 17; TEMP 37.6; O2SAT 99
[2022-08-15] MEDS: Melatonin 3 MG TABLET 9 MG PO (21:49)
[2022-08-15] MEDS: Atorvastatin Calcium 40 MG TABLET PO (21:49)
[2022-08-15 22:23] LABS: Vancomycin Random 11.7 mcg/mL (15-20)
[2022-08-16] VITALS: BP 106/56; PULSE 90; RESP 18; TEMP 36.7; O2SAT 97
[2022-08-16] MEDS: vancomycin HCL 750 MG in 0.9 % Sodium Chloride 250 ML 265 MG IV (00:32)
[2022-08-16] MEDS: guaiFENesin 100 MG/5 ML LIQUID PO (02:17)
--- NOTE | 2022-08-16 06:29 | HE.PHANOTE ---
EUFEMIA SALMON POST DIALYSIS DOSE FOR 08/15 WAS CHANGED BY OVERNIGHT PHARMACIST FROM 500MG TO 750MG DUE TO A TROUGH OF 11.7 (POST DIALYSIS). NOT SURE OF THE REASONING SINCE HIS PRE DIALYSIS TROUGH ( ORDERED BY MD) WAS 15.2 GIVING 500MG AFTER EACH DIALYSIS SESSION. NEXT TROUGH IS SCHEDULED FOR 08/17 @ 1800 AFTER DIALYSIS JUANA
[2022-08-16 07:13] LABS: Hematocrit 25.3 % (42.0-52.0); Hemoglobin 8.1 g/dl (14.0-18.0); Mean Corpuscular Hemoglobin 30.6 pg (27.0-33.0); Mean Corpuscular Volume 95.5 fL (80.0-98.0); Mean Platelet Volume 10.3 fL (9.4-12.4); Platelet Count 320 X10*3/uL (160-400); Red Blood Count 2.65 X10*6/uL (4.60-5.80); White Blood Count 14.7 X10*3/uL (4.8-10.8)
--- NOTE | 2022-08-16 07:14 | PC.NURSE ---
Patient refused to allow this nurse to empty his urostomy bag, aid was present we were attempting to wash and reposition him, he would not let me even assess the area patient stated I know my body and there is not more than 2 drops in this bag .Day shift nurse notified.
[2022-08-16 07:22] LABS: INTERNATIONAL NORM RATIO 3.3 (0.9-1.1); Prothrombin Time 39.9 SEC (10.0-13.1)
[2022-08-16 07:31] LABS: Anion Gap 18 (12-20); Blood Urea Nitrogen 19 mg/dL (9-16); Carbon Dioxide 27 mmol/L (22-29); Chloride 97 mmol/L (96-108); Creatinine Clr Calc Pharmacy 21.9; Estimated Glomerular Filt Rate 19; Glucose Random 103 mg/dL (60-115); Potassium 4.1 mmol/L (3.3-5.1); Sodium 138 mmol/L (135-145)
[2022-08-16] MEDS: Lidocaine 4 % Patch ADH..PATCH 1 PATCH TRANSDERMA (07:37)
[2022-08-16] MEDS: polyethylene glycoL 3350 17 GM POWD.PACK PO (07:37)
[2022-08-16] MEDS: Sennosides 8.6 MG TABLET 17.2 MG PO ×2 (07:38→20:35)
[2022-08-16] MEDS: Megestrol Acetate 20 MG TABLET PO (07:38)
[2022-08-16] MEDS: Sevelamer Carbonate Tablet 800 MG TABLET PO ×2 (07:38→18:42)
[2022-08-16] MEDS: guaiFENesin LA 600 MG TAB.ER.12H PO ×2 (07:39→20:35)
[2022-08-16] MEDS: Cyanocobalamin (Vitamin B-12) 1,000 MCG TABLET 1000 MCG PO (07:39)
[2022-08-16] MEDS: Multivitamin TABLET 1 TAB PO (07:39)
[2022-08-16] MEDS: Metoprolol Tartrate 12.5 MG HALFTAB PO ×2 (07:39→20:35)
[2022-08-16] MEDS: Magnesium Oxide 400 MG TABLET PO (07:39)
[2022-08-16] MEDS: Cholecalciferol (Vitamin D3) 25 MCG TABLET PO (07:39)
[2022-08-16] MEDS: 0.9 % Sodium Chloride Flush 3 ML SYRINGE IVFLUSH ×3 (07:41→20:39)
[2022-08-16] MEDS: Collagenase Clostridium Hist. 30 GM TUBE 1 APPL TOPICAL (07:41)
[2022-08-16 08:00] VITALS: BP 120/72; PULSE 99; RESP 18; TEMP 36.6; O2SAT 98
[2022-08-16 11:25] VITALS: BP 134/67; RESP 18; TEMP 36; O2SAT 96
--- NOTE | 2022-08-16 13:31 | HO.PM.IMPN ---
Subjective Subjective Date of Service: 08/16/22 Interval History: the patient was seen and evaluated this morning Laying in bed, feels comfortable overall 08/15 Blood cultures turned positive , to repeat No reported other overnight events. Systemic review: No fever, chills or weakness No chest pain, palpitation No shortness of breath or coughing No abdominal pain, nausea or vomiting No urinary symptoms Chronic wounds in the back Physical Exam Vital Signs: Vital Signs: Last Vital Signs Temp 96.8 F 08/16/22 11:25 Pulse 99 08/16/22 08:00 Resp 18 08/16/22 11:25 BP 134/67 08/16/22 11:25 Pulse Ox 96 08/16/22 11:25 O2 Del Method 08/16/22 11:25 FiO2 100 08/13/22 19:43 BMI result Body Mass Index 27.5 Const: Other: Constitutional : Alert, oriented, not in distress Neck : Normal inspection, Supple, LUE fistula Cardiovascular : RRR, no JVP, no lower extremity edema Respiratory : fair bilateral air entry, no crackles, wheezes or rhonchi Gastrointestinal: soft, lax, Normal bowel sounds, Non tender Skin : Warm, Dry, stage IV sacral wound Neurological : Alert & oriented x3, No focal deficit , CN 2-12 within normal Objective Data Active Medications Acetaminophen (Acetaminophen 325 Mg Tablet) 650 mg PO Q6H PRN PRN Reason: Pain, Mild (Pain Scale 1-3) Last Admin: 08/10/22 22:44 Dose: 650 mg Documented By: MAURA Atorvastatin Calcium (Atorvastatin Calcium 40 Mg Tablet) 40 mg PO BEDTIME [facility] Last Admin: 08/15/22 21:49 Dose: 40 mg Documented By: ERLINDA Bisacodyl (Bisacodyl 10 Mg Supp.Rect) 10 mg SD DAILY PRN PRN Reason: Constipation Collagenase (Collagenase Clostridium Hist. 30 Gm Tube) 1 appl TOPICAL DAILY [facility]; Protocol Last Admin: 08/16/22 07:41 Dose: 1 appl Documented By: CHRIS Cyanocobalamin (Cyanocobalamin (Vitamin B-12) 1,000 Mcg Tablet) 1,000 mcg PO DAILY [facility] Last Admin: 08/16/22 07:39 Dose: 1,000 mcg Documented By: CHRIS Guaifenesin (Guaifenesin 100 Mg/5 Ml Liquid) 5 ml PO Q2H PRN PRN Reason: Cough Last Admin: 08/16/22 02:17 Dose: 5 ml Documented By: ERLINDA Guaifenesin (Guaifenesin La 600 Mg Tab.Er.12h) 600 mg PO BID [facility] Last Admin: 08/16/22 07:39 Dose: 600 mg Documented By: CHRIS Vancomycin HCl 750 mg/ Sodium (Chloride) 265 mls @ 265 mls/hr IV TUTHSA@2000 [facility] Lidocaine (Lidocaine 4 % Patch Adh..Patch) 1 patch TRANSDERMA DAILY [facility] Last Admin: 08/16/22 07:37 Dose: 1 patch Documented By: CHRIS Magnesium Oxide (Magnesium Oxide 400 Mg Tablet) 400 mg PO DAILY [facility] Last Admin: 08/16/22 07:39 Dose: 400 mg Documented By: CHRIS Megestrol Acetate (Megestrol Acetate 20 Mg Tablet) 20 mg PO DAILY [facility] Last Admin: 08/16/22 07:38 Dose: 20 mg Documented By: CHRIS Melatonin (Melatonin 3 Mg Tablet) 6 mg PO BEDTIME PRN PRN Reason: Insomnia Last Admin: 08/10/22 02:13 Dose: 6 mg Documented By: FRANCISCO Melatonin (Melatonin 3 Mg Tablet) 9 mg PO BEDTIME [facility] Last Admin: 08/15/22 21:49 Dose: 9 mg Documented By: ERLINDA Metoprolol Tartrate (Metoprolol Tartrate 12.5 Mg Halftab) 12.5 mg PO BID [facility]; Protocol Last Admin: 08/16/22 07:39 Dose: 12.5 mg Documented By: CHRIS Midodrine (Midodrine Hcl 5 Mg Tablet) 5 mg PO TIDWM PRN PRN Reason: HYPOTENSION Morphine Sulfate (Morphine Sulfate 2 Mg/Ml Cartridge) 2 mg IVPUSH Q4H PRN; Protocol PRN Reason: moderate pain Last Admin: 08/15/22 13:40 Dose: 2 mg Documented By: ANGEL Multivitamins/Vitamin C (Multivitamin Tablet) 1 tab PO DAILY [facility] Last Admin: 08/16/22 07:39 Dose: 1 tab Documented By: CHRIS Nitroglycerin (Nitroglycerin 0.4 Mg Tab.Subl) 0.4 mg SUBLINGUAL Q5M PRN PRN Reason: Angina Omeprazole (Omeprazole 20 Mg Capsule.) 20 mg PO DAILY@0630 [facility] Last Admin: 08/16/22 06:12 Dose: Not Given Documented By: ERLINDA Non-Admin Reason: Patient Asleep Ondansetron HCl (Ondansetron Hcl 4 Mg/2 Ml Vial) 4 mg IVPUSH Q8H PRN PRN Reason: Nausea and Vomiting Last Admin: 08/15/22 13:39 Dose: 4 mg Documented By: ANGEL Pharmacy Consult (Consult Rx Perform Med Rec) 1 each MISCELLANE ONCE PRN PRN Reason: Consult order Pharmacy Consult (Consult Rx Vancomycin Dosing) 1 each MISCELLANE DAILY PRN PRN Reason: Consult order Polyethylene Glycol (Polyethylene Glycol 3350 17 Gm Powd.Pack) 17 gm PO DAILY [facility] Last Admin: 08/16/22 07:37 Dose: 17 gm Documented By: CHRIS Senna (Sennosides 8.6 Mg Tablet) 17.2 mg PO BID [facility] Last Admin: 08/16/22 07:38 Dose: 17.2 mg Documented By: CHRIS Sevelamer Carbonate (Sevelamer Carbonate Tablet 800 Mg Tablet) 800 mg PO BIDWM [facility] Last Admin: 08/16/22 07:38 Dose: 800 mg Documented By: CHRIS Sodium Chloride (0.9 % Sodium Chloride Flush 3 Ml Syringe) 3 ml IVFLUSH QSHIFT [facility] Last Admin: 08/16/22 07:41 Dose: 3 ml Documented By: CHRIS Vitamin D (Cholecalciferol (Vitamin D3) 25 Mcg Tablet) 25 mcg PO DAILY [facility] Last Admin: 08/16/22 07:39 Dose: 25 mcg Documented By: CHRIS Warfarin Sodium (Warfarin Sodium 0.5 Mg Halftab) 0.5 mg PO DAILY@1800 [facility] Last Admin: 08/13/22 18:45 Dose: 0.5 mg Documented By: ERLINDA Labs CBC & Chem 7: 08/16/22 06:59 08/16/22 06:59 Labs: Laboratory Results - last 24 hr 08/15/22 08/16/22 08/16/22 20:14 06:59 06:59 MCV 95.5 MCH 30.6 MCHC 32.0 RDW 19.0 H Plt Count 320 MPV 10.3 Absolute Nucleated RBC 0.000 Nucleated RBC % (auto) 0.0 PT INR Anion Gap 18 Estim Creat Clear Calc 21.9 Estimated GFR 19 Random Glucose 103 Calcium 8.0 L Random Vancomycin 11.7 L 08/16/22 06:59 MCV MCH MCHC RDW Plt Count MPV Absolute Nucleated RBC Nucleated RBC % (auto) PT 39.9 H INR 3.3 H Anion Gap Estim Creat Clear Calc Estimated GFR Random Glucose Calcium Random Vancomycin Microbiology Microbiology Results: Microbiology 08/14/22 06:28 Blood Culture - Preliminary Blood - Venous Staphylococcus aureus 08/14/22 06:28 Blood Culture - Preliminary Blood - Venous Staphylococcus aureus 08/15/22 09:03 Blood Culture - Preliminary Blood - Venous Prelim: GPC Gram Stain only 08/15/22 09:03 Blood Culture - Preliminary Blood - Venous Prelim: GPC Gram Stain only Assessment and Plan (1) MRSA bacteremia: Status: Acute (2) Pressure injury of lower back, stage 4: Status: Acute (3) Sepsis: Status: Acute Plan 81-year-old male coming from [facility] with pertinent history of end-stage renal disease on hemodialysis, prostate cancer with history of urostomy, mixed hyperlipidemia, essential hypertension, chronic obstructive pulmonary disease, permanent atrial fibrillation on Coumadin, congestive heart failure unknown ejection fraction, rheumatoid arthritis who was brought to the emergency department for evaluation of altered mentation. Severe sepsis present on admission and metabolic encephalopathy due to cellulitis and infected sacral decubitus ulcer complicated by MRSA bacteremia id appreciated - 4-6 weeks IV vanco to be done with hemodialysis once blood culture negative follow-up repeat cultures - positive repeat cultures from 08/15/22 No vegetation on echo Concern over safety of MRI of LS given he has defibrillator To check CT with contrast Infectious Disease to follow To send new culture COVID-19 infection asymptomatic end-stage renal disease hemodialysis via left upper extremity fistula TTS (does not appear infected) supratherapeutic INR INR 3.6, hold today Coumadin restarted and decreased from 1mg to 0.5mg as inr jumped up fairly quickly permanent atrial fibrillation continue warfarin, metoprolol hyperlipidemia continue statin Stage IV sacral ulcer Wound team following, use Santyl for a week and debridement needed Pressure relief protocols DVT prophylaxis with Coumadin DNR/DNI reason for continued hospitalization: MRSA Bacteremia awaiting clearance of cultures for safe discharge plan Quality Stroke Does the patient have a stroke diagnosis?: No VTE Prior VTE?: No VTE Risk Level:: Medical - moderate - high VTE Device Contraindication: Treatment Not Indicated VTE Drug Contraindication: Treatment Not Indicated
--- NOTE | 2022-08-16 14:40 | MHC.CLN ---
F/U PT WITH INCREASED NUTRITION RISK R/T PRESSURE INJURY PO INTAKE VARIABLE DIET RX: 2GM [id number] LIBERALIZE TO INCREASE VARIETY R/T ADVANCED AGE PT RECEIVING ENSURE TID TO INCREASE KCALS AND PROMOTE WOUND HEALING SUPP PROVIDES 1050KCALS, 60G PROTEIN MONITOR PO INTAKE CLOSELY
--- NOTE | 2022-08-16 15:39 | MHC.CM.PN ---
EMR REVIEWED PT NOT MEDICALLY READY FOR DC, BLOOD CULTURES POSITIVE. CM WILL CONTINUE TO FOLLOW. UPDATES SENT TO [facility]INE[facility].
[2022-08-16 15:54] VITALS: BP 129/64; PULSE 71; RESP 20; TEMP 36.2; O2SAT 97
--- NOTE | 2022-08-16 17:20 | P.PNNP_ITS ---
Subjective Subjective Date of Service: 08/16/22 Interval history: dialyzed yesterday EPO ordered today ongoing Vanco post HD Physical Exam Vital Signs: Vital Signs: Last Vital Signs Temp 97.1 F 08/16/22 15:54 Pulse 71 08/16/22 15:54 Resp 20 08/16/22 15:54 BP 129/64 08/16/22 15:54 Pulse Ox 97 08/16/22 15:54 O2 Del Method 08/16/22 15:54 FiO2 100 08/13/22 19:43 BMI result Body Mass Index 27.5 Const: Other: Constitutional : Alert, oriented, not in distress Neck : Normal inspection, Supple, LUE fistula Cardiovascular : RRR, no JVP, no lower extremity edema Respiratory : fair bilateral air entry, no crackles, wheezes or rhonchi Gastrointestinal: soft, lax, Normal bowel sounds, Non tender Skin : Warm, Dry, stage IV sacral wound Neurological : Alert & oriented x3, No focal deficit , CN 2-12 within normal Objective Data Labs CBC & Chem 7: 08/16/22 06:59 08/16/22 06:59 Labs: Laboratory Results - last 24 hr 08/15/22 08/16/22 08/16/22 20:14 06:59 06:59 WBC 14.7 H RBC 2.65 L Hgb 8.1 L Hct 25.3 L MCV 95.5 MCH 30.6 MCHC 32.0 RDW 19.0 H Plt Count 320 MPV 10.3 Absolute Nucleated RBC 0.000 Nucleated RBC % (auto) 0.0 PT INR Sodium 138 Potassium 4.1 Chloride 97 Carbon Dioxide 27 Anion Gap 18 BUN 19 H Creatinine 3.16 H Estim Creat Clear Calc 21.9 Estimated GFR 19 Random Glucose 103 Calcium 8.0 L Random Vancomycin 11.7 L 08/16/22 06:59 WBC RBC Hgb Hct MCV MCH MCHC RDW Plt Count MPV Absolute Nucleated RBC Nucleated RBC % (auto) PT 39.9 H INR 3.3 H Sodium Potassium Chloride Carbon Dioxide Anion Gap BUN Creatinine Estim Creat Clear Calc Estimated GFR Random Glucose Calcium Random Vancomycin Microbiology Microbiology Results: Microbiology 08/14/22 06:28 Blood - Venous Blood Culture - Preliminary Staphylococcus aureus 08/14/22 06:28 Blood - Venous Blood Culture - Preliminary Staphylococcus aureus 08/15/22 09:03 Blood - Venous Blood Culture - Preliminary Prelim: GPC Gram Stain only 08/15/22 09:03 Blood - Venous Blood Culture - Preliminary Prelim: GPC Gram Stain only 08/12/22 08:55 Blood - Venous Blood Culture - Final Methicillin Res Staph Aureus 08/12/22 08:55 Blood - Venous Blood Culture - Final Methicillin Res Staph Aureus 08/09/22 14:33 Blood - Venous Blood Culture - Final Methicillin Res Staph Aureus 08/09/22 14:33 Blood - Venous Blood Culture - Final Methicillin Res Staph Aureus Procedures Date of Service Date of Service: 08/16/22 Assessment & Plan Assessment and plan (1) MRSA bacteremia: Status: Acute (2) Pressure injury of lower back, stage 4: Status: Acute (3) Sepsis: Status: Acute Plan Mr. Suman Park 81-year-old male with end-stage renal disease on hem odialysis TTS, prostate cancer with history of urostomy, mixed hyperlipidemia, essential hypertension, chronic obstructive pulmonary disease, permanent atrial fibrillation on Coumadin, congestive heart failure unknown ejection fraction, rheumatoid arthritis who presented with AMS. He was found to have severe sepsis due to cellulitis and infected decubitus ulcer with MRSA bacteremia. No Veg on echo Plan: - 4-6 weeks IV vanco to be done with hemodialysis once blood culture negative - PLease notify use of dispo, because Vanco needs to be coordinate with his HD unit - protect LUE AVF - Plan for HD tomorrow per TTS schedule - EPO dosed today 20,ooou Time Spent With Patient Time: Total time spent is greater than 50% in coordination of care (as documented) at patient's floor/unit and/or counseling patient: Progress Note: Quality Stroke Does the patient have a stroke diagnosis?: No
[2022-08-16 19:56] VITALS: BP 126/70; PULSE 101; RESP 20; TEMP 37; O2SAT 99
[2022-08-16] MEDS: Atorvastatin Calcium 40 MG TABLET PO (20:35)
[2022-08-16] MEDS: Melatonin 3 MG TABLET 9 MG PO (20:35)
--- NOTE | 2022-08-17 | ECG_ITS ---
Test Reason : afib Blood Pressure : / mmHG Vent. Rate : 113 BPM Atrial Rate : 000 BPM P-R Int : 000 ms QRS Dur : 088 ms QT Int : 336 ms P-R-T Axes : 000 -11 107 degrees QTc Int : 460 ms Atrial fibrillation with rapid ventricular response Nonspecific ST and T wave abnormality RSR' or QR pattern in V1 suggests right ventricular conduction delay Abnormal ECG When compared with ECG of 13-AUG-2022 06:25, No significant change was found Referred By: Sahra Rhodes Electronically Signed By:KYM GUADALUPE MD
[2022-08-17] MEDS: Omeprazole 20 MG CAPSULE.DR PO (06:32)
[2022-08-17 07:40] LABS: INTERNATIONAL NORM RATIO 3.1 (0.9-1.1); Prothrombin Time 37.4 SEC (10.0-13.1)
[2022-08-17 08:00] VITALS: BP 130/60; PULSE 107; RESP 16; TEMP 37.2; O2SAT 92
[2022-08-17] MEDS: polyethylene glycoL 3350 17 GM POWD.PACK PO (08:06)
[2022-08-17] MEDS: Lidocaine 4 % Patch ADH..PATCH 1 PATCH TRANSDERMA (08:06)
[2022-08-17] MEDS: Sennosides 8.6 MG TABLET 17.2 MG PO ×2 (08:06→20:08)
[2022-08-17] MEDS: 0.9 % Sodium Chloride Flush 3 ML SYRINGE IVFLUSH ×3 (08:06→20:09)
[2022-08-17] MEDS: Multivitamin TABLET 1 TAB PO (08:06)
[2022-08-17] MEDS: Megestrol Acetate 20 MG TABLET PO (08:06)
[2022-08-17] MEDS: Cholecalciferol (Vitamin D3) 25 MCG TABLET PO (08:07)
[2022-08-17] MEDS: Cyanocobalamin (Vitamin B-12) 1,000 MCG TABLET 1000 MCG PO (08:07)
[2022-08-17] MEDS: Magnesium Oxide 400 MG TABLET PO (08:07)
[2022-08-17] MEDS: Sevelamer Carbonate Tablet 800 MG TABLET PO ×2 (08:07→16:17)
[2022-08-17] MEDS: guaiFENesin LA 600 MG TAB.ER.12H PO ×2 (08:07→20:09)
[2022-08-17] MEDS: Collagenase Clostridium Hist. 30 GM TUBE 1 APPL TOPICAL (09:19)
[2022-08-17 09:50] LABS: Creatinine Clr Calc Pharmacy 15.9; Estimated Glomerular Filt Rate 13
--- NOTE | 2022-08-17 12:34 | HO.PM.IMPN ---
Subjective Subjective Date of Service: 08/17/22 Interval History: the patient was seen and evaluated this morning Laying in bed, feels comfortable overall 08/16 Blood cultures turned positive , to repeat No reported other overnight events. Systemic review: No fever, chills or weakness No chest pain, palpitation No shortness of breath or coughing No abdominal pain, nausea or vomiting No urinary symptoms Chronic wounds in the back Physical Exam Vital Signs: Vital Signs: Last Vital Signs Temp 98.9 F 08/17/22 08:00 Pulse 107 H 08/17/22 08:00 Resp 16 08/17/22 08:00 BP 130/60 08/17/22 08:00 Pulse Ox 92 08/17/22 08:00 O2 Del Method 08/17/22 08:00 FiO2 100 08/13/22 19:43 BMI result Body Mass Index 27.5 Const: Other: Constitutional : Alert, oriented, not in distress Neck : Normal inspection, Supple, LUE fistula Cardiovascular : RRR, no JVP, no lower extremity edema Respiratory : fair bilateral air entry, no crackles, wheezes or rhonchi Gastrointestinal: soft, lax, Normal bowel sounds, Non tender Skin : Warm, Dry, stage IV sacral wound, small ulcer LUE near fistula site Neurological : Alert & oriented x3, No focal deficit , CN 2-12 within normal Objective Data Active Medications Acetaminophen (Acetaminophen 325 Mg Tablet) 650 mg PO Q6H PRN PRN Reason: Pain, Mild (Pain Scale 1-3) Last Admin: 08/10/22 22:44 Dose: 650 mg Documented By: MAURA Atorvastatin Calcium (Atorvastatin Calcium 40 Mg Tablet) 40 mg PO BEDTIME [facility] Last Admin: 08/16/22 20:35 Dose: 40 mg Documented By: NATE Bisacodyl (Bisacodyl 10 Mg Supp.Rect) 10 mg [place] DAILY PRN PRN Reason: Constipation Collagenase (Collagenase Clostridium Hist. 30 Gm Tube) 1 appl TOPICAL DAILY [facility]; Protocol Last Admin: 08/16/22 07:41 Dose: 1 appl Documented By: CHRIS Cyanocobalamin (Cyanocobalamin (Vitamin B-12) 1,000 Mcg Tablet) 1,000 mcg PO DAILY [facility] Last Admin: 08/17/22 08:07 Dose: 1,000 mcg Documented By: LAWRENCE Guaifenesin (Guaifenesin 100 Mg/5 Ml Liquid) 5 ml PO Q2H PRN PRN Reason: Cough Last Admin: 08/16/22 02:17 Dose: 5 ml Documented By: ERLINDA Guaifenesin (Guaifenesin La 600 Mg Tab.Er.12h) 600 mg PO BID [facility] Last Admin: 08/17/22 08:07 Dose: 600 mg Documented By: LAWRENCE Daptomycin 1,000 mg/ Sodium (Chloride) 70 mls @ 100.079 mls/hr IV TUTHSA@1645 [facility] Lidocaine (Lidocaine 4 % Patch Adh..Patch) 1 patch TRANSDERMA DAILY [facility] Last Admin: 08/17/22 08:06 Dose: 1 patch Documented By: LAWRENCE Magnesium Oxide (Magnesium Oxide 400 Mg Tablet) 400 mg PO DAILY [facility] Last Admin: 08/17/22 08:07 Dose: 400 mg Documented By: LAWRENCE Megestrol Acetate (Megestrol Acetate 20 Mg Tablet) 20 mg PO DAILY [facility] Last Admin: 08/17/22 08:06 Dose: 20 mg Documented By: LAWRENCE Melatonin (Melatonin 3 Mg Tablet) 6 mg PO BEDTIME PRN PRN Reason: Insomnia Last Admin: 08/10/22 02:13 Dose: 6 mg Documented By: HEAVENLY-LITTA Melatonin (Melatonin 3 Mg Tablet) 9 mg PO BEDTIME [facility] Last Admin: 08/16/22 20:35 Dose: 9 mg Documented By: NATE Metoprolol Tartrate (Metoprolol Tartrate 12.5 Mg Halftab) 12.5 mg PO BID [facility]; Protocol Last Admin: 08/17/22 11:42 Dose: Not Given Documented By: LAWRENCE Non-Admin Reason: patient going to HD Midodrine (Midodrine Hcl 5 Mg Tablet) 5 mg PO TIDWM PRN PRN Reason: HYPOTENSION Multivitamins/Vitamin C (Multivitamin Tablet) 1 tab PO DAILY [facility] Last Admin: 08/17/22 08:06 Dose: 1 tab Documented By: LAWRENCE Nitroglycerin (Nitroglycerin 0.4 Mg Tab.Subl) 0.4 mg SUBLINGUAL Q5M PRN PRN Reason: Angina Omeprazole (Omeprazole 20 Mg Capsule.Dr) 20 mg PO DAILY@0630 [facility] Last Admin: 08/17/22 06:32 Dose: 20 mg Documented By: NATE Ondansetron HCl (Ondansetron Hcl 4 Mg/2 Ml Vial) 4 mg IVPUSH Q8H PRN PRN Reason: Nausea and Vomiting Last Admin: 08/15/22 13:39 Dose: 4 mg Documented By: ANGEL Pharmacy Consult (Consult Rx Perform Med Rec) 1 each MISCELLANE ONCE PRN PRN Reason: Consult order Pharmacy Consult (Consult Rx Vancomycin Dosing) 1 each MISCELLANE DAILY PRN PRN Reason: Consult order Polyethylene Glycol (Polyethylene Glycol 3350 17 Gm Powd.Pack) 17 gm PO DAILY [facility] Last Admin: 08/17/22 08:06 Dose: 17 gm Documented By: LAWRENCE Senna (Sennosides 8.6 Mg Tablet) 17.2 mg PO BID [facility] Last Admin: 08/17/22 08:06 Dose: 17.2 mg Documented By: LAWRENCE Sevelamer Carbonate (Sevelamer Carbonate Tablet 800 Mg Tablet) 800 mg PO BIDWM [facility] Last Admin: 08/17/22 08:07 Dose: 800 mg Documented By: LAWRENCE Sodium Chloride (0.9 % Sodium Chloride Flush 3 Ml Syringe) 3 ml IVFLUSH QSHIFT [facility] Last Admin: 08/17/22 08:06 Dose: 3 ml Documented By: LAWRENCE Vitamin D (Cholecalciferol (Vitamin D3) 25 Mcg Tablet) 25 mcg PO DAILY [facility] Last Admin: 08/17/22 08:07 Dose: 25 mcg Documented By: LAWRENCE Warfarin Sodium (Warfarin Sodium 0.5 Mg Halftab) 0.5 mg PO DAILY@1800 [facility] Last Admin: 08/13/22 18:45 Dose: 0.5 mg Documented By: ERLINDA Labs CBC & Chem 7: 08/16/22 06:59 08/17/22 07:10 Labs: Laboratory Results - last 24 hr 08/17/22 08/17/22 07:10 07:10 PT 37.4 H INR 3.1 H Estim Creat Clear Calc 15.9 Estimated GFR 13 Microbiology Microbiology Results: Microbiology 08/15/22 09:03 Blood Culture - Final Blood - Venous Methicillin Res Staph Aureus 08/15/22 09:03 Blood Culture - Final Blood - Venous Methicillin Res Staph Aureus 08/16/22 08:50 Blood Culture - Preliminary Blood - Venous Prelim: GPC Gram Stain only 08/16/22 08:50 Blood Culture - Preliminary Blood - Venous Prelim: GPC Gram Stain only 08/14/22 06:28 Blood Culture - Final Blood - Venous Methicillin Res Staph Aureus 08/14/22 06:28 Blood Culture - Final Blood - Venous Methicillin Res Staph Aureus Assessment and Plan (1) MRSA bacteremia: Status: Acute (2) Pressure injury of lower back, stage 4: Status: Acute Plan 81-year-old male coming from detention facility with pertinent history of end-stage renal disease on hemodialysis, prostate cancer with history of urostomy, mixed hyperlipidemia, essential hypertension, chronic obstructive pulmonary disease, permanent atrial fibrillation on Coumadin, congestive heart failure unknown ejection fraction, rheumatoid arthritis who was brought to the emergency department for evaluation of altered mentation. Severe sepsis present on admission and metabolic encephalopathy due to cellulitis and infected sacral decubitus ulcer complicated by MRSA bacteremia id appreciated - 4-6 weeks IV vanco to be done with hemodialysis once blood culture negative follow-up repeat cultures - positive repeat cultures from 08/16/22 No vegetation on echo Concern over safety of MRI of LS given he has defibrillator To check CT with contrast of lumber spine Infectious Disease following To send new culture COVID-19 infection asymptomatic end-stage renal disease hemodialysis via left upper extremity fistula TTS (does not appear infected) supratherapeutic INR INR 3.1, hold today Coumadin restarted and decreased from 1mg to 0.5mg as inr jumped up fairly quickly permanent atrial fibrillation continue warfarin, metoprolol hyperlipidemia continue statin Stage IV sacral ulcer Wound team following, use Santyl for a week and debridement needed Pressure relief protocols Fistula site ulcer get vascular surgery eval DVT prophylaxis with Coumadin DNR/DNI reason for continued hospitalization: MRSA Bacteremia awaiting clearance of cultures for safe discharge plan Quality Stroke Does the patient have a stroke diagnosis?: No VTE Prior VTE?: No VTE Risk Level:: Medical - moderate - high VTE Device Contraindication: Treatment Not Indicated VTE Drug Contraindication: Treatment Not Indicated
[2022-08-17 15:17] VITALS: BP 109/64; PULSE 120; RESP 15; TEMP 36.6; O2SAT 99
[2022-08-17] MEDS: Metoprolol Tartrate 25 MG TABLET PO ×2 (16:17→20:09)
[2022-08-17] MEDS: Metoprolol Tartrate 5 MG/5 ML VIAL IVPUSH (16:17)
--- NOTE | 2022-08-17 17:04 | PM.PNNEP ---
Subjective Subjective Date of Service: 08/17/22 Interval history: dialyzed today vascular surgery to evaluate ulceration on fistula Physical Exam Vital Signs: Vital Signs: Last Vital Signs Temp 97.8 F 08/17/22 15:17 Pulse 120 H 08/17/22 15:17 Resp 15 08/17/22 15:17 BP 109/64 08/17/22 15:17 Pulse Ox 99 08/17/22 15:17 O2 Del Method 08/17/22 15:17 FiO2 100 08/13/22 19:43 BMI result Body Mass Index 27.5 Const: Other: Constitutional : Alert, oriented, not in distress Neck : Normal inspection, Supple, LUE fistula Cardiovascular : RRR, no JVP, no lower extremity edema Respiratory : fair bilateral air entry, no crackles, wheezes or rhonchi Gastrointestinal: soft, lax, Normal bowel sounds, Non tender Skin : Warm, Dry, stage IV sacral wound Neurological : Alert & oriented x3, No focal deficit , CN 2-12 within normal Objective Data Labs CBC & Chem 7: 08/16/22 06:59 08/17/22 07:10 Labs: Laboratory Results - last 24 hr 08/17/22 08/17/22 07:10 07:10 PT 37.4 H INR 3.1 H Creatinine 4.35 H* Estim Creat Clear Calc 15.9 Estimated GFR 13 Microbiology Microbiology Results: Microbiology 08/15/22 09:03 Blood - Venous Blood Culture - Final Methicillin Res Staph Aureus 08/15/22 09:03 Blood - Venous Blood Culture - Final Methicillin Res Staph Aureus 08/16/22 08:50 Blood - Venous Blood Culture - Preliminary Prelim: GPC Gram Stain only 08/16/22 08:50 Blood - Venous Blood Culture - Preliminary Prelim: GPC Gram Stain only 08/14/22 06:28 Blood - Venous Blood Culture - Final Methicillin Res Staph Aureus 08/14/22 06:28 Blood - Venous Blood Culture - Final Methicillin Res Staph Aureus 08/12/22 08:55 Blood - Venous Blood Culture - Final Methicillin Res Staph Aureus 08/12/22 08:55 Blood - Venous Blood Culture - Final Methicillin Res Staph Aureus 08/09/22 14:33 Blood - Venous Blood Culture - Final Methicillin Res Staph Aureus 08/09/22 14:33 Blood - Venous Blood Culture - Final Methicillin Res Staph Aureus Procedures Date of Service Date of Service: 08/17/22 Assessment & Plan Assessment and plan (1) MRSA bacteremia: Status: Acute (2) Pressure injury of lower back, stage 4: Status: Acute (3) Sepsis: Status: Acute Plan Mr. Suman Park 81-year-old male with end-stage renal disease on hemodialysis TTS, prostate cancer with history of urostomy, mixed hyperlipidemia, essential hypertension, chronic obstructive pulmonary disease, permanent atrial fibrillation on Coumadin, congestive heart failure unknown ejection fraction, rheumatoid arthritis who presented with AMS. He was found to have severe sepsis due to cellulitis and infected decubitus ulcer with MRSA bacteremia. No Veg on echo Plan: - 4-6 weeks IV vanco to be done with hemodialysis once blood culture negative - Please notify use of dispo, because Vanco needs to be coordinate with his HD unit - protect LUE AVF, Vascular Surgery to evaluate ulceration noted on fistula. - TTS scheduled HD - EPO 20,000 u dosed 08/16 Time Spent With Patient Time: Total time spent is greater than 50% in coordination of care (as documented) at patient's floor/unit and/or counseling patient: Progress Note: Quality Stroke Does the patient have a stroke diagnosis?: No
[2022-08-17] MEDS: DAPTOmycin 1,000 MG in 0.9 % Sodium Chloride 50 ML 100.08 MG IV (17:13)
[2022-08-17 19:06] LABS: Vancomycin Random 14.4 mcg/mL (15-20)
[2022-08-17 19:15] VITALS: BP 109/63; PULSE 97; RESP 17; TEMP 36.2; O2SAT 95
[2022-08-17] MEDS: Atorvastatin Calcium 40 MG TABLET PO (20:08)
[2022-08-17] MEDS: Melatonin 3 MG TABLET 9 MG PO (20:08)
[2022-08-18] VITALS (7 sets, daily range): BP systolic 102–172; BP diastolic 59–92; PULSE 70–105; RESP 14–20; TEMP 36–36.7; O2SAT 97–99
[2022-08-18] MEDS: Omeprazole 20 MG CAPSULE.DR PO (05:55)
[2022-08-18 07:47] LABS: INTERNATIONAL NORM RATIO 2.9 (0.9-1.1); Prothrombin Time 35.2 SEC (10.0-13.1)
[2022-08-18] MEDS: Sevelamer Carbonate Tablet 800 MG TABLET PO ×2 (08:27→17:12)
[2022-08-18] MEDS: Multivitamin TABLET 1 TAB PO (08:27)
[2022-08-18] MEDS: guaiFENesin LA 600 MG TAB.ER.12H PO ×2 (08:27→22:03)
[2022-08-18] MEDS: Sennosides 8.6 MG TABLET 17.2 MG PO ×2 (08:27→22:02)
[2022-08-18] MEDS: Magnesium Oxide 400 MG TABLET PO (08:27)
[2022-08-18] MEDS: Metoprolol Tartrate 25 MG TABLET PO ×2 (08:27→22:02)
[2022-08-18] MEDS: Cholecalciferol (Vitamin D3) 25 MCG TABLET PO (08:27)
[2022-08-18] MEDS: Cyanocobalamin (Vitamin B-12) 1,000 MCG TABLET 1000 MCG PO (08:28)
[2022-08-18] MEDS: Megestrol Acetate 20 MG TABLET PO (08:28)
[2022-08-18] MEDS: Collagenase Clostridium Hist. 30 GM TUBE 1 APPL TOPICAL (10:10)
--- NOTE | 2022-08-18 12:14 | HO.PM.IMPN ---
Subjective Subjective Date of Service: 08/18/22 Interval History: the patient was seen and evaluated this morning Laying in bed, feels comfortable overall Had sundowning last night, took off his IV and nurses failed to place new one 08/16 Blood cultures turned positive , repeated this morning No reported other overnight events. Systemic review: No fever, chills or weakness No chest pain, palpitation No shortness of breath or coughing No abdominal pain, nausea or vomiting No urinary symptoms Chronic wounds in the back Physical Exam Vital Signs: Vital Signs: Last Vital Signs Temp 97.6 F 08/18/22 08:00 Pulse 100 08/18/22 08:00 Resp 20 08/18/22 08:00 BP 144/65 H 08/18/22 08:00 Pulse Ox 97 08/18/22 08:00 O2 Del Method 08/18/22 08:00 FiO2 100 08/13/22 19:43 BMI result Body Mass Index 27.5 Const: Other: Constitutional : Alert, oriented, not in distress Neck : Normal inspection, Supple, LUE fistula Cardiovascular : RRR, no JVP, no lower extremity edema Respiratory : fair bilateral air entry, no crackles, wheezes or rhonchi Gastrointestinal: soft, lax, Normal bowel sounds, Non tender Skin : Warm, Dry, stage IV sacral wound, small ulcer LUE near fistula site Neurological : Alert & oriented x3, No focal deficit , CN 2-12 within normal Objective Data Active Medications Acetaminophen (Acetaminophen 325 Mg Tablet) 650 mg PO Q6H PRN PRN Reason: Pain, Mild (Pain Scale 1-3) Last Admin: 08/10/22 22:44 Dose: 650 mg Documented By: MAURA Atorvastatin Calcium (Atorvastatin Calcium 40 Mg Tablet) 40 mg PO BEDTIME [facility] Last Admin: 08/17/22 20:08 Dose: 40 mg Documented By: JOSE Bisacodyl (Bisacodyl 10 Mg Supp.Rect) 10 mg KS DAILY PRN PRN Reason: Constipation Collagenase (Collagenase Clostridium Hist. 30 Gm Tube) 1 appl TOPICAL DAILY [facility], [facility]; Protocol Last Admin: 08/18/22 10:10 Dose: 1 appl Documented By: LAWRENCE Cyanocobalamin (Cyanocobalamin (Vitamin B-12) 1,000 Mcg Tablet) 1,000 mcg PO DAILY [facility] Last Admin: 08/18/22 08:28 Dose: 1,000 mcg Documented By: LAWRENCE Guaifenesin (Guaifenesin 100 Mg/5 Ml Liquid) 5 ml PO Q2H PRN PRN Reason: Cough Last Admin: 08/16/22 02:17 Dose: 5 ml Documented By: ERLINDA Guaifenesin (Guaifenesin La 600 Mg Tab.Er.12h) 600 mg PO BID [facility] Last Admin: 08/18/22 08:27 Dose: 600 mg Documented By: LAWRENCE Daptomycin 1,000 mg/ Sodium (Chloride) 70 mls @ 100.079 mls/hr IV TUTHSA@1645 [facility] Last Infusion: 08/17/22 18:08 Dose: 0 mls/hr Documented By: LAWRENCE Lidocaine (Lidocaine 4 % Patch Adh..Patch) 1 patch TRANSDERMA DAILY [facility] Last Admin: 08/18/22 08:28 Dose: Not Given Documented By: LAWRENCE Non-Admin Reason: Patient Refused Magnesium Oxide (Magnesium Oxide 400 Mg Tablet) 400 mg PO DAILY [facility] Last Admin: 08/18/22 08:27 Dose: 400 mg Documented By: LAWRENCE Megestrol Acetate (Megestrol Acetate 20 Mg Tablet) 20 mg PO DAILY [facility] Last Admin: 08/18/22 08:28 Dose: 20 mg Documented By: LAWRENCE Melatonin (Melatonin 3 Mg Tablet) 6 mg PO BEDTIME PRN PRN Reason: Insomnia Last Admin: 08/10/22 02:13 Dose: 6 mg Documented By: HEAVENLY-LITCARISSA Melatonin (Melatonin 3 Mg Tablet) 9 mg PO BEDTIME [facility] Last Admin: 08/17/22 20:08 Dose: 9 mg Documented By: JOSE Metoprolol Tartrate (Metoprolol Tartrate 25 Mg Tablet) 25 mg PO BID [facility]; Protocol Last Admin: 08/18/22 08:27 Dose: 25 mg Documented By: LAWRENCE Multivitamins/Vitamin C (Multivitamin Tablet) 1 tab PO DAILY [facility] Last Admin: 08/18/22 08:27 Dose: 1 tab Documented By: LAWRENCE Nitroglycerin (Nitroglycerin 0.4 Mg Tab.Subl) 0.4 mg SUBLINGUAL Q5M PRN PRN Reason: Angina Omeprazole (Omeprazole 20 Mg Capsule.Dr) 20 mg PO DAILY@0630 [facility] Last Admin: 08/18/22 05:55 Dose: 20 mg Documented By: JOSE Ondansetron HCl (Ondansetron Hcl 4 Mg/2 Ml Vial) 4 mg IVPUSH Q8H PRN PRN Reason: Nausea and Vomiting Last Admin: 08/15/22 13:39 Dose: 4 mg Documented By: ANGEL Pharmacy Consult (Consult Rx Perform Med Rec) 1 each MISCELLANE ONCE PRN PRN Reason: Consult order Pharmacy Consult (Consult Rx Vancomycin Dosing) 1 each MISCELLANE DAILY PRN PRN Reason: Consult order Polyethylene Glycol (Polyethylene Glycol 3350 17 Gm Powd.Pack) 17 gm PO DAILY [facility] Last Admin: 08/18/22 08:29 Dose: Not Given Documented By: LAWRENCE Non-Admin Reason: NPO Quetiapine Fumarate (Quetiapine Fumarate 25 Mg Tablet) 25 mg PO ONCE ONE Stop: 08/18/22 18:01 Senna (Sennosides 8.6 Mg Tablet) 17.2 mg PO BID [facility] Last Admin: 08/18/22 08:27 Dose: 17.2 mg Documented By: LAWRENCE Sevelamer Carbonate (Sevelamer Carbonate Tablet 800 Mg Tablet) 800 mg PO BIDWM [facility] Last Admin: 08/18/22 08:27 Dose: 800 mg Documented By: LAWRENCE Sodium Chloride (0.9 % Sodium Chloride Flush 3 Ml Syringe) 3 ml IVFLUSH QSHIFT [facility] Last Admin: 08/18/22 10:09 Dose: Not Given Documented By: LAWRENCE Non-Admin Reason: No Access Vitamin D (Cholecalciferol (Vitamin D3) 25 Mcg Tablet) 25 mcg PO DAILY [facility] Last Admin: 08/18/22 08:27 Dose: 25 mcg Documented By: LAWRENCE Warfarin Sodium (Warfarin Sodium 0.5 Mg Halftab) 0.5 mg PO DAILY@1800 [facility] Last Admin: 08/13/22 18:45 Dose: 0.5 mg Documented By: ERLINDA Labs CBC & Chem 7: 08/16/22 06:59 08/17/22 07:10 Labs: Laboratory Results - last 24 hr 08/17/22 08/18/22 18:16 06:33 PT 35.2 H INR 2.9 H Random Vancomycin 14.4 L Microbiology Microbiology Results: Microbiology 08/16/22 08:50 Blood Culture - Final Blood - Venous Methicillin Res Staph Aureus 08/16/22 08:50 Blood Culture - Final Blood - Venous Methicillin Res Staph Aureus 08/15/22 09:03 Blood Culture - Final Blood - Venous Methicillin Res Staph Aureus 08/15/22 09:03 Blood Culture - Final Blood - Venous Methicillin Res Staph Aureus Assessment and Plan (1) MRSA bacteremia: Status: Acute (2) Sundowning: Status: Acute (3) Pressure injury of lower back, stage 4: Status: Acute Plan 81-year-old male coming from senior living facility with pertinent history of end-stage renal disease on hemodialysis, prostate cancer with history of urostomy, mixed hyperlipidemia, essential hypertension, chronic obstructive pulmonary disease, permanent atrial fibrillation on Coumadin, congestive heart failure unknown ejection fraction, rheumatoid arthritis who was brought to the emergency department for evaluation of altered mentation. Severe sepsis present on admission and metabolic encephalopathy due to cellulitis and infected sacral decubitus ulcer complicated by MRSA bacteremia id appreciated - 4-6 weeks IV vanco to be done with hemodialysis once blood culture negative follow-up repeat cultures - positive repeat cultures from 08/16/22 No vegetation on echo Concern over safety of MRI of LS given he has defibrillator To check CT with contrast of lumber spine Infectious Disease following pending new culture surgery to evaluate the wound sundowning related to bacteremia and prolonged hospital stay reorientation seroquel as needed COVID-19 infection asymptomatic end-stage renal disease hemodialysis via left upper extremity fistula TTS (does not appear infected) supratherapeutic INR INR 2.9, hold today Coumadin restarted and decreased from 1mg to 0.5mg as inr jumped up fairly quickly permanent atrial fibrillation continue warfarin, metoprolol hyperlipidemia continue statin Stage IV sacral ulcer Wound team following, use Santyl for a week and debridement needed Pressure relief protocols Fistula site ulcer get vascular surgery eval DVT prophylaxis with Coumadin DNR/DNI reason for continued hospitalization: MRSA Bacteremia awaiting clearance of cultures for safe discharge plan Quality Stroke Does the patient have a stroke diagnosis?: No VTE Prior VTE?: No VTE Risk Level:: Medical - moderate - high VTE Device Contraindication: Treatment Not Indicated VTE Drug Contraindication: Treatment Not Indicated
--- NOTE | 2022-08-18 15:49 | PM.PNNEP ---
Subjective Subjective Date of Service: 08/18/22 Interval history: 08/16 Blood cultures turned positive , repeated this morning awaiting vascular eval for ulcerated fistula segment Physical Exam Vital Signs: Vital Signs: Last Vital Signs Temp 97.4 F 08/18/22 15:43 Pulse 93 08/18/22 15:43 Resp 14 08/18/22 15:43 BP 122/59 L 08/18/22 15:43 Pulse Ox 99 08/18/22 15:43 O2 Del Method 08/18/22 15:43 FiO2 100 08/13/22 19:43 BMI result Body Mass Index 27.5 Const: Other: Constitutional : Alert, oriented, not in distress Neck : Normal inspection, Supple, LUE fistula Cardiovascular : RRR, no JVP, no lower extremity edema Respiratory : fair bilateral air entry, no crackles, wheezes or rhonchi Gastrointestinal: soft, lax, Normal bowel sounds, Non tender Skin : Warm, Dry, stage IV sacral wound Neurological : Alert & oriented x3, No focal deficit , CN 2-12 within normal Objective Data Labs CBC & Chem 7: 08/16/22 06:59 08/17/22 07:10 Labs: Laboratory Results - last 24 hr 08/17/22 08/18/22 18:16 06:33 PT 35.2 H INR 2.9 H Random Vancomycin 14.4 L Microbiology Microbiology Results: Microbiology 08/16/22 08:50 Blood - Venous Blood Culture - Final Methicillin Res Staph Aureus 08/16/22 08:50 Blood - Venous Blood Culture - Final Methicillin Res Staph Aureus 08/15/22 09:03 Blood - Venous Blood Culture - Final Methicillin Res Staph Aureus 08/15/22 09:03 Blood - Venous Blood Culture - Final Methicillin Res Staph Aureus 08/14/22 06:28 Blood - Venous Blood Culture - Final Methicillin Res Staph Aureus 08/14/22 06:28 Blood - Venous Blood Culture - Final Methicillin Res Staph Aureus 08/12/22 08:55 Blood - Venous Blood Culture - Final Methicillin Res Staph Aureus 08/12/22 08:55 Blood - Venous Blood Culture - Final Methicillin Res Staph Aureus 08/09/22 14:33 Blood - Venous Blood Culture - Final Methicillin Res Staph Aureus 08/09/22 14:33 Blood - Venous Blood Culture - Final Methicillin Res Staph Aureus Procedures Date of Service Date of Service: 08/18/22 Assessment & Plan Assessment and plan (1) MRSA bacteremia: Status: Acute (2) Pressure injury of lower back, stage 4: Status: Acute (3) Sepsis: Status: Acute Plan Mr. Suman Park 81-year-old male with end-stage renal disease on hemodialysis TTS, prostate cancer with history of urostomy, mixed hyperlipidemia, essential hypertension, chronic obstructive pulmonary disease, permanent atrial fibrillation on Coumadin, congestive heart failure unknown ejection fraction, rheumatoid arthritis who presented with AMS. He was found to have severe sepsis due to cellulitis and infected decubitus ulcer with MRSA bacteremia. No Veg on echo Plan: - 4-6 weeks IV vanco to be done with hemodialysis once blood culture negative (however cultures remain positive) - please obtain U/S duplex of Fistula to ensure its not seeded and source of persistent bacteremia. - Please notify use of dispo, because Vanco needs to be coordinate with his HD unit - protect LUE AVF, Vascular Surgery to evaluate ulceration noted on fistula. - TTS scheduled HD - EPO 20,000 u dosed 08/16 Time Spent With Patient Time: Total time spent is greater than 50% in coordination of care (as documented) at patient's floor/unit and/or counseling patient: Progress Note: Quality Stroke Does the patient have a stroke diagnosis?: No
[2022-08-18] MEDS: Warfarin Sodium 0.5 MG HALFTAB PO (17:12)
[2022-08-18] MEDS: QUEtiapine Fumarate 25 MG TABLET PO (17:13)
[2022-08-18] MEDS: Melatonin 3 MG TABLET 9 MG PO (22:03)
[2022-08-18] MEDS: Atorvastatin Calcium 40 MG TABLET PO (22:03)
[2022-08-18] MEDS: 0.9 % Sodium Chloride Flush 3 ML SYRINGE IVFLUSH (22:03)
[2022-08-19 00:39] VITALS: BP 116/67; PULSE 94; RESP 18; TEMP 37.3; O2SAT 98
[2022-08-19 04:00] VITALS: BP 124/59; PULSE 98; RESP 18; TEMP 36.7; O2SAT 99
[2022-08-19] MEDS: Omeprazole 20 MG CAPSULE.DR PO (05:50)
[2022-08-19 06:52] LABS: INTERNATIONAL NORM RATIO 2.7 (0.9-1.1); Prothrombin Time 32.2 SEC (10.0-13.1)
[2022-08-19 08:00] VITALS: BP 134/70; PULSE 113; RESP 17; TEMP 36; O2SAT 100
[2022-08-19] MEDS: Magnesium Oxide 400 MG TABLET PO (08:07)
[2022-08-19] MEDS: Sennosides 8.6 MG TABLET 17.2 MG PO ×2 (08:07→20:35)
[2022-08-19] MEDS: Sevelamer Carbonate Tablet 800 MG TABLET PO ×2 (08:08→16:16)
[2022-08-19] MEDS: Cyanocobalamin (Vitamin B-12) 1,000 MCG TABLET 1000 MCG PO (08:08)
[2022-08-19] MEDS: Metoprolol Tartrate 25 MG TABLET PO ×2 (08:08→20:36)
[2022-08-19] MEDS: Multivitamin TABLET 1 TAB PO (08:08)
[2022-08-19] MEDS: guaiFENesin LA 600 MG TAB.ER.12H PO ×2 (08:08→20:36)
[2022-08-19] MEDS: Megestrol Acetate 20 MG TABLET PO (08:09)
[2022-08-19] MEDS: Cholecalciferol (Vitamin D3) 25 MCG TABLET PO (08:09)
[2022-08-19] MEDS: polyethylene glycoL 3350 17 GM POWD.PACK PO (08:10)
[2022-08-19] MEDS: Zinc Oxide 20% Ointment 28.35 GM TUBE 1 APPL TOPICAL (08:25)
[2022-08-19 11:37] VITALS: BP 128/71; PULSE 96; RESP 16; TEMP 35.9; O2SAT 100
[2022-08-19] MEDS: Collagenase Clostridium Hist. 30 GM TUBE 1 APPL TOPICAL (11:38)
--- NOTE | 2022-08-19 11:57 | PM.PNNEP ---
Subjective Subjective Date of Service: 08/19/22 Interval history: Events noted. All recent data reviewed Physical Exam Vital Signs: Vital Signs: Last Vital Signs Temp 96.7 F L 08/19/22 11:37 Pulse 96 08/19/22 11:37 Resp 16 08/19/22 11:37 BP 128/71 08/19/22 11:37 Pulse Ox 100 08/19/22 11:37 O2 Del Method 08/19/22 11:37 FiO2 100 08/13/22 19:43 BMI result Body Mass Index 27.5 Const: General: no acute distress Eyes: EOM: EOMs intact bilaterally Resp: Auscultation: diminished lung sounds Cardio: Rate: regular rate GI: Palpation (GI): Soft to palpation Neuro: General: moves all extremities Objective Data Labs CBC & Chem 7: 08/16/22 06:59 08/17/22 07:10 Labs: Laboratory Results - last 24 hr 08/19/22 06:16 PT 32.2 H INR 2.7 H Microbiology Microbiology Results: Microbiology 08/18/22 06:33 Blood - Venous Blood Culture - Preliminary Prelim: GPC Gram Stain only 08/18/22 06:33 Blood - Venous Blood Culture - Preliminary Prelim: GPC Gram Stain only 08/16/22 08:50 Blood - Venous Blood Culture - Final Methicillin Res Staph Aureus 08/16/22 08:50 Blood - Venous Blood Culture - Final Methicillin Res Staph Aureus 08/15/22 09:03 Blood - Venous Blood Culture - Final Methicillin Res Staph Aureus 08/15/22 09:03 Blood - Venous Blood Culture - Final Methicillin Res Staph Aureus 08/14/22 06:28 Blood - Venous Blood Culture - Final Methicillin Res Staph Aureus 08/14/22 06:28 Blood - Venous Blood Culture - Final Methicillin Res Staph Aureus 08/12/22 08:55 Blood - Venous Blood Culture - Final Methicillin Res Staph Aureus 08/12/22 08:55 Blood - Venous Blood Culture - Final Methicillin Res Staph Aureus 08/09/22 14:33 Blood - Venous Blood Culture - Final Methicillin Res Staph Aureus 08/09/22 14:33 Blood - Venous Blood Culture - Final Methicillin Res Staph Aureus Procedures Date of Service Date of Service: 08/19/22 Assessment & Plan Assessment and plan (1) End stage renal disease on dialysis: Status: Acute Assessment and Plan: Mr. Suman Park 81-year-old male with end-stage renal disease on hemodialysis TTS, prostate cancer with history of urostomy, mixed hyperlipidemia, essential hypertension, chronic obstructive pulmonary disease, permanent atrial fibrillation on Coumadin, congestive heart failure unknown ejection fraction, rheumatoid arthritis who presented with AMS. He was found to have severe sepsis due to cellulitis and infected decubitus ulcer with MRSA bacteremia. No Veg on echo 4-6 weeks IV vanco to be done with hemodialysis once blood culture negative (however cultures remain positive) U/S duplex of Fistula to ensure its not seeded and source of persistent bacteremia. Vascular consult Please notify use of dispo, because Vanco needs to be coordinate with his HD unit protect LUE AVF, Vascular Surgery to evaluate ulceration noted on fistula. Tagged WBC scan TTS scheduled HD; EPO 20,000 u dosed 08/16; Ordered another dose for today Time Spent With Patient Time: Total time spent is greater than 50% in coordination of care (as documented) at patient's floor/unit and/or counseling patient: Progress Note: Quality Stroke Does the patient have a stroke diagnosis?: No
--- NOTE | 2022-08-19 12:18 | MHC.CLN ---
F/U PO INTAKE IMPROVED 100% X 3 MEALS DIET RX: 2GM [id number] LIBERALIZE TO INCREASE VARIETY R/T ADVANCED AGE PT RECEIVING ENSURE TID TO INCREASE KCALS AND PROMOTE WOUND HEALING SUPP PROVIDES 1050KCALS, 60G PROTEIN MONITOR PO INTAKE CLOSELY
--- NOTE | 2022-08-19 12:26 | HO.PM.IMPN ---
Subjective Subjective Date of Service: 08/19/22 Interval History: the patient was seen and evaluated this morning Laying in bed, feels comfortable overall Trying to get a new IV, nurses failed yesterday to place 1 08/18 Blood cultures turned positive , we will repeat tomorrow No reported other overnight events. Systemic review: No fever, chills or weakness No chest pain, palpitation No shortness of breath or coughing No abdominal pain, nausea or vomiting No urinary symptoms Chronic wounds in the back Physical Exam Vital Signs: Vital Signs: Last Vital Signs Temp 96.7 F L 08/19/22 11:37 Pulse 96 08/19/22 11:37 Resp 16 08/19/22 11:37 BP 128/71 08/19/22 11:37 Pulse Ox 100 08/19/22 11:37 O2 Del Method 08/19/22 11:37 FiO2 100 08/13/22 19:43 BMI result Body Mass Index 27.5 Const: Other: Constitutional : Alert, oriented, not in distress Neck : Normal inspection, Supple, LUE fistula Cardiovascular : RRR, no JVP, no lower extremity edema Respiratory : fair bilateral air entry, no crackles, wheezes or rhonchi Gastrointestinal: soft, lax, Normal bowel sounds, Non tender Skin : Warm, Dry, stage IV sacral wound, small ulcer LUE near fistula site Neurological : Alert & oriented x3, No focal deficit , CN 2-12 within normal Objective Data Active Medications Acetaminophen (Acetaminophen 325 Mg Tablet) 650 mg PO Q6H PRN PRN Reason: Pain, Mild (Pain Scale 1-3) Last Admin: 08/10/22 22:44 Dose: 650 mg Documented By: MAURA Atorvastatin Calcium (Atorvastatin Calcium 40 Mg Tablet) 40 mg PO BEDTIME [facility] Last Admin: 08/18/22 22:03 Dose: 40 mg Documented By: ALEX Bisacodyl (Bisacodyl 10 Mg Supp.Rect) 10 mg [place] DAILY PRN PRN Reason: Constipation Collagenase (Collagenase Clostridium Hist. 30 Gm Tube) 1 appl TOPICAL DAILY [facility]; Protocol Last Admin: 08/19/22 11:38 Dose: 1 appl Documented By: SHANICE Cyanocobalamin (Cyanocobalamin (Vitamin B-12) 1,000 Mcg Tablet) 1,000 mcg PO DAILY [facility] Last Admin: 08/19/22 08:08 Dose: 1,000 mcg Documented By: SHANICE Epoetin Domingo (Epoetin Domingo 20,000 Unit/Ml Vial) 20,000 unit SUBCUT ONCE [facility] Guaifenesin (Guaifenesin 100 Mg/5 Ml Liquid) 5 ml PO Q2H PRN PRN Reason: Cough Last Admin: 08/16/22 02:17 Dose: 5 ml Documented By: ERLINDA Guaifenesin (Guaifenesin La 600 Mg Tab.Er.12h) 600 mg PO BID [facility] Last Admin: 08/19/22 08:08 Dose: 600 mg Documented By: SHANICE Daptomycin 1,000 mg/ Sodium (Chloride) 70 mls @ 100.079 mls/hr IV TUTHSA@1645 [facility] Last Infusion: 08/17/22 18:08 Dose: 0 mls/hr Documented By: LAWRENCE Lidocaine (Lidocaine 4 % Patch Adh..Patch) 1 patch TRANSDERMA DAILY [facility] Last Admin: 08/19/22 08:20 Dose: Not Given Documented By: SHANICE Non-Admin Reason: Patient Refused Magnesium Oxide (Magnesium Oxide 400 Mg Tablet) 400 mg PO DAILY [facility] Last Admin: 08/19/22 08:07 Dose: 400 mg Documented By: SHANICE Megestrol Acetate (Megestrol Acetate 20 Mg Tablet) 20 mg PO DAILY [facility] Last Admin: 08/19/22 08:09 Dose: 20 mg Documented By: SHANICE Melatonin (Melatonin 3 Mg Tablet) 6 mg PO BEDTIME PRN PRN Reason: Insomnia Last Admin: 08/10/22 02:13 Dose: 6 mg Documented By: HEAVENLY-ANA Melatonin (Melatonin 3 Mg Tablet) 9 mg PO BEDTIME [facility] Last Admin: 08/18/22 22:03 Dose: 9 mg Documented By: ALEX Metoprolol Tartrate (Metoprolol Tartrate 25 Mg Tablet) 25 mg PO BID [facility]; Protocol Last Admin: 08/19/22 08:08 Dose: 25 mg Documented By: SHANICE Multivitamins/Vitamin C (Multivitamin Tablet) 1 tab PO DAILY [facility] Last Admin: 08/19/22 08:08 Dose: 1 tab Documented By: SHANICE Nitroglycerin (Nitroglycerin 0.4 Mg Tab.Subl) 0.4 mg SUBLINGUAL Q5M PRN PRN Reason: Angina Omeprazole (Omeprazole 20 Mg Capsule.) 20 mg PO DAILY@0630 [facility] Last Admin: 08/19/22 05:50 Dose: 20 mg Documented By: KULDEEP Ondansetron HCl (Ondansetron Hcl 4 Mg/2 Ml Vial) 4 mg IVPUSH Q8H PRN PRN Reason: Nausea and Vomiting Last Admin: 08/15/22 13:39 Dose: 4 mg Documented By: ANGEL Pharmacy Consult (Consult Rx Perform Med Rec) 1 each MISCELLANE ONCE PRN PRN Reason: Consult order Pharmacy Consult (Consult Rx Vancomycin Dosing) 1 each MISCELLANE DAILY PRN PRN Reason: Consult order Polyethylene Glycol (Polyethylene Glycol 3350 17 Gm Powd.Pack) 17 gm PO DAILY [facility] Last Admin: 08/19/22 08:10 Dose: 17 gm Documented By: SHANICE Senna (Sennosides 8.6 Mg Tablet) 17.2 mg PO BID [facility] Last Admin: 08/19/22 08:07 Dose: 17.2 mg Documented By: SHANICE Sevelamer Carbonate (Sevelamer Carbonate Tablet 800 Mg Tablet) 800 mg PO BIDWM [facility] Last Admin: 08/19/22 08:08 Dose: 800 mg Documented By: SHANICE Sodium Chloride (0.9 % Sodium Chloride Flush 3 Ml Syringe) 3 ml IVFLUSH QSHIFT [facility] Last Admin: 08/19/22 08:22 Dose: Not Given Documented By: SHANICE Non-Admin Reason: No Access Vitamin D (Cholecalciferol (Vitamin D3) 25 Mcg Tablet) 25 mcg PO DAILY [facility] Last Admin: 08/19/22 08:09 Dose: 25 mcg Documented By: SHANICE Warfarin Sodium (Warfarin Sodium 0.5 Mg Halftab) 0.5 mg PO DAILY@1800 [facility] Last Admin: 08/18/22 17:12 Dose: 0.5 mg Documented By: LAWRENCE Zinc Oxide (Zinc Oxide 20% Ointment 28.35 Gm Tube) 1 appl TOPICAL DAILY@0730 [facility]; Protocol Last Admin: 08/19/22 08:25 Dose: 1 appl Documented By: SHANICE Labs CBC & Chem 7: 08/16/22 06:59 08/17/22 07:10 Labs: Laboratory Results - last 24 hr 08/19/22 06:16 PT 32.2 H INR 2.7 H Microbiology Microbiology Results: Microbiology 08/18/22 06:33 Blood Culture - Preliminary Blood - Venous Prelim: GPC Gram Stain only 08/18/22 06:33 Blood Culture - Preliminary Blood - Venous Prelim: GPC Gram Stain only 08/16/22 08:50 Blood Culture - Final Blood - Venous Methicillin Res Staph Aureus 08/16/22 08:50 Blood Culture - Final Blood - Venous Methicillin Res Staph Aureus Assessment and Plan (1) MRSA bacteremia: Status: Acute (2) Sundowning: Status: Acute (3) End stage renal disease on dialysis: Status: Acute Plan 81-year-old male coming from group home facility with pertinent history of end-stage renal disease on hemodialysis, prostate cancer with history of urostomy, mixed hyperlipidemia, essential hypertension, chronic obstructive pulmonary disease, permanent atrial fibrillation on Coumadin, congestive heart failure unknown ejection fraction, rheumatoid arthritis who was brought to the emergency department for evaluation of altered mentation. Severe sepsis present on admission and metabolic encephalopathy due to cellulitis and infected sacral decubitus ulcer complicated by MRSA bacteremia id appreciated - 4-6 weeks IV vanco to be done with hemodialysis once blood culture negative follow-up repeat cultures - positive repeat cultures from 08/18/22 No vegetation on echo Infectious Disease following, change to Daptomycin Vascular surgery to evaluate the fistula site ulcer Concern over safety of MRI of LS given he has defibrillator To check CT with contrast of lumber spine and WBC scan for source of infection sundowning related to bacteremia and prolonged hospital stay reorientation seroquel as needed COVID-19 infection asymptomatic end-stage renal disease hemodialysis via left upper extremity fistula TTS (does not appear infected) supratherapeutic INR INR 2.7, restart warfarin Coumadin restarted and decreased from 1mg to 0.5mg as inr jumped up fairly quickly permanent atrial fibrillation continue warfarin, metoprolol hyperlipidemia continue statin Stage IV sacral ulcer Wound team following, use Santyl for a week and debridement needed Pressure relief protocols Fistula site ulcer Duplex US did not show any abscess or stenosis vascular surgery eval DVT prophylaxis with Coumadin DNR/DNI reason for continued hospitalization: MRSA Bacteremia awaiting clearance of cultures for safe discharge plan Quality Stroke Does the patient have a stroke diagnosis?: No VTE Prior VTE?: No VTE Risk Level:: Medical - moderate - high VTE Device Contraindication: Treatment Not Indicated VTE Drug Contraindication: Treatment Not Indicated
--- NOTE | 2022-08-19 13:50 | PM.CNGS ---
History of Present Illness Consult details Consult date: 08/19/22 Reason for consult: other (Fistula evaluation) Narrative: 81-year-old gentleman presents for evaluation of his left upper extremity fistula. At that time of examination his was at bedside. They are poor historians and do not recall much about the fistula. It appears that he was originally placed at [facility]. There was 1 on the right upper extremity which is not functioning at the current time. They are using this left upper extremity fistula there is a superficial ulcer noted on 1 of these aneurysmal dilatations. There is also concern of bacteremia as cultures are positive for MRSA. Upon discussion with the family they also note he has had recurrent interventions at an outpatient facility in [place]. Review of Systems Review of Systems: Yes all other systems are reviewed and are negative Constitutional: Constitutional: Reports no additional constitutional complaints ENT: Reports Normal hearing present Cardiovascular: Cardiovascular: Denies chest pain, Denies chest pain at rest, Denies chest pain with activity and Denies pedal edema Respiratory: Respiratory: Denies cough Gastrointestinal: Gastrointestinal: Denies abdominal pain Musculoskeletal: Musculoskeletal: Denies abnormal gait, Denies muscle cramps and Denies radiating pain into limb Integumentary/Breasts: Skin/Breast: Denies skin ulcer and Denies wounds Neurologic: Reports Normal hearing present and Denies abnormal gait Psychiatric: Psychiatric: Reports no additional psychiatric complaints [facility] Past Medical History Medical History (Updated 08/19/22 @ 11:59 by Isaak Guerrero MD) Ambulates with cane Arteriovenous fistula for hemodialysis in place, primary Ascending aorta dilatation Atrial fibrillation AVNRT (AV vivian re-entry tachycardia) CAD (coronary artery disease) CHF (congestive heart failure) Elevated cholesterol End stage renal disease ESRD (end stage renal disease) on dialysis GERD (gastroesophageal reflux disease) HTN (hypertension) Hx of syncope Insomnia MRSA bacteremia JAIRON (obstructive sleep apnea) Prostate cancer Rheumatoid arthritis Skin lesion Unsteady gait Wears dentures Family History Family history: reviewed and not pertinent Surgical History Surgical History History of bladder surgery History of surgical removal of skin lesion History of urostomy Hx of abdominal surgery Hx of colonoscopy Hx of hernia repair Hx of radical prostatectomy S/P implantation of automatic cardioverter/defibrillator (AICD) Social History Social History Household Members: Spouse Housing: House Do you presently have visiting nurse or other home services: No Patient Tobacco Use Status: Never used Tobacco Meds Allergies Allergy/AdvReac Type Severity Reaction Status Date / Time doxycycline Allergy Difficulty Verified 02/14/22 11:00 Breathing Active Medications: Current Medications Acetaminophen (Acetaminophen 325 Mg Tablet) 650 mg PO Q6H PRN PRN Reason: Pain, Mild (Pain Scale 1-3) Last Admin: 08/10/22 22:44 Dose: 650 mg Atorvastatin Calcium (Atorvastatin Calcium 40 Mg Tablet) 40 mg PO BEDTIME [facility] Last Admin: 08/18/22 22:03 Dose: 40 mg Bisacodyl (Bisacodyl 10 Mg Supp.Rect) 10 mg [place] DAILY PRN PRN Reason: Constipation Collagenase (Collagenase Clostridium Hist. 30 Gm Tube) 1 appl TOPICAL DAILY [facility]; Protocol Last Admin: 08/19/22 11:38 Dose: 1 appl Cyanocobalamin (Cyanocobalamin (Vitamin B-12) 1,000 Mcg Tablet) 1,000 mcg PO DAILY [facility] Last Admin: 08/19/22 08:08 Dose: 1,000 mcg Epoetin Domingo (Epoetin Domingo 20,000 Unit/Ml Vial) 20,000 unit SUBCUT ONCE [facility] Guaifenesin (Guaifenesin 100 Mg/5 Ml Liquid) 5 ml PO Q2H PRN PRN Reason: Cough Last Admin: 08/16/22 02:17 Dose: 5 ml Guaifenesin (Guaifenesin La 600 Mg Tab.Er.12h) 600 mg PO BID [facility] Last Admin: 08/19/22 08:08 Dose: 600 mg Daptomycin 1,000 mg/ Sodium (Chloride) 70 mls @ 100.079 mls/hr IV TUTHSA@1645 [facility] Last Infusion: 08/17/22 18:08 Dose: Infused Lidocaine (Lidocaine 4 % Patch Adh..Patch) 1 patch TRANSDERMA DAILY [facility] Last Admin: 08/19/22 08:20 Dose: Not Given Magnesium Oxide (Magnesium Oxide 400 Mg Tablet) 400 mg PO DAILY [facility] Last Admin: 08/19/22 08:07 Dose: 400 mg Megestrol Acetate (Megestrol Acetate 20 Mg Tablet) 20 mg PO DAILY [facility] Last Admin: 08/19/22 08:09 Dose: 20 mg Melatonin (Melatonin 3 Mg Tablet) 6 mg PO BEDTIME PRN PRN Reason: Insomnia Last Admin: 08/10/22 02:13 Dose: 6 mg Melatonin (Melatonin 3 Mg Tablet) 9 mg PO BEDTIME [facility] Last Admin: 08/18/22 22:03 Dose: 9 mg Metoprolol Tartrate (Metoprolol Tartrate 25 Mg Tablet) 25 mg PO BID [facility]; Protocol Last Admin: 08/19/22 08:08 Dose: 25 mg Multivitamins/Vitamin C (Multivitamin Tablet) 1 tab PO DAILY [facility] Last Admin: 08/19/22 08:08 Dose: 1 tab Nitroglycerin (Nitroglycerin 0.4 Mg Tab.Subl) 0.4 mg SUBLINGUAL Q5M PRN PRN Reason: Angina Omeprazole (Omeprazole 20 Mg Capsule.Dr) 20 mg PO DAILY@0630 [facility] Last Admin: 08/19/22 05:50 Dose: 20 mg Ondansetron HCl (Ondansetron Hcl 4 Mg/2 Ml Vial) 4 mg IVPUSH Q8H PRN PRN Reason: Nausea and Vomiting Last Admin: 08/15/22 13:39 Dose: 4 mg Pharmacy Consult (Consult Rx Perform Med Rec) 1 each MISCELLANE ONCE PRN PRN Reason: Consult order Pharmacy Consult (Consult Rx Vancomycin Dosing) 1 each MISCELLANE DAILY PRN PRN Reason: Consult order Polyethylene Glycol (Polyethylene Glycol 3350 17 Gm Powd.Pack) 17 gm PO DAILY [facility] Last Admin: 08/19/22 08:10 Dose: 17 gm Senna (Sennosides 8.6 Mg Tablet) 17.2 mg PO BID [facility] Last Admin: 08/19/22 08:07 Dose: 17.2 mg Sevelamer Carbonate (Sevelamer Carbonate Tablet 800 Mg Tablet) 800 mg PO BIDWM [facility] Last Admin: 08/19/22 08:08 Dose: 800 mg Sodium Chloride (0.9 % Sodium Chloride Flush 3 Ml Syringe) 3 ml IVFLUSH QSHIFT [facility] Last Admin: 08/19/22 08:22 Dose: Not Given Vitamin D (Cholecalciferol (Vitamin D3) 25 Mcg Tablet) 25 mcg PO DAILY [facility] Last Admin: 08/19/22 08:09 Dose: 25 mcg Warfarin Sodium (Warfarin Sodium 0.5 Mg Halftab) 0.5 mg PO DAILY@1800 [facility] Last Admin: 08/18/22 17:12 Dose: 0.5 mg Zinc Oxide (Zinc Oxide 20% Ointment 28.35 Gm Tube) 1 appl TOPICAL DAILY@0730 [facility]; Protocol Last Admin: 08/19/22 08:25 Dose: 1 appl Home Medications Medication Instructions Recorded Confirmed Last Taken Type adalimumab 40 mg/0.8 mL 40 mg subcut SA 12/06/21 08/09/22 Unknown History subcutaneous pen kit (Humira Pen) atorvastatin 40 mg tablet 40 mg PO BEDTIME 12/06/21 08/09/22 Unknown History cyanocobalamin (vitamin B-12) 1,000 mcg PO DAILY 12/06/21 08/09/22 Unknown History 1,000 mcg capsule gabapentin 100 mg capsule 200 mg PO BEDTIME 12/06/21 08/09/22 Unknown History magnesium oxide 400 mg (241.3 mg 400 mg PO DAILY 12/06/21 08/09/22 Unknown History magnesium) tablet megestrol 20 mg tablet 20 mg PO DAILY 12/06/21 08/09/22 Unknown History omeprazole 20 mg capsule,delayed 20 mg PO DAILY@0630 12/06/21 08/09/22 01/08/22 History release trazodone 100 mg tablet 150 mg PO BEDTIME 12/06/21 08/09/22 Unknown History warfarin 1 mg tablet 1 mg PO DAILY@1800 12/06/21 08/09/22 Unknown History acetaminophen 500 mg tablet 1,000 mg PO Q8H PRN Pain 08/09/22 08/09/22 Unknown History bisacodyl 10 mg rectal suppository 10 mg [place] DAILY PRN Constipation 08/09/22 08/09/22 Unknown History cholecalciferol (vitamin D3) 25 25 mcg PO DAILY 08/09/22 08/09/22 Unknown History mcg (1,000 unit) tablet gabapentin 100 mg capsule 1 cap PO TID 08/09/22 08/09/22 Unknown History guaifenesin 100 mg/5 mL oral liquid 200 mg PO Q2H PRN Cough 08/09/22 08/09/22 Unknown History guaifenesin 600 mg tablet, 600 mg PO BID 08/09/22 08/09/22 Unknown History extended release 12 hr (Mucinex) lidocaine 5 % topical patch 1 patch topical DAILY 08/09/22 08/09/22 Unknown History melatonin 5 mg tablet 10 mg PO BEDTIME 08/09/22 08/09/22 Unknown History metoprolol tartrate 25 mg tablet 12.5 mg PO BID 08/09/22 08/09/22 Unknown History midodrine 5 mg tablet 5 mg PO TID PRN Hypotension 08/09/22 08/09/22 Unknown History nitroglycerin 0.4 mg sublingual 0.4 mg sublingual Q5M PRN Angina 08/09/22 08/09/22 Unknown History tablet polyethylene glycol 3350 17 gram 17 g PO DAILY 08/09/22 08/09/22 Unknown History oral powder packet (Miralax) sennosides 8.6 mg tablet (senna) 17.2 mg PO BID 08/09/22 08/09/22 Unknown History sevelamer carbonate 800 mg tablet 800 mg PO BIDWM 08/09/22 08/09/22 Unknown History vitamin B complex and vitamin C 1 cap PO DAILY 08/09/22 08/09/22 Unknown History no.20-folic acid 1 mg capsule Physical Exam Vital Signs: Vital Signs: Last Vital Signs Temp 96.7 F L 08/19/22 11:37 Pulse 96 08/19/22 11:37 Resp 16 08/19/22 11:37 BP 128/71 08/19/22 11:37 Pulse Ox 100 08/19/22 11:37 O2 Del Method 08/19/22 11:37 FiO2 100 08/13/22 19:43 BMI result Body Mass Index 27.5 Const: General: cooperative, healthy appearing and comfortable Orientation/consciousness: oriented to person, oriented to place and oriented to time HEENT: Head: Yes normal to inspection Neck: Neck: Yes normal visual inspection Carotids: no bruits Chest: Chest palpation & inspection: normal inspection of the chest Resp: Effort & Inspection: normal respiratory effort and able to speak in complete sentences Auscultation: clear to auscultation bilaterally, no crackles, no rales, no rhonchi and no wheezes Cardio: Other: Left upper extremity has excellent thrill 2 aneurysmal dilatations. Area of small superficial ulceration but it appears to be heal over. I do not believe there is an underlying graft. Rate: regular rate Rhythm: regular rhythm Heart sounds: S1 normal heart sound present and S2 normal heart sound present Bruits: no carotid bruits Peripheral pulses: Peripheral pulses 2+ throughout GI: Inspection: Yes normal to inspection Skin: Wounds: no wounds Hair: normal Neuro: General: oriented to person, oriented to place and oriented to time Cranial nerves: Yes CN's II-XII intact bilaterally and Yes Normal hearing present Cognition (Neuro): normal cognition Motor exam (neuro): 5/5 motor strength present throughout Extrem: Other: venous exam: No significant superficial varicosities or spider telangiectasias, minimal edema General: No clubbing, No cyanosis and No edema Psych: Appearance: grossly normal Mental Status: mental status grossly normal Speech and movement: Normal speech and movement present Results Labs Result diagrams: 08/16/22 06:59 08/17/22 07:10 Labs: Abnormal lab results 08/19/22 Range/Units 06:16 PT 32.2 H (10.0-13.1) SEC INR 2.7 H (0.9-1.1) Urine 08/09/22 Range/Units 15:53 Urine Color Straw Urine Appearance Cloudy Urine pH 8.0 (5.0-9.0) Ur Specific [place] 1.015 (1.005-1.025) Urine Protein Negative (Neg-Trace) mg/dL Urine Glucose (UA) Negative (Negative) mg/dL All other labs normal. Assessment and Plan (1) End stage renal disease: Status: Acute Plan In short patient appears to have a functioning fistula. I do not believe this would be the source of infection but may require further workup of this. Would investigate other sources - such as decubitus ulcer. No interventions or additional studies recommended at the current time. We will peripherally follow with you. Thank you for allowing us to assist in his care. Procedures Date of Service Date of Service: 08/19/22
[2022-08-19 13:56] LABS: COVID-19 Test Positive (Negative); IDNOW Serial# 16C4AD1C
--- NOTE | 2022-08-19 14:02 | MHC.CM.PN ---
EMR REVIEWED PER MD ROUNDS, NOT MEDICALLY CLEARED FOR DISCHARGE (MRSA BACTEREMIA AND CLEARANCE OF CULTURES) EFFIE + GIDEON ZAYAS CONTINUES TO FOLLOW. CM WILL FOLLOW FOR PLAN.
[2022-08-19 15:53] VITALS: BP 125/59; PULSE 99; RESP 17; TEMP 36.4; O2SAT 97
[2022-08-19] MEDS: Warfarin Sodium 0.5 MG HALFTAB PO (16:15)
[2022-08-19 19:55] VITALS: BP 128/68; PULSE 92; RESP 18; TEMP 36.5; O2SAT 98
[2022-08-19] MEDS: Atorvastatin Calcium 40 MG TABLET PO (20:36)
[2022-08-19] MEDS: Melatonin 3 MG TABLET 9 MG PO (20:36)
[2022-08-20] VITALS: BP 114/56; PULSE 98; RESP 15; TEMP 36.3; O2SAT 98
[2022-08-20 03:57] VITALS: BP 119/60; PULSE 103; RESP 15; TEMP 36.1; O2SAT 99
[2022-08-20] MEDS: 0.9 % Sodium Chloride Flush 3 ML SYRINGE IVFLUSH ×2 (04:40→15:07)
[2022-08-20 08:40] VITALS: BP 105/54; PULSE 110; RESP 20; TEMP 36.3; O2SAT 98
[2022-08-20] MEDS: Magnesium Oxide 400 MG TABLET PO (10:02)
[2022-08-20] MEDS: Multivitamin TABLET 1 TAB PO (10:02)
[2022-08-20] MEDS: Sennosides 8.6 MG TABLET 17.2 MG PO ×2 (10:02→20:45)
[2022-08-20] MEDS: Sevelamer Carbonate Tablet 800 MG TABLET PO ×2 (10:02→17:07)
[2022-08-20] MEDS: Metoprolol Tartrate 25 MG TABLET PO ×2 (10:03→20:45)
[2022-08-20] MEDS: Cyanocobalamin (Vitamin B-12) 1,000 MCG TABLET 1000 MCG PO (10:03)
[2022-08-20] MEDS: Megestrol Acetate 20 MG TABLET PO (10:04)
[2022-08-20] MEDS: Cholecalciferol (Vitamin D3) 25 MCG TABLET PO (10:04)
[2022-08-20] MEDS: Zinc Oxide 20% Ointment 28.35 GM TUBE 1 APPL TOPICAL (10:04)
[2022-08-20] MEDS: Lidocaine 4 % Patch ADH..PATCH 1 PATCH TRANSDERMA (10:04)
[2022-08-20] MEDS: polyethylene glycoL 3350 17 GM POWD.PACK PO (10:04)
[2022-08-20] MEDS: guaiFENesin LA 600 MG TAB.ER.12H PO ×2 (10:04→20:45)
[2022-08-20 10:51] LABS: INTERNATIONAL NORM RATIO 2.4 (0.9-1.1); Prothrombin Time 28.3 SEC (10.0-13.1)
--- NOTE | 2022-08-20 11:18 | PM.PNNEP ---
Subjective Subjective Date of Service: 08/20/22 Interval history: Getting HD this AM; Events noted. All recent data reviewed Physical Exam Vital Signs: Vital Signs: Last Vital Signs Temp 97.3 F 08/20/22 08:40 Pulse 110 H 08/20/22 08:40 Resp 20 08/20/22 08:40 BP 105/54 L 08/20/22 08:40 Pulse Ox 98 08/20/22 08:40 O2 Del Method 08/20/22 08:40 FiO2 100 08/13/22 19:43 BMI result Body Mass Index 27.5 Const: General: no acute distress Neck: Neck: Yes supple Resp: Auscultation: diminished lung sounds Cardio: Rate: regular rate GI: Palpation (GI): Soft to palpation Neuro: General: moves all extremities Objective Data Labs CBC & Chem 7: 08/16/22 06:59 08/17/22 07:10 Labs: Laboratory Results - last 24 hr 08/19/22 08/20/22 13:15 10:31 PT 28.3 H INR 2.4 H COVID-19 (BRANDI) Positive A COVID-19 Clin Com See Note Microbiology Microbiology Results: Microbiology 08/18/22 06:33 Blood - Venous Blood Culture - Final Methicillin Res Staph Aureus 08/18/22 06:33 Blood - Venous Blood Culture - Final Methicillin Res Staph Aureus 08/16/22 08:50 Blood - Venous Blood Culture - Final Methicillin Res Staph Aureus 08/16/22 08:50 Blood - Venous Blood Culture - Final Methicillin Res Staph Aureus 08/15/22 09:03 Blood - Venous Blood Culture - Final Methicillin Res Staph Aureus 08/15/22 09:03 Blood - Venous Blood Culture - Final Methicillin Res Staph Aureus 08/14/22 06:28 Blood - Venous Blood Culture - Final Methicillin Res Staph Aureus 08/14/22 06:28 Blood - Venous Blood Culture - Final Methicillin Res Staph Aureus 08/12/22 08:55 Blood - Venous Blood Culture - Final Methicillin Res Staph Aureus 08/12/22 08:55 Blood - Venous Blood Culture - Final Methicillin Res Staph Aureus 08/09/22 14:33 Blood - Venous Blood Culture - Final Methicillin Res Staph Aureus 08/09/22 14:33 Blood - Venous Blood Culture - Final Methicillin Res Staph Aureus Procedures Date of Service Date of Service: 08/20/22 Assessment & Plan Assessment and plan (1) End stage renal disease on dialysis: Status: Acute Assessment and Plan: Mr. Suman Park 81-year-old male with end-stage renal disease on hemodialysis TTS, prostate cancer with history of urostomy, mixed hyperlipidemia, essential hypertension, chronic obstructive pulmonary disease, permanent atrial fibrillation on Coumadin, congestive heart failure unknown ejection fraction, rheumatoid arthritis who presented with AMS. He was found to have severe sepsis due to cellulitis and infected decubitus ulcer with MRSA bacteremia. No Veg on echo 4-6 weeks IV vanco to be done with hemodialysis once blood culture negative (however cultures remain positive) U/S duplex of Fistula to ensure its not seeded and source of persistent bacteremia. Vascular consulted Please notify use of dispo, because Vanco needs to be coordinate with his HD unit protect LUE AVF;Tagged WBC scan; Getting HD this AM TTS scheduled HD; EPO 20,000 u dosed 08/16; Ordered another dose given on 08/19 Time Spent With Patient Time: Total time spent is greater than 50% in coordination of care (as documented) at patient's floor/unit and/or counseling patient: Progress Note: Quality Stroke Does the patient have a stroke diagnosis?: No
[2022-08-20 11:45] VITALS: BP 102/60; PULSE 100; RESP 20; TEMP 36.1; O2SAT 99
--- NOTE | 2022-08-20 13:52 | HO.PM.IMPN ---
Subjective Subjective Date of Service: 08/20/22 Interval History: The patient was seen and evaluated this morning Laying in bed, feels comfortable overall Trying to get a new IV 08/18 Blood cultures turned positive , we will repeat No reported other overnight events. Systemic review: No fever, chills or weakness No chest pain, palpitation No shortness of breath or coughing No abdominal pain, nausea or vomiting No urinary symptoms Chronic wounds in the back Physical Exam Vital Signs: Vital Signs: Last Vital Signs Temp 96.9 F 08/20/22 11:45 Pulse 100 08/20/22 11:45 Resp 20 08/20/22 11:45 BP 102/60 08/20/22 11:45 Pulse Ox 99 08/20/22 11:45 O2 Del Method 08/20/22 11:45 FiO2 100 08/13/22 19:43 BMI result Body Mass Index 27.5 Const: Other: Constitutional : Alert, oriented, not in distress Neck : Normal inspection, Supple, LUE fistula Cardiovascular : RRR, no JVP, no lower extremity edema Respiratory : fair bilateral air entry, no crackles, wheezes or rhonchi Gastrointestinal: soft, lax, Normal bowel sounds, Non tender Skin : Warm, Dry, stage IV sacral wound, small ulcer LUE near fistula site Neurological : Alert & oriented x3, No focal deficit , CN 2-12 within normal Objective Data Active Medications Acetaminophen (Acetaminophen 325 Mg Tablet) 650 mg PO Q6H PRN PRN Reason: Pain, Mild (Pain Scale 1-3) Last Admin: 08/10/22 22:44 Dose: 650 mg Documented By: MAURA Atorvastatin Calcium (Atorvastatin Calcium 40 Mg Tablet) 40 mg PO BEDTIME ON LICENSE OF [facility] Last Admin: 08/19/22 20:36 Dose: 40 mg Documented By: CANDACE Bisacodyl (Bisacodyl 10 Mg Supp.Rect) 10 mg [place] DAILY PRN PRN Reason: Constipation Collagenase (Collagenase Clostridium Hist. 30 Gm Tube) 1 appl TOPICAL DAILY ON LICENSE OF [facility]; Protocol Last Admin: 08/20/22 10:28 Dose: Not Given Documented By: RHYS Non-Admin Reason: med not found Cyanocobalamin (Cyanocobalamin (Vitamin B-12) 1,000 Mcg Tablet) 1,000 mcg PO DAILY ON LICENSE OF [facility] Last Admin: 08/20/22 10:03 Dose: 1,000 mcg Documented By: RHYS Epoetin Domingo (Epoetin Domingo 20,000 Unit/Ml Vial) 20,000 unit SUBCUT ONCE ON LICENSE OF [facility] Guaifenesin (Guaifenesin 100 Mg/5 Ml Liquid) 5 ml PO Q2H PRN PRN Reason: Cough Last Admin: 08/16/22 02:17 Dose: 5 ml Documented By: ERLINDA Guaifenesin (Guaifenesin La 600 Mg Tab.Er.12h) 600 mg PO BID ON LICENSE OF [facility] Last Admin: 08/20/22 10:04 Dose: 600 mg Documented By: RHYS Daptomycin 1,000 mg/ Sodium (Chloride) 70 mls @ 100.079 mls/hr IV TUTHSA@1645 ON LICENSE OF [facility] Last Infusion: 08/17/22 18:08 Dose: 0 mls/hr Documented By: LAWRENCE Lidocaine (Lidocaine 4 % Patch Adh..Patch) 1 patch TRANSDERMA DAILY ON LICENSE OF [facility] Last Admin: 08/20/22 10:04 Dose: 1 patch Documented By: RHYS Magnesium Oxide (Magnesium Oxide 400 Mg Tablet) 400 mg PO DAILY ON LICENSE OF [facility] Last Admin: 08/20/22 10:02 Dose: 400 mg Documented By: RHYS Megestrol Acetate (Megestrol Acetate 20 Mg Tablet) 20 mg PO DAILY ON LICENSE OF [facility] Last Admin: 08/20/22 10:04 Dose: 20 mg Documented By: RHYS Melatonin (Melatonin 3 Mg Tablet) 6 mg PO BEDTIME PRN PRN Reason: Insomnia Last Admin: 08/10/22 02:13 Dose: 6 mg Documented By: HEAVENLY-ANA Melatonin (Melatonin 3 Mg Tablet) 9 mg PO BEDTIME ON LICENSE OF [facility] Last Admin: 08/19/22 20:36 Dose: 9 mg Documented By: CANDACE Metoprolol Tartrate (Metoprolol Tartrate 25 Mg Tablet) 25 mg PO BID ON LICENSE OF [facility]; Protocol Last Admin: 08/20/22 10:03 Dose: 25 mg Documented By: RHYS Multivitamins/Vitamin C (Multivitamin Tablet) 1 tab PO DAILY ON LICENSE OF [facility] Last Admin: 08/20/22 10:02 Dose: 1 tab Documented By: RHYS Nitroglycerin (Nitroglycerin 0.4 Mg Tab.Subl) 0.4 mg SUBLINGUAL Q5M PRN PRN Reason: Angina Omeprazole (Omeprazole 20 Mg Capsule.) 20 mg PO DAILY@0630 ON LICENSE OF [facility] Last Admin: 08/20/22 05:32 Dose: Not Given Documented By: JSOE Non-Admin Reason: Off unit: Dialysis Ondansetron HCl (Ondansetron Hcl 4 Mg/2 Ml Vial) 4 mg IVPUSH Q8H PRN PRN Reason: Nausea and Vomiting Last Admin: 08/15/22 13:39 Dose: 4 mg Documented By: ANGEL Pharmacy Consult (Consult Rx Perform Med Rec) 1 each MISCELLANE ONCE PRN PRN Reason: Consult order Polyethylene Glycol (Polyethylene Glycol 3350 17 Gm Powd.Pack) 17 gm PO DAILY ON LICENSE OF [facility] Last Admin: 08/20/22 10:04 Dose: 17 gm Documented By: RHYS Senna (Sennosides 8.6 Mg Tablet) 17.2 mg PO BID ON LICENSE OF [facility] Last Admin: 08/20/22 10:02 Dose: 17.2 mg Documented By: RHYS Sevelamer Carbonate (Sevelamer Carbonate Tablet 800 Mg Tablet) 800 mg PO BIDWM ON LICENSE OF [facility] Last Admin: 08/20/22 10:02 Dose: 800 mg Documented By: RHYS Sodium Chloride (0.9 % Sodium Chloride Flush 3 Ml Syringe) 3 ml IVFLUSH QSHIFT ON LICENSE OF [facility] Last Admin: 08/20/22 09:58 Dose: Not Given Documented By: RHYS Non-Admin Reason: No Access Vitamin D (Cholecalciferol (Vitamin D3) 25 Mcg Tablet) 25 mcg PO DAILY ON LICENSE OF [facility] Last Admin: 08/20/22 10:04 Dose: 25 mcg Documented By: RHYS Warfarin Sodium (Warfarin Sodium 0.5 Mg Halftab) 0.5 mg PO DAILY@1800 ON LICENSE OF [facility] Last Admin: 08/19/22 16:15 Dose: 0.5 mg Documented By: CANDACE Zinc Oxide (Zinc Oxide 20% Ointment 28.35 Gm Tube) 1 appl TOPICAL DAILY@0730 ON LICENSE OF [facility]; Protocol Last Admin: 08/20/22 10:04 Dose: 1 appl Documented By: RHYS Labs CBC & Chem 7: 08/16/22 06:59 08/17/22 07:10 Labs: Laboratory Results - last 24 hr 08/19/22 08/20/22 13:15 10:31 PT 28.3 H INR 2.4 H COVID-19 (BRANDI) Positive A COVID-19 Clin Com See Note Microbiology Microbiology Results: Microbiology 08/18/22 06:33 Blood Culture - Final Blood - Venous Methicillin Res Staph Aureus 08/18/22 06:33 Blood Culture - Final Blood - Venous Methicillin Res Staph Aureus Assessment and Plan (1) End stage renal disease on dialysis: Status: Acute (2) MRSA bacteremia: Status: Acute Plan 81-year-old male coming from group home facility with pertinent history of end-stage renal disease on hemodialysis, prostate cancer with history of urostomy, mixed hyperlipidemia, essential hypertension, chronic obstructive pulmonary disease, permanent atrial fibrillation on Coumadin, congestive heart failure unknown ejection fraction, rheumatoid arthritis who was brought to the emergency department for evaluation of altered mentation. Severe sepsis present on admission and metabolic encephalopathy due to cellulitis and infected sacral decubitus ulcer complicated by MRSA bacteremia id appreciated - 4-6 weeks IV vanco to be done with hemodialysis once blood culture negative follow-up repeat cultures - positive repeat cultures from 08/18/22 No vegetation on echo Infectious Disease following, change to Daptomycin Vascular surgery reported no concern over HD fistula ulcer area, no infx can be identified Concern over safety of MRI of LS given he has defibrillator To check CT with contrast of lumber spine and WBC scan (can not be done as long as Covid +ve) for source of infection once we have IV line placed sundowning related to bacteremia and prolonged hospital stay reorientation seroquel as needed COVID-19 infection asymptomatic end-stage renal disease hemodialysis via left upper extremity fistula TTS (does not appear infected) supratherapeutic INR INR 2.7, restart warfarin Coumadin restarted and decreased from 1mg to 0.5mg as inr jumped up fairly quickly permanent atrial fibrillation continue warfarin, metoprolol hyperlipidemia continue statin Stage IV sacral ulcer Wound team following, use Santyl for a week and debridement needed Pressure relief protocols Fistula site ulcer Duplex US did not show any abscess or stenosis vascular surgery eval DVT prophylaxis with Coumadin DNR/DNI reason for continued hospitalization: MRSA Bacteremia awaiting clearance of cultures for safe discharge plan Quality Stroke Does the patient have a stroke diagnosis?: No VTE Prior VTE?: No VTE Risk Level:: Medical - moderate - high VTE Device Contraindication: Treatment Not Indicated VTE Drug Contraindication: Treatment Not Indicated
[2022-08-20] MEDS: Acetaminophen 325 MG TABLET 650 MG PO (15:06)
[2022-08-20 15:59] VITALS: BP 157/104; PULSE 100; RESP 18; TEMP 35.7; O2SAT 100
[2022-08-20] MEDS: Warfarin Sodium 0.5 MG HALFTAB PO (17:06)
[2022-08-20] MEDS: DAPTOmycin 1,000 MG in 0.9 % Sodium Chloride 50 ML 100 MG IV (17:06)
[2022-08-20 19:50] VITALS: BP 130/63; PULSE 106; RESP 18; TEMP 36.4; O2SAT 99
[2022-08-20] MEDS: Atorvastatin Calcium 40 MG TABLET PO (20:45)
[2022-08-20] MEDS: Melatonin 3 MG TABLET 9 MG PO (20:46)
[2022-08-21] VITALS (8 sets, daily range): BP systolic 90–116; BP diastolic 50–63; PULSE 80–105; RESP 15–21; TEMP 36.4–36.9; O2SAT 98–100
[2022-08-21] MEDS: Omeprazole 20 MG CAPSULE.DR PO (06:06)
[2022-08-21 06:38] LABS: INTERNATIONAL NORM RATIO 2.3 (0.9-1.1); Prothrombin Time 27.9 SEC (10.0-13.1)
[2022-08-21] MEDS: Lidocaine 4 % Patch ADH..PATCH 1 PATCH TRANSDERMA (09:42)
[2022-08-21] MEDS: Cyanocobalamin (Vitamin B-12) 1,000 MCG TABLET 1000 MCG PO (09:43)
[2022-08-21] MEDS: Metoprolol Tartrate 25 MG TABLET PO ×2 (09:43→20:04)
[2022-08-21] MEDS: polyethylene glycoL 3350 17 GM POWD.PACK PO (09:43)
[2022-08-21] MEDS: Sennosides 8.6 MG TABLET 17.2 MG PO ×2 (09:44→20:04)
[2022-08-21] MEDS: Sevelamer Carbonate Tablet 800 MG TABLET PO ×2 (09:44→16:43)
[2022-08-21] MEDS: Magnesium Oxide 400 MG TABLET PO (09:44)
[2022-08-21] MEDS: Multivitamin TABLET 1 TAB PO (09:44)
[2022-08-21] MEDS: Megestrol Acetate 20 MG TABLET PO (09:44)
[2022-08-21] MEDS: Zinc Oxide 20% Ointment 28.35 GM TUBE 1 APPL TOPICAL (09:44)
[2022-08-21] MEDS: guaiFENesin LA 600 MG TAB.ER.12H PO ×2 (09:44→20:04)
[2022-08-21] MEDS: Cholecalciferol (Vitamin D3) 25 MCG TABLET PO (09:44)
[2022-08-21] MEDS: Collagenase Clostridium Hist. 30 GM TUBE 1 APPL TOPICAL (09:45)
--- NOTE | 2022-08-21 11:00 | PM.PNNEP ---
Subjective Subjective Date of Service: 08/21/22 Interval history: Events noted. All recent data reviewed Physical Exam Vital Signs: Vital Signs: Last Vital Signs Temp 98.3 F 08/21/22 07:53 Pulse 102 H 08/21/22 07:53 Resp 18 08/21/22 07:53 BP 109/63 08/21/22 07:53 Pulse Ox 99 08/21/22 07:53 O2 Del Method 08/21/22 07:53 FiO2 100 08/13/22 19:43 BMI result Body Mass Index 27.5 Const: General: no acute distress Eyes: EOM: EOMs intact bilaterally Resp: Auscultation: diminished lung sounds Cardio: Rate: regular rate GI: Palpation (GI): Soft to palpation Neuro: General: moves all extremities Objective Data Labs CBC & Chem 7: 08/16/22 06:59 08/17/22 07:10 Labs: Laboratory Results - last 24 hr 08/21/22 06:11 PT 27.9 H INR 2.3 H Microbiology Microbiology Results: Microbiology 08/18/22 06:33 Blood - Venous Blood Culture - Final Methicillin Res Staph Aureus 08/18/22 06:33 Blood - Venous Blood Culture - Final Methicillin Res Staph Aureus 08/16/22 08:50 Blood - Venous Blood Culture - Final Methicillin Res Staph Aureus 08/16/22 08:50 Blood - Venous Blood Culture - Final Methicillin Res Staph Aureus 08/15/22 09:03 Blood - Venous Blood Culture - Final Methicillin Res Staph Aureus 08/15/22 09:03 Blood - Venous Blood Culture - Final Methicillin Res Staph Aureus 08/14/22 06:28 Blood - Venous Blood Culture - Final Methicillin Res Staph Aureus 08/14/22 06:28 Blood - Venous Blood Culture - Final Methicillin Res Staph Aureus 08/12/22 08:55 Blood - Venous Blood Culture - Final Methicillin Res Staph Aureus 08/12/22 08:55 Blood - Venous Blood Culture - Final Methicillin Res Staph Aureus 08/09/22 14:33 Blood - Venous Blood Culture - Final Methicillin Res Staph Aureus 08/09/22 14:33 Blood - Venous Blood Culture - Final Methicillin Res Staph Aureus Procedures Date of Service Date of Service: 08/21/22 Assessment & Plan Assessment and plan (1) End stage renal disease on dialysis: Status: Acute Assessment and Plan: Mr. Suman Park 81-year-old male with end-stage renal disease on hemodialysis TTS, prostate cancer with history of urostomy, mixed hyperlipidemia, essential hypertension, chronic obstructive pulmonary disease, permanent atrial fibrillation on Coumadin, congestive heart failure unknown ejection fraction, rheumatoid arthritis who presented with AMS. He was found to have severe sepsis due to cellulitis and infected decubitus ulcer with MRSA bacteremia. No Veg on echo 4-6 weeks IV Dapto to be done once blood culture negative (however cultures remain positive) Vascular seen for AVF; Due HD tomorrow Please notify use of dispo, because Vanco needs to be coordinate with his HD unit protect LUE AVF; ? Tagged WBC scan TTS scheduled HD; EPO 20,000 u dosed on 08/16 & 08/19 Time Spent With Patient Time: Total time spent is greater than 50% in coordination of care (as documented) at patient's floor/unit and/or counseling patient: Progress Note: Quality Stroke Does the patient have a stroke diagnosis?: No
--- NOTE | 2022-08-21 11:40 | MHC.CLN ---
F/U PO INTAKE VARIABLE BETWEEN 50-100% DIET RX: 2GM [id number] LIBERALIZE TO INCREASE VARIETY R/T ADVANCED AGE PT RECEIVING ENSURE TID PROVIDES 1050KCALS, 60G PROTEIN FOR WOUND HEALING CONTINUE TO MONITOR PO INTAKE CLOSELY AND ENCOURAGE SUPPLEMENT
--- NOTE | 2022-08-21 12:11 | HO.PM.IMPN ---
Subjective Subjective Date of Service: 08/21/22 Interval History: cc: ams interval history:no acute complaints Cardiovascular Cardiovascular: Reports no additional cardiovascular complaints Respiratory Respiratory: Reports no additional respiratory complaints Physical Exam Vital Signs: Vital Signs: Last Vital Signs Temp 98.1 F 08/21/22 11:49 Pulse 80 08/21/22 11:49 Resp 18 08/21/22 11:49 BP 90/53 L 08/21/22 11:49 Pulse Ox 99 08/21/22 11:49 O2 Del Method 08/21/22 11:49 FiO2 100 08/13/22 19:43 BMI result Body Mass Index 27.5 Const: General: no acute distress Eyes: EOM: EOMs intact bilaterally Resp: Auscultation: diminished lung sounds Cardio: Rate: regular rate GI: Palpation (GI): Soft to palpation Neuro: General: moves all extremities Objective Data Active Medications Acetaminophen (Acetaminophen 325 Mg Tablet) 650 mg PO Q6H PRN PRN Reason: Pain, Mild (Pain Scale 1-3) Last Admin: 08/20/22 15:06 Dose: 650 mg Documented By: RHYS Atorvastatin Calcium (Atorvastatin Calcium 40 Mg Tablet) 40 mg PO BEDTIME [facility] Stop: 08/21/22 23:59 Last Admin: 08/20/22 20:45 Dose: 40 mg Documented By: MAURA Bisacodyl (Bisacodyl 10 Mg Supp.Rect) 10 mg [place] DAILY PRN PRN Reason: Constipation Collagenase (Collagenase Clostridium Hist. 30 Gm Tube) 1 appl TOPICAL DAILY [facility]; Protocol Last Admin: 08/21/22 09:45 Dose: 1 appl Documented By: JOAQUÍN Cyanocobalamin (Cyanocobalamin (Vitamin B-12) 1,000 Mcg Tablet) 1,000 mcg PO DAILY [facility] Last Admin: 08/21/22 09:43 Dose: 1,000 mcg Documented By: JOAQUÍN Epoetin Domingo (Epoetin Domingo 20,000 Unit/Ml Vial) 20,000 unit SUBCUT ONCE [facility] Guaifenesin (Guaifenesin 100 Mg/5 Ml Liquid) 5 ml PO Q2H PRN PRN Reason: Cough Last Admin: 08/16/22 02:17 Dose: 5 ml Documented By: ERLINDA Guaifenesin (Guaifenesin La 600 Mg Tab.Er.12h) 600 mg PO BID [facility] Last Admin: 08/21/22 09:44 Dose: 600 mg Documented By: JOAQUÍN Daptomycin 1,000 mg/ Sodium (Chloride) 70 mls @ 100.079 mls/hr IV TUTHSA@1645 [facility] Stop: 04/03/23 17:27 Last Infusion: 08/20/22 20:53 Dose: 0 mls/hr Documented By: MAURA Lidocaine (Lidocaine 4 % Patch Adh..Patch) 1 patch TRANSDERMA DAILY [facility] Last Admin: 08/21/22 09:42 Dose: 1 patch Documented By: JOAQUÍN Magnesium Oxide (Magnesium Oxide 400 Mg Tablet) 400 mg PO DAILY [facility] Last Admin: 08/21/22 09:44 Dose: 400 mg Documented By: JOAQUÍN Megestrol Acetate (Megestrol Acetate 20 Mg Tablet) 20 mg PO DAILY [facility] Last Admin: 08/21/22 09:44 Dose: 20 mg Documented By: JOAQUÍN Melatonin (Melatonin 3 Mg Tablet) 6 mg PO BEDTIME PRN PRN Reason: Insomnia Last Admin: 08/10/22 02:13 Dose: 6 mg Documented By: FRANCISCO Melatonin (Melatonin 3 Mg Tablet) 9 mg PO BEDTIME [facility] Last Admin: 08/20/22 20:46 Dose: 9 mg Documented By: MAURA Metoprolol Tartrate (Metoprolol Tartrate 25 Mg Tablet) 25 mg PO BID [facility]; Protocol Last Admin: 08/21/22 09:43 Dose: 25 mg Documented By: JOAQUÍN Multivitamins/Vitamin C (Multivitamin Tablet) 1 tab PO DAILY [facility] Last Admin: 08/21/22 09:44 Dose: 1 tab Documented By: JOAQUÍN Nitroglycerin (Nitroglycerin 0.4 Mg Tab.Subl) 0.4 mg SUBLINGUAL Q5M PRN PRN Reason: Angina Omeprazole (Omeprazole 20 Mg Capsule.Dr) 20 mg PO DAILY@0630 [facility] Last Admin: 08/21/22 06:06 Dose: 20 mg Documented By: MAURA Ondansetron HCl (Ondansetron Hcl 4 Mg/2 Ml Vial) 4 mg IVPUSH Q8H PRN PRN Reason: Nausea and Vomiting Last Admin: 08/15/22 13:39 Dose: 4 mg Documented By: ANGEL Pharmacy Consult (Consult Rx Perform Med Rec) 1 each MISCELLANE ONCE PRN PRN Reason: Consult order Polyethylene Glycol (Polyethylene Glycol 3350 17 Gm Powd.Pack) 17 gm PO DAILY [facility] Last Admin: 08/21/22 09:43 Dose: 17 gm Documented By: JOAQUÍN Senna (Sennosides 8.6 Mg Tablet) 17.2 mg PO BID [facility] Last Admin: 08/21/22 09:44 Dose: 17.2 mg Documented By: JOAQUÍN Sevelamer Carbonate (Sevelamer Carbonate Tablet 800 Mg Tablet) 800 mg PO BIDWM [facility] Last Admin: 08/21/22 09:44 Dose: 800 mg Documented By: JOAQUÍN Sodium Chloride (0.9 % Sodium Chloride Flush 3 Ml Syringe) 3 ml IVFLUSH QSHIFT [facility] Last Admin: 08/21/22 09:45 Dose: Not Given Documented By: JOAQUÍN Non-Admin Reason: No Access Vitamin D (Cholecalciferol (Vitamin D3) 25 Mcg Tablet) 25 mcg PO DAILY [facility] Last Admin: 08/21/22 09:44 Dose: 25 mcg Documented By: JOAQUÍN Warfarin Sodium (Warfarin Sodium 0.5 Mg Halftab) 0.5 mg PO DAILY@1800 [facility] Last Admin: 08/20/22 17:06 Dose: 0.5 mg Documented By: SOLRONNIE Zinc Oxide (Zinc Oxide 20% Ointment 28.35 Gm Tube) 1 appl TOPICAL DAILY@0730 [facility]; Protocol Last Admin: 08/21/22 09:44 Dose: 1 appl Documented By: JOAQUÍN Labs CBC & Chem 7: 08/16/22 06:59 08/17/22 07:10 Labs: Laboratory Results - last 24 hr 08/21/22 06:11 PT 27.9 H INR 2.3 H Microbiology Microbiology Results: Microbiology 08/18/22 06:33 Blood Culture - Final Blood - Venous Methicillin Res Staph Aureus 08/18/22 06:33 Blood Culture - Final Blood - Venous Methicillin Res Staph Aureus Assessment and Plan (1) End stage renal disease on dialysis: Status: Acute (2) MRSA bacteremia: Status: Acute Plan 81-year-old male [facility] with pertinent history of end-stage renal disease on hemodialysis, prostate cancer with history of urostomy, mixed hyperlipidemia, essential hypertension, chronic obstructive pulmonary disease, permanent atrial fibrillation on Coumadin, congestive heart failure unknown ejection fraction, rheumatoid arthritis who was brought to the emergency department for evaluation of altered mentation. Severe sepsis present on admission and metabolic encephalopathy due to cellulitis and infected sacral decubitus ulcer complicated by MRSA bacteremia persistent bacteremia on vanco - changed to dapto positive repeat cultures from 08/18/22, follow up 08/20/22 No vegetation on echo Infectious Disease following Vascular surgery reported no concern over HD fistula ulcer area, no infx can be identified Concern over safety of MRI of LS given he has defibrillator To check CT with contrast of lumber spine and WBC scan (can not be done as long as Covid +ve) for source of infection once we have IV line placed sundowning related to bacteremia and prolonged hospital stay reorientation seroquel as needed COVID-19 infection asymptomatic end-stage renal disease hemodialysis via left upper extremity fistula TTS (does not appear infected) supratherapeutic INR now therapeutic Coumadin restarted and decreased from 1mg to 0.5mg permanent atrial fibrillation continue warfarin, metoprolol hyperlipidemia continue statin Stage IV sacral ulcer Wound team following, use Santyl for a week and debridement needed Pressure relief protocols DVT prophylaxis with Coumadin DNR/DNI reason for continued hospitalization: MRSA Bacteremia awaiting clearance of cultures for safe discharge plan Quality Stroke Does the patient have a stroke diagnosis?: No VTE Prior VTE?: No VTE Risk Level:: Medical - moderate - high VTE Device Contraindication: Treatment Not Indicated VTE Drug Contraindication: Treatment Not Indicated
[2022-08-21] MEDS: Warfarin Sodium 0.5 MG HALFTAB PO (16:43)
[2022-08-21] MEDS: Melatonin 3 MG TABLET 9 MG PO (20:04)
[2022-08-21] MEDS: Atorvastatin Calcium 40 MG TABLET PO (20:04)
[2022-08-22 03:41] VITALS: BP 103/59; PULSE 75; RESP 15; TEMP 36.4; O2SAT 99
[2022-08-22] MEDS: Omeprazole 20 MG CAPSULE.DR PO (05:44)
[2022-08-22 06:55] LABS: Hematocrit 23.7 % (42.0-52.0); Hemoglobin 7.5 g/dl (14.0-18.0); INTERNATIONAL NORM RATIO 2.1 (0.9-1.1); Mean Corpuscular HGB Conc 31.6 g/dl (31.0-36.0); Mean Corpuscular Volume 97.9 fL (80.0-98.0); Mean Platelet Volume 9.9 fL (9.4-12.4); Platelet Count 382 X10*3/uL (160-400); Prothrombin Time 24.8 SEC (10.0-13.1); Red Blood Count 2.42 X10*6/uL (4.60-5.80); Red Cell Distribution Width 19.6 % (11.0-16.0); White Blood Count 10.4 X10*3/uL (4.8-10.8)
[2022-08-22 07:34] VITALS: BP 120/58; PULSE 64; RESP 15; TEMP 36.9; O2SAT 97
[2022-08-22 07:48] LABS: Anion Gap 14 (12-20); Blood Urea Nitrogen 27 mg/dL (9-16); Calcium 8.2 mg/dL (8.4-10.2); Carbon Dioxide 30 mmol/L (22-29); Chloride 99 mmol/L (96-108); Creatinine Clr Calc Pharmacy 13.4; Estimated Glomerular Filt Rate 11; Glucose Fasting 81 mg/dL (60-99); Potassium 4.4 mmol/L (3.3-5.1); Sodium 139 mmol/L (135-145)
[2022-08-22] MEDS: Sevelamer Carbonate Tablet 800 MG TABLET PO (07:58)
[2022-08-22] MEDS: Cyanocobalamin (Vitamin B-12) 1,000 MCG TABLET 1000 MCG PO (07:58)
[2022-08-22] MEDS: guaiFENesin LA 600 MG TAB.ER.12H PO ×2 (07:58→21:22)
[2022-08-22] MEDS: Metoprolol Tartrate 25 MG TABLET PO ×2 (07:58→21:20)
[2022-08-22] MEDS: Multivitamin TABLET 1 TAB PO (07:58)
[2022-08-22] MEDS: Megestrol Acetate 20 MG TABLET PO (07:59)
[2022-08-22] MEDS: Cholecalciferol (Vitamin D3) 25 MCG TABLET PO (07:59)
[2022-08-22] MEDS: Magnesium Oxide 400 MG TABLET PO (07:59)
[2022-08-22] MEDS: Lidocaine 4 % Patch ADH..PATCH 1 PATCH TRANSDERMA (07:59)
[2022-08-22] MEDS: Sennosides 8.6 MG TABLET 17.2 MG PO ×2 (07:59→21:22)
[2022-08-22] MEDS: polyethylene glycoL 3350 17 GM POWD.PACK PO (08:00)
[2022-08-22] MEDS: Zinc Oxide 20% Ointment 28.35 GM TUBE 1 APPL TOPICAL (08:00)
[2022-08-22] MEDS: Collagenase Clostridium Hist. 30 GM TUBE 1 APPL TOPICAL (08:01)
--- NOTE | 2022-08-22 10:38 | PM.PNNEP ---
Subjective Subjective Date of Service: 08/22/22 Interval history: Events noted. All recent data reviewed Physical Exam Vital Signs: Vital Signs: Last Vital Signs Temp 98.4 F 08/22/22 07:34 Pulse 64 08/22/22 07:34 Resp 15 08/22/22 07:34 BP 120/58 L 08/22/22 07:34 Pulse Ox 97 08/22/22 07:34 O2 Del Method 08/22/22 07:34 FiO2 100 08/13/22 19:43 BMI result Body Mass Index 27.5 Const: General: no acute distress Eyes: EOM: EOMs intact bilaterally Neck: Neck: Yes supple Resp: Auscultation: diminished lung sounds Cardio: Rate: regular rate GI: Palpation (GI): Soft to palpation Neuro: General: moves all extremities Objective Data Labs CBC & Chem 7: 08/22/22 06:26 08/22/22 06:26 Labs: Laboratory Results - last 24 hr 08/22/22 08/22/22 08/22/22 06:26 06:26 06:26 WBC 10.4 RBC 2.42 L Hgb 7.5 L Hct 23.7 L MCV 97.9 MCH 31.0 MCHC 31.6 RDW 19.6 H Plt Count 382 MPV 9.9 Absolute Nucleated RBC 0.000 Nucleated RBC % (auto) 0.0 PT 24.8 H INR 2.1 H Sodium 139 Potassium 4.4 Chloride 99 Carbon Dioxide 30 H Anion Gap 14 BUN 27 H Creatinine 5.13 H* Estim Creat Clear Calc 13.4 Estimated GFR 11 Fasting Glucose 81 Calcium 8.2 L Microbiology Microbiology Results: Microbiology 08/20/22 10:30 Blood - Venous Blood Culture - Preliminary No growth after 24 hours. 08/20/22 10:31 Blood - Venous Blood Culture - Preliminary No growth after 24 hours. 08/18/22 06:33 Blood - Venous Blood Culture - Final Methicillin Res Staph Aureus 08/18/22 06:33 Blood - Venous Blood Culture - Final Methicillin Res Staph Aureus 08/16/22 08:50 Blood - Venous Blood Culture - Final Methicillin Res Staph Aureus 08/16/22 08:50 Blood - Venous Blood Culture - Final Methicillin Res Staph Aureus 08/15/22 09:03 Blood - Venous Blood Culture - Final Methicillin Res Staph Aureus 08/15/22 09:03 Blood - Venous Blood Culture - Final Methicillin Res Staph Aureus 08/14/22 06:28 Blood - Venous Blood Culture - Final Methicillin Res Staph Aureus 08/14/22 06:28 Blood - Venous Blood Culture - Final Methicillin Res Staph Aureus 08/12/22 08:55 Blood - Venous Blood Culture - Final Methicillin Res Staph Aureus 08/12/22 08:55 Blood - Venous Blood Culture - Final Methicillin Res Staph Aureus 08/09/22 14:33 Blood - Venous Blood Culture - Final Methicillin Res Staph Aureus 08/09/22 14:33 Blood - Venous Blood Culture - Final Methicillin Res Staph Aureus Procedures Date of Service Date of Service: 08/22/22 Assessment & Plan Assessment and plan (1) End stage renal disease on dialysis: Status: Acute Assessment and Plan: Mr. Suman Park 81-year-old male with end-stage renal disease on hemodialysis TTS, prostate cancer with history of urostomy, mixed hyperlipidemia, essential hypertension, chronic obstructive pulmonary disease, permanent atrial fibrillation on Coumadin, congestive heart failure unknown ejection fraction, rheumatoid arthritis who presented with AMS. He was found to have severe sepsis due to cellulitis and infected decubitus ulcer with MRSA bacteremia. No Veg on echo 4-6 weeks IV Dapto to be done once blood culture negative (however cultures remain positive) Vascular seen for AVF; Due HD today Please notify use of dispo, because antibiotics needs to be coordinate with his HD unit protect LUE AVF; ? Tagged WBC scan TTS scheduled HD; EPO 20,000 u dosed on? 08/16 & 08/19 Time Spent With Patient Time: Total time spent is greater than 50% in coordination of care (as documented) at patient's floor/unit and/or counseling patient: Progress Note: Quality Stroke Does the patient have a stroke diagnosis?: No
--- NOTE | 2022-08-22 10:56 | P.PNIM_ITS ---
Subjective Subjective Date of Service: 08/22/22 Interval History: cc: ams interval history:no acute complaints Cardiovascular Cardiovascular: Reports no additional cardiovascular complaints Respiratory Respiratory: Reports no additional respiratory complaints Physical Exam Vital Signs: Vital Signs: Last Vital Signs Temp 98.4 F 08/22/22 07:34 Pulse 64 08/22/22 07:34 Resp 15 08/22/22 07:34 BP 120/58 L 08/22/22 07:34 Pulse Ox 97 08/22/22 07:34 O2 Del Method 08/22/22 07:34 FiO2 100 08/13/22 19:43 BMI result Body Mass Index 27.5 Const: General: no acute distress Eyes: EOM: EOMs intact bilaterally Neck: Neck: Yes supple Resp: Auscultation: diminished lung sounds Cardio: Rate: regular rate GI: Palpation (GI): Soft to palpation Neuro: General: moves all extremities Objective Data Active Medications Acetaminophen (Acetaminophen 325 Mg Tablet) 650 mg PO Q6H PRN PRN Reason: Pain, Mild (Pain Scale 1-3) Last Admin: 08/20/22 15:06 Dose: 650 mg Documented By: RHYS Bisacodyl (Bisacodyl 10 Mg Supp.Rect) 10 mg [place] DAILY PRN PRN Reason: Constipation Collagenase (Collagenase Clostridium Hist. 30 Gm Tube) 1 appl TOPICAL DAILY [facility]; Protocol Last Admin: 08/22/22 08:01 Dose: 1 appl Documented By: ANGEL Cyanocobalamin (Cyanocobalamin (Vitamin B-12) 1,000 Mcg Tablet) 1,000 mcg PO DAILY [facility] Last Admin: 08/22/22 07:58 Dose: 1,000 mcg Documented By: ANGEL Epoetin Domingo (Epoetin Domingo 20,000 Unit/Ml Vial) 20,000 unit SUBCUT ONCE [facility] Guaifenesin (Guaifenesin 100 Mg/5 Ml Liquid) 5 ml PO Q2H PRN PRN Reason: Cough Last Admin: 08/16/22 02:17 Dose: 5 ml Documented By: ERLINDA Guaifenesin (Guaifenesin La 600 Mg Tab.Er.12h) 600 mg PO BID [facility] Last Admin: 08/22/22 07:58 Dose: 600 mg Documented By: ANGEL Daptomycin 1,000 mg/ Sodium (Chloride) 70 mls @ 100.079 mls/hr IV TUTHSA@1645 [facility] Stop: 04/03/23 17:27 Last Infusion: 08/20/22 20:53 Dose: 0 mls/hr Documented By: MAURA Lidocaine (Lidocaine 4 % Patch Adh..Patch) 1 patch TRANSDERMA DAILY [facility] Last Admin: 08/22/22 07:59 Dose: 1 patch Documented By: ANGEL Magnesium Oxide (Magnesium Oxide 400 Mg Tablet) 400 mg PO DAILY [facility] Last Admin: 08/22/22 07:59 Dose: 400 mg Documented By: ANGEL Megestrol Acetate (Megestrol Acetate 20 Mg Tablet) 20 mg PO DAILY [facility] Last Admin: 08/22/22 07:59 Dose: 20 mg Documented By: ANGEL Melatonin (Melatonin 3 Mg Tablet) 6 mg PO BEDTIME PRN PRN Reason: Insomnia Last Admin: 08/10/22 02:13 Dose: 6 mg Documented By: FRANCISCO Melatonin (Melatonin 3 Mg Tablet) 9 mg PO BEDTIME [facility] Last Admin: 08/21/22 20:04 Dose: 9 mg Documented By: JUN Metoprolol Tartrate (Metoprolol Tartrate 25 Mg Tablet) 25 mg PO BID [facility]; Protocol Last Admin: 08/22/22 07:58 Dose: 25 mg Documented By: ANGEL Comments: bp-120/58, HR-64 Multivitamins/Vitamin C (Multivitamin Tablet) 1 tab PO DAILY [facility] Last Admin: 08/22/22 07:58 Dose: 1 tab Documented By: ANGEL Nitroglycerin (Nitroglycerin 0.4 Mg Tab.Subl) 0.4 mg SUBLINGUAL Q5M PRN PRN Reason: Angina Omeprazole (Omeprazole 20 Mg Capsule.Dr) 20 mg PO DAILY@0630 [facility] Last Admin: 08/22/22 05:44 Dose: 20 mg Documented By: JUN Ondansetron HCl (Ondansetron Hcl 4 Mg/2 Ml Vial) 4 mg IVPUSH Q8H PRN PRN Reason: Nausea and Vomiting Last Admin: 08/15/22 13:39 Dose: 4 mg Documented By: ANGEL Pharmacy Consult (Consult Rx Perform Med Rec) 1 each MISCELLANE ONCE PRN PRN Reason: Consult order Polyethylene Glycol (Polyethylene Glycol 3350 17 Gm Powd.Pack) 17 gm PO DAILY [facility] Last Admin: 08/22/22 08:00 Dose: 17 gm Documented By: ANGEL Senna (Sennosides 8.6 Mg Tablet) 17.2 mg PO BID [facility] Last Admin: 08/22/22 07:59 Dose: 17.2 mg Documented By: ANGEL Sevelamer Carbonate (Sevelamer Carbonate Tablet 800 Mg Tablet) 800 mg PO BIDWM [facility] Last Admin: 08/22/22 07:58 Dose: 800 mg Documented By: ANGEL Sodium Chloride (0.9 % Sodium Chloride Flush 3 Ml Syringe) 3 ml IVFLUSH QSHIFT [facility] Last Admin: 08/22/22 07:59 Dose: Not Given Documented By: ANGEL Non-Admin Reason: No Access Vitamin D (Cholecalciferol (Vitamin D3) 25 Mcg Tablet) 25 mcg PO DAILY [facility] Last Admin: 08/22/22 07:59 Dose: 25 mcg Documented By: ANGEL Warfarin Sodium (Warfarin Sodium 0.5 Mg Halftab) 0.5 mg PO DAILY@1800 [facility] Last Admin: 08/21/22 16:43 Dose: 0.5 mg Documented By: JOAQUÍN Zinc Oxide (Zinc Oxide 20% Ointment 28.35 Gm Tube) 1 appl TOPICAL DAILY@0730 [facility]; Protocol Last Admin: 08/22/22 08:00 Dose: 1 appl Documented By: ANGEL Labs CBC & Chem 7: 08/22/22 06:26 08/22/22 06:26 Labs: Laboratory Results - last 24 hr 08/22/22 08/22/22 08/22/22 06:26 06:26 06:26 MCV 97.9 MCH 31.0 MCHC 31.6 RDW 19.6 H Plt Count 382 MPV 9.9 Absolute Nucleated RBC 0.000 Nucleated RBC % (auto) 0.0 PT 24.8 H INR 2.1 H Anion Gap 14 Estim Creat Clear Calc 13.4 Estimated GFR 11 Fasting Glucose 81 Calcium 8.2 L Microbiology Microbiology Results: Microbiology 08/20/22 10:30 Blood Culture - Preliminary Blood - Venous No growth after 24 hours. 08/20/22 10:31 Blood Culture - Preliminary Blood - Venous No growth after 24 hours. Assessment and Plan (1) End stage renal disease on dialysis: Status: Acute (2) MRSA bacteremia: Status: Acute Plan 81-[facility]-old male [facility] with pertinent history of end-stage renal disease on hemodialysis, prostate cancer with history of urostomy, mixed hyperlipidemia, essential hypertension, chronic obstructive pulmonary disease, permanent atrial fibrillation on Coumadin, congestive heart failure unknown ejection fraction, rheumatoid arthritis who was brought to the emergency department for evaluation of altered mentation. Severe sepsis present on admission and metabolic encephalopathy due to cellul itis and infected sacral decubitus ulcer complicated by MRSA bacteremia persistent bacteremia on vanco - changed to dapto positive repeat cultures from 08/18/22, follow up 08/20/22 - so far negative No vegetation on echo Infectious Disease following Vascular surgery reported no concern over HD fistula ulcer area, no infx can be identified sundowning related to bacteremia and prolonged hospital stay reorientation seroquel as needed COVID-19 infection asymptomatic end-stage renal disease hemodialysis via left upper extremity fistula TTS (does not appear infected) supratherapeutic INR now therapeutic Coumadin restarted and decreased from 1mg to 0.5mg permanent atrial fibrillation continue warfarin, metoprolol hyperlipidemia continue statin Stage IV sacral ulcer Wound team following, use Santyl for a week and debridement needed Pressure relief protocols DVT prophylaxis with Coumadin DNR/DNI reason for continued hospitalization: MRSA Bacteremia awaiting clearance of cultures for safe discharge plan Quality Stroke Does the patient have a stroke diagnosis?: No VTE Prior VTE?: No VTE Risk Level:: Medical - moderate - high VTE Device Contraindication: Treatment Not Indicated VTE Drug Contraindication: Treatment Not Indicated
--- NOTE | 2022-08-22 14:16 | PC.NURSE ---
Patient to dialysis at this time
[2022-08-22] MEDS: DAPTOmycin 1,000 MG in 0.9 % Sodium Chloride 50 ML 100 MG IV (17:34)
--- NOTE | 2022-08-22 17:44 | PC.NURSE ---
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
[2022-08-22 19:19] VITALS: BP 110/58; PULSE 100; RESP 16; TEMP 36.3; O2SAT 96
[2022-08-22] MEDS: Melatonin 3 MG TABLET 9 MG PO (21:21)
[2022-08-22 23:05] VITALS: BP 106/53; PULSE 81; RESP 18; TEMP 36.8; O2SAT 99
[2022-08-23 03:39] VITALS: BP 119/58; PULSE 98; RESP 18; TEMP 37.1; O2SAT 97
[2022-08-23 07:36] LABS: INTERNATIONAL NORM RATIO 2.1 (0.9-1.1); Prothrombin Time 24.4 SEC (10.0-13.1)
[2022-08-23 07:43] VITALS: BP 97/58; PULSE 105; RESP 20; TEMP 37.2; O2SAT 99
[2022-08-23] MEDS: Metoprolol Tartrate 25 MG TABLET PO ×2 (09:32→20:23)
[2022-08-23] MEDS: Megestrol Acetate 20 MG TABLET PO (09:32)
[2022-08-23] MEDS: guaiFENesin LA 600 MG TAB.ER.12H PO ×2 (09:33→20:23)
[2022-08-23] MEDS: Sennosides 8.6 MG TABLET 17.2 MG PO ×2 (09:33→20:23)
[2022-08-23] MEDS: Cyanocobalamin (Vitamin B-12) 1,000 MCG TABLET 1000 MCG PO (09:33)
[2022-08-23] MEDS: Multivitamin TABLET 1 TAB PO (09:33)
[2022-08-23] MEDS: Magnesium Oxide 400 MG TABLET PO (09:34)
[2022-08-23] MEDS: Sevelamer Carbonate Tablet 800 MG TABLET PO ×2 (09:34→18:15)
[2022-08-23] MEDS: polyethylene glycoL 3350 17 GM POWD.PACK PO (09:34)
[2022-08-23] MEDS: Cholecalciferol (Vitamin D3) 25 MCG TABLET PO (09:34)
[2022-08-23] MEDS: Lidocaine 4 % Patch ADH..PATCH 1 PATCH TRANSDERMA (09:34)
[2022-08-23] MEDS: Collagenase Clostridium Hist. 30 GM TUBE 1 APPL TOPICAL (09:34)
[2022-08-23] MEDS: Zinc Oxide 20% Ointment 28.35 GM TUBE 1 APPL TOPICAL (09:35)
--- NOTE | 2022-08-23 09:55 | P.PNNP_ITS ---
Subjective Subjective Date of Service: 08/23/22 Interval history: All recent data reviewed.D/W Med Attending Physical Exam Vital Signs: Vital Signs: Last Vital Signs Temp 98.9 F 08/23/22 07:43 Pulse 105 H 08/23/22 07:43 Resp 20 08/23/22 07:43 BP 97/58 L 08/23/22 07:43 Pulse Ox 99 08/23/22 07:43 O2 Del Method 08/23/22 07:43 FiO2 100 08/13/22 19:43 BMI result Body Mass Index 27.5 Const: General: no acute distress Eyes: EOM: EOMs intact bilaterally Neck: Neck: Yes supple Resp: Auscultation: diminished lung sounds Cardio: Rate: regular rate GI: Palpation (GI): Soft to palpation Neuro: General: moves all extremities Objective Data Labs CBC & Chem 7: 08/22/22 06:26 08/22/22 06:26 Labs: Laboratory Results - last 24 hr 08/23/22 06:55 PT 24.4 H INR 2.1 H Microbiology Microbiology Results: Microbiology 08/20/22 10:30 Blood - Venous Blood Culture - Preliminary No growth after 48 hours. 08/20/22 10:31 Blood - Venous Blood Culture - Preliminary No growth after 48 hours. 08/18/22 06:33 Blood - Venous Blood Culture - Final Methicillin Res Staph Aureus 08/18/22 06:33 Blood - Venous Blood Culture - Final Methicillin Res Staph Aureus 08/16/22 08:50 Blood - Venous Blood Culture - Final Methicillin Res Staph Aureus 08/16/22 08:50 Blood - Venous Blood Culture - Final Methicillin Res Staph Aureus 08/15/22 09:03 Blood - Venous Blood Culture - Final Methicillin Res Staph Aureus 08/15/22 09:03 Blood - Venous Blood Culture - Final Methicillin Res Staph Aureus 08/14/22 06:28 Blood - Venous Blood Culture - Final Methicillin Res Staph Aureus 08/14/22 06:28 Blood - Venous Blood Culture - Final Methicillin Res Staph Aureus 08/12/22 08:55 Blood - Venous Blood Culture - Final Methicillin Res Staph Aureus 08/12/22 08:55 Blood - Venous Blood Culture - Final Methicillin Res Staph Aureus 08/09/22 14:33 Blood - Venous Blood Culture - Final Methicillin Res Staph Aureus 08/09/22 14:33 Blood - Venous Blood Culture - Final Methicillin Res Staph Aureus Procedures Date of Service Date of Service: 08/23/22 Assessment & Plan Assessment and plan (1) End stage renal disease on dialysis: Status: Acute Assessment and Plan: Mr. Suman Park 81-year-old male with end-stage renal disease on hemodial ysis TTS, prostate cancer with history of urostomy, mixed hyperlipidemia, essential hypertension, chronic obstructive pulmonary disease, permanent atrial fibrillation on Coumadin, congestive heart failure unknown ejection fraction, rheumatoid arthritis who presented with AMS. He was found to have severe sepsis due to cellulitis and infected decubitus ulcer with MRSA bacteremia. No Veg on echo 4-6 weeks IV Dapto to be done once blood culture negative (however cultures remain positive) Vascular seen for AVF; Due HD tomorrow; No PICC line Please notify use of dispo, because antibiotics needs to be coordinate with his HD unit protect LUE AVF; TTS scheduled HD; EPO 20,000 u dosed on? 08/16 & 08/19 Time Spent With Patient Time: Total time spent is greater than 50% in coordination of care (as documented) at patient's floor/unit and/or counseling patient: Progress Note: Quality Stroke Does the patient have a stroke diagnosis?: No
--- NOTE | 2022-08-23 10:06 | HE.PHANOTE ---
RE DAPTO Patient was getting 10mg/kg TUTHSA after dialysis. Based on Dialysis dosing and discussion with Dr Martinez, we are changing to 8mg/kg on tuth and then 12mg/kg on sa. Bacteremia dosing is 8-10 mg/kg, but can go up to 12 for VRE and endocarditis. I also put in a weekly CPK Tony
--- NOTE | 2022-08-23 10:39 | HO.PM.IMPN ---
Subjective Subjective Date of Service: 08/23/22 Interval History: cc: ams interval history:no acute complaints Cardiovascular Cardiovascular: Reports no additional cardiovascular complaints Respiratory Respiratory: Reports no additional respiratory complaints Physical Exam Vital Signs: Vital Signs: Last Vital Signs Temp 98.9 F 08/23/22 07:43 Pulse 105 H 08/23/22 07:43 Resp 20 08/23/22 07:43 BP 97/58 L 08/23/22 07:43 Pulse Ox 99 08/23/22 07:43 O2 Del Method 08/23/22 07:43 FiO2 100 08/13/22 19:43 BMI result Body Mass Index 27.5 Const: General: no acute distress Eyes: EOM: EOMs intact bilaterally Neck: Neck: Yes supple Resp: Auscultation: diminished lung sounds Cardio: Rate: regular rate GI: Palpation (GI): Soft to palpation Neuro: General: moves all extremities Objective Data Active Medications Acetaminophen (Acetaminophen 325 Mg Tablet) 650 mg PO Q6H PRN PRN Reason: Pain, Mild (Pain Scale 1-3) Last Admin: 08/20/22 15:06 Dose: 650 mg Documented By: RHYS Bisacodyl (Bisacodyl 10 Mg Supp.Rect) 10 mg MN DAILY PRN PRN Reason: Constipation Collagenase (Collagenase Clostridium Hist. 30 Gm Tube) 1 appl TOPICAL DAILY [facility]; Protocol Last Admin: 08/23/22 09:34 Dose: 1 appl Documented By: RHYS Cyanocobalamin (Cyanocobalamin (Vitamin B-12) 1,000 Mcg Tablet) 1,000 mcg PO DAILY [facility] Last Admin: 08/23/22 09:33 Dose: 1,000 mcg Documented By: RHYS Epoetin Domingo (Epoetin Domingo 20,000 Unit/Ml Vial) 20,000 unit SUBCUT ONCE [facility] Guaifenesin (Guaifenesin 100 Mg/5 Ml Liquid) 5 ml PO Q2H PRN PRN Reason: Cough Last Admin: 08/16/22 02:17 Dose: 5 ml Documented By: ERLINDA Guaifenesin (Guaifenesin La 600 Mg Tab.Er.12h) 600 mg PO BID [facility] Last Admin: 08/23/22 09:33 Dose: 600 mg Documented By: RHYS Daptomycin 800 mg/ Sodium (Chloride) 66 mls @ 100 mls/hr IV TUTH@1645 [facility] Stop: 08/05/23 17:25 Daptomycin 1,200 mg/ Sodium (Chloride) 74 mls @ 100 mls/hr IV SA@1645 [facility] Stop: 07/10/24 17:30 Lidocaine (Lidocaine 4 % Patch Adh..Patch) 1 patch TRANSDERMA DAILY [facility] Last Admin: 08/23/22 09:34 Dose: 1 patch Documented By: RHYS Magnesium Oxide (Magnesium Oxide 400 Mg Tablet) 400 mg PO DAILY [facility] Last Admin: 08/23/22 09:34 Dose: 400 mg Documented By: RHYS Megestrol Acetate (Megestrol Acetate 20 Mg Tablet) 20 mg PO DAILY [facility] Last Admin: 08/23/22 09:32 Dose: 20 mg Documented By: RHYS Melatonin (Melatonin 3 Mg Tablet) 6 mg PO BEDTIME PRN PRN Reason: Insomnia Last Admin: 08/10/22 02:13 Dose: 6 mg Documented By: FRANCISCO Melatonin (Melatonin 3 Mg Tablet) 9 mg PO BEDTIME [facility] Last Admin: 08/22/22 21:21 Dose: 9 mg Documented By: ALYCE Metoprolol Tartrate (Metoprolol Tartrate 25 Mg Tablet) 25 mg PO BID [facility]; Protocol Last Admin: 08/23/22 09:32 Dose: 25 mg Documented By: RHYS Multivitamins/Vitamin C (Multivitamin Tablet) 1 tab PO DAILY [facility] Last Admin: 08/23/22 09:33 Dose: 1 tab Documented By: RHYS Nitroglycerin (Nitroglycerin 0.4 Mg Tab.Subl) 0.4 mg SUBLINGUAL Q5M PRN PRN Reason: Angina Omeprazole (Omeprazole 20 Mg Capsule.Dr) 20 mg PO DAILY@0630 [facility] Last Admin: 08/23/22 03:38 Dose: Not Given Documented By: CASIMIRO Non-Admin Reason: NPO Ondansetron HCl (Ondansetron Hcl 4 Mg/2 Ml Vial) 4 mg IVPUSH Q8H PRN PRN Reason: Nausea and Vomiting Last Admin: 08/15/22 13:39 Dose: 4 mg Documented By: ANGEL Pharmacy Consult (Consult Rx Perform Med Rec) 1 each MISCELLANE ONCE PRN PRN Reason: Consult order Polyethylene Glycol (Polyethylene Glycol 3350 17 Gm Powd.Pack) 17 gm PO DAILY [facility] Last Admin: 08/23/22 09:34 Dose: 17 gm Documented By: RHYS Senna (Sennosides 8.6 Mg Tablet) 17.2 mg PO BID [facility] Last Admin: 08/23/22 09:33 Dose: 17.2 mg Documented By: RHYS Sevelamer Carbonate (Sevelamer Carbonate Tablet 800 Mg Tablet) 800 mg PO BIDWM [facility] Last Admin: 08/23/22 09:34 Dose: 800 mg Documented By: RHYS Sodium Chloride (0.9 % Sodium Chloride Flush 3 Ml Syringe) 3 ml IVFLUSH QSHIFT [facility] Last Admin: 08/23/22 09:35 Dose: Not Given Documented By: RHYS Non-Admin Reason: No Access Vitamin D (Cholecalciferol (Vitamin D3) 25 Mcg Tablet) 25 mcg PO DAILY [facility] Last Admin: 08/23/22 09:34 Dose: 25 mcg Documented By: RHYS Warfarin Sodium (Warfarin Sodium 0.5 Mg Halftab) 0.5 mg PO DAILY@1800 [facility] Last Admin: 08/22/22 18:01 Dose: Not Given Documented By: ANGEL Non-Admin Reason: Hold for procedure tomorrow Zinc Oxide (Zinc Oxide 20% Ointment 28.35 Gm Tube) 1 appl TOPICAL DAILY@0730 [facility]; Protocol Last Admin: 08/23/22 09:35 Dose: 1 appl Documented By: RHYS Labs CBC & Chem 7: 08/22/22 06:26 08/22/22 06:26 Labs: Laboratory Results - last 24 hr 08/23/22 06:55 PT 24.4 H INR 2.1 H Microbiology Microbiology Results: Microbiology 08/20/22 10:30 Blood Culture - Preliminary Blood - Venous No growth after 48 hours. 08/20/22 10:31 Blood Culture - Preliminary Blood - Venous No growth after 48 hours. Assessment and Plan (1) End stage renal disease on dialysis: Status: Acute (2) MRSA bacteremia: Status: Acute Plan 81-year-old male coming from assisted facility with pertinent history of end-stage renal disease on hemodialysis, prostate cancer with history of urostomy, mixed hyperlipidemia, essential hypertension, chronic obstructive pulmonary disease, permanent atrial fibrillation on Coumadin, congestive heart failure unknown ejection fraction, rheumatoid arthritis who was brought to the emergency department for evaluation of altered mentation. Severe sepsis present on admission and metabolic encephalopathy due to cellulitis and infected sacral decubitus ulcer complicated by MRSA bacteremia persistent bacteremia on vanco - changed to dapto plan for 4-6 weeks positive repeat cultures from 08/18/22, follow up 08/20/22 - so far negative No vegetation on echo Infectious Disease following Vascular surgery reported no concern over HD fistula ulcer area, no infx can be identified will need stephens for iv access due to ESRD. sundowning related to bacteremia and prolonged hospital stay reorientation seroquel as needed COVID-19 infection asymptomatic end-stage renal disease hemodialysis via left upper extremity fistula TTS (does not appear infected) supratherapeutic INR now therapeutic Coumadin restarted and decreased from 1mg to 0.5mg permanent atrial fibrillation continue warfarin, metoprolol hyperlipidemia continue statin Stage IV sacral ulcer Wound team following, use Santyl for a week and debridement needed Pressure relief protocols DVT prophylaxis with Coumadin DNR/DNI reason for continued hospitalization: MRSA Bacteremia, safe discharge plan Quality Stroke Does the patient have a stroke diagnosis?: No VTE Prior VTE?: No VTE Risk Level:: Medical - moderate - high VTE Device Contraindication: Treatment Not Indicated VTE Drug Contraindication: Treatment Not Indicated
[2022-08-23 11:34] VITALS: BP 100/59; PULSE 84; RESP 12; TEMP 36.3; O2SAT 97
--- NOTE | 2022-08-23 13:28 | MHC.CLN ---
F/U PATIENT WITH ESRD, RECEIVES HEMODIALYSIS. DIET=CARDIAC WITH ENSURE TID. SUPPLEMENT PROVIDES ADDITIONAL 1050 KCALS, 60 G PROTEIN. INTAKE AT MEALS VARIABLE, 0-100%, WITH MOST AT LEAST 50%. IMPAIRED SKIN INTEGRITY: STAGE IV WOUND TO LOWER MEDIAL BACK; STAGE II WOUND TO COCCYX. SUPPLEMENT TO PROMOTE WOUND HEALING. CONTINUE TO MONITOR PO INTAKE CLOSELY AND ENCOURAGE SUPPLEMENT.
[2022-08-23] MEDS: oxyCODONE HCl Immed Release 5 MG TABLET PO ×2 (14:31→20:26)
[2022-08-23 15:06] VITALS: BP 95/52; PULSE 98; RESP 16; TEMP 36.3; O2SAT 99
[2022-08-23 19:32] VITALS: BP 116/59; PULSE 93; RESP 17; TEMP 36.4; O2SAT 98
[2022-08-23] MEDS: Melatonin 3 MG TABLET 9 MG PO (20:23)
[2022-08-23 20:29] VITALS: BP 130/59; PULSE 99; RESP 18
[2022-08-24] VITALS (7 sets, daily range): BP systolic 91–124; BP diastolic 50–69; PULSE 76–117; RESP 12–20; TEMP 36.2–37.2; O2SAT 94–100
[2022-08-24] MEDS: Omeprazole 20 MG CAPSULE.DR PO (06:15)
[2022-08-24] MEDS: guaiFENesin LA 600 MG TAB.ER.12H PO ×2 (09:07→19:50)
[2022-08-24] MEDS: Megestrol Acetate 20 MG TABLET PO (09:07)
[2022-08-24] MEDS: Metoprolol Tartrate 25 MG TABLET PO (09:07)
[2022-08-24] MEDS: Sennosides 8.6 MG TABLET 17.2 MG PO (09:07)
[2022-08-24] MEDS: Sevelamer Carbonate Tablet 800 MG TABLET PO (09:07)
[2022-08-24] MEDS: Cyanocobalamin (Vitamin B-12) 1,000 MCG TABLET 1000 MCG PO (09:07)
[2022-08-24] MEDS: Magnesium Oxide 400 MG TABLET PO (09:08)
[2022-08-24] MEDS: Multivitamin TABLET 1 TAB PO (09:08)
[2022-08-24] MEDS: Cholecalciferol (Vitamin D3) 25 MCG TABLET PO (09:08)
[2022-08-24] MEDS: Lidocaine 4 % Patch ADH..PATCH 1 PATCH TRANSDERMA (09:08)
[2022-08-24] MEDS: oxyCODONE HCl Immed Release 5 MG TABLET PO ×3 (09:08→19:50)
[2022-08-24] MEDS: Zinc Oxide 20% Ointment 28.35 GM TUBE 1 APPL TOPICAL (09:09)
[2022-08-24] MEDS: Collagenase Clostridium Hist. 30 GM TUBE 1 APPL TOPICAL (09:09)
--- NOTE | 2022-08-24 12:13 | HO.PM.IMPN ---
Subjective Subjective Date of Service: 08/24/22 Interval History: cc: ams interval history:no acute complaints Cardiovascular Cardiovascular: Reports no additional cardiovascular complaints Respiratory Respiratory: Reports no additional respiratory complaints Physical Exam Vital Signs: Vital Signs: Last Vital Signs Temp 97.7 F 08/24/22 08:00 Pulse 96 08/24/22 08:00 Resp 12 08/24/22 08:00 BP 124/66 08/24/22 08:00 Pulse Ox 97 08/24/22 08:00 O2 Del Method 08/24/22 08:00 FiO2 100 08/13/22 19:43 BMI result Body Mass Index 27.5 Const: General: no acute distress Eyes: EOM: EOMs intact bilaterally Neck: Neck: Yes supple Resp: Auscultation: diminished lung sounds Cardio: Rate: regular rate GI: Palpation (GI): Soft to palpation Neuro: General: moves all extremities Objective Data Active Medications Acetaminophen (Acetaminophen 325 Mg Tablet) 650 mg PO Q6H PRN PRN Reason: Pain, Mild (Pain Scale 1-3) Last Admin: 08/20/22 15:06 Dose: 650 mg Documented By: RHYS Bisacodyl (Bisacodyl 10 Mg Supp.Rect) 10 mg [place] DAILY PRN PRN Reason: Constipation Collagenase (Collagenase Clostridium Hist. 30 Gm Tube) 1 appl TOPICAL DAILY [facility]PLAC[facility] BY [facility]; Protocol Last Admin: 08/24/22 09:09 Dose: 1 appl Documented By: RHYS Cyanocobalamin (Cyanocobalamin (Vitamin B-12) 1,000 Mcg Tablet) 1,000 mcg PO DAILY [facility] Last Admin: 08/24/22 09:07 Dose: 1,000 mcg Documented By: RHYS Epoetin Domingo (Epoetin Domingo 20,000 Unit/Ml Vial) 20,000 unit SUBCUT ONCE REPLACED BY [facility] Guaifenesin (Guaifenesin 100 Mg/5 Ml Liquid) 5 ml PO Q2H PRN PRN Reason: Cough Last Admin: 08/16/22 02:17 Dose: 5 ml Documented By: ERLINDA Guaifenesin (Guaifenesin La 600 Mg Tab.Er.12h) 600 mg PO BID [facility] Last Admin: 08/24/22 09:07 Dose: 600 mg Documented By: RHYS Daptomycin 800 mg/ Sodium (Chloride) 66 mls @ 100 mls/hr IV TUTH@1645 [facility] Stop: 08/05/23 17:25 Daptomycin 1,200 mg/ Sodium (Chloride) 74 mls @ 100 mls/hr IV SA@1645 [facility]PL[facility] Stop: 07/10/24 17:30 Lidocaine (Lidocaine 4 % Patch Adh..Patch) 1 patch TRANSDERMA DAILY [facility] Last Admin: 08/24/22 09:08 Dose: 1 patch Documented By: RHYS Magnesium Oxide (Magnesium Oxide 400 Mg Tablet) 400 mg PO DAILY [facility] Last Admin: 08/24/22 09:08 Dose: 400 mg Documented By: RHYS Megestrol Acetate (Megestrol Acetate 20 Mg Tablet) 20 mg PO DAILY [facility] Last Admin: 08/24/22 09:07 Dose: 20 mg Documented By: RHYS Melatonin (Melatonin 3 Mg Tablet) 6 mg PO BEDTIME PRN PRN Reason: Insomnia Last Admin: 08/10/22 02:13 Dose: 6 mg Documented By: FRANCISCO Melatonin (Melatonin 3 Mg Tablet) 9 mg PO BEDTIME REPLACED BY [facility] Last Admin: 08/23/22 20:23 Dose: 9 mg Documented By: MANJINDER Metoprolol Tartrate (Metoprolol Tartrate 25 Mg Tablet) 25 mg PO BID [facility]; Protocol Last Admin: 08/24/22 09:07 Dose: 25 mg Documented By: RHYS Morphine Sulfate (Morphine Sulfate 2 Mg/Ml Cartridge) 2 mg IVPUSH Q4H PRN; Protocol PRN Reason: moderate pain Multivitamins/Vitamin C (Multivitamin Tablet) 1 tab PO DAILY [facility] Last Admin: 08/24/22 09:08 Dose: 1 tab Documented By: RHYS Nitroglycerin (Nitroglycerin 0.4 Mg Tab.Subl) 0.4 mg SUBLINGUAL Q5M PRN PRN Reason: Angina Omeprazole (Omeprazole 20 Mg Capsule.Dr) 20 mg PO DAILY@0630 [facility] Last Admin: 08/24/22 06:15 Dose: 20 mg Documented By: MANJINDER Ondansetron HCl (Ondansetron Hcl 4 Mg/2 Ml Vial) 4 mg IVPUSH Q8H PRN PRN Reason: Nausea and Vomiting Last Admin: 08/15/22 13:39 Dose: 4 mg Documented By: ANGEL Oxycodone HCl (Oxycodone Hcl Immed Release 5 Mg Tablet) 5 mg PO Q4H PRN PRN Reason: moderate pain Last Admin: 08/24/22 09:08 Dose: 5 mg Documented By: RHYS Pharmacy Consult (Consult Rx Perform Med Rec) 1 each MISCELLANE ONCE PRN PRN Reason: Consult order Polyethylene Glycol (Polyethylene Glycol 3350 17 Gm Powd.Pack) 17 gm PO DAILY [facility] Last Admin: 08/24/22 09:15 Dose: Not Given Documented By: RHYS Non-Admin Reason: Patient Refused Senna (Sennosides 8.6 Mg Tablet) 17.2 mg PO BID REPLACED BY [facility] Last Admin: 08/24/22 09:07 Dose: 17.2 mg Documented By: RHYS Sevelamer Carbonate (Sevelamer Carbonate Tablet 800 Mg Tablet) 800 mg PO BIDWM REPLACED BY [facility] Last Admin: 08/24/22 09:07 Dose: 800 mg Documented By: RHYS Sodium Chloride (0.9 % Sodium Chloride Flush 3 Ml Syringe) 3 ml IVFLUSH QSHIFT REPLACED BY [facility] Last Admin: 08/24/22 09:09 Dose: Not Given Documented By: RHYS Non-Admin Reason: No Access Vitamin D (Cholecalciferol (Vitamin D3) 25 Mcg Tablet) 25 mcg PO DAILY [facility]PLAC[facility] Last Admin: 08/24/22 09:08 Dose: 25 mcg Documented By: RHYS Warfarin Sodium (Warfarin Sodium 0.5 Mg Halftab) 0.5 mg PO DAILY@1800 [facility]PLAC[facility] Last Admin: 08/22/22 18:01 Dose: Not Given Documented By: ANGEL Non-Admin Reason: Hold for procedure tomorrow Zinc Oxide (Zinc Oxide 20% Ointment 28.35 Gm Tube) 1 appl TOPICAL DAILY@0730 [facility]; Protocol Last Admin: 08/24/22 09:09 Dose: 1 appl Documented By: RHYS Labs CBC & Chem 7: 08/22/22 06:26 08/22/22 06:26 Assessment and Plan (1) End stage renal disease on dialysis: Status: Acute (2) MRSA bacteremia: Status: Acute Plan 81-year-old male coming from care home facility with pertinent history of end-stage renal disease on hemodialysis, prostate cancer with history of urostomy, mixed hyperlipidemia, essential hypertension, chronic obstructive pulmonary disease, permanent atrial fibrillation on Coumadin, congestive heart failure unknown ejection fraction, rheumatoid arthritis who was brought to the emergency department for evaluation of altered mentation. Severe sepsis present on admission and metabolic encephalopathy due to cellulitis and infected sacral decubitus ulcer complicated by MRSA bacteremia persistent bacteremia on vanco - changed to dapto plan for 4-6 weeks positive repeat cultures from 08/18/22, follow up 08/20/22 - so far negative No vegetation on echo Infectious Disease following Vascular surgery reported no concern over HD fistula ulcer area, no infx can be identified will need stephens for iv access due to ESRD. tenetaive for 08/26/22 sundowning related to bacteremia and prolonged hospital stay reorientation seroquel as needed COVID-19 infection asymptomatic end-stage renal disease hemodialysis via left upper extremity fistula TTS (does not appear infected) supratherapeutic INR now therapeutic Coumadin restarted and decreased from 1mg to 0.5mg permanent atrial fibrillation continue warfarin, metoprolol hyperlipidemia continue statin Stage IV sacral ulcer Wound team following, use Santyl for a week and debridement needed Pressure relief protocols DVT prophylaxis with Coumadin DNR/DNI reason for continued hospitalization: MRSA Bacteremia, safe discharge plan Quality Stroke Does the patient have a stroke diagnosis?: No VTE Prior VTE?: No VTE Risk Level:: Medical - moderate - high VTE Device Contraindication: Treatment Not Indicated VTE Drug Contraindication: Treatment Not Indicated
--- NOTE | 2022-08-24 14:41 | PM.PNNEP ---
Subjective Subjective Date of Service: 08/24/22 Interval history: Getting HD this AM. All recent data reviewed Physical Exam Vital Signs: Vital Signs: Last Vital Signs Temp 97.5 F 08/24/22 13:55 Pulse 112 H 08/24/22 13:55 Resp 18 08/24/22 13:55 BP 99/54 L 08/24/22 13:55 Pulse Ox 100 08/24/22 13:55 O2 Del Method 08/24/22 13:55 O2 Flow Rate 10 08/24/22 13:55 FiO2 100 08/13/22 19:43 BMI result Body Mass Index 27.5 Const: General: no acute distress Eyes: EOM: EOMs intact bilaterally Neck: Neck: Yes supple Resp: Auscultation: diminished lung sounds Cardio: Rate: regular rate GI: Palpation (GI): Soft to palpation Neuro: General: moves all extremities Objective Data Labs CBC & Chem 7: 08/22/22 06:26 08/22/22 06:26 Microbiology Microbiology Results: Microbiology 08/20/22 10:30 Blood - Venous Blood Culture - Preliminary No growth after 48 hours. 08/20/22 10:31 Blood - Venous Blood Culture - Preliminary No growth after 48 hours. 08/18/22 06:33 Blood - Venous Blood Culture - Final Methicillin Res Staph Aureus 08/18/22 06:33 Blood - Venous Blood Culture - Final Methicillin Res Staph Aureus 08/16/22 08:50 Blood - Venous Blood Culture - Final Methicillin Res Staph Aureus 08/16/22 08:50 Blood - Venous Blood Culture - Final Methicillin Res Staph Aureus 08/15/22 09:03 Blood - Venous Blood Culture - Final Methicillin Res Staph Aureus 08/15/22 09:03 Blood - Venous Blood Culture - Final Methicillin Res Staph Aureus 08/14/22 06:28 Blood - Venous Blood Culture - Final Methicillin Res Staph Aureus 08/14/22 06:28 Blood - Venous Blood Culture - Final Methicillin Res Staph Aureus 08/12/22 08:55 Blood - Venous Blood Culture - Final Methicillin Res Staph Aureus 08/12/22 08:55 Blood - Venous Blood Culture - Final Methicillin Res Staph Aureus 08/09/22 14:33 Blood - Venous Blood Culture - Final Methicillin Res Staph Aureus 08/09/22 14:33 Blood - Venous Blood Culture - Final Methicillin Res Staph Aureus Procedures Date of Service Date of Service: 08/24/22 Assessment & Plan Assessment and plan (1) End stage renal disease on dialysis: Status: Acute Assessment and Plan: Mr. Suman Park 81-year-old male with end-stage renal disease on hemodialysis TTS, prostate cancer with history of urostomy, mixed hyperlipidemia, essential hypertension, chronic obstructive pulmonary disease, permanent atrial fibrillation on Coumadin, congestive heart failure unknown ejection fraction, rheumatoid arthritis who presented with AMS. He was found to have severe sepsis due to cellulitis and infected decubitus ulcer with MRSA bacteremia. No Veg on echo 4-6 weeks IV Dapto to be done once blood culture negative Vascular seen for AVF; Getting HD AM ; No PICC line Please notify use of dispo, because antibiotics needs to be coordinate with his HD unit protect LUE AVF; TTS scheduled HD; EPO 20,000 u dosed on? 08/16 & 08/19 Time Spent With Patient Time: Total time spent is greater than 50% in coordination of care (as documented) at patient's floor/unit and/or counseling patient: Progress Note: Quality Stroke Does the patient have a stroke diagnosis?: No
[2022-08-24] MEDS: Melatonin 3 MG TABLET 9 MG PO (19:50)
[2022-08-25] MEDS: oxyCODONE HCl Immed Release 5 MG TABLET PO ×2 (02:36→21:39)
[2022-08-25] MEDS: Acetaminophen 325 MG TABLET 650 MG PO (02:36)
[2022-08-25 03:10] VITALS: BP 114/61; PULSE 94; RESP 19; TEMP 36.8; O2SAT 96
[2022-08-25 06:57] LABS: Hematocrit 25.8 % (42.0-52.0); Hemoglobin 8.1 g/dl (14.0-18.0); Mean Corpuscular HGB Conc 31.4 g/dl (31.0-36.0); Mean Corpuscular Hemoglobin 31.2 pg (27.0-33.0); Mean Corpuscular Volume 99.2 fL (80.0-98.0); Platelet Count 393 X10*3/uL (160-400); Red Cell Distribution Width 19.5 % (11.0-16.0); White Blood Count 9.1 X10*3/uL (4.8-10.8)
[2022-08-25 07:23] LABS: Anion Gap 15 (12-20); Blood Urea Nitrogen 13 mg/dL (9-16); Calcium 8.4 mg/dL (8.4-10.2); Carbon Dioxide 32 mmol/L (22-29); Chloride 98 mmol/L (96-108); Creatinine Clr Calc Pharmacy 21.5; Estimated Glomerular Filt Rate 19; Glucose Fasting 91 mg/dL (60-99); Potassium 3.9 mmol/L (3.3-5.1); Sodium 141 mmol/L (135-145)
[2022-08-25 07:24] VITALS: BP 128/58; PULSE 108; RESP 18; TEMP 36.3; O2SAT 95
[2022-08-25] MEDS: Zinc Oxide 20% Ointment 28.35 GM TUBE 1 APPL TOPICAL (09:37)
[2022-08-25] MEDS: Collagenase Clostridium Hist. 30 GM TUBE 1 APPL TOPICAL (09:37)
[2022-08-25] MEDS: guaiFENesin LA 600 MG TAB.ER.12H PO ×2 (09:38→20:07)
[2022-08-25] MEDS: Megestrol Acetate 20 MG TABLET PO (09:38)
[2022-08-25] MEDS: Magnesium Oxide 400 MG TABLET PO (09:38)
[2022-08-25] MEDS: Sevelamer Carbonate Tablet 800 MG TABLET PO ×2 (09:38→17:59)
[2022-08-25] MEDS: Cholecalciferol (Vitamin D3) 25 MCG TABLET PO (09:38)
[2022-08-25] MEDS: Sennosides 8.6 MG TABLET 17.2 MG PO (09:38)
[2022-08-25] MEDS: Cyanocobalamin (Vitamin B-12) 1,000 MCG TABLET 1000 MCG PO (09:38)
[2022-08-25] MEDS: Metoprolol Tartrate 25 MG TABLET PO (09:38)
[2022-08-25] MEDS: Multivitamin TABLET 1 TAB PO (09:38)
[2022-08-25] MEDS: Lidocaine 4 % Patch ADH..PATCH 1 PATCH TRANSDERMA (09:39)
--- NOTE | 2022-08-25 11:03 | HO.PM.IMPN ---
Subjective Subjective Date of Service: 08/25/22 Interval History: cc: ams interval history:no acute complaints Cardiovascular Cardiovascular: Reports no additional cardiovascular complaints Respiratory Respiratory: Reports no additional respiratory complaints Physical Exam Vital Signs: Vital Signs: Last Vital Signs Temp 97.3 F 08/25/22 07:24 Pulse 108 H 08/25/22 07:24 Resp 18 08/25/22 07:24 BP 128/58 L 08/25/22 07:24 Pulse Ox 95 08/25/22 07:24 O2 Del Method 08/25/22 07:24 O2 Flow Rate 10 08/24/22 13:55 FiO2 100 08/13/22 19:43 BMI result Body Mass Index 27.5 Const: General: no acute distress Eyes: EOM: EOMs intact bilaterally Neck: Neck: Yes supple Resp: Auscultation: diminished lung sounds Cardio: Rate: regular rate GI: Palpation (GI): Soft to palpation Neuro: General: moves all extremities Objective Data Active Medications Acetaminophen (Acetaminophen 325 Mg Tablet) 650 mg PO Q6H PRN PRN Reason: Pain, Mild (Pain Scale 1-3) Last Admin: 08/25/22 02:36 Dose: 650 mg Documented By: MANJINDER Bisacodyl (Bisacodyl 10 Mg Supp.Rect) 10 mg [place] DAILY PRN PRN Reason: Constipation Collagenase (Collagenase Clostridium Hist. 30 Gm Tube) 1 appl TOPICAL DAILY [facility]; Protocol Last Admin: 08/25/22 09:37 Dose: 1 appl Documented By: RHYS Cyanocobalamin (Cyanocobalamin (Vitamin B-12) 1,000 Mcg Tablet) 1,000 mcg PO DAILY [facility] Last Admin: 08/25/22 09:38 Dose: 1,000 mcg Documented By: RHYS Epoetin Domingo (Epoetin Domingo 20,000 Unit/Ml Vial) 20,000 unit SUBCUT ONCE [facility] Guaifenesin (Guaifenesin 100 Mg/5 Ml Liquid) 5 ml PO Q2H PRN PRN Reason: Cough Last Admin: 08/16/22 02:17 Dose: 5 ml Documented By: ERLINDA Guaifenesin (Guaifenesin La 600 Mg Tab.Er.12h) 600 mg PO BID [facility] Last Admin: 08/25/22 09:38 Dose: 600 mg Documented By: RHYS Daptomycin 800 mg/ Sodium (Chloride) 66 mls @ 100 mls/hr IV TUTH@1645 [facility] Stop: 08/05/23 17:25 Daptomycin 1,200 mg/ Sodium (Chloride) 74 mls @ 100 mls/hr IV SA@1645 [facility] Stop: 07/10/24 17:30 Last Infusion: 08/24/22 13:51 Dose: 0 mls/hr Documented By: RHYS Lidocaine (Lidocaine 4 % Patch Adh..Patch) 1 patch TRANSDERMA DAILY [facility] Last Admin: 08/25/22 09:39 Dose: 1 patch Documented By: RHYS Magnesium Oxide (Magnesium Oxide 400 Mg Tablet) 400 mg PO DAILY [facility] Last Admin: 08/25/22 09:38 Dose: 400 mg Documented By: RHYS Megestrol Acetate (Megestrol Acetate 20 Mg Tablet) 20 mg PO DAILY [facility] Last Admin: 08/25/22 09:38 Dose: 20 mg Documented By: RHYS Melatonin (Melatonin 3 Mg Tablet) 6 mg PO BEDTIME PRN PRN Reason: Insomnia Last Admin: 08/10/22 02:13 Dose: 6 mg Documented By: HEAVENLY-ANA Melatonin (Melatonin 3 Mg Tablet) 9 mg PO BEDTIME [facility] Last Admin: 08/24/22 19:50 Dose: 9 mg Documented By: MANJINDER Metoprolol Tartrate (Metoprolol Tartrate 25 Mg Tablet) 25 mg PO BID [facility]; Protocol Last Admin: 08/25/22 09:38 Dose: 25 mg Documented By: RHYS Morphine Sulfate (Morphine Sulfate 2 Mg/Ml Cartridge) 2 mg IVPUSH Q4H PRN; Protocol PRN Reason: moderate pain Multivitamins/Vitamin C (Multivitamin Tablet) 1 tab PO DAILY [facility] Last Admin: 08/25/22 09:38 Dose: 1 tab Documented By: RHYS Nitroglycerin (Nitroglycerin 0.4 Mg Tab.Subl) 0.4 mg SUBLINGUAL Q5M PRN PRN Reason: Angina Omeprazole (Omeprazole 20 Mg Capsule.Dr) 20 mg PO DAILY@0630 [facility] Last Admin: 08/25/22 06:01 Dose: Not Given Documented By: MANJINDER Non-Admin Reason: Patient Refused Ondansetron HCl (Ondansetron Hcl 4 Mg/2 Ml Vial) 4 mg IVPUSH Q8H PRN PRN Reason: Nausea and Vomiting Last Admin: 08/15/22 13:39 Dose: 4 mg Documented By: ANGEL Oxycodone HCl (Oxycodone Hcl Immed Release 5 Mg Tablet) 5 mg PO Q4H PRN PRN Reason: moderate pain Last Admin: 08/25/22 02:36 Dose: 5 mg Documented By: MANJINDER Pharmacy Consult (Consult Rx Perform Med Rec) 1 each MISCELLANE ONCE PRN PRN Reason: Consult order Polyethylene Glycol (Polyethylene Glycol 3350 17 Gm Powd.Pack) 17 gm PO DAILY [facility] Last Admin: 08/25/22 09:39 Dose: Not Given Documented By: RHYS Non-Admin Reason: Patient Refused Senna (Sennosides 8.6 Mg Tablet) 17.2 mg PO BID [facility] Last Admin: 08/25/22 09:38 Dose: 17.2 mg Documented By: RHYS Sevelamer Carbonate (Sevelamer Carbonate Tablet 800 Mg Tablet) 800 mg PO BIDWM [facility] Last Admin: 08/25/22 09:38 Dose: 800 mg Documented By: RHYS Sodium Chloride (0.9 % Sodium Chloride Flush 3 Ml Syringe) 3 ml IVFLUSH QSHIFT [facility] Last Admin: 08/25/22 09:38 Dose: Not Given Documented By: RHYS Non-Admin Reason: No Access Vitamin D (Cholecalciferol (Vitamin D3) 25 Mcg Tablet) 25 mcg PO DAILY [facility] Last Admin: 08/25/22 09:38 Dose: 25 mcg Documented By: RHYS Warfarin Sodium (Warfarin Sodium 0.5 Mg Halftab) 0.5 mg PO DAILY@1800 [facility] Last Admin: 08/22/22 18:01 Dose: Not Given Documented By: ANGEL Non-Admin Reason: Hold for procedure tomorrow Zinc Oxide (Zinc Oxide 20% Ointment 28.35 Gm Tube) 1 appl TOPICAL DAILY@0730 [facility]; Protocol Last Admin: 08/25/22 09:37 Dose: 1 appl Documented By: RHYS Labs CBC & Chem 7: 08/25/22 06:42 08/25/22 06:42 Labs: Laboratory Results - last 24 hr 08/25/22 08/25/22 06:42 06:42 MCV 99.2 H MCH 31.2 MCHC 31.4 RDW 19.5 H Plt Count 393 MPV 10.0 Absolute Nucleated RBC 0.000 Nucleated RBC % (auto) 0.0 Anion Gap 15 Estim Creat Clear Calc 21.5 Estimated GFR 19 Fasting Glucose 91 Calcium 8.4 Assessment and Plan (1) End stage renal disease on dialysis: Status: Acute (2) MRSA bacteremia: Status: Acute Plan 81-year-old male [facility] with pertinent history of end-stage renal disease on hemodialysis, prostate cancer with history of urostomy, mixed hyperlipidemia, essential hypertension, chronic obstructive pulmonary disease, permanent atrial fibrillation on Coumadin, congestive heart failure unknown ejection fraction, rheumatoid arthritis who was brought to the emergency department for evaluation of altered mentation. Severe sepsis present on admission and metabolic encephalopathy due to cellulitis and infected sacral decubitus ulcer complicated by MRSA bacteremia persistent bacteremia on vanco - changed to dapto plan for 4-6 weeks positive repeat cultures from 08/18/22, follow up 08/20/22 - so far negative No vegetation on echo Infectious Disease following Vascular surgery reported no concern over HD fistula ulcer area, no infx can be identified will need stephens for iv access due to ESRD. tentative for 08/26/22 sundowning related to bacteremia and prolonged hospital stay reorientation seroquel as needed COVID-19 infection asymptomatic end-stage renal disease hemodialysis via left upper extremity fistula TTS (does not appear infected) supratherapeutic INR now therapeutic Coumadin restarted and decreased from 1mg to 0.5mg permanent atrial fibrillation continue warfarin, metoprolol hyperlipidemia continue statin Stage IV sacral ulcer Wound team following, use Santyl for a week and debridement needed Pressure relief protocols DVT prophylaxis with Coumadin DNR/DNI reason for continued hospitalization: MRSA Bacteremia, safe discharge plan Quality Stroke Does the patient have a stroke diagnosis?: No VTE Prior VTE?: No VTE Risk Level:: Medical - moderate - high VTE Device Contraindication: Treatment Not Indicated VTE Drug Contraindication: Treatment Not Indicated
[2022-08-25 12:00] VITALS: BP 102/55; PULSE 60; RESP 16; TEMP 36.5; O2SAT 98
--- NOTE | 2022-08-25 14:42 | PM.PNNEP ---
Subjective Subjective Date of Service: 08/25/22 Interval history: All recent data reviewed. Events noted; Had HD yesterday Physical Exam Vital Signs: Vital Signs: Last Vital Signs Temp 97.7 F 08/25/22 12:00 Pulse 60 08/25/22 12:00 Resp 16 08/25/22 12:00 BP 102/55 L 08/25/22 12:00 Pulse Ox 98 08/25/22 12:00 O2 Del Method 08/25/22 12:00 O2 Flow Rate 10 08/24/22 13:55 FiO2 100 08/13/22 19:43 BMI result Body Mass Index 27.5 Const: General: no acute distress Eyes: EOM: EOMs intact bilaterally Neck: Neck: Yes supple Resp: Auscultation: diminished lung sounds Cardio: Rate: regular rate GI: Palpation (GI): Soft to palpation Neuro: General: moves all extremities Objective Data Labs CBC & Chem 7: 08/25/22 06:42 08/25/22 06:42 Labs: Laboratory Results - last 24 hr 08/25/22 08/25/22 06:42 06:42 WBC 9.1 RBC 2.60 L Hgb 8.1 L Hct 25.8 L MCV 99.2 H MCH 31.2 MCHC 31.4 RDW 19.5 H Plt Count 393 MPV 10.0 Absolute Nucleated RBC 0.000 Nucleated RBC % (auto) 0.0 Sodium 141 Potassium 3.9 Chloride 98 Carbon Dioxide 32 H Anion Gap 15 BUN 13 Creatinine 3.21 H Estim Creat Clear Calc 21.5 Estimated GFR 19 Fasting Glucose 91 Calcium 8.4 Microbiology Microbiology Results: Microbiology 08/20/22 10:30 Blood - Venous Blood Culture - Final No growth after 5 days. 08/20/22 10:31 Blood - Venous Blood Culture - Final No growth after 5 days. 08/18/22 06:33 Blood - Venous Blood Culture - Final Methicillin Res Staph Aureus 08/18/22 06:33 Blood - Venous Blood Culture - Final Methicillin Res Staph Aureus 08/16/22 08:50 Blood - Venous Blood Culture - Final Methicillin Res Staph Aureus 08/16/22 08:50 Blood - Venous Blood Culture - Final Methicillin Res Staph Aureus 08/15/22 09:03 Blood - Venous Blood Culture - Final Methicillin Res Staph Aureus 08/15/22 09:03 Blood - Venous Blood Culture - Final Methicillin Res Staph Aureus 08/14/22 06:28 Blood - Venous Blood Culture - Final Methicillin Res Staph Aureus 08/14/22 06:28 Blood - Venous Blood Culture - Final Methicillin Res Staph Aureus 08/12/22 08:55 Blood - Venous Blood Culture - Final Methicillin Res Staph Aureus 08/12/22 08:55 Blood - Venous Blood Culture - Final Methicillin Res Staph Aureus 08/09/22 14:33 Blood - Venous Blood Culture - Final Methicillin Res Staph Aureus 08/09/22 14:33 Blood - Venous Blood Culture - Final Methicillin Res Staph Aureus Procedures Date of Service Date of Service: 08/25/22 Assessment & Plan Assessment and plan (1) End stage renal disease on dialysis: Status: Acute Assessment and Plan: Mr. Suman Park 81-year-old male with end-stage renal disease on hemodialysis TTS, prostate cancer with history of urostomy, mixed hyperlipidemia, essential hypertension, chronic obstructive pulmonary disease, permanent atrial fibrillation on Coumadin, congestive heart failure unknown ejection fraction, rheumatoid arthritis who presented with AMS. He was found to have severe sepsis due to cellulitis and infected decubitus ulcer with MRSA bacteremia. No Veg on echo 4-6 weeks IV Dapto to be done once blood culture negative Vascular seen for AVF; Getting HD AM ; No PICC line Please notify use of dispo, because antibiotics needs to be coordinate with his HD unit protect LUE AVF; TTS scheduled HD; EPO 20,000 u dosed on? 08/16 & 08/19 Time Spent With Patient Time: Total time spent is greater than 50% in coordination of care (as documented) at patient's floor/unit and/or counseling patient: Progress Note: Quality Stroke Does the patient have a stroke diagnosis?: No
[2022-08-25 15:55] VITALS: BP 89/55; PULSE 90; RESP 16; TEMP 36.6; O2SAT 97
[2022-08-25 20:00] VITALS: BP 90/56; PULSE 109; RESP 18; TEMP 36.9; O2SAT 98
[2022-08-25] MEDS: Melatonin 3 MG TABLET 9 MG PO (20:07)
[2022-08-25] MEDS: 0.9 % Sodium Chloride Flush 3 ML SYRINGE IVFLUSH (20:08)
[2022-08-25 23:45] VITALS: BP 102/61; PULSE 100; RESP 18; TEMP 36.6; O2SAT 98
[2022-08-26 03:43] VITALS: BP 103/56; PULSE 107; RESP 18; TEMP 36.6; O2SAT 97
[2022-08-26] MEDS: Omeprazole 20 MG CAPSULE.DR PO (06:03)
[2022-08-26] MEDS: oxyCODONE HCl Immed Release 5 MG TABLET PO (06:04)
[2022-08-26 07:14] VITALS: BP 111/64; PULSE 100; RESP 17; TEMP 36.8; O2SAT 100
[2022-08-26 07:22] LABS: Hematocrit 24.7 % (42.0-52.0); Hemoglobin 7.7 g/dl (14.0-18.0); Mean Corpuscular HGB Conc 31.2 g/dl (31.0-36.0); Mean Corpuscular Hemoglobin 30.8 pg (27.0-33.0); Mean Corpuscular Volume 98.8 fL (80.0-98.0); Mean Platelet Volume 10.1 fL (9.4-12.4); Platelet Count 435 X10*3/uL (160-400); Red Cell Distribution Width 19.6 % (11.0-16.0); White Blood Count 8.8 X10*3/uL (4.8-10.8)
[2022-08-26 08:33] LABS: Anion Gap 14 (12-20); Blood Urea Nitrogen 22 mg/dL (9-16); Calcium 8.1 mg/dL (8.4-10.2); Carbon Dioxide 31 mmol/L (22-29); Chloride 98 mmol/L (96-108); Creatinine Clr Calc Pharmacy 14.9; Estimated Glomerular Filt Rate 12; Glucose Fasting 95 mg/dL (60-99); Potassium 4.3 mmol/L (3.3-5.1); Sodium 139 mmol/L (135-145)
--- NOTE | 2022-08-26 09:41 | PC.NURSE ---
patient going back to room 473 due to patient being positive for covid. was not told in report until patient was down in pre-op and had no iv access. iv obtained and then looked at morning labs and noticed patient was positive for for covid. called floor rn and told her the patient has to go back to his room.
[2022-08-26] MEDS: Megestrol Acetate 20 MG TABLET PO (10:11)
[2022-08-26] MEDS: Metoprolol Tartrate 25 MG TABLET PO (10:11)
[2022-08-26] MEDS: Cyanocobalamin (Vitamin B-12) 1,000 MCG TABLET 1000 MCG PO (10:12)
[2022-08-26] MEDS: Sennosides 8.6 MG TABLET 17.2 MG PO (10:12)
[2022-08-26] MEDS: Sevelamer Carbonate Tablet 800 MG TABLET PO ×2 (10:12→17:30)
[2022-08-26] MEDS: guaiFENesin LA 600 MG TAB.ER.12H PO ×2 (10:12→22:25)
[2022-08-26] MEDS: Cholecalciferol (Vitamin D3) 25 MCG TABLET PO (10:12)
[2022-08-26] MEDS: Magnesium Oxide 400 MG TABLET PO (10:12)
[2022-08-26] MEDS: Multivitamin TABLET 1 TAB PO (10:12)
[2022-08-26] MEDS: Collagenase Clostridium Hist. 30 GM TUBE 1 APPL TOPICAL (10:23)
[2022-08-26] MEDS: Zinc Oxide 20% Ointment 28.35 GM TUBE 1 APPL TOPICAL (10:24)
--- NOTE | 2022-08-26 11:28 | HO.PM.IMPN ---
Subjective Subjective Date of Service: 08/26/22 Interval History: cc: ams interval history:no acute complaints Cardiovascular Cardiovascular: Reports no additional cardiovascular complaints Respiratory Respiratory: Reports no additional respiratory complaints Physical Exam Vital Signs: Vital Signs: Last Vital Signs Temp 98.3 F 08/26/22 07:14 Pulse 100 08/26/22 07:14 Resp 17 08/26/22 07:14 BP 111/64 08/26/22 07:14 Pulse Ox 100 08/26/22 07:14 O2 Del Method 08/26/22 07:14 O2 Flow Rate 10 08/24/22 13:55 FiO2 100 08/13/22 19:43 BMI result Body Mass Index 27.5 Const: General: no acute distress Eyes: EOM: EOMs intact bilaterally Neck: Neck: Yes supple Resp: Auscultation: diminished lung sounds Cardio: Rate: regular rate GI: Palpation (GI): Soft to palpation Neuro: General: moves all extremities Objective Data Active Medications Acetaminophen (Acetaminophen 325 Mg Tablet) 650 mg PO Q6H PRN PRN Reason: Pain, Mild (Pain Scale 1-3) Last Admin: 08/25/22 02:36 Dose: 650 mg Documented By: MANJINDER Bisacodyl (Bisacodyl 10 Mg Supp.Rect) 10 mg [place] DAILY PRN PRN Reason: Constipation Collagenase (Collagenase Clostridium Hist. 30 Gm Tube) 1 appl TOPICAL DAILY [facility]; Protocol Last Admin: 08/26/22 10:23 Dose: 1 appl Documented By: LAWRENCE Cyanocobalamin (Cyanocobalamin (Vitamin B-12) 1,000 Mcg Tablet) 1,000 mcg PO DAILY [facility] Last Admin: 08/26/22 10:12 Dose: 1,000 mcg Documented By: LAWRENCE Epoetin Domingo (Epoetin Domingo 20,000 Unit/Ml Vial) 20,000 unit SUBCUT ONCE [facility] Guaifenesin (Guaifenesin 100 Mg/5 Ml Liquid) 5 ml PO Q2H PRN PRN Reason: Cough Last Admin: 08/16/22 02:17 Dose: 5 ml Documented By: ERLINDA Guaifenesin (Guaifenesin La 600 Mg Tab.Er.12h) 600 mg PO BID [facility] Last Admin: 08/26/22 10:12 Dose: 600 mg Documented By: HO.CTORRZ Daptomycin 800 mg/ Sodium (Chloride) 66 mls @ 100 mls/hr IV TUTH@1645 [facility] Stop: 08/05/23 17:25 Daptomycin 1,200 mg/ Sodium (Chloride) 74 mls @ 100 mls/hr IV SA@1645 [facility] Stop: 07/10/24 17:30 Last Infusion: 08/24/22 13:51 Dose: 0 mls/hr Documented By: RHYS Lidocaine (Lidocaine 4 % Patch Adh..Patch) 1 patch TRANSDERMA DAILY [facility] Last Admin: 08/26/22 10:23 Dose: Not Given Documented By: LAWRENCE Non-Admin Reason: Patient Refused Magnesium Oxide (Magnesium Oxide 400 Mg Tablet) 400 mg PO DAILY [facility] Last Admin: 08/26/22 10:12 Dose: 400 mg Documented By: LAWRENCE Megestrol Acetate (Megestrol Acetate 20 Mg Tablet) 20 mg PO DAILY [facility] Last Admin: 08/26/22 10:11 Dose: 20 mg Documented By: LAWRENCE Melatonin (Melatonin 3 Mg Tablet) 6 mg PO BEDTIME PRN PRN Reason: Insomnia Last Admin: 08/10/22 02:13 Dose: 6 mg Documented By: HEAVENLY-LITTA Melatonin (Melatonin 3 Mg Tablet) 9 mg PO BEDTIME [facility] Last Admin: 08/25/22 20:07 Dose: 9 mg Documented By: NATE Metoprolol Tartrate (Metoprolol Tartrate 25 Mg Tablet) 25 mg PO BID [facility]; Protocol Last Admin: 08/26/22 10:11 Dose: 25 mg Documented By: LAWRENCE Morphine Sulfate (Morphine Sulfate 2 Mg/Ml Cartridge) 2 mg IVPUSH Q4H PRN; Protocol PRN Reason: moderate pain Multivitamins/Vitamin C (Multivitamin Tablet) 1 tab PO DAILY [facility] Last Admin: 08/26/22 10:12 Dose: 1 tab Documented By: LAWRENCE Nitroglycerin (Nitroglycerin 0.4 Mg Tab.Subl) 0.4 mg SUBLINGUAL Q5M PRN PRN Reason: Angina Omeprazole (Omeprazole 20 Mg Capsule.Dr) 20 mg PO DAILY@0630 [facility] Last Admin: 08/26/22 06:03 Dose: 20 mg Documented By: NATE Ondansetron HCl (Ondansetron Hcl 4 Mg/2 Ml Vial) 4 mg IVPUSH Q8H PRN PRN Reason: Nausea and Vomiting Last Admin: 08/15/22 13:39 Dose: 4 mg Documented By: ANGEL Oxycodone HCl (Oxycodone Hcl Immed Release 5 Mg Tablet) 5 mg PO Q4H PRN PRN Reason: moderate pain Last Admin: 08/26/22 06:04 Dose: 5 mg Documented By: NATE Pharmacy Consult (Consult Rx Perform Med Rec) 1 each MISCELLANE ONCE PRN PRN Reason: Consult order Polyethylene Glycol (Polyethylene Glycol 3350 17 Gm Powd.Pack) 17 gm PO DAILY [facility] Last Admin: 08/26/22 10:26 Dose: Not Given Documented By: LAWRENCE Non-Admin Reason: NPO Senna (Sennosides 8.6 Mg Tablet) 17.2 mg PO BID [facility] Last Admin: 08/26/22 10:12 Dose: 17.2 mg Documented By: LAWRENCE Sevelamer Carbonate (Sevelamer Carbonate Tablet 800 Mg Tablet) 800 mg PO BIDWM [facility] Last Admin: 08/26/22 10:12 Dose: 800 mg Documented By: LAWRENCE Sodium Chloride (0.9 % Sodium Chloride Flush 3 Ml Syringe) 3 ml IVFLUSH QSHIFT [facility] Last Admin: 08/26/22 10:11 Dose: Not Given Documented By: LAWRENCE Non-Admin Reason: No Access Vitamin D (Cholecalciferol (Vitamin D3) 25 Mcg Tablet) 25 mcg PO DAILY [facility] Last Admin: 08/26/22 10:12 Dose: 25 mcg Documented By: LAWRENCE Warfarin Sodium (Warfarin Sodium 0.5 Mg Halftab) 0.5 mg PO DAILY@1800 [facility] Last Admin: 08/22/22 18:01 Dose: Not Given Documented By: ANGEL Non-Admin Reason: Hold for procedure tomorrow Zinc Oxide (Zinc Oxide 20% Ointment 28.35 Gm Tube) 1 appl TOPICAL DAILY@0730 [facility]; Protocol Last Admin: 08/26/22 10:24 Dose: 1 appl Documented By: LAWRENCE Labs CBC & Chem 7: 08/26/22 06:32 08/26/22 06:32 Labs: Laboratory Results - last 24 hr 08/26/22 08/26/22 06:32 06:32 MCV 98.8 H MCH 30.8 MCHC 31.2 RDW 19.6 H Plt Count 435 H MPV 10.1 Absolute Nucleated RBC 0.000 Nucleated RBC % (auto) 0.0 Anion Gap 14 Estim Creat Clear Calc 14.9 Estimated GFR 12 Fasting Glucose 95 Calcium 8.1 L Microbiology Microbiology Results: Microbiology 08/20/22 10:30 Blood Culture - Final Blood - Venous No growth after 5 days. 08/20/22 10:31 Blood Culture - Final Blood - Venous No growth after 5 days. Assessment and Plan (1) End stage renal disease on dialysis: Status: Acute (2) MRSA bacteremia: Status: Acute Plan 81-year-old male [facility] with pertinent history of end-stage renal disease on hemodialysis, prostate cancer with history of urostomy, mixed hyperlipidemia, essential hypertension, chronic obstructive pulmonary disease, permanent atrial fibrillation on Coumadin, congestive heart failure unknown ejection fraction, rheumatoid arthritis who was brought to the emergency department for evaluation of altered mentation. Severe sepsis present on admission and metabolic encephalopathy due to cellulitis and infected sacral decubitus ulcer complicated by MRSA bacteremia persistent bacteremia on vanco - changed to dapto plan for 4-6 weeks positive repeat cultures from 08/18/22, follow up 08/20/22 - so far negative No vegetation on echo Infectious Disease following Vascular surgery reported no concern over HD fistula ulcer area, no infx can be identified will need stephens for iv access due to ESRD. tentative for today, 08/26/22 sundowning related to bacteremia and prolonged hospital stay reorientation seroquel as needed COVID-19 infection asymptomatic end-stage renal disease hemodialysis via left upper extremity fistula TTS (does not appear infected) supratherapeutic INR now therapeutic Coumadin restarted and decreased from 1mg to 0.5mg permanent atrial fibrillation continue warfarin, metoprolol hyperlipidemia continue statin Stage IV sacral ulcer Wound team following, use Santyl for a week and debridement needed Pressure relief protocols DVT prophylaxis with Coumadin DNR/DNI reason for continued hospitalization: MRSA Bacteremia, safe discharge plan Quality Stroke Does the patient have a stroke diagnosis?: No VTE Prior VTE?: No VTE Risk Level:: Medical - moderate - high VTE Device Contraindication: Treatment Not Indicated VTE Drug Contraindication: Treatment Not Indicated
--- NOTE | 2022-08-26 11:42 | MHC.CM.PN ---
Per ROUNDS discussion, Patient will get a Yao today; NOREEN has informed [facility] of this fact. HD at [facility] will not administer IV Dapto and it was originally not the plan for Patient to get a PICC that the SNF could use to administer the IV Dapto.NOREEN is now asking Luis Martinez if Patient can be accepted to [facility], get HD there and get IV Dapto, via the Yao/in the SNF (NOT @ HD). NOREEN awaits response and will follow.
[2022-08-26] MEDS: Lidocaine HCl 1 % MPF 5 ML VIAL 10 ML SUBCUT (11:45)
--- NOTE | 2022-08-26 12:05 | HO.RADPN ---
RADIOLOGY Narrative Narrative: Left IJ 5 fr single lumen Proline catheter placed. Tip in Proximal SVC.
--- NOTE | 2022-08-26 12:45 | MHC.CLN ---
F/U PO INTAKE VARIABLE BETWEEN 0-100%; OCCASIONALLY REFUSES MEAL DIET RX: 2GM [id number] LIBERALIZE TO INCREASE VARIETY R/T ADVANCED AGE WILL RE-START ENSURE TID PROVIDES 1050KCALS, 60G PROTEIN FOR WOUND HEALING CONTINUE TO MONITOR PO INTAKE CLOSELY AND ENCOURAGE SUPPLEMENT
[2022-08-26 15:13] VITALS: BP 114/59; PULSE 108; RESP 19; TEMP 36.6; O2SAT 100
--- NOTE | 2022-08-26 15:32 | MHC.SLORD ---
Speech Language Pathology Order Status: Patient refusing to have head of bed raised to be assessed for swallow, reports that if it is moved he will be in extreme pain. Patient reporting that he has been eating lying down. DATASTAGE ARCHITECT will re-attempt tomorrow, hopefully coordinating with PT to get patient to seated position comfortably. Recommend patient receive no food or liquid if lying down due to aspiration risk.
[2022-08-26] MEDS: 0.9 % Sodium Chloride Flush 3 ML SYRINGE IVFLUSH ×2 (17:30→22:27)
[2022-08-26] MEDS: Morphine Sulfate 2 MG/ML CARTRIDGE IVPUSH ×2 (17:30→22:25)
[2022-08-26] MEDS: Warfarin Sodium 0.5 MG HALFTAB PO (17:30)
[2022-08-26 19:25] VITALS: BP 93/51; PULSE 92; RESP 19; TEMP 35.9; O2SAT 98
--- NOTE | 2022-08-26 19:57 | PC.NURSE ---
Pt refusing to be reposition , to sit up for meals, also refused todays lunch and dinner. aware
[2022-08-26 22:25] VITALS: RESP 18
[2022-08-26] MEDS: Melatonin 3 MG TABLET 9 MG PO (22:25)
[2022-08-27] VITALS (8 sets, daily range): BP systolic 56–98; BP diastolic 44–60; PULSE 58–96; RESP 16–18; TEMP 36–37.1; O2SAT 93–99
[2022-08-27 06:58] LABS: INTERNATIONAL NORM RATIO 2.1 (0.9-1.1); Prothrombin Time 24.9 SEC (10.0-13.1)
--- NOTE | 2022-08-27 09:39 | MHC.CM.PN ---
Per MD, Patient will be medically cleared for dc to SNF/LTC today. Patient will dc to [facility] today at 3PM, via [facility]. NOREEN spoke with Son/HCP/Graeme @ [phone] and addressed IMM with him(original will be mailed certified letter to Graeme and a copy has been placed on the chart).rGaeme is aware of and in agreement with the dc plan.
--- NOTE | 2022-08-27 11:11 | MHC.CM.PN ---
CM met with Patient at bedside, while he was in HD and he is in agreement with the [place] plan to go to [facility] today at 3PM.
--- NOTE | 2022-08-27 13:19 | P.DS_ITS ---
DS: Providers Provider Date of Service: 08/27/22 Date of admission: 08/09/22 22:01 Primary care physician: Brayden Dickey MD Consults: 08/09/22 22:06 Consult to Wound Care Routine Consulting Provider: [facility] [place] Wound Care Management Reason for consultation: sacral decub 08/09/22 22:07 Consult to Nephrology Routine Consulting Provider: Isaak Guerrero Reason for consultation: ESRD on HD 08/10/22 14:38 Consult to General Surgery Routine Consulting Provider: Yancy Olivo Reason for consultation: lumbar wound 08/12/22 09:48 Consult to Infectious Diseases Routine Consulting Provider: Marion Murray Reason for consultation: MRSA bacteremia, sacral wound 08/17/22 10:30 Consult to Infectious Diseases Routine Consulting Provider: aMrion Murray Reason for consultation: NEW DAPTO ORDER 08/17/22 12:32 Consult to Vascular Surgery Routine Consulting Provider: Bill Garcia Reason for consultation: fistula site ulcer for eval and rec. DS: Diagnosis Discharge Diagnosis (1) End stage renal disease on dialysis: Status: Acute (2) MRSA bacteremia: Status: Acute DS: Summary Hospital Course Hospital Course: from initial hpi: This is a 81-year-old male coming from [facility] with pertinent history of end-stage renal disease on hemodialysis, prostate cancer with history of urostomy, mixed hyperlipidemia, essential hypertension, chronic obstructive pulmonary disease, permanent atrial fibrillation on Coumadin, congestive heart failure unknown ejection fraction, rheumatoid arthritis who was brought to the emergency department for evaluation of altered mentation.? As per the family, patient has been altered for the last few days.? He gets altered every time he gets infected as per the son.? Patient was found to be febrile and sent to the ER for further evaluation.? Son stated that patient was intermittently confused over the last few days and did not know where he was.? He was also weak and could not participate and physical therapy.? Patient is drowsy at the time of my evaluation but easily awakens to verbal stimulus.? He is oriented to self and person but disoriented to place and time. In the emergency department, patient was found to be septic.? His sacral decubitus wound was erythematous and with purulent drainage. hospital course: Patient was admitted for severe sepsis and metabolic encephalopathy due to cellulitis and infected sacral decubitus ulcer complicated by MRSA bacteremia. Patient had persistent bacteremia while on vancomycin so was transitioned to daptomycin and cultures became negative on 08/20/2022. He had no vegetation on echocardiogram. He was seen by infectious disease recommended 6 weeks of IV antibiotics to be completed 09/30/2022 He has a Yao catheter for access. his CPK should be monitored. course was complicated by sundowning which is likely related to his medical condition mentioned previously, at time of discharge he is at his baseline. Patient noted to have COVID-19 infection which was asymptomatic. For his end-stage renal disease he received hemodialysis through his left upper extremity fistula. patient's INR was noted to be supratherapeutic his Coumadin has been decreased to 0.5 mg daily. For his permanent atrial fibrillation is continue on metoprolol and Coumadin. For hyperlipidemia is continue on statin. For stage IV sacral ulcer he was seen by wound team recommended local care with Santyl and pressure relief. Patient will be discharged [facility] facility. Time Spent with Patient Time attestation: Total time spent providing and/or coordinating discharge services: Discharge coordination time: Greater than 30 minutes Quality: Safe Use of Opioids Does Pt have an Active Cancer Diagnosis on the Problem List?: No Quality: Stroke Does the patient have a stroke diagnosis?: No Physical Exam Vital Signs: Vital Signs: Last Vital Signs Temp 97.9 F 08/27/22 07:18 Pulse 96 08/27/22 07:18 Resp 18 08/27/22 07:18 BP 98/46 L 08/27/22 07:18 Pulse Ox 93 08/27/22 07:18 O2 Del Method 08/27/22 07:18 O2 Flow Rate 10 08/24/22 13:55 FiO2 100 08/13/22 19:43 BMI result Body Mass Index 27.5 Const: General: no acute distress Eyes: EOM: EOMs intact bilaterally Neck: Neck: Yes supple Resp: Auscultation: diminished lung sounds Cardio: Rate: regular rate GI: Palpation (GI): Soft to palpation Neuro: General: moves all extremities DS: Data Data Completed and Pending Labs on day of discharge: Laboratory Results - last 24 hr 08/27/22 06:28 PT 24.9 H INR 2.1 H Discharge Plan Discharge Anticipated Discharge Date/Time: 08/27/22 13:12 Patient Disposition: Xfer SNF Discharge Diagnosis: mrsa bacteremia, sacral pressure ulcer Referrals: [facility] [Outside] - 1 Week Brayden Dickey MD [Primary Care Provider] - 1 Week Discharge Medications: New Santyl 250 unit/gram Ointment 1 appl topical DAILY Qty: 0 0RF Protocol: Apply to: Apply to: sacral/back wound thick layer to wound daily and cover dsd - warfarin 1 mg Tablet 0.5 mg PO DAILY@1800 Qty: 0 0RF daptomycin 500 mg Recon Soln 1,200 mg IV SA@1645 Qty: 0 0RF daptomycin 500 mg Recon Soln 800 mg IV TUTH@1645 Qty: 0 0RF zinc oxide 20 % Ointment 1 appl topical DAILY@0730 Qty: 0 0RF Protocol: Apply to: Apply to: sacral and hip skin areas and surrounding back open wound. Continued midodrine 5 mg Tablet 5 mg PO TID PRN (Reason: Hypotension) Rx Instructions: do not give last dose of day after 6PM or within 4 hrs of bedtime; for systolic BP <100 acetaminophen 500 mg Tablet 1,000 mg PO Q8H PRN (Reason: Pain) guaifenesin 100 mg/5 mL Liquid 200 mg PO Q2H PRN (Reason: Cough) bisacodyl 10 mg Suppository 10 mg IA DAILY PRN (Reason: Constipation) lidocaine 5 % Adhesive Patch,Medicated 1 patch TOPICAL DAILY Rx Instructions: leave on most painful area for up to 12 hrs gabapentin 100 mg capsule 1 cap PO TID metoprolol tartrate 25 mg Tablet 12.5 mg PO BID cholecalciferol (vitamin D3) 25 mcg (1,000 unit) Tablet 25 mcg PO DAILY melatonin 5 mg Tablet 10 mg PO BEDTIME sennosides [senna] 8.6 mg Tablet 17.2 mg PO BID polyethylene glycol 3350 [Miralax] 17 gram Powder In Packet 17 g PO DAILY nitroglycerin 0.4 mg Tablet, Sublingual 0.4 mg SUBLINGUAL Q5M PRN (Reason: Angina) Rx Instructions: do not exceed 3 doses per episode B complex with C 20-folic acid 1 mg Capsule 1 cap PO DAILY sevelamer carbonate 800 mg Tablet 800 mg PO BIDWM Rx Instructions: must administer with a meal/food guaifenesin [Mucinex] 600 mg Tablet Extended Release 12hr 600 mg PO BID trazodone 100 mg tablet 150 mg PO BEDTIME megestrol 20 mg tablet 20 mg PO DAILY Humira Pen 40 mg/0.8 mL pen injector kit 40 mg subcut SA magnesium oxide 400 mg (241.3 mg magnesium) tablet 400 mg PO DAILY gabapentin 100 mg capsule 200 mg PO BEDTIME atorvastatin 40 mg tablet 40 mg PO BEDTIME omeprazole 20 mg capsule,delayed release(DR/EC) 20 mg PO DAILY@0630 cyanocobalamin (vitamin B-12) 1,000 mcg capsule 1,000 mcg PO DAILY Discontinued warfarin 1 mg tablet 1 mg PO DAILY@1800 Discharge Orders: Discharge Order (Routine); Ordered 08/27/22 Ordered By: Taiwo Martinez Diet: Advance to usual diet Activity on Discharge: As tolerated Stand Alone Forms: Patient Portal Discharge page Care Plan Goals: recovery Health Concerns: mrsa bacteremia Plan of Treatment: dapto until 09/30/22, weekly labs including cpk Assessment: see above
--- NOTE | 2022-08-27 14:34 | MHC.CM.PN ---
Per RN's request, CM met with Patient and his at bedside to discuss dc planning. Patient's expressed concerns about Patient returning to [facility]. Per Patient's request, CM connected Patient with his Son/Graeme via Patient's cell phone and Patient is again in agreement to go to [facility]. Patient relayed to his that he will be returning to [facility] to, give it another try. CM has reached out to [facility] Yvette/Aicha, requesting that their DON or someone from their facility meet with Patient and his soon after his arrival there today to discuss concerns from Patient's last/recent stay there. CM informed Patient and his of his right to appeal the dc; Patient did not wish to appeal, not did Son/Graeme yesterday.
--- NOTE | 2022-08-27 14:42 | PM.PNNEP ---
Subjective Subjective Date of Service: 08/27/22 Principal diagnosis: ESRD Interval history: Seen and examined, events noted Physical Exam Vital Signs: Vital Signs: Last Vital Signs Temp 97.9 F 08/27/22 07:18 Pulse 96 08/27/22 07:18 Resp 18 08/27/22 07:18 BP 98/46 L 08/27/22 07:18 Pulse Ox 93 08/27/22 07:18 O2 Del Method 08/27/22 07:18 O2 Flow Rate 10 08/24/22 13:55 FiO2 100 08/13/22 19:43 BMI result Body Mass Index 27.5 Const: Other: Constitutional : Alert, oriented, not in distress Neck : Normal inspection, Supple, LUE fistula Cardiovascular : RRR, no JVP, no lower extremity edema Respiratory : fair bilateral air entry, no crackles, wheezes or rhonchi Gastrointestinal: soft, lax, Normal bowel sounds, Non tender Skin : Warm, Dry, stage IV sacral wound Neurological : Alert & oriented x3, No focal deficit , CN 2-12 within normal General: no acute distress Eyes: EOM: EOMs intact bilaterally Neck: Neck: Yes supple Resp: Other: Lungs clear to auscultations bilaterally Auscultation: diminished lung sounds Cardio: Other: normal rate and rhythm Rate: regular rate GI: Other: abd is soft non-tender, no rebound or guarding Palpation (GI): Soft to palpation Skin: Other: Patient states that he cannot moved to the side for me to examine his back Neuro: General: moves all extremities Extrem: Other: No lower extremity edema Objective Data Labs CBC & Chem 7: 08/26/22 06:32 08/26/22 06:32 Labs: Laboratory Results - last 24 hr 08/27/22 06:28 PT 24.9 H INR 2.1 H Microbiology Microbiology Results: Microbiology 08/20/22 10:30 Blood - Venous Blood Culture - Final No growth after 5 days. 08/20/22 10:31 Blood - Venous Blood Culture - Final No growth after 5 days. 08/18/22 06:33 Blood - Venous Blood Culture - Final Methicillin Res Staph Aureus 08/18/22 06:33 Blood - Venous Blood Culture - Final Methicillin Res Staph Aureus 08/16/22 08:50 Blood - Venous Blood Culture - Final Methicillin Res Staph Aureus 08/16/22 08:50 Blood - Venous Blood Culture - Final Methicillin Res Staph Aureus 08/15/22 09:03 Blood - Venous Blood Culture - Final Methicillin Res Staph Aureus 08/15/22 09:03 Blood - Venous Blood Culture - Final Methicillin Res Staph Aureus 08/14/22 06:28 Blood - Venous Blood Culture - Final Methicillin Res Staph Aureus 08/14/22 06:28 Blood - Venous Blood Culture - Final Methicillin Res Staph Aureus 08/12/22 08:55 Blood - Venous Blood Culture - Final Methicillin Res Staph Aureus 08/12/22 08:55 Blood - Venous Blood Culture - Final Methicillin Res Staph Aureus 08/09/22 14:33 Blood - Venous Blood Culture - Final Methicillin Res Staph Aureus 08/09/22 14:33 Blood - Venous Blood Culture - Final Methicillin Res Staph Aureus Procedures Date of Service Date of Service: 08/27/22 Assessment & Plan Assessment and plan (1) End stage renal disease on dialysis: Status: Acute Assessment and Plan: Mr. Suman Park 81-year-old male with end-stage renal disease on hemodialysis TTS, prostate cancer with history of urostomy, mixed hyperlipidemia, essential hypertension, chronic obstructive pulmonary disease, permanent atrial fibrillation on Coumadin, congestive heart failure unknown ejection fraction, rheumatoid arthritis who presented with AMS. He was found to have severe sepsis due to cellulitis and infected decubitus ulcer with MRSA bacteremia. No Veg on echo 1. ESRD: TTS 2. MRSA bact: on Dapto 3. AMS: improved 4. Anemia: cont epo 5. MBD REC: cont HD TTS; epo as oredered; Abx as per ID Time Spent With Patient Time: Total time spent is greater than 50% in coordination of care (as documented) at patient's floor/unit and/or counseling patient: Progress Note: Quality Stroke Does the patient have a stroke diagnosis?: No
--- NOTE | 2022-08-27 14:49 | MHC.CM.PN ---
CM met with Patient and his at bedside and addressed IMM with them. Patient signed IMM and the original was given to him and a copy has been placed on the chart. Patient will be discussing his concerns with [facility] when he arrives and his will be visiting Patient tomorrow to do the same. CM did hear back from [facility] Liaison/Aicha, who confirmed that it CAN be arranged for someone to meet with Patient to discuss his concerns from his last stay there.CM will follow further as needed.
--- NOTE | 2022-08-27 15:30 | P.PNIM_ITS ---
Subjective Subjective Date of Service: 08/27/22 Interval History: cc: ams interval history:no acute complaints Cardiovascular Cardiovascular: Reports no additional cardiovascular complaints Respiratory Respiratory: Reports no additional respiratory complaints Physical Exam Vital Signs: Vital Signs: Last Vital Signs Temp 96.8 F 08/27/22 15:24 Pulse 58 08/27/22 15:24 Resp 16 08/27/22 15:24 BP 56/48 L 08/27/22 15:24 Pulse Ox 94 08/27/22 15:24 O2 Del Method 08/27/22 15:24 O2 Flow Rate 10 08/24/22 13:55 FiO2 100 08/13/22 19:43 BMI result Body Mass Index 27.5 Const: Other: Constitutional : Alert, oriented, not in distress Neck : Normal inspection, Supple, LUE fistula Cardiovascular : RRR, no JVP, no lower extremity edema Respiratory : fair bilateral air entry, no crackles, wheezes or rhonchi Gastrointestinal: soft, lax, Normal bowel sounds, Non tender Skin : Warm, Dry, stage IV sacral wound Neurological : Alert & oriented x3, No focal deficit , CN 2-12 within normal General: no acute distress Eyes: EOM: EOMs intact bilaterally Neck: Neck: Yes supple Resp: Other: Lungs clear to auscultations bilaterally Auscultation: diminished lung sounds Cardio: Other: normal rate and rhythm Rate: regular rate GI: Other: abd is soft non-tender, no rebound or guarding Palpation (GI): Soft to palpation Skin: Other: Patient states that he cannot moved to the side for me to examine his back Neuro: General: moves all extremities Extrem: Other: No lower extremity edema Objective Data Active Medications Acetaminophen (Acetaminophen 325 Mg Tablet) 650 mg PO Q6H PRN PRN Reason: Pain, Mild (Pain Scale 1-3) Last Admin: 08/25/22 02:36 Dose: 650 mg Documented By: MANJINDER Bisacodyl (Bisacodyl 10 Mg Supp.Rect) 10 mg OR DAILY PRN PRN Reason: Constipation Collagenase (Collagenase Clostridium Hist. 30 Gm Tube) 1 appl TOPICAL DAILY NORA; Protocol Last Admin: 08/27/22 10:38 Dose: Not Given Documented By: RENUKA Non-Admin Reason: Off unit: Dialysis Cyanocobalamin (Cyanocobalamin (Vitamin B-12) 1,000 Mcg Tablet) 1,000 mcg PO DAILY [facility] Last Admin: 08/27/22 10:38 Dose: Not Given Documented By: RENUKA Non-Admin Reason: Off unit: Dialysis Epoetin Domingo (Epoetin Domingo 20,000 Unit/Ml Vial) 20,000 unit SUBCUT ONCE [facility] Guaifenesin (Guaifenesin 100 Mg/5 Ml Liquid) 5 ml PO Q2H PRN PRN Reason: Cough Last Admin: 08/16/22 02:17 Dose: 5 ml Documented By: ERLINDA Guaifenesin (Guaifenesin La 600 Mg Tab.Er.12h) 600 mg PO BID [facility] Last Admin: 08/27/22 10:38 Dose: Not Given Documented By: RENUKA Non-Admin Reason: Off unit: Dialysis Daptomycin 800 mg/ Sodium (Chloride) 66 mls @ 100 mls/hr IV TUTH@1645 [facility] Stop: 08/05/23 17:25 Daptomycin 1,200 mg/ Sodium (Chloride) 74 mls @ 100 mls/hr IV SA@1645 [facility] Stop: 07/10/24 17:30 Last Infusion: 08/24/22 13:51 Dose: 0 mls/hr Documented By: RHYS Sodium Chloride (Ns) 1,000 mls @ 999 mls/hr IV .Q1H1M [facility] Stop: 08/27/22 16:30 Lidocaine (Lidocaine 4 % Patch Adh..Patch) 1 patch TRANSDERMA DAILY [facility] Last Admin: 08/27/22 10:38 Dose: Not Given Documented By: RENUKA Non-Admin Reason: Off unit: Dialysis Magnesium Oxide (Magnesium Oxide 400 Mg Tablet) 400 mg PO DAILY [facility] Last Admin: 08/27/22 10:39 Dose: Not Given Documented By: RENUKA Non-Admin Reason: Off unit: Dialysis Megestrol Acetate (Megestrol Acetate 20 Mg Tablet) 20 mg PO DAILY [facility] Last Admin: 08/27/22 10:39 Dose: Not Given Documented By: RENUKA Non-Admin Reason: Off unit: Dialysis Melatonin (Melatonin 3 Mg Tablet) 6 mg PO BEDTIME PRN PRN Reason: Insomnia Last Admin: 08/10/22 02:13 Dose: 6 mg Documented By: HEAVENLY-ANA Melatonin (Melatonin 3 Mg Tablet) 9 mg PO BEDTIME [facility] Last Admin: 08/26/22 22:25 Dose: 9 mg Documented By: NATE Metoprolol Tartrate (Metoprolol Tartrate 25 Mg Tablet) 25 mg PO BID [facility]; Protocol Last Admin: 08/27/22 10:39 Dose: Not Given Documented By: RENUKA Non-Admin Reason: Off unit: Dialysis Morphine Sulfate (Morphine Sulfate 2 Mg/Ml Cartridge) 2 mg IVPUSH Q4H PRN; Protocol PRN Reason: moderate pain Last Admin: 08/26/22 22:25 Dose: 2 mg Documented By: NATE Multivitamins/Vitamin C (Multivitamin Tablet) 1 tab PO DAILY [facility] Last Admin: 08/27/22 10:39 Dose: Not Given Documented By: RENUKA Non-Admin Reason: Off unit: Dialysis Nitroglycerin (Nitroglycerin 0.4 Mg Tab.Subl) 0.4 mg SUBLINGUAL Q5M PRN PRN Reason: Angina Omeprazole (Omeprazole 20 Mg Capsule.Dr) 20 mg PO DAILY@0630 [facility] Last Admin: 08/27/22 06:16 Dose: Not Given Documented By: NATE Non-Admin Reason: Patient Refused Ondansetron HCl (Ondansetron Hcl 4 Mg/2 Ml Vial) 4 mg IVPUSH Q8H PRN PRN Reason: Nausea and Vomiting Last Admin: 08/15/22 13:39 Dose: 4 mg Documented By: ANGEL Oxycodone HCl (Oxycodone Hcl Immed Release 5 Mg Tablet) 5 mg PO Q4H PRN PRN Reason: moderate pain Last Admin: 08/26/22 06:04 Dose: 5 mg Documented By: NATE Pharmacy Consult (Consult Rx Perform Med Rec) 1 each MISCELLANE ONCE PRN PRN Reason: Consult order Polyethylene Glycol (Polyethylene Glycol 3350 17 Gm Powd.Pack) 17 gm PO DAILY [facility] Last Admin: 08/27/22 10:39 Dose: Not Given Documented By: RENUKA Non-Admin Reason: Off unit: Dialysis Senna (Sennosides 8.6 Mg Tablet) 17.2 mg PO BID [facility] Last Admin: 08/27/22 10:39 Dose: Not Given Documented By: RENUKA Non-Admin Reason: Off unit: Dialysis Sevelamer Carbonate (Sevelamer Carbonate Tablet 800 Mg Tablet) 800 mg PO BIDWM [facility] Last Admin: 08/27/22 10:38 Dose: Not Given Documented By: RENUKA Non-Admin Reason: Off unit: Dialysis Sodium Chloride (0.9 % Sodium Chloride Flush 3 Ml Syringe) 3 ml IVFLUSH QSHIFT [facility] Last Admin: 08/27/22 10:38 Dose: Not Given Documented By: RENUKA Non-Admin Reason: Off unit: Dialysis Vitamin D (Cholecalciferol (Vitamin D3) 25 Mcg Tablet) 25 mcg PO DAILY [facility] Last Admin: 08/27/22 10:38 Dose: Not Given Documented By: RENUKA Non-Admin Reason: Off unit: Dialysis Warfarin Sodium (Warfarin Sodium 0.5 Mg Halftab) 0.5 mg PO DAILY@1800 [facility] Last Admin: 08/26/22 17:30 Dose: 0.5 mg Documented By: LAWRENCE Zinc Oxide (Zinc Oxide 20% Ointment 28.35 Gm Tube) 1 appl TOPICAL DAILY@0730 [facility]; Protocol Last Admin: 08/27/22 10:38 Dose: Not Given Documented By: RENUKA Non-Admin Reason: Off unit: Dialysis Labs CBC & Chem 7: 08/26/22 06:32 08/26/22 06:32 Labs: Laboratory Results - last 24 hr 08/27/22 06:28 PT 24.9 H INR 2.1 H Assessment and Plan (1) End stage renal disease on dialysis: Status: Acute (2) MRSA bacteremia: Status: Acute Plan 81-year-old male coming from assisted facility with pertinent history of end-stage renal disease on hemodialysis, prostate cancer with history of urostomy, mixed hyperlipidemia, essential hypertension, chronic obstructive pulmonary disease, permanent atrial fibrillation on Coumadin, congestive heart failure unknown ejection fraction, rheumatoid arthritis who was brought to the emergency department for evaluation of altered mentation. was about to discharge 08/27/22 to SNF but was hypotensives to 60s, asymptomatic hypotension not due to sepsis likely due to volume shifts during HD will hold off on discharge, give 1L NS, midodrine, monitor Severe sepsis present on admission and metabolic encephalopathy due to cellulitis and infected sacral decubitus ulcer complicated by MRSA bacteremia persistent bacteremia on vanco - changed to dapto plan for 4-6 weeks positive repeat cultures from 08/18/22, negative from 08/20/22, end date 09/30/22 No vegetation on echo Infectious Disease following Vascular surgery reported no concern over HD fistula ulcer area, no infx can be identified s/p stephens, sundowning related to bacteremia and prolonged hospital stay reorientation seroquel as needed COVID-19 infection asymptomatic end-stage renal disease hemodialysis via left upper extremity fistula TTS (does not appear infected) supratherapeutic INR now therapeutic Coumadin restarted and decreased from 1mg to 0.5mg permanent atrial fibrillation continue warfarin, metoprolol hyperlipidemia continue statin Stage IV sacral ulcer Wound team following, use Santyl for a week and debridement needed Pressure relief protocols DVT prophylaxis with Coumadin DNR/DNI reason for continued hospitalization: hypotension Quality Stroke Does the patient have a stroke diagnosis?: No VTE Prior VTE?: No VTE Risk Level:: Medical - moderate - high VTE Device Contraindication: Treatment Not Indicated VTE Drug Contraindication: Treatment Not Indicated
--- NOTE | 2022-08-27 15:34 | MHC.CM.PN ---
Per RN, Patient's BP dropped to 60's; Patient's scheduled dc for today has been canceled.Transportation and [facility] has been notified of the change.
[2022-08-27] MEDS: 0.9 % Sodium Chloride 1,000 ML 999 ML IV (15:35)
--- NOTE | 2022-08-27 15:55 | PC.NURSE ---
Pt was set to transfer to [facility], but when we took vitals before transfer, systolic BP was down in the 60s. Radial pulses were minimally palpable so a rapid response was called. Dr. Martinez responded, rapid response was cancelled as the patient was asymptomatic. A 1000 ml bolus and 5 mg of midodrine po were ordered.15 minutes after the start of the bolus, manual BP is 72/46. will continue to monitor pt.
[2022-08-27] MEDS: Midodrine HCl 5 MG TABLET PO (16:11)
[2022-08-27] MEDS: DAPTOmycin 800 MG in 0.9 % Sodium Chloride 50 ML 100 MG IV (17:47)
[2022-08-27] MEDS: Warfarin Sodium 0.5 MG HALFTAB PO (17:48)
--- NOTE | 2022-08-27 17:57 | MHC.SLORD ---
Speech Language Pathology Order Status: Could not assess patient as patient c/o too painful to sit up in bed. After chart review, noted that patient was discharged from physical therapy for not following directions, unable to arrange co-treatment for positioning. [employer] TUTOR impression is that difficulty swallowing is due to patient attempting to eat while lying in bed, and having coughing/choking episodes (per nursing and 's report). Continue to recommend Patient have head of bed at least 60 degrees for eating/drinking. H[employer] STUDIES TUTOR will d/c eval as issue is related to appropriate positioning for eating.
[2022-08-27] MEDS: Sevelamer Carbonate Tablet 800 MG TABLET PO (18:32)
[2022-08-27] MEDS: Sennosides 8.6 MG TABLET 17.2 MG PO (20:25)
[2022-08-27] MEDS: Metoprolol Tartrate 25 MG TABLET PO (20:25)
[2022-08-27] MEDS: guaiFENesin LA 600 MG TAB.ER.12H PO (20:25)
[2022-08-27] MEDS: Melatonin 3 MG TABLET 9 MG PO (20:25)
[2022-08-27] MEDS: 0.9 % Sodium Chloride Flush 3 ML SYRINGE IVFLUSH (23:42)
[2022-08-28 03:29] VITALS: BP 88/53; PULSE 84; RESP 18; TEMP 37; O2SAT 98
[2022-08-28] MEDS: Omeprazole 20 MG CAPSULE.DR PO (05:40)
[2022-08-28 06:27] LABS: INTERNATIONAL NORM RATIO 2.2 (0.9-1.1); Prothrombin Time 26.2 SEC (10.0-13.1)
[2022-08-28 07:58] VITALS: BP 137/59; PULSE 89; RESP 16; TEMP 37.1; O2SAT 99
[2022-08-28] MEDS: Sevelamer Carbonate Tablet 800 MG TABLET PO (08:15)
[2022-08-28] MEDS: Cyanocobalamin (Vitamin B-12) 1,000 MCG TABLET 1000 MCG PO (08:15)
[2022-08-28] MEDS: guaiFENesin LA 600 MG TAB.ER.12H PO (08:15)
[2022-08-28] MEDS: Cholecalciferol (Vitamin D3) 25 MCG TABLET PO (08:15)
[2022-08-28] MEDS: Sennosides 8.6 MG TABLET 17.2 MG PO (08:15)
[2022-08-28] MEDS: Multivitamin TABLET 1 TAB PO (08:15)
[2022-08-28] MEDS: Magnesium Oxide 400 MG TABLET PO (08:15)
[2022-08-28] MEDS: polyethylene glycoL 3350 17 GM POWD.PACK PO (08:15)
[2022-08-28] MEDS: Megestrol Acetate 20 MG TABLET PO (08:15)
[2022-08-28] MEDS: Collagenase Clostridium Hist. 30 GM TUBE 1 APPL TOPICAL (08:16)
[2022-08-28] MEDS: Midodrine HCl 5 MG TABLET PO ×2 (08:16→13:17)
[2022-08-28] MEDS: 0.9 % Sodium Chloride Flush 3 ML SYRINGE IVFLUSH (08:16)
[2022-08-28] MEDS: Zinc Oxide 20% Ointment 28.35 GM TUBE 1 APPL TOPICAL (08:16)
[2022-08-28] MEDS: oxyCODONE HCl Immed Release 5 MG TABLET PO (08:25)
[2022-08-28 09:37] VITALS: BP 100/62
--- NOTE | 2022-08-28 11:44 | P.DS_ITS ---
DS: Providers Provider Date of Service: 08/28/22 Date of admission: 08/09/22 22:01 Primary care physician: Brayden Dickey MD Consults: 08/09/22 22:06 Consult to Wound Care Routine Consulting Provider: [facility] [place] Wound Care Management Reason for consultation: sacral decub 08/09/22 22:07 Consult to Nephrology Routine Consulting Provider: Isaak Guerrero Reason for consultation: ESRD on HD 08/10/22 14:38 Consult to General Surgery Routine Consulting Provider: Yancy Olivo Reason for consultation: lumbar wound 08/12/22 09:48 Consult to Infectious Diseases Routine Consulting Provider: Marion Murray Reason for consultation: MRSA bacteremia, sacral wound 08/17/22 10:30 Consult to Infectious Diseases Routine Consulting Provider: Marion Murray Reason for consultation: NEW DAPTO ORDER 08/17/22 12:32 Consult to Vascular Surgery Routine Consulting Provider: Bill Garcia Reason for consultation: fistula site ulcer for eval and rec. DS: Diagnosis Discharge Diagnosis (1) End stage renal disease on dialysis: Status: Acute (2) MRSA bacteremia: Status: Acute (3) Sundowning: Status: Acute (4) Pressure injury of lower back, stage 4: Status: Acute (5) Sepsis: Status: Acute (6) COVID-19 virus infection: Status: Acute DS: Summary Hospital Course Hospital Course: from initial hpi: This is a 81-year-old male coming from half-way facility with pertinent history of end-stage renal disease on hemodialysis, prostate cancer with history of urostomy, mixed hyperlipidemia, essential hypertension, chronic obstructive pulmonary disease, permanent atrial fibrillation on Coumadin, congestive heart failure unknown ejection fraction, rheumatoid arthritis who was brought to the emergency department for evaluation of altered mentation.? As per the family, patient has been altered for the last few days.? He gets altered every time he gets infected as per the son.? Patient was found to be febrile and sent to the ER for further evaluation.? Son stated that patient was intermittently confused over the last few days and did not know where he was.? He was also weak and could not participate and physical therapy.? Patient is drowsy at the time of my evaluation but easily awakens to verbal stimulus.? He is oriented to self and person but disoriented to place and time. In the emergency department, patient was found to be septic.? His sacral decubitus wound was erythematous and with purulent drainage. hospital course: Patient was admitted for severe sepsis and metabolic encephalopathy due to cellulitis and infected sacral decubitus ulcer complicated by MRSA bacteremia. Patient had persistent bacteremia while on vancomycin so was transitioned to daptomycin and cultures became negative on 08/20/2022. He had no vegetation on echocardiogram. He was seen by infectious disease recommended 6 weeks of IV antibiotics to be completed 09/30/2022 He has a Yao catheter for access. his CPK should be monitored. course was complicated by sundowning which is likely related to his medical condition mentioned previously, at time of discharge he is at his baseline. Patient noted to have COVID-19 infection which was asymptomatic. For his end-stage renal disease he received hemodialysis through his left upper extremity fistula. patient's INR was noted to be supratherapeutic his Coumadin has been decreased to 0.5 mg daily. For his permanent atrial fibrillation is continue on metoprolol and Coumadin. For hyperlipidemia is continue on statin. For stage IV sacral ulcer he was seen by wound team recommended local care with Santyl and pressure relief. Patient will be discharged half-way facility. Continue daptomycin as prescribed until 09/30/2022 Dialysis per Nephrology schedule Start physical therapy as tolerated Time Spent with Patient Time attestation: Total time spent providing and/or coordinating discharge services: Discharge coordination time: Greater than 30 minutes Quality: Safe Use of Opioids Does Pt have an Active Cancer Diagnosis on the Problem List?: No Quality: Stroke Does the patient have a stroke diagnosis?: No Physical Exam Vital Signs: Vital Signs: Last Vital Signs Temp 98.7 F 08/28/22 07:58 Pulse 89 08/28/22 07:58 Resp 16 08/28/22 07:58 BP 100/62 08/28/22 09:37 Pulse Ox 99 08/28/22 07:58 O2 Del Method 08/28/22 07:58 O2 Flow Rate 10 08/24/22 13:55 FiO2 100 08/13/22 19:43 BMI result Body Mass Index 27.5 Const: Other: Constitutional : Alert, oriented, not in distress Neck : Normal inspection, Supple, LUE fistula Cardiovascular : RRR, no JVP, no lower extremity edema Respiratory : fair bilateral air entry, no crackles, wheezes or rhonchi Gastrointestinal: soft, lax, Normal bowel sounds, Non tender Skin : Warm, Dry, stage IV sacral wound, small ulcer LUE near fistula site Neurological : Alert & oriented x3, No focal deficit , CN 2-12 within normal DS: Data Data Completed and Pending Labs on day of discharge: Laboratory Results - last 24 hr 08/28/22 06:05 PT 26.2 H INR 2.2 H Imaging Chest x-ray: Radiologist's impression: ITS Impressions Chest X-Ray 08/09/22 15:12 IMPRESSION: Patchy bilateral airspace opacities suspicious for multifocal infection. Small bilateral pleural effusions. Abdomen/Pelvis CT 08/09/22 17:30 IMPRESSION: There are several findings here. Soft tissue engulfing and occupying the region of the left iliac region. Tumor would need to be considered here. Differential would include possibly aging hematoma versus chronic change of other etiology. Bilateral basilar lung changes. A few foci show masslike quality. Certainly underlying malignancy cannot be excluded though this may be inflammatory in etiology. Soft tissue increase in the mid to lower lumbar region subcutaneous fat region with a small air focus. Infection would need to be considered. Cellulitis. Atrophic right kidney. The left kidney is not identified. Abdominal wall herniation. This is not causing obstruction at this time Fleischner guidelines were followed. Head CT 08/09/22 17:30 IMPRESSION: Negative acute noncontrast CT the brain. Air-fluid level in the maxillary sinus. May indicate acute sinus disease Venous Duplex 08/18/22 17:30 IMPRESSION: 1. Limited exam due to patient requesting the technologist to stop the exam per report. 2. The patient's left upper extremity fistula is patent with pulsatile low-resistance flow extending from the clavicle to the level of the elbow. The left internal jugular vein and left brachial veins are patent. No soft tissue fluid collection/abscess is identified. Insertion Tunneled Catheter 08/26/22 12:30 IMPRESSION: Left internal jugular 5-Urdu single-lumen proline catheter placement. Discharge Plan Discharge Anticipated Discharge Date/Time: 08/27/22 13:12 Patient Disposition: [facility] Discharge Diagnosis: mrsa bacteremia, sacral pressure ulcer Referrals: [facility] [Outside] - 1 Week Brayden Dickey MD [Primary Care Provider] - 1 Week Discharge Medications: New Santyl 250 unit/gram Ointment 1 appl topical DAILY Qty: 0 0RF Protocol: Apply to: Apply to: sacral/back wound thick layer to wound daily and cover dsd - warfarin 1 mg Tablet 0.5 mg PO DAILY@1800 Qty: 0 0RF daptomycin 500 mg Recon Soln 1,200 mg IV SA@1645 Qty: 0 0RF daptomycin 500 mg Recon Soln 800 mg IV TUTH@1645 Qty: 0 0RF zinc oxide 20 % Ointment 1 appl topical DAILY@0730 Qty: 0 0RF Protocol: Apply to: Apply to: sacral and hip skin areas and surrounding back open wound. Continued midodrine 5 mg Tablet 5 mg PO TID PRN (Reason: Hypotension) Rx Instructions: do not give last dose of day after 6PM or within 4 hrs of bedtime; for systolic BP <100 acetaminophen 500 mg Tablet 1,000 mg PO Q8H PRN (Reason: Pain) guaifenesin 100 mg/5 mL Liquid 200 mg PO Q2H PRN (Reason: Cough) bisacodyl 10 mg Suppository 10 mg PA DAILY PRN (Reason: Constipation) lidocaine 5 % Adhesive Patch,Medicated 1 patch TOPICAL DAILY Rx Instructions: leave on most painful area for up to 12 hrs gabapentin 100 mg capsule 1 cap PO TID metoprolol tartrate 25 mg Tablet 12.5 mg PO BID cholecalciferol (vitamin D3) 25 mcg (1,000 unit) Tablet 25 mcg PO DAILY melatonin 5 mg Tablet 10 mg PO BEDTIME sennosides [senna] 8.6 mg Tablet 17.2 mg PO BID polyethylene glycol 3350 [Miralax] 17 gram Powder In Packet 17 g PO DAILY nitroglycerin 0.4 mg Tablet, Sublingual 0.4 mg SUBLINGUAL Q5M PRN (Reason: Angina) Rx Instructions: do not exceed 3 doses per episode B complex with C 20-folic acid 1 mg Capsule 1 cap PO DAILY sevelamer carbonate 800 mg Tablet 800 mg PO BIDWM Rx Instructions: must administer with a meal/food guaifenesin [Mucinex] 600 mg Tablet Extended Release 12hr 600 mg PO BID trazodone 100 mg tablet 150 mg PO BEDTIME megestrol 20 mg tablet 20 mg PO DAILY Humira Pen 40 mg/0.8 mL pen injector kit 40 mg subcut SA magnesium oxide 400 mg (241.3 mg magnesium) tablet 400 mg PO DAILY gabapentin 100 mg capsule 200 mg PO BEDTIME atorvastatin 40 mg tablet 40 mg PO BEDTIME omeprazole 20 mg capsule,delayed release(DR/EC) 20 mg PO DAILY@0630 cyanocobalamin (vitamin B-12) 1,000 mcg capsule 1,000 mcg PO DAILY Discontinued warfarin 1 mg tablet 1 mg PO DAILY@1800 Discharge Orders: Discharge Order (Routine); Ordered 08/28/22 Ordered By: Sahra Rhodes Diet: Advance to usual diet Activity on Discharge: As tolerated Stand Alone Forms: Patient Portal Discharge page Care Plan Goals: recovery Health Concerns: mrsa bacteremia Plan of Treatment: dapto until 09/30/22, weekly labs including cpk Assessment: Continue antibiotic as prescribed Dialysis by Nephrology team Physical therapy as tolerated
[2022-08-28 12:00] VITALS: BP 110/62; PULSE 87; RESP 12; TEMP 36.7; O2SAT 100
== END 2022-08-28 16:27 | disposition skilled nursing facility (03) | DRG 871 ==
LOC: HO.ED 17:00 → HO.EDOVER 22:26 → HO.IMC 08-10 17:37
PROVIDERS: Internal Medicine; Physician Assistant; Physician Assistant Medical; Radiology Diagnostic Radiology; Admitting Provider Student in an Organized Health Care Education/Training Program; Emergency Provider Emergency Medicine Emergency Medical Services; PCP Family Medicine; Visit Provider Student in an Organized Health Care Education/Training Program
PROC: 0JH63XZ Insertion of Tunneled Vascular Access Device into Chest Subcutaneous Tissue and Fascia, Percutaneous Approach (ICD-10-PCS; principal; 2022-08-26 10:00)
DX: A41.9 Sepsis, unspecified organism (principal); G93.41 Metabolic encephalopathy; L89.154 Pressure ulcer of sacral region, stage 4; N18.6 End stage renal disease; U07.1 COVID-19; I21.A1 Myocardial infarction type 2; I13.2 Hypertensive heart and chronic kidney disease with heart failure and with stage 5 chronic kidney disease, or end stage renal disease; D68.9 Coagulation defect, unspecified; L03.312 Cellulitis of back [any part except buttock and flank]; I48.21 Permanent atrial fibrillation; F05 Delirium due to known physiological condition; Z66 Do not resuscitate; D63.1 Anemia in chronic kidney disease; I25.10 Atherosclerotic heart disease of native coronary artery without angina pectoris; G47.33 Obstructive sleep apnea (adult) (pediatric); M06.9 Rheumatoid arthritis, unspecified; E78.2 Mixed hyperlipidemia; I50.9 Heart failure, unspecified; N25.0 Renal osteodystrophy; B95.62 Methicillin resistant Staphylococcus aureus infection as the cause of diseases classified elsewhere; J44.9 Chronic obstructive pulmonary disease, unspecified; R65.20 Severe sepsis without septic shock; E87.6 Hypokalemia; D72.828 Other elevated white blood cell count; Z95.810 Presence of automatic (implantable) cardiac defibrillator; Z93.6 Other artificial openings of urinary tract status; Z88.1 Allergy status to other antibiotic agents; Z79.01 Long term (current) use of anticoagulants; Z79.620 Long term (current) use of immunosuppressive biologic; Z79.899 Other long term (current) drug therapy
CPT/HCPCS: 0241U; 36415; 36558; 70450; 71045; 74176; 76937; 80048; 80076; 80202; 81001; 81003; 82550; 82565; 83605; 83690; 83735; 83880; 84145; 84484; 85025; 85027; 85610; 85652; 86850; 86900; 86901; 87040; 87077; 87147; 87186; 87205; 87635; 90935; 90999; 93005; 93306; 93971; 97162; 99285; C1751; C1769; J0692; J0878; J0885; J1642; J2270; J2405; J3370; J3430; J3475; P9047; Q9957

== ENCOUNTER 2022-08-29 05:28 | Outpatient (REF) | payer MEDICARE, OTHER, SELFPAY ==
[2022-08-29 05:35] LABS: Hematocrit 27.9 % (42.0-52.0); Hemoglobin 8.6 g/dl (14.0-18.0); Mean Corpuscular HGB Conc 30.8 g/dl (31.0-36.0); Mean Corpuscular Hemoglobin 31.3 pg (27.0-33.0); Mean Corpuscular Volume 101.5 fL (80.0-98.0); Platelet Count 510 X10*3/uL (160-400); Red Blood Count 2.75 X10*6/uL (4.60-5.80); Red Cell Distribution Width 19.2 % (11.0-16.0); White Blood Count 10.8 X10*3/uL (4.8-10.8)
[2022-08-29 05:46] LABS: INTERNATIONAL NORM RATIO 2.4 (0.9-1.1); Prothrombin Time 28.1 SEC (10.0-13.1)
[2022-08-29 05:49] LABS: Anion Gap 17 (12-20); Blood Urea Nitrogen 22 mg/dL (9-16); Calcium 8.4 mg/dL (8.4-10.2); Carbon Dioxide 30 mmol/L (22-29); Chloride 99 mmol/L (96-108); Estimated Glomerular Filt Rate 11; Glucose Random 92 mg/dL (60-115); Potassium 3.8 mmol/L (3.3-5.1); Sodium 142 mmol/L (135-145)
== END 2022-08-29 05:29 | disposition home or self-care (01) ==
LOC: HO.MMNH2L 05:28
PROVIDERS: Visit Provider Family Medicine
DX: Z13.89 Encounter for screening for other disorder (principal)
CPT/HCPCS: 36415; 80048; 85027; 85610

== ENCOUNTER 2022-08-29 11:33 | Emergency (ER) | payer MEDICARE, OTHER, SELFPAY ==
--- NOTE | ~2022-08-29 | XR_ITS ---
EXAMINATION: XR CHEST CLINICAL INFORMATION: Altered mental status and hypoxia COMPARISON: August 09, 2022 TECHNIQUE: AP portable view of the chest was obtained. FINDINGS: Faint patchy regions of parenchymal density again seen with no significant change from previous study. No pneumothorax or significant pleural effusion is seen. There is some blunting of the costophrenic angles bilaterally which may be related to small effusions or pleural parenchymal scarring. Heart normal size. No evidence of pulmonary edema. AICD in place. Left axillary and subclavian stents in place. Left internal jugular central venous catheter is seen with tip directed cephalad in the superior vena cava. There is a lucent region in bony sclerosis involving the right scapula without significant change from previous study. XR/XR chest 1V IMPRESSION: No significant change from study of August 09, 2022. Left internal jugular central venous catheter with tip directed cephalad. This critical result was discussed with Radha Gr at 2:19 PM on August 29, 2022 and it was ascertained that the content and urgency of the report was understood at the time of direct communication.
[2022-08-29 11:41] VITALS: BP 103/48; PULSE 120; O2SAT 92
--- NOTE | 2022-08-29 11:44 | ECG_ITS ---
Test Reason : SEPSIS Blood Pressure : / mmHG Vent. Rate : 110 BPM Atrial Rate : 000 BPM P-R Int : 000 ms QRS Dur : 084 ms QT Int : 378 ms P-R-T Axes : 000 -09 204 degrees QTc Int : 511 ms Atrial fibrillation with rapid ventricular response RSR' or QR pattern in V1 suggests right ventricular conduction delay ST & T wave abnormality, consider lateral ischemia Abnormal ECG When compared with ECG of 17-AUG-2022 15:50, ST now depressed in Lateral leads Referred By: Radha Gr Electronically Signed By:KYM GUADALUPE MD
--- NOTE | 2022-08-29 11:54 | ED_ITS ---
HPI - General Adult General Chief complaint: General Medical Stated complaint: AMS,92% RA,FROM SNF PER EMS Time Seen by Provider: 08/29/22 11:44 Source: patient, EMS and old records reviewed Mode of arrival: EMS Limitations: other (Poor historian) History of Present Illness HPI narrative: 81-year-old male with history of ESRD on HD T/Th/Sat, prostate cancer w/ urostomy, HLD, HTN, COPD, afib on Coumadin, [place] [facility] MRSA bacteremia, severe sepsis and encephalopathy due to cellulitis and infection of a sacral decubitus ulcer, discharged on daptomycin who presents to the ER for evaluation of hypotension and tachycardia from his retirement facility. Patient was reportedly found to be hypotensive in the 70 systolic with heart rates in the 120s. He reportedly went to dialysis this morning and completed his 4 hour session. He received a dose of IV daptomycin there. Per patient's , he was calling family earlier this morning and telling them he didn't feel well. He denies fever or chills. MD complaint: Hypotension and tachycardia Onset (ago): unknown Location: back Radiation: non-radiation Severity: severe Severity scale (1-10): 8 Quality: aching Pain Consistency: constant Relieving factors: none Exacerbating factors: movement Associated symptoms: weakness Treatments prior to arrival: none Related Data Home Medications Medication Instructions Recorded Confirmed adalimumab 40 mg/0.8 mL 40 mg subcut SA 12/06/21 08/09/22 subcutaneous pen kit (Humira Pen) atorvastatin 40 mg tablet 40 mg PO BEDTIME 12/06/21 08/09/22 cyanocobalamin (vitamin B-12) 1,000 mcg PO DAILY 12/06/21 08/09/22 1,000 mcg capsule gabapentin 100 mg capsule 200 mg PO BEDTIME 12/06/21 08/09/22 magnesium oxide 400 mg (241.3 mg 400 mg PO DAILY 12/06/21 08/09/22 magnesium) tablet megestrol 20 mg tablet 20 mg PO DAILY 12/06/21 08/09/22 omeprazole 20 mg capsule,delayed 20 mg PO DAILY@0630 12/06/21 08/09/22 release trazodone 100 mg tablet 150 mg PO BEDTIME 12/06/21 08/09/22 acetaminophen 500 mg tablet 1,000 mg PO Q8H PRN Pain 08/09/22 08/09/22 bisacodyl 10 mg rectal suppository 10 mg TX DAILY PRN Constipation 08/09/22 08/09/22 cholecalciferol (vitamin D3) 25 25 mcg PO DAILY 08/09/22 08/09/22 mcg (1,000 unit) tablet gabapentin 100 mg capsule 1 cap PO TID 08/09/22 08/09/22 guaifenesin 100 mg/5 mL oral liquid 200 mg PO Q2H PRN Cough 08/09/22 08/09/22 guaifenesin 600 mg tablet, 600 mg PO BID 08/09/22 08/09/22 extended release 12 hr (Mucinex) lidocaine 5 % topical patch 1 patch topical DAILY 08/09/22 08/09/22 melatonin 5 mg tablet 10 mg PO BEDTIME 08/09/22 08/09/22 metoprolol tartrate 25 mg tablet 12.5 mg PO BID 08/09/22 08/09/22 midodrine 5 mg tablet 5 mg PO TID PRN Hypotension 08/09/22 08/09/22 nitroglycerin 0.4 mg sublingual 0.4 mg sublingual Q5M PRN Angina 08/09/22 08/09/22 tablet polyethylene glycol 3350 17 gram 17 g PO DAILY 08/09/22 08/09/22 oral powder packet (Miralax) sennosides 8.6 mg tablet (senna) 17.2 mg PO BID 08/09/22 08/09/22 sevelamer carbonate 800 mg tablet 800 mg PO BIDWM 08/09/22 08/09/22 vitamin B complex and vitamin C 1 cap PO DAILY 08/09/22 08/09/22 no.20-folic acid 1 mg capsule Previous Rx's Medication Instructions Recorded collagenase clostridium histo. 250 1 appl topical DAILY #0 grams 08/27/22 unit/gram topical ointment (Santyl) daptomycin 500 mg intravenous 1,200 mg IV SA@1645 #0 ea 08/27/22 solution daptomycin 500 mg intravenous 800 mg IV TUTH@1645 #0 ea 08/27/22 solution warfarin 1 mg tablet 0.5 mg PO DAILY@1800 #0 tabs 08/27/22 zinc oxide 20 % topical ointment 1 appl topical DAILY@0730 #0 grams 08/27/22 Allergies Allergy/AdvReac Type Severity Reaction Status Date / Time doxycycline Allergy Difficulty Verified 02/14/22 11:00 Breathing Review of Systems Review of Systems: Constitutional: No Fever, No Chills ENT/Mouth: No sore throat, No Rhinorrhea, No Swallowing Difficulty Eyes: No Eye Pain, No Swelling, No Redness Cardiovascular: No Chest Pain, No SOB, No Orthopnea, No Edema Respiratory: No Cough, No Sputum, No Wheezing, No dyspnea Gastrointestinal: No Nausea, No Vomiting, No Diarrhea, No abdominal Pain, No Hematochezia, No Melena Genitourinary: No Dysuria, No Urinary Frequency, No Hematuria Musculoskeletal: + joint pain, + Myalgias Skin: + Skin Lesions, No rash Neuro: + Weakness, No Numbness, No Dizziness, No Headache Psych: No Anxiety/Panic, No Depression Heme/Lymph: No Bruising, No Lymphadenopathy Endocrine: No Polyuria, No Polydipsia PMFSH Past Medical History Medical History (Updated 08/29/22 @ 17:05 by ELLA Ramon) Ambulates with cane Arteriovenous fistula for hemodialysis in place, primary Ascending aorta dilatation Atrial fibrillation AVNRT (AV vivian re-entry tachycardia) CAD (coronary artery disease) CHF (congestive heart failure) Elevated cholesterol End stage renal disease ESRD (end stage renal disease) on dialysis GERD (gastroesophageal reflux disease) HTN (hypertension) Hx of syncope Insomnia MRSA bacteremia JAIRON (obstructive sleep apnea) Prostate cancer Rheumatoid arthritis Skin lesion Unsteady gait Wears dentures Surgical History History of bladder surgery History of surgical removal of skin lesion History of urostomy Hx of abdominal surgery Hx of colonoscopy Hx of hernia repair Hx of radical prostatectomy S/P implantation of automatic cardioverter/defibrillator (AICD) Social History Social History Household Members: Spouse Housing: House Do you presently have visiting nurse or other home services: No Patient Tobacco Use Status: Never used Tobacco Advance Directives: Yes Advance Directives on File: Yes Advance Directives Date on File: 08/11/22 Physical Exam ED Vital Signs: Vital Signs - 24 hr 08/29/22 12:01 08/29/22 16:10 08/29/22 16:35 Temperature 97.7 F 98.7 F Pulse Rate 107 H 106 H 98 Respiratory Rate 20 16 16 Blood Pressure 101/45 L 91/49 L 84/47 L Pulse Oximetry 100 98 98 Oxygen Delivery Method Nasal Cannula Room Air Nasal Cannula Oxygen Flow Rate 1 BMI result Body Mass Index 27.5 Appearance: Alert, frail elderly male. Oriented X3, agitated. No acute distress. Eyes: Pupils equal, round and reactive to light. ENT: Pharynx with dry mucus membranes Neck: Normal inspection. Neck supple. CVS: Normal heart rate and rhythm. Pulses normal. Respiratory: No respiratory distress. Breath sounds normal. Abdomen: Ostomy in place, tenderness but reducible ventral hernia, Soft +BS x4 Skin: Skin warm and dry. Normal skin color. Normal skin turgor. No rashes. Back/buttocks: significant erythema and tenderness of sacral area Extremities: No lower extremity edema. Neuro: Oriented X 3. generalized weakness, nonfocal. Course Course Course Narrative: 81-year-old male with complex medical history including end-stage renal disease on dialysis Friday, , Friday, recent admission here for MRSA bacteremia due to an infected sacral decubitus ulcer and cellulitis who presents back to the ER after he was found to be hypotensive and tachycardic at his SNF. Unclear how much fluid was taken off. He did receive his IV daptomycin at dialysis this morning sometime between 09:00 and noon. His next dose is scheduled on Friday after his dialysis session. On arrival to the ER patient is agitated, in pain from moving from stretcher to bed. His low back and buttock wound is bothering him. He is tachycardic to 120. His blood pressure is 101/45. Rectal temp is 97.7 degrees. Saturating 100% on 1 L nasal cannula. Will trial off. Will get labs and cultures. His wound was evaluated and does not appear to be purulence or having any active discharge. Patient's mouth is very dry. Concern for possible over dialyzing him. Will give him 1 L IV fluids and 10 mg of midodrine. He is on p.r.n. midodrine as needed SBP less than 100. Reevaluation(s) Reevaluation #1: 12:48 - WBC 12.1 from 10.8 earlier today. His lactic acid is 4.4. This is thought to be due to transient hypotension at the retirement facility after fluid shifts from HD, his blood pressure but was reportedly 70s at that time. I doubt this is from severe sepsis. Will see how he improves with 1 L of IV fluid s. Will check for other sources of infection. Reevaluation #2: 15:50 - Lactic improved to 1.4. Blood pressure trended down to 84/47 when sleeping. Based on review of his records when he was just admitted, his blood pressure appears to range from 70s to 100 systolic as a baseline. He is mentating normally. Will given another 500 cc of IV fluid as he continues to appear clinically dry. He remains afebrile. 16:00 - Case discussed with infectious disease doctor - she is not concerned about daptomycin failure or sepsis at this time. More likely too much fluid was removed at his dialysis session today. Reevaluation #3: 17:21 - HR 90-100, BP 90/50s which appears to be his baseline. mentating at his baseline per his . albumin is low 2.6. if his BP is low again after the comp letion of IVF, will consider albumin infusion. If BP stable in the 90s systolic, will plan to transfer back to [facility]. Case d/w Dr. Moran for possible admission - she reviewed his chart and this all appears to be his baseline. She feels he does not require admission at this time. Patient is not septic. Consultations Consultation #1: ID - Dr. Murray Consultation #2: Hospitalist - Dr. Moran Medications Administered Generic Name Dose Route Start Last Admin Trade Name Freq PRN Reason Stop Dose Admin Sodium Chloride 500 mls @ 250 mls/hr 08/29/22 16:30 08/29/22 16:36 Ns IVCONT 08/29/22 18:29 250 mls/hr .Q2H NORA Administration Discontinued Medications Generic Name Dose Route Start Last Admin Trade Name Freq PRN Reason Stop Dose Admin Lactated Ringer's 1,000 mls @ 999 mls/hr 08/29/22 11:45 08/29/22 13:16 Lr IV 08/29/22 12:45 Infused .Q1H1M NORA Infusion Midodrine 10 mg 08/29/22 11:44 08/29/22 12:07 Midodrine Hcl 10 Mg Tablet PO 08/29/22 11:45 10 mg ONCE ONE Administration Midodrine 10 mg 08/29/22 16:21 08/29/22 16:36 Midodrine Hcl 10 Mg Tablet PO 08/29/22 16:22 10 mg ONCE ONE Administration Medical Decision Making Lab Data Result diagrams: 08/29/22 12:19 08/29/22 12:19 Labs: Lab Results 08/29/22 08/29/22 08/29/22 Range/Units 12:19 12:19 12:19 WBC 12.1 H (4.8-10.8) X10*3/uL RBC 2.82 L (4.60-5.80) X10*6/uL Hgb 8.6 L (14.0-18.0) g/dl Hct 28.6 L (42.0-52.0) % MCV 101.4 H (80.0-98.0) fL MCH 30.5 (27.0-33.0) pg MCHC 30.1 L (31.0-36.0) g/dl RDW 19.2 H (11.0-16.0) % Plt Count 519 H (160-400) X10*3/uL MPV 10.1 (9.4-12.4) fL Immature Gran % (Auto) 0.6 H (0.0-0.4) % Neut % (Auto) 73.9 H (45-73) % Lymph % (Auto) 14.0 L (20-40) % [place] % (Auto) 6.8 (2-11) % Eos % (Auto) 4.1 H (0-4) % Baso % (Auto) 0.6 (0-2) % Lymph # (Auto) 1.7 (1.2-4.9) X10*3/uL [place] # (Auto) 0.8 (0.1-1.2) X10*3/uL Eos # (Auto) 0.5 H (0.0-0.4) X10*3/uL Baso # (Auto) 0.1 (0.0-0.2) X10*3/uL Abs Immat Gran (auto) 0.07 H (0.00-0.03) X10*3/uL Absolute Neuts (auto) 9.0 H (2.0-8.3) x10*3/uL Absolute Nucleated RBC 0.000 (0.0-0.012) X10*3/uL Nucleated RBC % (auto) 0.0 (0.0-0.2) /100WBC PT (10.0-13.1) SEC INR (0.9-1.1) APTT (26.0-36.4) SEC Sodium 140 (135-145) mmol/L Potassium 3.7 (3.3-5.1) mmol/L Chloride 97 (96-108) mmol/L Carbon Dioxide 29 (22-29) mmol/L Anion Gap 18 (12-20) BUN 17 H (9-16) mg/dL Creatinine 2.78 H (0.5-1.4) mg/dL Estim Creat Clear Calc 22.8 Estimated GFR 22 Random Glucose 91 (60-115) mg/dL Lactic Acid 4.4 H* (0.5-2.0) mmol/L Lactic Acid F/U @ 2Hr (0.5-2.0) mmol/L Calcium 8.2 L (8.4-10.2) mg/dL Magnesium 2.3 (1.6-2.6) mg/dL Total Bilirubin 1.0 (0.0-1.0) mg/dL Direct Bilirubin 0.6 H (0.0-0.5) mg/dL AST 24 (5-37) U/L ALT < 6 (0-40) U/L Alkaline Phosphatase 111 D (39-117) U/L Troponin I High Sens (<3.5-35.0) ng/L Total Protein 6.6 D (6.5-8.0) g/dL Albumin 2.6 L D (3.5-5.0) g/dL Influenza Type A (PCR) (Negative) Influenza Type B (PCR) (Negative) RSV RNA Qual (PCR) (Negative) SARS-CoV-2 RNA (RT-PCR) (Negative) 08/29/22 08/29/22 08/29/22 Range/Units 12:19 12:19 12:20 WBC (4.8-10.8) X10*3/uL RBC (4.60-5.80) X10*6/uL Hgb (14.0-18.0) g/dl Hct (42.0-52.0) % MCV (80.0-98.0) fL MCH (27.0-33.0) pg MCHC (31.0-36.0) g/dl RDW (11.0-16.0) % Plt Count (160-400) X10*3/uL MPV (9.4-12.4) fL Immature Gran % (Auto) (0.0-0.4) % Neut % (Auto) (45-73) % Lymph % (Auto) (20-40) % [place] % (Auto) (2-11) % Eos % (Auto) (0-4) % Baso % (Auto) (0-2) % Lymph # (Auto) (1.2-4.9) X10*3/uL [place] # (Auto) (0.1-1.2) X10*3/uL Eos # (Auto) (0.0-0.4) X10*3/uL Baso # (Auto) (0.0-0.2) X10*3/uL Abs Immat Gran (auto) (0.00-0.03) X10*3/uL Absolute Neuts (auto) (2.0-8.3) x10*3/uL Absolute Nucleated RBC (0.0-0.012) X10*3/uL Nucleated RBC % (auto) (0.0-0.2) /100WBC PT 30.3 H (10.0-13.1) SEC INR 2.5 H (0.9-1.1) APTT 38.2 H (26.0-36.4) SEC Sodium (135-145) mmol/L Potassium (3.3-5.1) mmol/L Chloride (96-108) mmol/L Carbon Dioxide (22-29) mmol/L Anion Gap (12-20) BUN (9-16) mg/dL Creatinine (0.5-1.4) mg/dL Estim Creat Clear Calc Estimated GFR Random Glucose (60-115) mg/dL Lactic Acid (0.5-2.0) mmol/L Lactic Acid F/U @ 2Hr (0.5-2.0) mmol/L Calcium (8.4-10.2) mg/dL Magnesium (1.6-2.6) mg/dL Total Bilirubin (0.0-1.0) mg/dL Direct Bilirubin (0.0-0.5) mg/dL AST (5-37) U/L ALT (0-40) U/L Alkaline Phosphatase (39-117) U/L Troponin I High Sens 16.1 (<3.5-35.0) ng/L Total Protein (6.5-8.0) g/dL Albumin (3.5-5.0) g/dL Influenza Type A (PCR) NEGATIVE (Negative) Influenza Type B (PCR) NEGATIVE (Negative) RSV RNA Qual (PCR) NEGATIVE (Negative) SARS-CoV-2 RNA (RT-PCR) NEGATIVE (Negative) 08/29/22 Range/Units 15:21 WBC (4.8-10.8) X10*3/uL RBC (4.60-5.80) X10*6/uL Hgb (14.0-18.0) g/dl Hct (42.0-52.0) % MCV (80.0-98.0) fL MCH (27.0-33.0) pg MCHC (31.0-36.0) g/dl RDW (11.0-16.0) % Plt Count (160-400) X10*3/uL MPV (9.4-12.4) fL Immature Gran % (Auto) (0.0-0.4) % Neut % (Auto) (45-73) % Lymph % (Auto) (20-40) % [place] % (Auto) (2-11) % Eos % (Auto) (0-4) % Baso % (Auto) (0-2) % Lymph # (Auto) (1.2-4.9) X10*3/uL [place] # (Auto) (0.1-1.2) X10*3/uL Eos # (Auto) (0.0-0.4) X10*3/uL Baso # (Auto) (0.0-0.2) X10*3/uL Abs Immat Gran (auto) (0.00-0.03) X10*3/uL Absolute Neuts (auto) (2.0-8.3) x10*3/uL Absolute Nucleated RBC (0.0-0.012) X10*3/uL Nucleated RBC % (auto) (0.0-0.2) /100WBC PT (10.0-13.1) SEC INR (0.9-1.1) APTT (26.0-36.4) SEC Sodium (135-145) mmol/L Potassium (3.3-5.1) mmol/L Chloride (96-108) mmol/L Carbon Dioxide (22-29) mmol/L Anion Gap (12-20) BUN (9-16) mg/dL Creatinine (0.5-1.4) mg/dL Estim Creat Clear Calc Estimated GFR Random Glucose (60-115) mg/dL Lactic Acid (0.5-2.0) mmol/L Lactic Acid F/U @ 2Hr 1.4 (0.5-2.0) mmol/L Calcium (8.4-10.2) mg/dL Magnesium (1.6-2.6) mg/dL Total Bilirubin (0.0-1.0) mg/dL Direct Bilirubin (0.0-0.5) mg/dL AST (5-37) U/L ALT (0-40) U/L Alkaline Phosphatase (39-117) U/L Troponin I High Sens (<3.5-35.0) ng/L Total Protein (6.5-8.0) g/dL Albumin (3.5-5.0) g/dL Influenza Type A (PCR) (Negative) Influenza Type B (PCR) (Negative) RSV RNA Qual (PCR) (Negative) SARS-CoV-2 RNA (RT-PCR) (Negative) ECG Data Attestation: I personally reviewed and interpreted this ECG as follows: Prior ECG tracings: available for review Interpretation: Atrial fibrillation with rapid ventricular response, heart rate 110 beats per mi nute, prolonged QTC, T-wave inversions in lateral leads, ST depression in V6 which has been present before. Critical Care Time Critical Care Time Critical Care Time: Yes Total Critical Care Time: 56 Attestation: I have personally provided critical care time exclusive of time spent on separately billable procedures. Time includes review of lab data, radiology results, discussion with consultants, and monitoring for potential decompensation. Intervention performed as documented. Discharge Plan Discharge Clinical Impression: Hypotension, chronic, Atrial fibrillation with rapid ventricular response Patient Disposition: Xfer SNF Instructions: Hypotension (ED), A-fib (Atrial Fibrillation) (DC) Additional Instructions: Recommend taking 5-10 mg of midodrine before every dialysis session. Follow-up with the Infectious Disease provider as scheduled. Prescriptions: No Action midodrine 5 mg Tablet 5 mg PO TID PRN (Reason: Hypotension) Rx Instructions: do not give last dose of day after 6PM or within 4 hrs of bedtime; for systolic BP <100 acetaminophen 500 mg Tablet 1,000 mg PO Q8H PRN (Reason: Pain) guaifenesin 100 mg/5 mL Liquid 200 mg PO Q2H PRN (Reason: Cough) bisacodyl 10 mg Suppository 10 mg TX DAILY PRN (Reason: Constipation) lidocaine 5 % Adhesive Patch,Medicated 1 patch TOPICAL DAILY Rx Instructions: leave on most painful area for up to 12 hrs gabapentin 100 mg capsule 1 cap PO TID metoprolol tartrate 25 mg Tablet 12.5 mg PO BID cholecalciferol (vitamin D3) 25 mcg (1,000 unit) Tablet 25 mcg PO DAILY melatonin 5 mg Tablet 10 mg PO BEDTIME sennosides [senna] 8.6 mg Tablet 17.2 mg PO BID polyethylene glycol 3350 [Miralax] 17 gram Powder In Packet 17 g PO DAILY nitroglycerin 0.4 mg Tablet, Sublingual 0.4 mg SUBLINGUAL Q5M PRN (Reason: Angina) Rx Instructions: do not exceed 3 doses per episode B complex with C 20-folic acid 1 mg Capsule 1 cap PO DAILY sevelamer carbonate 800 mg Tablet 800 mg PO BIDWM Rx Instructions: must administer with a meal/food guaifenesin [Mucinex] 600 mg Tablet Extended Release 12hr 600 mg PO BID Santyl 250 unit/gram Ointment 1 appl topical DAILY Qty: 0 0RF Protocol: Apply to: Apply to: sacral/back wound thick layer to wound daily and cover dsd - warfarin 1 mg Tablet 0.5 mg PO DAILY@1800 Qty: 0 0RF daptomycin 500 mg Recon Soln 1,200 mg IV SA@1645 Qty: 0 0RF daptomycin 500 mg Recon Soln 800 mg IV TUTH@1645 Qty: 0 0RF zinc oxide 20 % Ointment 1 appl topical DAILY@0730 Qty: 0 0RF Protocol: Apply to: Apply to: sacral and hip skin areas and surrounding back open wound. trazodone 100 mg tablet 150 mg PO BEDTIME megestrol 20 mg tablet 20 mg PO DAILY Humira Pen 40 mg/0.8 mL pen injector kit 40 mg subcut SA magnesium oxide 400 mg (241.3 mg magnesium) tablet 400 mg PO DAILY gabapentin 100 mg capsule 200 mg PO BEDTIME atorvastatin 40 mg tablet 40 mg PO BEDTIME omeprazole 20 mg capsule,delayed release(DR/EC) 20 mg PO DAILY@0630 cyanocobalamin (vitamin B-12) 1,000 mcg capsule 1,000 mcg PO DAILY
[2022-08-29 12:01] VITALS: BP 101/45; PULSE 107; RESP 20; TEMP 36.5; O2SAT 100; BMI 27.5
[2022-08-29] MEDS: Midodrine HCl 10 MG TABLET PO ×2 (12:07→16:36)
[2022-08-29] MEDS: Lactated Ringers 1,000 ML 999 ML IV (12:07)
[2022-08-29 12:30] LABS: MANUAL DIFF FLAG NO
[2022-08-29 12:34] LABS: Basophils Absolute Auto 0.1 X10*3/uL (0.0-0.2); Basophils Percent Auto 0.6 % (0-2); Eosinophils Absolute Auto 0.5 X10*3/uL (0.0-0.4); Eosinophils Percent Auto 4.1 % (0-4); Hematocrit 28.6 % (42.0-52.0); Hemoglobin 8.6 g/dl (14.0-18.0); Imm Gran Abs Auto 0.07 X10*3/uL (0.00-0.03); Imm Gran Pct Auto 0.6 % (0.0-0.4); Lymphocytes Absolute Auto 1.7 X10*3/uL (1.2-4.9); Mean Corpuscular HGB Conc 30.1 g/dl (31.0-36.0); Mean Corpuscular Hemoglobin 30.5 pg (27.0-33.0); Mean Corpuscular Volume 101.4 fL (80.0-98.0); Mean Platelet Volume 10.1 fL (9.4-12.4); Monocytes Absolute Auto 0.8 X10*3/uL (0.1-1.2); Monocytes Percent Auto 6.8 % (2-11); Neutrophils Percent Auto 73.9 % (45-73); Platelet Count 519 X10*3/uL (160-400); Red Blood Count 2.82 X10*6/uL (4.60-5.80); Red Cell Distribution Width 19.2 % (11.0-16.0); White Blood Count 12.1 X10*3/uL (4.8-10.8)
[2022-08-29 12:37] LABS: INTERNATIONAL NORM RATIO 2.5 (0.9-1.1); Prothrombin Time 30.3 SEC (10.0-13.1)
[2022-08-29 12:40] LABS: Partial Thromboplastin Time 38.2 SEC (26.0-36.4)
[2022-08-29 13:08] LABS: Alanine Aminotransferase < 6 U/L (0-40); Albumin Level 2.6 g/dL (3.5-5.0); Alkaline Phosphatase 111 U/L (39-117); Anion Gap 18 (12-20); Aspartate Amino Transferase 24 U/L (5-37); Bilirubin Direct 0.6 mg/dL (0.0-0.5); Blood Urea Nitrogen 17 mg/dL (9-16); Calcium 8.2 mg/dL (8.4-10.2); Carbon Dioxide 29 mmol/L (22-29); Chloride 97 mmol/L (96-108); Creatinine Clr Calc Pharmacy 22.8; Estimated Glomerular Filt Rate 22; Glucose Random 91 mg/dL (60-115); Magnesium 2.3 mg/dL (1.6-2.6); Potassium 3.7 mmol/L (3.3-5.1); Sodium 140 mmol/L (135-145); Total Protein 6.6 g/dL (6.5-8.0)
[2022-08-29 13:09] LABS: Lactic Acid 4.4 mmol/L (0.5-2.0)
[2022-08-29 13:16] LABS: Troponin-I High Sensitivity 16.1 ng/L (<3.5-35.0)
[2022-08-29 14:27] LABS: Reflex Lactate? Lactic Acid Added
[2022-08-29 15:38] LABS: Influenza A PCR NEGATIVE (Negative); Influenza B PCR NEGATIVE (Negative); Resp Syncy Virus RNA Qual PCR NEGATIVE (Negative); SARS COV2 PCR INHOUSE NEGATIVE (Negative)
[2022-08-29 15:46] LABS: ~Lactic Acid-LAB USE ONLY 1.4 mmol/L (0.5-2.0)
[2022-08-29 16:10] VITALS: BP 91/49; PULSE 106; RESP 16; TEMP 37.1; O2SAT 98
[2022-08-29 16:35] VITALS: BP 84/47; PULSE 98; RESP 16; O2SAT 98
[2022-08-29] MEDS: 0.9 % Sodium Chloride 500 ML 250 ML IVCONT (16:36)
--- NOTE | 2022-08-29 18:19 | PC.NURSE ---
Gael called at 180 for a transfer back to [facility] per Radha JARAMILLO. ETA 190.Rn aware
[2022-08-29 19:14] VITALS: BP 114/53; PULSE 99; RESP 28; O2SAT 100
== END 2022-08-29 19:26 | disposition skilled nursing facility (03) ==
PROVIDERS: Physician Assistant; Emergency Provider Emergency Medicine Emergency Medical Services
DX: I48.20 Chronic atrial fibrillation, unspecified (principal); R41.82 Altered mental status, unspecified; I95.9 Hypotension, unspecified; Z20.822 Contact with and (suspected) exposure to COVID-19; Z79.01 Long term (current) use of anticoagulants; Z79.899 Other long term (current) drug therapy
CPT/HCPCS: 0241U; 36415; 71045; 80048; 80076; 83605; 83735; 84484; 85025; 85027; 85610; 85730; 87040; 93005; 96360; 96361; 99284